=== PATIENT | male | born 1955 | race Caucasian/White ===

== ENCOUNTER 2018-05-30 11:00 | Outpatient (RCR) | payer BC, SELFPAY ==
[2018-05-12 10:53] VITALS: BP 126/80; PULSE 91; RESP 18; TEMP 36.9
--- NOTE | 2018-05-12 13:08 | PCM.WC.HP ---
(1) Venous ulcer of left leg Status: Acute Code(s): I83.029 - Varicose veins of left lower extremity with ulcer of unspecified site; L97.929 - Non-pressure chronic ulcer of unspecified part of left lower leg with unspecified severity Comment: With fat layer exposed. (2) Chronic acquired lymphedema Status: Chronic Code(s): I89.0 - Lymphedema, not elsewhere classified (3) Type 2 diabetes mellitus Status: Chronic Code(s): E11.9 - Type 2 diabetes mellitus without complications (4) Coronary artery disease Status: Chronic Code(s): I25.10 - Atherosclerotic heart disease of [place] coronary artery without angina pectoris History of Present Illness Date of Service: 05/12/18 Chief Complaint: Left lower extremity ulcer. Nonhealing. History of Wound: Mr. Evans is a 63-year-old with past medical history as stated above who presented to the wound center due to nonhealing left lower extremity ulcer. Reports a chronic history of bilateral lower extremity edema and states that he noted significant bleeding after a minor bump 2 - 3 weeks ago. He was seen by his primary care physician and started on antibiotics and has cleaned the wound with saline since then. There however has been no improvement. He denies any significant discharge/drainage from the wound. He also denies any feeling of unwell. He is unsure of his diabetes control. Past Medical History Past Medical History: Chronic Problems Chronic acquired lymphedema (Chronic) Type 2 diabetes mellitus (Chronic) Coronary artery disease (Chronic) Allergies/Adverse Reactions: Allergies No Known Allergies Allergy (Verified 02/17/17 12:36) Home Medications: Ambulatory Orders Medication Instructions Recorded Atorvastatin Calcium [Lipitor] 80 mg PO QHS 02/17/17 Clopidogrel Bisulfate [Clopidogrel] 75 mg PO DAILY 02/17/17 Ezetimibe [Zetia] 10 mg PO DAILY 02/17/17 Fluticasone 0.05% [Flonase Nasal 1 - 2 spray NASAL QHS 02/17/17 [place]] Furosemide [Lasix] 40 mg PO BID 02/17/17 Hydrocodone/Acetaminophen [[place] 1 each PO Q8H PRN PRN 02/17/17 5-325 Tablet] Magnesium Hydroxide [Milk of 15 ml PO DAILY PRN PRN 02/17/17 Magnesia] Metformin HCl [Glucophage] 500 mg PO BREAKFAST 02/17/17 Metoprolol Succinate [Toprol Xl] 50 mg PO DAILY 02/17/17 Nitroglycerin [Nitrostat] 0.4 mg SUBLINGUAL Q5M PRN 02/17/17 Polyethylene Glycol 3350 [Miralax] 17 gm PO DAILY 02/17/17 Potassium Chloride [K-Dur] 10 meq PO DAILY 02/17/17 Sennosides/Docusate Sodium 1 each PO DAILY 02/17/17 [Senna-Docusate Sodium Tablet] Tadalafil [Cialis] 10 mg PO PRN PRN 02/17/17 Valsartan/Hydrochlorothiazide 1 tablet PO BID 02/17/17 [Diovan Hct 160-12.5 mg Tab] Docusate Sodium [Colace] 100 mg PO DAILY #20 capsule 04/04/17 Hydrocodone Bitart/Apap 5-325 1 - 2 tablet PO Q4H PRN PRN #20 04/04/17 [[place] 5/325] tablet Furosemide [Lasix] 20 mg PO BID 05/12/18 Metoprolol Succinate [Toprol Xl] 100 mg PO DAILY 05/12/18 Pantoprazole Sodium [Protonix] 40 mg PO DAILY 05/12/18 Polymyxin B Sulf/Trimethoprim 10 ml OP 4X/DAY 05/12/18 [Polytrim Eye Drops] Spironolactone [Aldactone] 25 mg PO BID 05/12/18 Warfarin [Coumadin ([facility])] 12.5 mg PO DAILY 05/12/18 Smoking Status: Former smoker Review of Systems Constitutional: Denies: Anorexia, Chills, Fever Eyes: Denies: Pain, Redness HEENT: Denies: Difficulty Swallowing Cardiovascular: Denies: Chest Pain, Chest Pressure Respiratory: Denies: Cough, Hemoptysis Gastrointestinal: Denies: Abdominal Pain, Hematemesis, Vomiting Skin: Denies: Jaundice - Physical Exam Vital Signs Temp Pulse Resp BP 98.4 F 91 18 126/80 H 05/12/18 10:53 05/12/18 10:53 05/12/18 10:53 05/12/18 10:53 General: Alert, Oriented x3, Cooperative, No apparent distress HEENT: Atraumatic Oral: Moist Mucosa Neck: Supple Lungs: Normal air movement Cardiovascular: Regular rate, Regular Rhythm, Normal S1, Normal S2 Extremities: No cyanosis, Edema Skin: Ulcer/ Wound Wound Measurements and Assessment WC - Nurse 1 - General Ulcer Measurement Start: 05/12/18 10:29 Freq: Status: Active Protocol: Activity Type Activity Date Activity User E-Sign Co-Sign Detail Recorded Client Recorded Date Recorded By Document 05/12/18 10:53 CS [id number] 05/12/18 11:04 CS 05/12/18 10:53 Wound Center Nurse 1 [Ulcer Assessment] #1 LEFT LATERAL LE -Combined with other wound No -Current Size (cm) - Length 5.4 -Current Size (cm) - Width 7.1 -Current Size (cm) - Depth 0.1 -Total Square Cm 38.34 -Date of Last Picture (Recall this 05/12/18 field) -Photo Taken Yes -Epithelialization None Present -Tunneling No -Undermining/Tunneling No -Circular Undermining No -Exudate Amt Medium (34-66%) -Exudate Type Serosanguineous -Wound Margin Distinct, Outline Attached -Granulation Amt Medium (34-66%) -Granulation Quality Red -Slough/Fibrin Yes -Necrosis Amt None Present (0 %) -Necrotic Tissue Type Adherent Slough -Structure Exposed None/Limited to Skin Breakdown -Texture (Kami-wound Skin Appearance) Assessed -Moisture (Kami-wound Skin Appearance No Abnormality ) Assessed -Color (Kami-wound Skin Appearance) Erythema Hemosiderin Staining -Temperature (Kami-wound Skin No Abnormality Appearance) (Pt Warm) -Tenderness on Palpation (Kami-wound No Skin Appearance) -Ulcer Cleansing Rinsed/ Irrigated with Saline -Foul Odor after Cleansing No -Anesthetic Used 4% Lidocaine Solution [Edema Assessment] -Lower Limb Edema Present Yes -Right Calf (cm) 48 -Right Ankle (cm) 29.5 -Left Calf (cm) 49 -Left Ankle (cm) 31 WC - Nurse 2 - General Ulcer CM Notes Start: 05/12/18 10:29 Freq: Status: Active Protocol: Activity Type Activity Date Activity User E-Sign Co-Sign Detail Recorded Client Recorded Date Recorded By Document 05/12/18 11:15 MW [id number] 05/12/18 11:23 MW 05/12/18 11:15 Wound Center Nurse 2 [Procedure/Treatment] #1 LEFT LATERAL LE -Time 11:15 -Correct Patient Yes -Correct Side, Site, Position Yes -Correct Procedure Yes -Procedure Performed Yes -Type of Procedure Debridement -Clinical Debridement Subcutaneous -Post Debridement Size (cm) - Length 7.0 -Post Debridement Size (cm) - Width 7.0 -Post Debridement Size (cm) - Depth 0.1 -Total Square Cm 49.00 -Wound/Ulcer Outcome Not Healed -Ulcer Cleansing Rinsed/ Irrigated with Saline -Foul Odor after Cleansing No -Bioengineered Tissue No -Bleeding Controlled with Pressure -Offloading No -Treatment Response Procedure Tolerated Well [See Physician Procedure note for Specifics] Pain Scale: 0-10 Numeric [Pain] -Is Patient Pain Free? Yes Musculoskeletal: No Muscle Wasting Neurological: Cranial nerves II-XII grossly intact Psych/Mental Status: Normal Affect Debridement Note Post-Debridement Measurements/Treatment WC - Nurse 2 - General Ulcer CM Notes Start: 05/12/18 10:29 Freq: Status: Active Protocol: Activity Type Activity Date Activity User E-Sign Co-Sign Detail Recorded Client Recorded Date Recorded By Document 05/12/18 11:15 MW [id number] 05/12/18 11:23 MW 05/12/18 11:15 Wound Center Nurse 2 #1 LEFT LATERAL LE -Time 11:15 -Correct Patient Yes -Correct Side, Site, Position Yes -Correct Procedure Yes -Procedure Performed Yes -Type of Procedure Debridement -Clinical Debridement Subcutaneous -Post Debridement Size (cm) - Length 7.0 -Post Debridement Size (cm) - Width 7.0 -Post Debridement Size (cm) - Depth 0.1 -Total Square Cm 49.00 -Wound/Ulcer Outcome Not Healed -Ulcer Cleansing Rinsed/ Irrigated with Saline -Foul Odor after Cleansing No -Bioengineered Tissue No -Bleeding Controlled with Pressure -Offloading No -Treatment Response Procedure Tolerated Well Pain Scale: 0-10 Numeric Is Patient Pain Free? Yes Wound debrided: Left lower extremity Wound Grade/Stage: Stage II Type of Debridement: Excisional debridement Anesthesia Used: 4% Lidocaine Solution Depth: Down to and including healthy tissue, in the subcutaneous layer Percentage of wound debrided: 100 Instrument Used: 7mm curette Tissue Removed: Slough and devitalized tissue Severity: Fat Layer Exposed Amount of bleeding with debridement: Mild Bleeding Controlled with: Pressure Patient tolerated procedure well Assessment/Plan Assessment: Same as above. Plan: Debridement done as documented above. Procedure was well-tolerated. Severe/significant venous stasis and also concern for peripheral arterial disease so considering his history of coronary artery disease status post stent. Fibrocol with Adaptic over top. Change daily. Sure press for edema management. Prealbumin, venous and arterial studies ordered. Will request records from primary care physician. Increased protein intake recommended. Advised to elevate lower extremities when seated and in bed. Avoid idle standing or sitting. Exercise and weight loss also recommended. All his questions were answered and he was advised to call with any further questions or concerns. Follow-up in 1 week. This note was generated with [email or web address] dictation software. It may contain incorrect words, spelling, and punctuation that were not noted in checking the note before signing.
--- NOTE | 2018-05-12 13:12 | HP.PCM_ITS ---
(1) Venous ulcer of left leg Status: Acute Code(s): I83.029 - Varicose veins of left lower extremity with ulcer of unspecified site; L97.929 - Non-pressure chronic ulcer of unspecified part of left lower leg with unspecified severity Comment: With fat layer exposed. (2) Chronic acquired lymphedema Status: Chronic Code(s): I89.0 - Lymphedema, not elsewhere classified (3) Type 2 diabetes mellitus Status: Chronic Code(s): E11.9 - Type 2 diabetes mellitus without complications (4) Coronary artery disease Status: Chronic Code(s): I25.10 - Atherosclerotic heart disease of [place] coronary artery without angina pectoris History of Present Illness Date of Service: 05/12/18 Chief Complaint: Left lower extremity ulcer. Nonhealing. History of Wound: Mr. Evans is a 63-year-old with past medical history as stated above who presented to the wound center due to nonhealing left lower extremity ulcer. Reports a chronic history of bilateral lower extremity edema and states that he noted significant bleeding after a minor bump 2 - 3 weeks ago. He was seen by his primary care physician and started on antibiotics and has cleaned the wound with saline since then. There however has been no impro vement. He denies any significant discharge/drainage from the wound. He also denies any feeling of unwell. He is unsure of his diabetes control. Past Medical History Past Medical History: Chronic Problems Chronic acquired lymphedema (Chronic) Type 2 diabetes mellitus (Chronic) Coronary artery disease (Chronic) Allergies/Adverse Reactions: Allergies No Known Allergies Allergy (Verified 02/17/17 12:36) Home Medications: Ambulatory Orders Medication Instructions Recorded Atorvastatin Calcium [Lipitor] 80 mg PO QHS 02/17/17 Clopidogrel Bisulfate [Clopidogrel] 75 mg PO DAILY 02/17/17 Ezetimibe [Zetia] 10 mg PO DAILY 02/17/17 Fluticasone 0.05% [Flonase Nasal 1 - 2 spray NASAL QHS 02/17/17 [place]] Furosemide [Lasix] 40 mg PO BID 02/17/17 Hydrocodone/Acetaminophen [[place] 1 each PO Q8H PRN PRN 02/17/17 5-325 Tablet] Magnesium Hydroxide [Milk of 15 ml PO DAILY PRN PRN 02/17/17 Magnesia] Metformin HCl [Glucophage] 500 mg PO BREAKFAST 02/17/17 Metoprolol Succinate [Toprol Xl] 50 mg PO DAILY 02/17/17 Nitroglycerin [Nitrostat] 0.4 mg SUBLINGUAL Q5M PRN 02/17/17 Polyethylene Glycol 3350 [Miralax] 17 gm PO DAILY 02/17/17 Potassium Chloride [K-Dur] 10 meq PO DAILY 02/17/17 Sennosides/Docusate Sodium 1 each PO DAILY 02/17/17 [Senna-Docusate Sodium Tablet] Tadalafil [Cialis] 10 mg PO PRN PRN 02/17/17 Valsartan/Hydrochlorothiazide 1 tablet PO BID 02/17/17 [Diovan Hct 160-12.5 mg Tab] Docusate Sodium [Colace] 100 mg PO DAILY #20 capsule 04/04/17 Hydrocodone Bitart/Apap 5-325 1 - 2 tablet PO Q4H PRN PRN #20 04/04/17 [[place] 5/325] tablet Furosemide [Lasix] 20 mg PO BID 05/12/18 Metoprolol Succinate [Toprol Xl] 100 mg PO DAILY 05/12/18 Pantoprazole Sodium [Protonix] 40 mg PO DAILY 05/12/18 Polymyxin B Sulf/Trimethoprim 10 ml OP 4X/DAY 05/12/18 [Polytrim Eye Drops] Spironolactone [Aldactone] 25 mg PO BID 05/12/18 Warfarin [Coumadin ([facility])] 12.5 mg PO DAILY 05/12/18 Smoking Status: Former smoker Review of Systems Constitutional: Denies: Anorexia, Chills, Fever Eyes: Denies: Pain, Redness HEENT: Denies: Difficulty Swallowing Cardiovascular: Denies: Chest Pain, Chest Pressure Respiratory: Denies: Cough, Hemoptysis Gastrointestinal: Denies: Abdominal Pain, Hematemesis, Vomiting Skin: Denies: Jaundice - Physical Exam Vital Signs Temp Pulse Resp BP 98.4 F 91 18 126/80 H 05/12/18 10:53 05/12/18 10:53 05/12/18 10:53 05/12/18 10:53 General: Alert, Oriented x3, Cooperative, No apparent distress HEENT: Atraumatic Oral: Moist Mucosa Neck: Supple Lungs: Normal air movement Cardiovascular: Regular rate, Regular Rhythm, Normal S1, Normal S2 Extremities: No cyanosis, Edema Skin: Ulcer/ Wound Wound Measurements and Assessment WC - Nurse 1 - General Ulcer Measurement Start: 05/12/18 10:29 Freq: Status: Active Protocol: Activity Type Activity Date Activity User E-Sign Co-Sign Detail Recorded Client Recorded Date Recorded By Document 05/12/18 10:53 [id number] 05/12/18 11:04 CS 05/12/18 10:53 Wound Center Nurse 1 [Ulcer Assessment] #1 LEFT LATERAL LE -Combined with other wound No -Current Size (cm) - Length 5.4 -Current Size (cm) - Width 7.1 -Current Size (cm) - Depth 0.1 -Total Square Cm 38.34 -Date of Last Picture (Recall this 05/12/18 field) -Photo Taken Yes -Epithelialization None Present -Tunneling No -Undermining/Tunneling No -Circular Undermining No -Exudate Amt Medium (34-66%) -Exudate Type Serosanguineous -Wound Margin Distinct, Outline Attached -Granulation Amt Medium (34-66%) -Granulation Quality Red -Slough/Fibrin Yes -Necrosis Amt None Present (0 %) -Necrotic Tissue Type Adherent Slough -Structure Exposed None/Limited to Skin Breakdown -Texture (Kami-wound Skin Appearance) Assessed -Moisture (Kami-wound Skin Appearance No Abnormality ) Assessed -Color (Kami-wound Skin Appearance) Erythema Hemosiderin Staining -Temperature (Kami-wound Skin No Abnormality Appearance) (Pt Warm) -Tenderness on Palpation (Kami-wound No Skin Appearance) -Ulcer Cleansing Rinsed/ Irrigated with Saline -Foul Odor after Cleansing No -Anesthetic Used 4% Lidocaine Solution [Edema Assessment] -Lower Limb Edema Present Yes -Right Calf (cm) 48 -Right Ankle (cm) 29.5 -Left Calf (cm) 49 -Left Ankle (cm) 31 WC - Nurse 2 - General Ulcer CM Notes Start: 05/12/18 10:29 Freq: Status: Active Protocol: Activity Type Activity Date Activity User E-Sign Co-Sign Detail Recorded Client Recorded Date Recorded By Document 05/12/18 11:15 MW [id number] 05/12/18 11:23 MW 05/12/18 11:15 Wound Center Nurse 2 [Procedure/Treatment] #1 LEFT LATERAL LE -Time 11:15 -Correct Patient Yes -Correct Side, Site, Position Yes -Correct Procedure Yes -Procedure Performed Yes -Type of Procedure Debridement -Clinical Debridement Subcutaneous -Post Debridement Size (cm) - Length 7.0 -Post Debridement Size (cm) - Width 7.0 -Post Debridement Size (cm) - Depth 0.1 -Total Square Cm 49.00 -Wound/Ulcer Outcome Not Healed -Ulcer Cleansing Rinsed/ Irrigated with Saline -Foul Odor after Cleansing No -Bioengineered Tissue No -Bleeding Controlled with Pressure -Offloading No -Treatment Response Procedure Tolerated Well [See Physician Procedure note for Specifics] Pain Scale: 0-10 Numeric [Pain] -Is Patient Pain Free? Yes Musculoskeletal: No Muscle Wasting Neurological: Cranial nerves II-XII grossly intact Psych/Mental Status: Normal Affect Debridement Note Post-Debridement Measurements/Treatment WC - Nurse 2 - General Ulcer CM Notes Start: 05/12/18 10:29 Freq: Status: Active Protocol: Activity Type Activity Date Activity User E-Sign Co-Sign Detail Recorded Client Recorded Date Recorded By Document 05/12/18 11:15 MW [id number] 05/12/18 11:23 MW 05/12/18 11:15 Wound Center Nurse 2 #1 LEFT LATERAL LE -Time 11:15 -Correct Patient Yes -Correct Side, Site, Position Yes -Correct Procedure Yes -Procedure Performed Yes -Type of Procedure Debridement -Clinical Debridement Subcutaneous -Post Debridement Size (cm) - Length 7.0 -Post Debridement Size (cm) - Width 7.0 -Post Debridement Size (cm) - Depth 0.1 -Total Square Cm 49.00 -Wound/Ulcer Outcome Not Healed -Ulcer Cleansing Rinsed/ Irrigated with Saline -Foul Odor after Cleansing No -Bioengineered Tissue No -Bleeding Controlled with Pressure -Offloading No -Treatment Response Procedure Tolerated Well Pain Scale: 0-10 Numeric Is Patient Pain Free? Yes Wound debrided: Left lower extremity Wound Grade/Stage: Stage II Type of Debridement: Excisional debridement Anesthesia Used: 4% Lidocaine Solution Depth: Down to and including healthy tissue, in the subcutaneous layer Percentage of wound debrided: 100 Instrument Used: 7mm curette Tissue Removed: Slough and devitalized tissue Severity: Fat Layer Exposed Amount of bleeding with debridement: Mild Bleeding Controlled with: Pressure Patient tolerated procedure well Assessment/Plan Assessment: Same as above. Plan: Debridement done as documented above. Procedure was well-tolerated. Severe/significant venous stasis and also concern for peripheral arterial disease so considering his history of coronary artery disease status post stent. Fibrocol with Adaptic over top. Change daily. Sure press for edema management. Prealbumin, venous and arterial studies ordered. Will request records from primary care physician. Increased protein intake recommended. Advised to elevate lower extremities when seated and in bed. Avoid idle standing or sitting. Exercise and weight loss also recommended. All his questions were answered and he was advised to call with any further questions or concerns. Follow-up in 1 week. This note was generated with [employer] dictation software. It may contain incorrect words, spelling, and punctuation that were not noted in checking the note before signing.
[2018-05-12 16:19] LABS: Prealbumin 21.2 mg/dL (20.0-40.0)
[2018-05-19 10:09] VITALS: BP 141/85; PULSE 91; RESP 20; TEMP 36.9
--- NOTE | 2018-05-19 11:17 | PCM.WC.PN ---
(1) Venous ulcer of left leg Status: Acute Current Visit: Yes Code(s): I83.029 - Varicose veins of left lower extremity with ulcer of unspecified site; L97.929 - Non-pressure chronic ulcer of unspecified part of left lower leg with unspecified severity Comment: With fat layer exposed. (2) Chronic acquired lymphedema Status: Chronic Current Visit: Yes Code(s): I89.0 - Lymphedema, not elsewhere classified (3) Type 2 diabetes mellitus Status: Chronic Current Visit: Yes Code(s): E11.9 - Type 2 diabetes mellitus without complications (4) Coronary artery disease Status: Chronic Current Visit: Yes Code(s): I25.10 - Atherosclerotic heart disease of [place] coronary artery without angina pectoris Type of Wound Chief Complaint: Left lower extremity ulcer. Nonhealing. History of Wound: Mr. Evans is a 63-year-old with past medical history as stated above who presented to the wound center due to nonhealing left lower extremity ulcer. Reports a chronic history of bilateral lower extremity edema and states that he noted significant bleeding after a minor bump 2 - 3 weeks ago. He was seen by his primary care physician and started on antibiotics and has cleaned the wound with saline since then. There however has been no improvement. He denies any significant discharge/drainage from the wound. He also denies any feeling of unwell. He is unsure of his diabetes control. Progress of Wound: Stable. - Physical Exam Vital Signs Temp Pulse Resp BP 98.4 F 91 20 H 141/85 H 05/19/18 10:09 05/19/18 10:09 05/19/18 10:09 05/19/18 10:09 General: Alert, Oriented x3, Cooperative, No apparent distress HEENT: Atraumatic, Normocephalic Oral: Moist Mucosa Neck: Supple Lungs: Normal air movement Abdomen: Non Tender Extremities: No cyanosis, Edema Skin: Ulcer/ Wound Wound Measurements and Assessment WC - Nurse 1 - General Ulcer Measurement Start: 05/12/18 10:29 Freq: Status: Active Protocol: Activity Type Activity Date Activity User E-Sign Co-Sign Detail Recorded Client Recorded Date Recorded By Document 05/19/18 10:09 [id number] 05/19/18 10:14 05/19/18 10:09 Wound Center Nurse 1 [Ulcer Assessment] #1 LEFT LATERAL LE -Combined with other wound No -Current Size (cm) - Length 7.7 -Current Size (cm) - Width 7.4 -Current Size (cm) - Depth 0.1 -Total Square Cm 56.98 -Photo Taken No -Epithelialization None Present -Tunneling No -Undermining/Tunneling No -Circular Undermining No -Exudate Amt Medium (34-66%) -Exudate Type Serosanguineous -Wound Margin Distinct, Outline Attached -Granulation Amt Large (67-100%) -Granulation Quality Pale [place] -Slough/Fibrin Yes -Necrosis Amt None Present (0 %) -Necrotic Tissue Type Adherent Slough -Structure Exposed None/Limited to Skin Breakdown -Texture (Kami-wound Skin Appearance) No Abnormality Assessed -Moisture (Kami-wound Skin Appearance Dry/Scaly ) -Color (Kami-wound Skin Appearance) Hemosiderin Staining -Temperature (Kami-wound Skin No Abnormality Appearance) (Pt Warm) -Tenderness on Palpation (Kami-wound Yes Skin Appearance) -Ulcer Cleansing Rinsed/ Irrigated with Saline -Foul Odor after Cleansing No -Anesthetic Used 5% Lidocaine Gel [Edema Assessment] -Lower Limb Edema Present Yes -Left Calf (cm) 46.5 -Left Ankle (cm) 28 WC - Nurse 2 - General Ulcer CM Notes Start: 05/12/18 10:29 Freq: Status: Active Protocol: Activity Type Activity Date Activity User E-Sign Co-Sign Detail Recorded Client Recorded Date Recorded By Document 05/19/18 10:43 MW [id number] 05/19/18 10:48 MW 05/19/18 10:43 Wound Center Nurse 2 [Procedure/Treatment] #1 LEFT LATERAL LE -Time 10:44 -Correct Patient Yes -Correct Side, Site, Position Yes -Correct Procedure Yes -Procedure Performed Yes -Type of Procedure Debridement -Clinical Debridement Subcutaneous -Post Debridement Size (cm) - Length 6.5 -Post Debridement Size (cm) - Width 6.8 -Post Debridement Size (cm) - Depth 0.1 -Total Square Cm 44.20 -Wound/Ulcer Outcome Not Healed -Ulcer Cleansing Rinsed/ Irrigated with Saline -Foul Odor after Cleansing No -Bioengineered Tissue No -Bleeding Controlled with Pressure -Offloading No -Treatment Response Procedure Tolerated Well [See Physician Procedure note for Specifics] Pain Scale: 0-10 Numeric [Pain] -Is Patient Pain Free? Yes Musculoskeletal: No Muscle Wasting Neurological: Cranial nerves II-XII grossly intact Psych/Mental Status: Normal Affect Debridement Note Post-Debridement Measurements/Treatment WC - Nurse 2 - General Ulcer CM Notes Start: 05/12/18 10:29 Freq: Status: Active Protocol: Activity Type Activity Date Activity User E-Sign Co-Sign Detail Recorded Client Recorded Date Recorded By Document 05/12/18 11:15 MW [id number] 05/12/18 11:23 MW Document 05/19/18 10:43 MW [id number] 05/19/18 10:48 MW 05/12/18 05/19/18 11:15 10:43 Wound Center Nurse 2 #1 LEFT LATERAL LE -Time 11:15 10:44 -Correct Patient Yes Yes -Correct Side, Site, Position Yes Yes -Correct Procedure Yes Yes -Procedure Performed Yes Yes -Type of Procedure Debridement Debridement -Clinical Debridement Subcutaneous Subcutaneous -Post Debridement Size (cm) - Length 7.0 6.5 -Post Debridement Size (cm) - Width 7.0 6.8 -Post Debridement Size (cm) - Depth 0.1 0.1 -Total Square Cm 49.00 44.20 -Wound/Ulcer Outcome Not Healed Not Healed -Ulcer Cleansing Rinsed/ Rinsed/ Irrigated with Irrigated with Saline Saline -Foul Odor after Cleansing No No -Bioengineered Tissue No No -Bleeding Controlled with Pressure Pressure -Offloading No No -Treatment Response Procedure Procedure Tolerated Well Tolerated Well Pain Scale: 0-10 Numeric Is Patient Pain Free? Yes Yes Wound debrided: Left lower extremity Wound Grade/Stage: Stage II Type of Debridement: Excisional debridement Anesthesia Used: 4% Lidocaine Solution Depth: Down to and including healthy tissue, in the subcutaneous layer Percentage of wound debrided: 100 Instrument Used: 7mm curette Tissue Removed: Slough and dveitalized tissue Severity: Fat Layer Exposed Amount of bleeding with debridement: Mild Bleeding Controlled with: Pressure Patient tolerated procedure well Assessment/Plan Active Problems Chronic acquired lymphedema (Chronic) Venous ulcer of left leg (Acute) With fat layer exposed. Type 2 diabetes mellitus (Chronic) Coronary artery disease (Chronic) Assessment: Same as above. Plan: Mild improvement. Studies scheduled for tomorrow. Debridment done as documented above, procedure was well tolerated. Continue Fibrocol with adaptic over top. Change daily. Increased protein intake recommended. Advised to elevate lower extremities when seated and in bed. Avoid idle standing or sitting. Exercise and weight loss also recommended. All his questions were answered and he was advised to call with any further questions or concerns. Follow-up in 1 week. This note was generated with [employer] software. It may contain incorrect words, spelling, and punctuation that were not noted in checking the note before signing.
--- NOTE | 2018-05-19 11:22 | PN.PCM_ITS ---
(1) Venous ulcer of left leg Status: Acute Current Visit: Yes Code(s): I83.029 - Varicose veins of left lower extremity with ulcer of unspecified site; L97.929 - Non-pressure chronic ulcer of unspecified part of left lower leg with unspecified severity Comment: With fat layer exposed. (2) Chronic acquired lymphedema Status: Chronic Current Visit: Yes Code(s): I89.0 - Lymphedema, not elsewhere classified (3) Type 2 diabetes mellitus Status: Chronic Current Visit: Yes Code(s): E11.9 - Type 2 diabetes mellitus without complications (4) Coronary artery disease Status: Chronic Current Visit: Yes Code(s): I25.10 - Atherosclerotic heart disease of [place] coronary artery without angina pectoris Type of Wound Chief Complaint: Left lower extremity ulcer. Nonhealing. History of Wound: Mr. Evans is a 63-year-old with past medical history as stated above who presented to the wound center due to nonhealing left lower extremity ulcer. Reports a chronic history of bilateral lower extremity edema and states that he noted significant bleeding after a minor bump 2 - 3 weeks ago. He was seen by his primary care physician and started on antibiotics and has cleaned the wound with saline since then. There however has been no improvement. He denies any significant discharge/drainage from the wound. He also denies any feeling of unwell. He is unsure of his diabetes control. Progress of Wound: Stable. - Physical Exam Vital Signs Temp Pulse Resp BP 98.4 F 91 20 H 141/85 H 05/19/18 10:09 05/19/18 10:09 05/19/18 10:09 05/19/18 10:09 General: Alert, Oriented x3, Cooperative, No apparent distress HEENT: Atraumatic, Normocephalic Oral: Moist Mucosa Neck: Supple Lungs: Normal air movement Abdomen: Non Tender Extremities: No cyanosis, Edema Skin: Ulcer/ Wound Wound Measurements and Assessment WC - Nurse 1 - General Ulcer Measurement Start: 05/12/18 10:29 Freq: Status: Active Protocol: Activity Type Activity Date Activity User E-Sign Co-Sign Detail Recorded Client Recorded Date Recorded By Document 05/19/18 10:09 [id number] 05/19/18 10:14 05/19/18 10:09 Wound Center Nurse 1 [Ulcer Assessment] #1 LEFT LATERAL LE -Combined with other wound No -Current Size (cm) - Length 7.7 -Current Size (cm) - Width 7.4 -Current Size (cm) - Depth 0.1 -Total Square Cm 56.98 -Photo Taken No -Epithelialization None Present -Tunneling No -Undermining/Tunneling No -Circular Undermining No -Exudate Amt Medium (34-66%) -Exudate Type Serosanguineous -Wound Margin Distinct, Outline Attached -Granulation Amt Large (67-100%) -Granulation Quality Pale [place] -Slough/Fibrin Yes -Necrosis Amt None Present (0 %) -Necrotic Tissue Type Adherent Slough -Structure Exposed None/Limited to Skin Breakdown -Texture (Kami-wound Skin Appearance) No Abnormality Assessed -Moisture (Kami-wound Skin Appearance Dry/Scaly ) -Color (Kami-wound Skin Appearance) Hemosiderin Staining -Temperature (Kami-wound Skin No Abnormality Appearance) (Pt Warm) -Tenderness on Palpation (Kami-wound Yes Skin Appearance) -Ulcer Cleansing Rinsed/ Irrigated with Saline -Foul Odor after Cleansing No -Anesthetic Used 5% Lidocaine Gel [Edema Assessment] -Lower Limb Edema Present Yes -Left Calf (cm) 46.5 -Left Ankle (cm) 28 WC - Nurse 2 - General Ulcer CM Notes Start: 05/12/18 10:29 Freq: Status: Active Protocol: Activity Type Activity Date Activity User E-Sign Co-Sign Detail Recorded Client Recorded Date Recorded By Document 05/19/18 10:43 MW [id number] 05/19/18 10:48 MW 05/19/18 10:43 Wound Center Nurse 2 [Procedure/Treatment] #1 LEFT LATERAL LE -Time 10:44 -Correct Patient Yes -Correct Side, Site, Position Yes -Correct Procedure Yes -Procedure Performed Yes -Type of Procedure Debridement -Clinical Debridement Subcutaneous -Post Debridement Size (cm) - Length 6.5 -Post Debridement Size (cm) - Width 6.8 -Post Debridement Size (cm) - Depth 0.1 -Total Square Cm 44.20 -Wound/Ulcer Outcome Not Healed -Ulcer Cleansing Rinsed/ Irrigated with Saline -Foul Odor after Cleansing No -Bioengineered Tissue No -Bleeding Controlled with Pressure -Offloading No -Treatment Response Procedure Tolerated Well [See Physician Procedure note for Specifics] Pain Scale: 0-10 Numeric [Pain] -Is Patient Pain Free? Yes Musculoskeletal: No Muscle Wasting Neurological: Cranial nerves II-XII grossly intact Psych/Mental Status: Normal Affect Debridement Note Post-Debridement Measurements/Treatment WC - Nurse 2 - General Ulcer CM Notes Start: 05/12/18 10:29 Freq: Status: Active Protocol: Activity Type Activity Date Activity User E-Sign Co-Sign Detail Recorded Client Recorded Date Recorded By Document 05/12/18 11:15 MW [id number] 05/12/18 11:23 MW Document 05/19/18 10:43 MW [id number] 05/19/18 10:48 MW 05/12/18 05/19/18 11:15 10:43 Wound Center Nurse 2 #1 LEFT LATERAL LE -Time 11:15 10:44 -Correct Patient Yes Yes -Correct Side, Site, Position Yes Yes -Correct Procedure Yes Yes -Procedure Performed Yes Yes -Type of Procedure Debridement Debridement -Clinical Debridement Subcutaneous Subcutaneous -Post Debridement Size (cm) - Length 7.0 6.5 -Post Debridement Size (cm) - Width 7.0 6.8 -Post Debridement Size (cm) - Depth 0.1 0.1 -Total Square Cm 49.00 44.20 -Wound/Ulcer Outcome Not Healed Not Healed -Ulcer Cleansing Rinsed/ Rinsed/ Irrigated with Irrigated with Saline Saline -Foul Odor after Cleansing No No -Bioengineered Tissue No No -Bleeding Controlled with Pressure Pressure -Offloading No No -Treatment Response Procedure Procedure Tolerated Well Tolerated Well Pain Scale: 0-10 Numeric Is Patient Pain Free? Yes Yes Wound debrided: Left lower extremity Wound Grade/Stage: Stage II Type of Debridement: Excisional debridement Anesthesia Used: 4% Lidocaine Solution Depth: Down to and including healthy tissue, in the subcutaneous layer Percentage of wound debrided: 100 Instrument Used: 7mm curette Tissue Removed: Slough and dveitalized tissue Severity: Fat Layer Exposed Amount of bleeding with debridement: Mild Bleeding Controlled with: Pressure Patient tolerated procedure well Assessment/Plan Active Problems Chronic acquired lymphedema (Chronic) Venous ulcer of left leg (Acute) With fat layer exposed. Type 2 diabetes mellitus (Chronic) Coronary artery disease (Chronic) Assessment: Same as above. Plan: Mild improvement. Studies scheduled for tomorrow. Debridment done as documented above, procedure was well tolerated. Continue Fibrocol with adaptic over top. Change daily. Increased protein intake recommended. Advised to elevate lower extremities when seated and in bed. Avoid idle standing or sitt ing. Exercise and weight loss also recommended. All his questions were answered and he was advised to call with any further questions or concerns. Follow-up in 1 week. This note was generated with [employer] software. It may contain incorrect words, spelling, and punctuation that were not noted in checking the note before signing.
--- NOTE | 2018-05-20 08:53 | ART_ITS ---
Procedure A bilateral lower extremity continuous wave Doppler with analog waveform analysis,segmental pressures,and ankle brachial indexes without exercise. Left Segmental Pressures Left brachial= 136mmHg. Left posterior tibial artery = 192mmHg. Left dorsalis pedis artery = 190mmHg. Left digit = 165 mmHg. The left dorsalis pedis waveforms are triphasic. The left posterior tibial artery waveforms are triphasic. Right Segmental Pressures Right brachial= 146mmHg. Right posterior tibial artery = 195mmHg. Right dorsalis pedis artery = 193mmHg. Right digit = 171 mmHg. The right dorsalis pedis waveforms are triphasic. The right posterior tibial artery waveforms are triphasic. Indices The right ankle brachial index by the dorsalis pedis is 1.32. The right ankle brachial index by the posterior tibial artery is 1.34. The right digital-brachial index is 1.17. The left ankle brachial index by the dorsalis pedis is 1.30. The left ankle brachial index by the posterior tibial artery is 1.32. The left digital-brachial index is 1.13. Interpretation Summary Triphasic waveforms are noted at ankle level bilaterally. Resting ankle-brachial indices appear bilaterally normal. Resting digital-brachial indices appear bilaterally normal. There is no evidence of significant arterial occlusive disease. Ordering Physician: Brett Moore Referring Physician: CRYS ALVARADO MD Performed By: Atiya Cortez RDCS/RVT
--- NOTE | 2018-05-20 08:53 | VDLE_ITS ---
Reason For Study: Ulcer RIGHT LEFT CFV is compressible, spontaneous, phasic, GSV is normal. competent and demonstrates normal CFV is compressible, spontaneous, phasic, augmentation. competent, and demonstrates normal FV is compressible, spontaneous, phasic, augmentation. competent and demonstrates normal FV is compressible, spontaneous, phasic, augmentation. competent and demonstrates normal POP V is compressible, spontaneous, phasic, augmentation. competent and demonstrates normal POP V is compressible, spontaneous, phasic, augmentation. competent and demonstrates normal T/P Trunk is compressible. augmentation. PTV is compressible. T/P Trunk is compressible. Unable to visualize Rt PeroV due to swelling PTV is compressible. and patient body habitus Unable to visualize Lt PeroV due to swelling and patient body habitus Rt SFJ is Competent Lt SFJ is Competent Rt GSV is Incompetent with reflux greater than 0.5 sec and a diameter of 0.72cm x Lt GSV is Competent 0.74cm in the thigh and 0.41cm x 0.49cm in the calf Lt SSV is Competent. Rt SSV is Competent. Procedure Exam performed in department. A preliminary report was called and/or faxed to Wound Center. Interpretation Summary Deep veins of the lower extremities are bilaterally patent and compressible segmentally. There is no evidence of deep vein thrombosis on either side. Valvular competence appears intact within the proximal deep venous systems bilaterally. The greater saphenous veins appear bilaterally patent and compressible segmentally. The peroneal veins were not visualized on either side due to swelling and the patient's body habitus. Sapheno-femoral junctions are bilaterally competent . The right greater saphenous vein appears segmentally incompetent. The left greater saphenous vein appears segmentally competent. Small saphenous veins are patent and competent bilaterally. Ordering Physician: Brett Moore Referring Physician: Coy Mercado Performed By: Atiya Cortez, RDCS, RVT
[2018-05-26 10:22] VITALS: BP 123/84; PULSE 83; RESP 18; TEMP 35.7
--- NOTE | 2018-05-26 12:51 | PCM.WC.PN ---
(1) Venous ulcer of left leg Status: Acute Current Visit: Yes Code(s): I83.029 - Varicose veins of left lower extremity with ulcer of unspecified site; L97.929 - Non-pressure chronic ulcer of unspecified part of left lower leg with unspecified severity Comment: With fat layer exposed. (2) Chronic acquired lymphedema Status: Chronic Current Visit: Yes Code(s): I89.0 - Lymphedema, not elsewhere classified (3) Type 2 diabetes mellitus Status: Chronic Current Visit: Yes Code(s): E11.9 - Type 2 diabetes mellitus without complications (4) Coronary artery disease Status: Chronic Current Visit: Yes Code(s): I25.10 - Atherosclerotic heart disease of [place] coronary artery without angina pectoris Type of Wound Chief Complaint: Left lower extremity ulcer. Nonhealing. History of Wound: Mr. Evans is a 63-year-old with past medical history as stated above who presented to the wound center due to nonhealing left lower extremity ulcer. Reports a chronic history of bilateral lower extremity edema and states that he noted significant bleeding after a minor bump 2 - 3 weeks ago. He was seen by his primary care physician and started on antibiotics and has cleaned the wound with saline since then. There however has been no improvement. He denies any significant discharge/drainage from the wound. He also denies any feeling of unwell. He is unsure of his diabetes control. Progress of Wound: Stable. No new complaints at this time. - Physical Exam Vital Signs Temp Pulse Resp BP 96.2 F L 83 18 123/84 H 05/26/18 10:22 05/26/18 10:22 05/26/18 10:22 05/26/18 10:22 General: Alert, Oriented x3, No apparent distress HEENT: Atraumatic, Normocephalic Oral: Moist Mucosa Neck: Supple Lungs: Normal air movement Abdomen: Non Tender, Obese Extremities: No cyanosis, Edema Skin: Ulcer/ Wound Wound Measurements and Assessment WC - Nurse 1 - General Ulcer Measurement Start: 05/12/18 10:29 Freq: Status: Active Protocol: Activity Type Activity Date Activity User E-Sign Co-Sign Detail Recorded Client Recorded Date Recorded By Document 05/26/18 10:22 RB [id number] 05/26/18 10:25 RB 05/26/18 10:22 Wound Center Nurse 1 [Ulcer Assessment] #1 LEFT LATERAL LE -Combined with other wound No -Current Size (cm) - Length 6.5 -Current Size (cm) - Width 6.8 -Current Size (cm) - Depth 0.1 -Total Square Cm 44.20 -Photo Taken No -Tunneling No -Undermining/Tunneling No -Circular Undermining No -Exudate Amt Small (1-33%) -Exudate Type Serosanguineous -Wound Margin Distinct, Outline Attached -Granulation Amt Medium (34-66%) -Granulation Quality [place] -Slough/Fibrin Yes -Necrosis Amt Small (1-33%) -Necrotic Tissue Type Adherent Slough -Structure Exposed N/A -Texture (Kami-wound Skin Appearance) Assessed -Moisture (Kami-wound Skin Appearance Assessed ) -Color (Kami-wound Skin Appearance) Erythema -Temperature (Kami-wound Skin No Abnormality Appearance) (Pt Warm) -Tenderness on Palpation (Kami-wound No Skin Appearance) -Ulcer Cleansing Rinsed/ Irrigated with Saline -Foul Odor after Cleansing No -Anesthetic Used 5% Lidocaine Gel [Edema Assessment] -Lower Limb Edema Present Yes -Left Calf (cm) 48.2 -Left Ankle (cm) 28 WC - Nurse 2 - General Ulcer CM Notes Start: 05/12/18 10:29 Freq: Status: Active Protocol: Activity Type Activity Date Activity User E-Sign Co-Sign Detail Recorded Client Recorded Date Recorded By Document 05/26/18 10:44 MW [id number] 05/26/18 10:53 MW 05/26/18 10:44 Wound Center Nurse 2 [Procedure/Treatment] #1 LEFT LATERAL LE -Time 10:44 -Correct Patient Yes -Correct Side, Site, Position Yes -Correct Procedure Yes -Procedure Performed Yes -Type of Procedure Debridement -Clinical Debridement Subcutaneous -Post Debridement Size (cm) - Length 6.5 -Post Debridement Size (cm) - Width 7.0 -Post Debridement Size (cm) - Depth 0.1 -Total Square Cm 45.50 -Wound/Ulcer Outcome Not Healed -Ulcer Cleansing Rinsed/ Irrigated with Saline -Foul Odor after Cleansing No -Bioengineered Tissue No -Bleeding Controlled with Pressure -Offloading No -Treatment Response Procedure Tolerated Well [See Physician Procedure note for Specifics] Pain Scale: 0-10 Numeric [Pain] -Is Patient Pain Free? Yes Musculoskeletal: No Muscle Wasting Neurological: Cranial nerves II-XII grossly intact Psych/Mental Status: Normal Affect Debridement Note Post-Debridement Measurements/Treatment WC - Nurse 2 - General Ulcer CM Notes Start: 05/12/18 10:29 Freq: Status: Active Protocol: Activity Type Activity Date Activity User E-Sign Co-Sign Detail Recorded Client Recorded Date Recorded By Document 05/12/18 11:15 MW [id number] 05/12/18 11:23 MW Document 05/19/18 10:43 MW [id number] 05/19/18 10:48 MW Document 05/26/18 10:44 MW [id number] 05/26/18 10:53 MW 05/12/18 05/19/18 05/26/18 11:15 10:43 10:44 Wound Center Nurse 2 #1 LEFT LATERAL LE -Time 11:15 10:44 10:44 -Correct Patient Yes Yes Yes -Correct Side, Site, Position Yes Yes Yes -Correct Procedure Yes Yes Yes -Procedure Performed Yes Yes Yes -Type of Procedure Debridement Debridement Debridement -Clinical Debridement Subcutaneous Subcutaneous Subcutaneous -Post Debridement Size (cm) - Length 7.0 6.5 6.5 -Post Debridement Size (cm) - Width 7.0 6.8 7.0 -Post Debridement Size (cm) - Depth 0.1 0.1 0.1 -Total Square Cm 49.00 44.20 45.50 -Wound/Ulcer Outcome Not Healed Not Healed Not Healed -Ulcer Cleansing Rinsed/ Rinsed/ Rinsed/ Irrigated with Irrigated with Irrigated with Saline Saline Saline -Foul Odor after Cleansing No No No -Bioengineered Tissue No No No -Bleeding Controlled with Pressure Pressure Pressure -Offloading No No No -Treatment Response Procedure Procedure Procedure Tolerated Well Tolerated Well Tolerated Well Pain Scale: 0-10 Numeric Is Patient Pain Free? Yes Yes Yes Wound debrided: Left lower extremity Wound Grade/Stage: Stage II Type of Debridement: Excisional debridement Anesthesia Used: 4% Lidocaine Solution Depth: Down to and including healthy tissue, in the subcutaneous layer Percentage of wound debrided: 100 Instrument Used: 7mm curette Tissue Removed: Slough and devitalized tissue Severity: Fat Layer Exposed Amount of bleeding with debridement: Mild Bleeding Controlled with: Pressure Patient tolerated procedure well Assessment/Plan Active Problems Chronic acquired lymphedema (Chronic) Venous ulcer of left leg (Acute) With fat layer exposed. Type 2 diabetes mellitus (Chronic) Coronary artery disease (Chronic) Assessment: Same as above. Plan: No significant improvement in the past week. Appears to have more differential warmth. Swelling also worsened. Debridment done as documented above, procedure was well tolerated. Cultures taken. Will switch to [place] with Adaptic over top. 3M wraps for edema management. Follow-up on Wednesday for a nurse visit in on Wednesday for a courtesy visit with Adan Roy NP. Increased protein intake recommended. Advised to elevate lower extremities when seated and in bed. Avoid idle standing or sitting. Exercise and weight loss also recommended. All his questions were answered and he was advised to call with any further questions or concerns. Follow-up with me in 2 weeks. This note was generated with [employer] dictation software. It may contain incorrect words, spelling, and punctuation that were not noted in checking the note before signing.
--- NOTE | 2018-05-26 12:54 | PN.PCM_ITS ---
(1) Venous ulcer of left leg Status: Acute Current Visit: Yes Code(s): I83.029 - Varicose veins of left lower extremity with ulcer of unspecified site; L97.929 - Non-pressure chronic ulcer of unspecified part of left lower leg with unspecified severity Comment: With fat layer exposed. (2) Chronic acquired lymphedema Status: Chronic Current Visit: Yes Code(s): I89.0 - Lymphedema, not elsewhere classified (3) Type 2 diabetes mellitus Status: Chronic Current Visit: Yes Code(s): E11.9 - Type 2 diabetes mellitus without complications (4) Coronary artery disease Status: Chronic Current Visit: Yes Code(s): I25.10 - Atherosclerotic heart disease of [place] coronary artery without angina pectoris Type of Wound Chief Complaint: Left lower extremity ulcer. Nonhealing. History of Wound: Mr. Evans is a 63-year-old with past medical history as stated above who presented to the wound center due to nonhealing left lower extremity ulcer. Reports a chronic history of bilateral lower extremity edema and states that he noted significant bleeding after a minor bump 2 - 3 weeks ago. He was seen by his primary care physician and started on antibiotics and has cleaned the wound with saline since then. There however has been no improvement. He denies any significant discharge/drainage from the wound. He also denies any feeling of unwell. He is unsure of his diabetes control. Progress of Wound: Stable. No new complaints at this time. - Physical Exam Vital Signs Temp Pulse Resp BP 96.2 F L 83 18 123/84 H 05/26/18 10:22 05/26/18 10:22 05/26/18 10:22 05/26/18 10:22 General: Alert, Oriented x3, No apparent distress HEENT: Atraumatic, Normocephalic Oral: Moist Mucosa Neck: Supple Lungs: Normal air movement Abdomen: Non Tender, Obese Extremities: No cyanosis, Edema Skin: Ulcer/ Wound Wound Measurements and Assessment WC - Nurse 1 - General Ulcer Measurement Start: 05/12/18 10:29 Freq: Status: Active Protocol: Activity Type Activity Date Activity User E-Sign Co-Sign Detail Recorded Client Recorded Date Recorded By Document 05/26/18 10:22 RB [id number] 05/26/18 10:25 RB 05/26/18 10:22 Wound Center Nurse 1 [Ulcer Assessment] #1 LEFT LATERAL LE -Combined with other wound No -Current Size (cm) - Length 6.5 -Current Size (cm) - Width 6.8 -Current Size (cm) - Depth 0.1 -Total Square Cm 44.20 -Photo Taken No -Tunneling No -Undermining/Tunneling No -Circular Undermining No -Exudate Amt Small (1-33%) -Exudate Type Serosanguineous -Wound Margin Distinct, Outline Attached -Granulation Amt Medium (34-66%) -Granulation Quality [place] -Slough/Fibrin Yes -Necrosis Amt Small (1-33%) -Necrotic Tissue Type Adherent Slough -Structure Exposed N/A -Texture (Kami-wound Skin Appearance) Assessed -Moisture (Kami-wound Skin Appearance Assessed ) -Color (Kami-wound Skin Appearance) Erythema -Temperature (Kami-wound Skin No Abnormality Appearance) (Pt Warm) -Tenderness on Palpation (Kami-wound No Skin Appearance) -Ulcer Cleansing Rinsed/ Irrigated with Saline -Foul Odor after Cleansing No -Anesthetic Used 5% Lidocaine Gel [Edema Assessment] -Lower Limb Edema Present Yes -Left Calf (cm) 48.2 -Left Ankle (cm) 28 WC - Nurse 2 - General Ulcer CM Notes Start: 05/12/18 10:29 Freq: Status: Active Protocol: Activity Type Activity Date Activity User E-Sign Co-Sign Detail Recorded Client Recorded Date Recorded By Document 05/26/18 10:44 MW [id number] 05/26/18 10:53 MW 05/26/18 10:44 Wound Center Nurse 2 [Procedure/Treatment] #1 LEFT LATERAL LE -Time 10:44 -Correct Patient Yes -Correct Side, Site, Position Yes -Correct Procedure Yes -Procedure Performed Yes -Type of Procedure Debridement -Clinical Debridement Subcutaneous -Post Debridement Size (cm) - Length 6.5 -Post Debridement Size (cm) - Width 7.0 -Post Debridement Size (cm) - Depth 0.1 -Total Square Cm 45.50 -Wound/Ulcer Outcome Not Healed -Ulcer Cleansing Rinsed/ Irrigated with Saline -Foul Odor after Cleansing No -Bioengineered Tissue No -Bleeding Controlled with Pressure -Offloading No -Treatment Response Procedure Tolerated Well [See Physician Procedure note for Specifics] Pain Scale: 0-10 Numeric [Pain] -Is Patient Pain Free? Yes Musculoskeletal: No Muscle Wasting Neurological: Cranial nerves II-XII grossly intact Psych/Mental Status: Normal Affect Debridement Note Post-Debridement Measurements/Treatment WC - Nurse 2 - General Ulcer CM Notes Start: 05/12/18 10:29 Freq: Status: Active Protocol: Activity Type Activity Date Activity User E-Sign Co-Sign Detail Recorded Client Recorded Date Recorded By Document 05/12/18 11:15 MW [id number] 05/12/18 11:23 MW Document 05/19/18 10:43 MW [id number] 05/19/18 10:48 MW Document 05/26/18 10:44 MW [id number] 05/26/18 10:53 MW 05/12/18 05/19/18 05/26/18 11:15 10:43 10:44 Wound Center Nurse 2 #1 LEFT LATERAL LE -Time 11:15 10:44 10:44 -Correct Patient Yes Yes Yes -Correct Side, Site, Position Yes Yes Yes -Correct Procedure Yes Yes Yes -Procedure Performed Yes Yes Yes -Type of Procedure Debridement Debridement Debridement -Clinical Debridement Subcutaneous Subcutaneous Subcutaneous -Post Debridement Size (cm) - Length 7.0 6.5 6.5 -Post Debridement Size (cm) - Width 7.0 6.8 7.0 -Post Debridement Size (cm) - Depth 0.1 0.1 0.1 -Total Square Cm 49.00 44.20 45.50 -Wound/Ulcer Outcome Not Healed Not Healed Not Healed -Ulcer Cleansing Rinsed/ Rinsed/ Rinsed/ Irrigated with Irrigated with Irrigated with Saline Saline Saline -Foul Odor after Cleansing No No No -Bioengineered Tissue No No No -Bleeding Controlled with Pressure Pressure Pressure -Offloading No No No -Treatment Response Procedure Procedure Procedure Tolerated Well Tolerated Well Tolerated Well Pain Scale: 0-10 Numeric Is Patient Pain Free? Yes Yes Yes Wound debrided: Left lower extremity Wound Grade/Stage: Stage II Type of Debridement: Excisional debridement Anesthesia Used: 4% Lidocaine Solution Depth: Down to and including healthy tissue, in the subcutaneous layer Percentage of wound debrided: 100 Instrument Used: 7mm curette Tissue Removed: Slough and devitalized tissue Severity: Fat Layer Exposed Amount of bleeding with debridement: Mild Bleeding Controlled with: Pressure Patient tolerated procedure well Assessment/Plan Active Problems Chronic acquired lymphedema (Chronic) Venous ulcer of left leg (Acute) With fat layer exposed. Type 2 diabetes mellitus (Chronic) Coronary artery disease (Chronic) Assessment: Same as above. Plan: No significant improvement in the past week. Appears to have more differential warmth. Swelling also worsened. Debridment done as documented above, procedure was well tolerated. Cultures taken. Will switch to [place] with Adaptic over top. 3M wraps for edema management. Follow-up on Wednesday for a nurse visit in on Wednesday for a courtesy visit with Adan Roy NP. Increased protein intake recommended. Advised to elevate lower extremities when seated and in bed. Avoid idle standing or sitting. Exercise and weight loss also recommended. All his questions were answered and he was advised to call with any further questions or concerns. Follow-up with me in 2 weeks. This note was generated with [employer] dictation software. It may contain incorrect words, spelling, and punctuation that were not noted in checking the note before signing.
[2018-05-30 11:12] VITALS: BP 141/92; PULSE 97; RESP 16; TEMP 36.8
--- OUTSIDE RECORDS SUMMARY | 2018-06-28 04:13 | XMS RPT_ITS ---
:1955 Author Organization OHIP Care Team Providers Name Role Phone Carlos Moorebe Attending Unavailable Coy Mercado Primary Care Unavailable Oleghe, Efewongbe Attending Unavailable Coy Mercado Primary Care Unavailable Olemicaelae, Efewongbe Attending Unavailable Oleghe, Efewongbe Referring Unavailable Oleghe, Efewongbe Attending Unavailable Oleghe, Efewongbe Referring Unavailable Oleghe, Efewongbe Attending Unavailable Oleghe, Efewongbe Referring Unavailable ZEKE SAHNI Attending Unavailable COY MERCADO Referring Unavailable ZEKE SAHNI Attending Unavailable ZEKE SAHNI Referring Unavailable Era Recio Attending Unavailable No Doctor Assigned, Nodr Primary Care Unavailable Era Recio Admitting Unavailable Era Recio Attending Unavailable No Doctor Assigned, Nodr Primary Care Unavailable Era Recio Admitting Unavailable Era Recio Admitting Unavailable Era Recio Attending Unavailable No Doctor Assigned, Nodr Primary Care Unavailable Ej Egan Attending Unavailable No Doctor Assigned, Nodr Primary Care Unavailable EganEj duvall Admitting Unavailable Almita, Era Villa Attending Unavailable No Doctor Assigned, Nodr Primary Care Unavailable Farrier, Era L Admitting Unavailable Farrier, Era L Attending Unavailable No Doctor Assigned, Nodr Primary Care Unavailable Farrier, Era L Admitting Unavailable Farrier, Era L Attending Unavailable No Doctor Assigned, Nodr Primary Care Unavailable Coy Mercado Primary Care Unavailable Mina Smith Admitting Unavailable Mina Smith Attending Unavailable Coy Mercado Primary Care Unavailable Stephen, Sandor Bin Admitting Unavailable Stephen, Sandor Bin Attending Unavailable Janett Vaca Unavailable ZEKE SAHNI Attending Unavailable ZEKE SAHNI Referring Unavailable Rogelio CASAREZ, Coy Primary Care Unavailable ZEKE SAHNI Attending Unavailable Rogelio CASAREZ, Coy Referring Unavailable Rogelio CASAREZ, Coy Primary Care Unavailable ZEKE SAHNI Attending Unavailable ZEKE SAHNI Referring Unavailable Rogelio CASAREZ, Coy Primary Care Unavailable COY MERCADO Attending Unavailable COY MERCADO Referring Unavailable COY MERCADO Referring Unavailable ZEKE SAHNI Referring Unavailable COY MERCADO Attending Unavailable COY MERCADO Referring Unavailable COY MERCADO Referring Unavailable ROGELIO, COY Childress Referring Unavailable COY MERCADO Referring Unavailable COOPERRIDER II, ALCIRA Childress Attending Unavailable COY MERCADO Attending Unavailable COY MERCADO Referring Unavailable COY MERCADO Referring Unavailable ADAM ALVAREZ Attending Unavailable COOPERRIDER II, ALCIRA Childress Referring Unavailable COY MERCADO Referring Unavailable COY MERCADO Attending Unavailable ZEKE SAHNI Referring Unavailable COY MERCADO Referring Unavailable ZEKE SAHNI Attending Unavailable ZEKE SAHNI Referring Unavailable COY MERCADO Referring Unavailable COY MERCADO Referring Unavailable BEV SMART ([facility]) Referring Unavailable ROGELIO, COY Childress Referring Unavailable INES BATISTA ([facility]) Attending Unavailable COY MERCADO Referring Unavailable COY MERCADO Attending Unavailable ZEKE SAHNI Referring Unavailable COOPERRIDER II, ALCIRA Childress Attending Unavailable MERCADO, ANJEL Referring Unavailable MERCADO, ANJEL Referring Unavailable MERCADO, ANJEL Attending Unavailable MERCADO, ANJEL Referring Unavailable MERCADO, ANJEL Referring Unavailable OLDER, BEV ([employer]) Attending Unavailable MERCADO, ANJEL Referring Unavailable OLDER, BEV ([employer] FINAL INSPECTOR) Attending Unavailable MERCADO, ANJEL Referring Unavailable OLDER, BEV ([employer] FINAL INSPECTOR) Attending Unavailable OLDER, BEV ([employer]OR[employer] FINAL INSPECTOR) Referring Unavailable OLDER, BEV ([employer]OR[employer] FINAL INSPECTOR) Referring Unavailable OLDER, BEV ([employer]OR[employer] FINAL INSPECTOR) Referring Unavailable MERCADO, ANJEL Referring Unavailable MERCADO, ANJEL Referring Unavailable MERCADO, ANJEL Referring Unavailable BORA, ZEKE Izaguirre Referring Unavailable MERCADO, ANJEL Referring Unavailable MERCADO, ANJEL Attending Unavailable MERCADO, ANJEL Referring Unavailable BORA, ZEKE Izaguirre Attending Unavailable BORA, ZEKE E Referring Unavailable MERCADO, ANJEL Referring Unavailable OLDER, BEV ([employer] FINAL INSPECTOR) Attending Unavailable OLDER, BEV (M[employer]OR[employer] FINAL INSPECTOR) Attending Unavailable OLDER, BEV ([employer]OR[employer] FINAL INSPECTOR) Referring Unavailable MERCADO, ANJEL Referring Unavailable MERCADO, ANJEL Attending Unavailable MERCADO, ANJEL Referring Unavailable MERCADO, ANJEL Referring Unavailable OLDER, BEV ([employer]OR[employer] FINAL INSPECTOR) Attending Unavailable MERCADO, ANJEL Referring Unavailable OLDER, BEV (M[employer]OR[employer] FINAL INSPECTOR) Attending Unavailable OLDER, BEV ([employer]OR[employer] FINAL INSPECTOR) Referring Unavailable OLDER, BEV (M[employer]ORCY[employer] FINAL INSPECTOR) Referring Unavailable PROBLEMS PROBLEMS DATE TYPE CONDITION / CODE ATTENDING STATUS SOURCE 06/17/2018 Active Cellulitis of NA Active [place] unspecified part of Clinic Main limb / [place] L03.119(ICD-10) Repository 06/07/2018 Unknown L97.922 - Oleghe, Active [place] 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 Repository leg with fat layer exposed / L97.922(ICD-10) 06/07/2018 Unknown 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, 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 Hospital of unspecified site Repository / I83.029(ICD-10) 06/07/2018 Unknown E11.9 - Type 2 Oleghe, Active [place] diabetes mellitus [facility] without Hospital complications / Repository E11.9(ICD-10) 04/12/2018 Active Other patient safety sitter NA Active [place] (current) drug Clinic Main therapy / [place] Z79.899(ICD-10) Repository 05/26/2017 Active Constipation, NA Active [place] unspecified / Clinic Main K59.00(ICD-10) [place] Repository 02/25/2018 Active Left lower quadrant NA Active [place] pain / Clinic Main R10.32(ICD-10) [place] Repository 08/13/2017 Active Disorder of kidney NA Active [place] and ureter, Clinic Main unspecified / [place] N28.9(ICD-10) Repository 01/03/2018 Active Hypotension, NA Active [place] unspecified / Clinic Main I95.9(ICD-10) [place] Repository 11/12/2017 Active Unknown / NA Active [place] UNK(Unknown) Clinic Main [place] Repository 05/26/2017 Active Paroxysmal atrial NA Active [place] fibrillation / Clinic Main I48.0(ICD-10) [place] Repository 01/15/2016 Active Edema, unspecified / NA Active [place] R60.9(ICD-10) Clinic Main [place] Repository 10/20/2017 Active Type 2 diabetes NA Active [place] mellitus with Clinic Main diabetic neuropathy, [place] unspecified / Repository E11.40(ICD-10) 05/27/2017 Active Ischemic BORA, Active [place] cardiomyopathy / [facility] Other I25.5(ICD-10) [place] Repository 05/27/2017 Active Essential (primary) BORA, Active [place] hypertension / [facility] Other I10(ICD-10) [place] Repository 07/15/2017 Active Atherosclerotic BORA, 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 Repository 05/27/2017 Active Acute and chronic NA Active [place] respiratory failure Clinic Main with hypoxia / [place] J96.21(ICD-10) Repository 05/27/2017 Active Acute and chronic NA Active [place] respiratory failure Clinic Main with hypercapnia / [place] J96.22(ICD-10) Repository 05/27/2017 Active Acute and subacute NA Active [place] hepatic failure with Clinic Main coma / [place] K72.01(ICD-10) Repository PROCEDURES PROCEDURES No Procedure Records FoundRESULTS RESULTS GLUCOSE POC Collected: 06/22/2018 Status: F Source: [place] 11:29 AM [facility] REPOSITORY TYPE CODE TESTS RESULT OUT OF RANGE REFERENCE UNITS LAB 97111823(LO 70-99 mg/dL INC) Normal Glucose POC 83 Performed By: #### [id number] #### [facility] POC [address] [place] [address] GASES - BLOOD Collected: 06/22/2018 Status: F Source: [place] 7:56 AM [facility] REPOSITORY TYPE CODE TESTS RESULT OUT OF RANGE REFERENCE UNITS LAB 24310084(L OINC) Arterial Normal Sample Type. LAB 58123603(L 7.350-7.450 OINC) Low 7.321 pH. LAB 88290649(L 35.0-45.0 mmHg OINC) 44.8 Normal P CO2. LAB 33739037(L 80-100 mmHg OINC) Low 54 P O2. LAB 49977842(L 22-28 mmol/L OINC) 24 Normal CO2 Tot. LAB 09300569(L 22.0-26.0 mmol/L OINC) 23.1 Normal HCO#. LAB 08079629(L 95-100 % OINC) Low 85 O2 Sat. LAB 28411624(L -2-3 mmol/L OINC) Low -3 Base Excess. LAB 37350952(L % OINC) 40 Normal FiO2. LAB 44512903(L OINC) L rad Normal Sample Site. LAB 72774730(L OINC) NA Normal Allens Test. LAB 96174529(L OINC) Normal O2 Devices. Ventilator LAB 75943786(L OINC) AC Normal Vent Mode. LAB 23618428(L OINC) 18 Normal Set RR(b/min). LAB 81939537(L OINC) 5 Normal CPAP/PEEP(cmH 2O). LAB 16890478(L OINC) 500 Normal Tidal Volume(mL). LAB 53803499(L OINC) 0 Normal PSV/IP(cmH2O) . LAB 42399872(L DegC OINC) NOT Normal Patient Temp. CALCULATED LAB 59091125(L OINC) 9031328 Normal OPID. Performed By: #### [id number] #### [facility] POC [address] [place] [address] GLUCOSE POC Collected: 06/22/2018 Status: F Source: [place] 7:44 AM [facility] REPOSITORY TYPE CODE TESTS RESULT OUT OF RANGE REFERENCE UNITS LAB 51950512(LO 70-99 mg/dL INC) Normal Glucose POC 90 Performed By: #### [id number] #### [facility] POC Subsection [facility] [place] [address] XR CHEST AP PORTABLE Observed: 06/22/2018 Status: F Source: [place] 6:10 AM [facility] REPOSITORY Exam Date/Time: 06/22/2018 06:13 EST Reason for Exam: ET tube placement Report STUDY: XR Chest AP Portable; 06/22/2018 6:13 am INDICATION: ET tube placement. COMPARISON: 06/21/2018 ACCESSION NUMBER(S): [id number] ORDERING CLINICIAN: Sandor Mitchell FINDINGS: The tip of the endotracheal tube the toñito is 5 cm above the toñito. The tip of the enteric catheter is in the stomach with the side hole is at the gastroesophageal junction. CARDIOMEDIASTINAL SILHOUETTE: Mild cardiomegaly with mild pulmonary venous congestion. LUNGS: Left lower lobe airspace opacity, unchanged. ABDOMEN: No remarkable upper abdominal findings. BONES: Moderate degenerative changes of the thoracic spine. IMPRESSION: 1. The tip of the endotracheal tube is 5 cm above the toñito. 2. The side hole of the enteric catheter is at the gastroesophageal junction. 3. Mild cardiomegaly with mild pulmonary venous congestion. 4. Left lower lobe airspace opacity, unchanged. FINAL REPORT Dictated: 06/22/2018 9:20 am Lyssa Quiroz MD Signed (Electronic Signature): 06/22/2018 9:20 am Signed by: Lyssa Quiroz MD Technologist: SR, CBC W/ AUTO DIFF Collected: 06/22/2018 Status: F Source: [place] 6:08 AM [facility] REPOSITORY TYPE CODE TESTS RESULT OUT OF RANGE REFERENCE UNITS LAB [id number](L 3.6-11.0 E3/mcL OINC) Normal WBC 4.5 LAB 13105039(L 3.90-6.10 E6/mcL OINC) Low RBC 3.59 LAB 43417342(L 13.5-18.0 G/DL OINC) Low Hgb 10.4 LAB 26255169(L 42.0-52.0 % OINC) Low Hct 31.6 LAB 54130935(L 11.5-14.5 % OINC) High RDW 15.9 LAB 42656484(L 27.0-31.0 pg OINC) Normal MCH 29.1 LAB 70193340(L 33.0-37.0 G/DL OINC) Normal MCHC 33.0 LAB 80358803(L 78.0-100.0 fL OINC) Normal MCV 88.1 LAB 18901977(L 7.4-11.0 fL OINC) Normal MPV 8.1 LAB 39215165(L 130-400 E3/mcL OINC) Normal Platelet 215 Performed By: #### [id number] #### [facility] [place] [address] AUTO DIFF Collected: 06/22/2018 Status: F Source: [place] 6:08 AM [facility] REPOSITORY Order Comment: Order Added by Discern Expert. TYPE CODE TESTS RESULT OUT OF RANGE REFERENCE UNITS LAB [id number](L 37.0-75.0 % OINC) Normal Neutro Auto 64.9 LAB 73471309(L 20.0-55.0 % OINC) Normal Lymph Auto 21.5 LAB 52938446(L 0.0-10.0 % OINC) Normal [place] Auto 9.9 LAB 46521449(L 0.0-11.0 % OINC) Normal Eos Auto 2.9 LAB 75827048(L 0.0-2.0 % OINC) Normal Basophil Auto 0.8 LAB 41716254(L 1.4-6.5 E3/mcL OINC) Normal Neutro 2.9 Absolute LAB 89014864(L 1.2-3.4 E3/mcL OINC) Low Lymph Absolute 1.0 LAB 99735708(L 0.0-0.7 E3/mcL OINC) Normal [place] Absolute 0.4 LAB 49429553(L 0.0-0.7 E3/mcL OINC) Normal Eos Absolute 0.1 LAB 48769954(L 0.0-0.2 E3/mcL OINC) Normal Basophil 0.0 Absolute Performed By: #### [id number] #### [facility] [address] [place] [id number] BMP Collected: 06/22/2018 Status: F Source: [place] 6:08 [facility] REPOSITORY TYPE CODE TESTS RESULT OUT OF RANGE REFERENCE UNITS LAB 18821462(L 70-99 mg/dL OINC) Glucose Normal Lvl 98 LAB 96455258(L 6-23 mg/dL OINC) High BUN 47 LAB 1426820(LO 0.5-1.3 mg/dL INC) High Creatinine 1.8 LAB 21193082(L 5.4-30.0 ratio OINC) Normal BUN/Creat Ratio 26.1 LAB 95888619(L 8.6-10.3 mg/dL OINC) Low Calcium Lvl 7.9 LAB 12784677(L 136-145 mEq/L OINC) Sodium Normal Lvl 140 LAB 76837803(L 3.5-5.3 mEq/L OINC) Normal Potassium Lvl 4.0 LAB 12209490(L 98-107 mEq/L OINC) High Chloride 111 LAB 69205090(L 21.0-32.0 mEq/L OINC) CO2 Normal 24.0 LAB 38993490(L 10-20 mEq/L OINC) Low AGAP 9 Performed By: #### [id number] #### [facility] [address] [place] [address] EGFR Collected: 06/22/2018 Status: F Source: [place] 6:08 [facility] REPOSITORY Order Comment: Order added by Discern Expert. TYPE CODE TESTS RESULT OUT OF RANGE REFERENCE UNITS LAB 30486211(LO mL/min/1.73 INC) m2 Normal eGFR 39 LAB 00408871(LO mL/min/1.73 INC) m2 Normal eGFR AA 48 Performed By: #### [id number] #### [facility] [place] [address] PT Collected: 06/22/2018 Status: F Source: [place] 6:08 [facility] REPOSITORY TYPE CODE TESTS RESULT OUT OF RANGE REFERENCE UNITS LAB 96545850(LO 0.9-1.1 INC) High INR 2.3 Result Comment: INR Recommended Therapeutic ranges: Prophylaxis/treatment of DVT and PE..........2.0-3.0 Prevention of systemic embolism.................2.0-3.0 Mechanical prosthetic values........................2.5-3.5 CRITICAL VALUE.........................................> 4.0 NOTE: New methodology started 06/13/2018 LAB [id number](LOINC) 9.7-12.7 second(s) High PT 26.8 Result Comment: NOTE: New reference range established on 06/13/2018 due to change in methodology. Performed By: #### [id number] #### [facility] [address] [place] [address] HEPARIN ANTI-XA Collected: 06/22/2018 Status: F Source: [place] 6:08 AM [facility] REPOSITORY TYPE CODE TESTS RESULT OUT OF RANGE REFERENCE UNITS LAB 733158781(L .30-.70 Internation OINC) al_Unit/mL Normal Heparin .34 Anti-Xa Result Comment: IV therapeutic unfractionated heparin: 0.3 - 0.7 anti-Xa units per mL plasma. Prophylactic unfractionated heparin: 0.2-0.4 anti-Xa units per mL plasma. NOTE: If low molecular weight heparin monitoring is desired, testing must be sent to a reference lab. Performed By: #### [id number] #### [facility] [address] [place] [address] GLUCOSE POC Collected: 06/21/2018 Status: F Source: [place] 8:30 PM [facility] REPOSITORY TYPE CODE TESTS RESULT OUT OF RANGE REFERENCE UNITS LAB [id number](LO 70-99 mg/dL INC) Normal Glucose POC 82 Performed By: #### [id number] #### [facility] POC [address] [place] [address] GLUCOSE POC Collected: 06/21/2018 Status: F Source: [place] 4:10 PM [facility] REPOSITORY TYPE CODE TESTS RESULT OUT OF RANGE REFERENCE UNITS LAB 99810053(LO 70-99 mg/dL INC) Normal Glucose POC 86 Performed By: #### [id number] #### [facility] POC Subsection [facility] [place] [id number] TROPONIN-I Collected: 06/21/2018 Status: F Source: [place] 2:04 [facility] REPOSITORY TYPE CODE TESTS RESULT OUT OF RANGE REFERENCE UNITS LAB 03384970(LO .00-.03 ng/mL INC) Abnormal Alert 1.32 Troponin-I Result Comment: Critical Result (s) Called to and read back by: OPAL MENSAH at: 06/21/2018 14:28:38 by:JOLLY Performed By: #### [id number] #### [facility] [employer] [address] [place] [address] BNP. Collected: 06/21/2018 Status: F Source: [place] 2:[address] [place] [address] REPOSITORY TYPE CODE TESTS RESULT OUT OF RANGE REFERENCE UNITS LAB CD:[id number] <=500 pg/mL 67(LOINC) Normal BNP. 91 Result Comment: Notice: Effective 11/11/2016 the methodology for BNP testing has changed. BNP values less than or equal to 100 pg/mL is considered normal for patients without CHF.The decision threshold was determined by the 95% confidence limit of BNP concentration in the non-CHF population age 55 and older.It is recommended that a new baseline value be established using the new method if monitoring patient's BNP level. Performed By: #### [id number] #### [facility] [employer] [address] [place] [address] HEPARIN ANTI-XA Collected: 06/21/2018 Status: F Source: [place] 2:04 [facility] REPOSITORY TYPE CODE TESTS RESULT OUT OF RANGE REFERENCE UNITS LAB 586770874(L .30-.70 Internation OINC) al_Unit/mL Normal Heparin .38 Anti-Xa Result Comment: IV therapeutic unfractionated heparin: 0.3 - 0.7 anti-Xa units per mL plasma. Prophylactic unfractionated heparin: 0.2-0.4 anti-Xa units per mL plasma. NOTE: If low molecular weight heparin monitoring is desired, testing must be sent to a reference lab. Performed By: #### [id number] #### [facility] [address] [place], [place] [id number] PT Collected: 06/21/2018 Status: F Source: [place] 2:04 PM [facility] REPOSITORY TYPE CODE TESTS RESULT OUT OF RANGE REFERENCE UNITS LAB 71010184(LO 0.9-1.1 INC) High INR 1.9 Result Comment: INR Recommended Therapeutic ranges: Prophylaxis/treatment of DVT and PE..........2.0-3.0 Prevention of systemic embolism.................2.0-3.0 Mechanical prosthetic values........................2.5-3.5 CRITICAL VALUE.........................................> 4.0 NOTE: New methodology started 06/13/2018 LAB [id number](LOINC) 9.7-12.7 second(s) High PT 22.3 Result Comment: NOTE: New reference range established on 06/13/2018 due to change in methodology. Performed By: #### [id number] #### [facility] [address] [place] [address] GLUCOSE POC Collected: 06/21/2018 Status: F Source: [place] 11:19 AM [facility] REPOSITORY TYPE CODE TESTS RESULT OUT OF RANGE REFERENCE UNITS LAB [id number](LO 70-99 mg/dL INC) Normal Glucose POC 87 Performed By: #### [id number] #### [facility] POC [address] [place] [address] CT HEAD OR BRAIN W/O Observed: 06/21/2018 Status: F Source: [place] CONTRAST 10:45 AM [facility] REPOSITORY Exam Date/Time: 06/21/2018 10:58 EST Reason for Exam: Change in neuro exam;Other (please specify) Report STUDY: CT Head or Brain w/o Contrast; 06/21/2018 10:58 am INDICATION: Slurred speech yesterday, weakness COMPARISON: 1:54 a.m. the same day ACCESSION NUMBER(S): [id number] ORDERING CLINICIAN: Gama Stewart TECHNIQUE: Unenhanced CT images of the head were obtained. FINDINGS: Patient is rotated. INTRACRANIAL: Ventricles, basal cisterns and cerebral sulci within normal limits. Poole-white differentiation is intact. There is no acute intracranial hemorrhage, mass effect or midline shift. No extraaxial fluid collection. No focal calvarial lesion. EXTRACRANIAL: Mild bilateral ethmoid sinus mucosal thickening. Partially included support devices in the oropharynx. IMPRESSION: No acute intracranial hemorrhage or mass-effect. FINAL REPORT Dictated: 06/21/2018 11:02 am Jackie Sanders MD Signed (Electronic Signature): 06/21/2018 11:02 am Signed by: Jackie Sanders MD Technologist: NARAYAN GASES - BLOOD Collected: 06/21/2018 Status: F Source: [place] 9:58 AM [facility] REPOSITORY TYPE CODE TESTS RESULT OUT OF RANGE REFERENCE UNITS LAB [id number](L OINC) Arterial Normal Sample Type. LAB 23565448(L 7.350-7.450 OINC) Low 7.223 pH. LAB 04497911(L 35.0-45.0 mmHg OINC) High 58.5 P CO2. LAB 18756620(L 80-100 mmHg OINC) Low 64 P O2. LAB 51722120(L 22-28 mmol/L OINC) 26 Normal CO2 Tot. LAB 15038667(L 22.0-26.0 mmol/L OINC) 24.1 Normal HCO#. LAB 94116311(L 95-100 % OINC) Low 87 O2 Sat. LAB 02766354(L -2-3 mmol/L OINC) Low -4 Base Excess. LAB 72433610(L % OINC) 40 Normal FiO2. LAB 41144661(L OINC) R rad Normal Sample Site. LAB 56307291(L OINC) Neg Normal Allens Test. LAB 06458463(L OINC) Normal O2 Devices. Ventilator LAB 28417974(L OINC) AC Normal Vent Mode. LAB 74925650(L OINC) 16 Normal Set RR(b/min). LAB 91112903(L OINC) 5 Normal CPAP/PEEP(cmH 2O). LAB 97856004(L OINC) 500 Normal Tidal Volume(mL). LAB 06962307(L OINC) NOT Normal PSV/IP(cmH2O) CALCULATED . LAB 80385430(L DegC OINC) NOT Normal Patient Temp. CALCULATED LAB 13767041(L OINC) 1319533 Normal OPID. Performed By: #### [id number] #### [facility] POC [address]section [address] [place], [place] [address] TROPONIN-I Collected: 06/21/2018 Status: F Source: [place] [address]:58 [facility] REPOSITORY TYPE CODE TESTS RESULT OUT OF RANGE REFERENCE UNITS LAB 25721057(LO .00-.03 ng/mL INC) Abnormal Alert 2.20 Troponin-I Result Comment: Critical Result (s) Called to and read back by: J CARLOS BENTON at: 06/21/2018 07:31:51 by:JOLLY Performed By: #### [id number] #### [facility] [employer] [address] [place] [address] TSH Collected: 06/21/2018 Status: F Source: [place] [address]:58 [facility] REPOSITORY TYPE CODE TESTS RESULT OUT OF RANGE REFERENCE UNITS LAB 63710830(LO 0.30-5.60 mcIU/mL INC) Normal TSH 0.51 Performed By: #### [id number] #### [facility] [employer] [address] [place] [address] HEPARIN ANTI-XA Collected: 06/21/2018 Status: F Source: [place] [address]:[address] [place] [address] REPOSITORY TYPE CODE TESTS RESULT OUT OF RANGE REFERENCE UNITS LAB 878505942(L .30-.70 Internation OINC) al_Unit/mL Normal Heparin .37 Anti-Xa Result Comment: IV therapeutic unfractionated heparin: 0.3 - 0.7 anti-Xa units per mL plasma. Prophylactic unfractionated heparin: 0.2-0.4 anti-Xa units per mL plasma. NOTE: If low molecular weight heparin monitoring is desired, testing must be sent to a reference lab. Performed By: #### [id number] #### [facility] [address] [place] [address] HGBA1C Collected: 06/21/2018 Status: F Source: [place] [address]:58 [facility] REPOSITORY TYPE CODE TESTS RESULT OUT OF REFERENCE UNITS RANGE LAB 892883583( 4.0-6.3 % LOINC) High Hemoglobin A1c 7.2 Performed By: #### [id number] #### [facility] Chemistry Manual Subsection [facility] [place] [address] XR CHEST AP PORTABLE Observed: 06/21/2018 Status: F Source: [place] 2:58 AM [facility] REPOSITORY Exam Date/Time: 06/21/2018 03:02 EST Reason for Exam: ET tube placement Report STUDY: XR Chest AP Portable; 06/21/2018 3:02 am INDICATION: ET tube placement. COMPARISON: None. ACCESSION NUMBER(S): [id number] ORDERING CLINICIAN: Nazario Melchor FINDINGS: Supine limited chest radiograph and AP view of the upper abdomen, for tube placement. Endotracheal tube with its tip, with its tip, 2.1 cm proximal to the toñito. Nasogastric tube, with its tip, in the proximal stomach. Low lung volume. Bibasilar lower lobe infiltrate left greater than right. Bilateral small pleural effusion, no pneumothorax. No osseous abnormality. IMPRESSION: Low lung volume. Endotracheal tube tip is 2.1 cm proximal to the toñito. Bilateral lower lobe airspace opacities with small effusion. No pneumothorax. FINAL REPORT Dictated: 06/21/2018 3:19 am Kimo Jordan MD Signed (Electronic Signature): 06/21/2018 3:19 am Signed by: Kimo Jordan MD Technologist: , GASES - BLOOD Collected: 06/21/2018 Status: F Source: [place] 2:10 AM [facility] REPOSITORY TYPE CODE TESTS RESULT OUT OF RANGE REFERENCE UNITS LAB 29463973(L OINC) Normal Sample Arterial Type. LAB 68731162(L 7.350-7.450 OINC) Low pH. 7.138 Result Comment: Critical values reported to caregiver. LAB 63986824(LOINC) 35.0-45.0 mmHg High P CO2. 78.1 LAB 44381659(LOINC) 80-100 mmHg 78 Low P O2. LAB 79359227(LOINC) 22-28 mmol/L 29 High CO2 Tot. LAB 22979656(LOINC) 22.0-26.0 mmol/L High HCO#. 26.5 LAB 94693315(LOINC) 95-100 % 90 Low O2 Sat. LAB 48512783(LOINC) -2-3 mmol/L -3 Low Base Excess. LAB 27368232(LOINC) % 40 Normal FiO2. LAB 77645758(LOINC) L Normal Sample rad Site. LAB 68155479(LOINC) NA Normal Allens Test. LAB 56930610(LOINC) Normal O2 Nasal CPAP Devices. LAB 69220050(LOINC) Normal Vent NOT CALCULATED Mode. LAB 18787919(LOINC) 8 Normal Set RR(b/min). LAB 41794366(LOINC) Normal NOT CALCULATED CPAP/PEEP(cm H2O). LAB 85540623(LOINC) Normal Tidal NOT CALCULATED Volume(mL). LAB 23563690(LOINC) Normal NOT CALCULATED PSV/IP(cmH2O ). LAB 08141208(LOINC) DegC Normal Patient NOT CALCULATED Temp. LAB 18811903(LOINC) Normal OPID. [id number] Performed By: #### [id number] #### LUKE POC Subsection [address] [place] [address] CT HEAD OR BRAIN W/O Observed: 06/21/2018 Status: F Source: [place] CONTRAST 1:50 AM [facility] REPOSITORY Exam Date/Time: 06/21/2018 02:06 EST Reason for Exam: Altered mental status Report STUDY: CT Head or Brain w/o Contrast; 06/21/2018 2:06 am INDICATION: Altered mental status. COMPARISON: 05/26/2017 ACCESSION NUMBER(S): [id number] ORDERING CLINICIAN: Nazario Melchor TECHNIQUE: Contiguous axial images of the head were obtained without intravenous contrast. FINDINGS: The examination is limited secondary to patient motion. BRAIN PARENCHYMA:There is mild cerebral atrophy and chronic periventricular white matter small vessel ischemic change. The poole white matter differentiation is preserved. No mass effect or midline shift. HEMORRHAGE: No evidence of acute intracranial hemorrhage. VENTRICLES AND EXTRA-AXIAL SPACES:The ventricles are within normal limits in size for brain volume. No evidence of abnormal extraaxial fluid collection. EXTRACRANIAL SOFT TISSUES:Within normal limits. PARANASAL SINUSES/MASTOIDS:The visualized paranasal sinuses and mastoid air cells are clear and well pneumatized. CALVARIUM:No evidence of depressed calvarial fracture. OTHER FINDINGS:Stable mild chronic deformity of the floor of the left orbit. IMPRESSION: No evidence of acute intracranial hemorrhage or mass effect. FINAL REPORT Dictated: 06/21/2018 2:09 am Dominick Sommers MD Signed (Electronic Signature): 06/21/2018 2:09 am Signed by: Dominick Sommers MD Technologist: SELENA CBC W/ AUTO DIFF Collected: 06/20/2018 Status: F Source: [place] 11:40 PM [facility] REPOSITORY TYPE CODE TESTS RESULT OUT OF RANGE REFERENCE UNITS LAB 52300018(L 3.6-11.0 E3/mcL OINC) Normal WBC 5.7 LAB 75219946(L 3.90-6.10 E6/mcL OINC) Normal RBC 3.96 LAB 03735024(L 13.5-18.0 G/DL OINC) Low Hgb 11.6 LAB 05702686(L 42.0-52.0 % OINC) Low Hct 35.6 LAB 18703230(L 11.5-14.5 % OINC) High RDW 15.9 LAB 44587889(L 27.0-31.0 pg OINC) Normal MCH 29.3 LAB 48344240(L 33.0-37.0 G/DL OINC) Low MCHC 32.5 LAB 28981027(L 78.0-100.0 fL OINC) Normal MCV 90.0 LAB 27021961(L 7.4-11.0 fL OINC) Normal MPV 8.0 LAB 57348994(L 130-400 E3/mcL OINC) Normal Platelet 242 Performed By: #### [id number] #### LUKE [employer] [address] [place] [address] AUTO DIFF Collected: 06/20/2018 Status: F Source: [place] 11:40 [facility] REPOSITORY Order Comment: Order Added by Discern Expert. TYPE CODE TESTS RESULT OUT OF RANGE REFERENCE UNITS LAB 96553342(L 37.0-75.0 % OINC) Normal Neutro Auto 68.0 LAB 73273814(L 20.0-55.0 % OINC) Low Lymph Auto 16.7 LAB 20230153(L 0.0-10.0 % OINC) High [place] Auto 11.2 LAB 17778418(L 0.0-11.0 % OINC) Normal Eos Auto 3.0 LAB 24090646(L 0.0-2.0 % OINC) Normal Basophil Auto 1.1 LAB 54820402(L 1.4-6.5 E3/mcL OINC) Normal Neutro 3.9 Absolute LAB 46901234(L 1.2-3.4 E3/mcL OINC) Low Lymph Absolute 1.0 LAB 70667395(L 0.0-0.7 E3/mcL OINC) Normal [place] Absolute 0.6 LAB 13981491(L 0.0-0.7 E3/mcL OINC) Normal Eos Absolute 0.2 LAB 74082298(L 0.0-0.2 E3/mcL OINC) Normal Basophil 0.1 Absolute Performed By: #### [id number] #### LUKE [facility] [place] [address] TROPONIN-I Collected: 06/20/2018 Status: F Source: [place] 11:40 PM [facility] REPOSITORY TYPE CODE TESTS RESULT OUT OF RANGE REFERENCE UNITS LAB 51184554(LO .00-.03 ng/mL INC) Abnormal Alert 2.70 Troponin-I Result Comment: Critical Result (s) Called to and read back by: FRANC GUADALUPE at: 06/21/2018 00:09:40 by:NIK Performed By: #### [id number] #### LUKE [employer] [address] [place] [address] CMP Collected: 06/20/2018 Status: F Source: [place] 11:40 [facility] REPOSITORY TYPE CODE TESTS RESULT OUT OF RANGE REFERENCE UNITS LAB 80922545(L 70-99 mg/dL OINC) Glucose Normal Lvl 97 LAB 91187075(L 6-23 mg/dL OINC) High BUN 69 LAB 2681784(LO 0.5-1.3 mg/dL INC) High Creatinine 3.4 LAB 96179449(L 8.6-10.3 mg/dL OINC) Calcium Normal Lvl 8.6 LAB 97163826(L 136-145 mEq/L OINC) Sodium Normal Lvl 138 LAB 26493148(L 3.5-5.3 mEq/L OINC) Normal Potassium Lvl 4.8 LAB 35703146(L 98-107 mEq/L OINC) Chloride Normal 102 LAB 39311768(L 21.0-32.0 mEq/L OINC) CO2 Normal 28.0 LAB 25715369(L 33-136 Int._Unit/ OINC) L Alk Phos Normal 88 LAB 33181879(L 0.00-1.20 mg/dL OINC) Bili Normal Total 0.31 LAB 92742227(L 3.4-5.0 gm/dL OINC) Albumin Normal Lvl 3.7 LAB 30068728(L 6.4-8.2 gm/dL OINC) Total Normal Protein 7.2 LAB 51292136(L 10-52 Int._Unit/ OINC) High L ALT 85 LAB 06125605(L 9-39 Int._Unit/ OINC) High L AST 152 LAB 19658567(L 5.4-30.0 ratio OINC) Normal BUN/Creat Ratio 20.3 LAB 56543649(L 10-20 mEq/L OINC) AGAP Normal 13 LAB 72682518(L 2.0-4.0 G/DL OINC) Globulin Normal 4.0 LAB 17642489(L 1.1-1.9 ratio OINC) A/G Normal Ratio 1.1 Performed By: #### [id number] #### LU[facility] [employer] [address] [place] [address] EGFR Collected: 06/20/2018 Status: F Source: [place] 11:40 [facility] REPOSITORY Order Comment: Order added by Discern Expert. TYPE CODE TESTS RESULT OUT OF RANGE REFERENCE UNITS LAB 48859793(LO mL/min/1.73 INC) m2 Normal eGFR 19 LAB 16868004(LO mL/min/1.73 INC) m2 Normal eGFR AA 22 Performed By: #### [id number] #### LUKE [employer] [address] [place] [id number] MAGNESIUM Collected: 06/20/2018 Status: F Source: [place] 11:40 [facility] REPOSITORY TYPE CODE TESTS RESULT OUT OF REFERENCE UNITS RANGE LAB 20964557(L 1.6-2.4 mg/dL OINC) High Magnesium 2.8 Performed By: #### [id number] #### [facility] [employer] [address] [place] [id number] LACTIC ACID Collected: 06/20/2018 Status: F Source: [place] 11:40 [facility] REPOSITORY TYPE CODE TESTS RESULT OUT OF RANGE REFERENCE UNITS LAB 63439220(LO 0.4-2.0 mmol/L INC) Normal Lactic Acid 1.5 Lvl Performed By: #### [id number] #### [facility] [employer] [address] [place] [address] CKMB Collected: 06/20/2018 Status: F Source: [place] 11:40 [facility] REPOSITORY TYPE CODE TESTS RESULT OUT OF RANGE REFERENCE UNITS LAB 76033514(LO 0.0-5.0 ng/mL INC) Abnormal Alert CK MB 20.9 Result Comment: Critical Result (s) Called to and read back by: ALEX DIAMOND at: 06/21/2018 00:22:44 by:NIK Performed By: #### [id number] #### [facility] [employer] [address] [place] [address] PTT Collected: 06/20/2018 Status: F Source: [place] 11:40 [facility] REPOSITORY TYPE CODE TESTS RESULT OUT OF RANGE REFERENCE UNITS LAB 36950252(LO 28-38 second(s) INC) Normal PTT 36 Result Comment: NOTE:New reference range established 06/13/2018 due to change in methodology. Performed By: #### [id number] #### [facility] [place] [address] PT Collected: 06/20/2018 Status: F Source: [place] 11:40 [facility] REPOSITORY TYPE CODE TESTS RESULT OUT OF RANGE REFERENCE UNITS LAB 74359108(LO 0.9-1.1 INC) High INR 1.5 Result Comment: INR Recommended Therapeutic ranges: Prophylaxis/treatment of DVT and PE..........2.0-3.0 Prevention of systemic embolism.................2.0-3.0 Mechanical prosthetic values........................2.5-3.5 CRITICAL VALUE.........................................> 4.0 NOTE: New methodology started 06/13/2018 LAB 63700226(LOINC) 9.7-12.7 second(s) High PT 17.4 Result Comment: NOTE: New reference range established on 06/13/2018 due to change in methodology. Performed By: #### [id number] #### LUKE [employer] [address] [place] [address] Observed: 06/20/2018 Status: P Source: MUS[place] C BLOOD 11:40 PM [facility] REPOSITORY Preliminary Report: No growth at 1 Days Performed By: #### [id number] #### LUKE [employer] Automated Subsection [address] [place] [address] XR CHEST AP PORTABLE Observed: 06/20/2018 Status: F Source: [place] 11:05 PM [facility] REPOSITORY Exam Date/Time: 06/20/2018 23:06 EST Reason for Exam: COPD Report STUDY: XR Chest AP Portable; 06/20/2018 11:06 pm INDICATION: COPD. COMPARISON: 07/18/2015 ACCESSION NUMBER(S): [id number] ORDERING CLINICIAN: Nazario Melchor FINDINGS: Low inspiratory lung volumes. Heart size normal. The pulmonary veins are not cephalized. Subtle basilar airspace disease bilaterally. Right hemidiaphragmatic elevation. Negative for pneumothorax. Potential small right-sided effusion. Minor skeletal degenerative change. IMPRESSION: 1. Bibasilar airspace disease suspicious for early pneumonia. FINAL REPORT Dictated: 06/20/2018 11:21 pm Adan Hunter MD Signed (Electronic Signature): 06/20/2018 11:21 pm Signed by: Adan Hunter MD Technologist: SR GASES - BLOOD Collected: 06/20/2018 Status: F Source: [place] 10:49 PM [facility] REPOSITORY TYPE CODE TESTS RESULT OUT OF RANGE REFERENCE UNITS LAB 80108349(L OINC) Normal Sample Arterial Type. LAB 98156670(L 7.350-7.450 OINC) Low pH. 7.148 Result Comment: Critical values reported to caregiver. LAB 50254705(LOINC) 35.0-45.0 mmHg High P CO2. 80.3 LAB 01910348(LOINC) 80-100 mmHg 79 Low P O2. LAB 53322695(LOINC) 22-28 mmol/L 30 High CO2 Tot. LAB 88382728(LOINC) 22.0-26.0 mmol/L High HCO#. 27.9 LAB 57532964(LOINC) 95-100 % 90 Low O2 Sat. LAB 57911167(LOINC) -2-3 mmol/L -1 Normal Base Excess. LAB 90448507(LOINC) % 36 Normal FiO2. LAB 45940286(LOINC) L Normal Sample rad Site. LAB 67814228(LOINC) NA Normal Allens Test. LAB 20793107(LOINC) Normal O2 Cannula Devices. LAB 45760132(LOINC) Normal Vent NOT CALCULATED Mode. LAB 21014236(LOINC) Normal Set NOT CALCULATED RR(b/min). LAB 23929585(LOINC) Normal NOT CALCULATED CPAP/PEEP(cm H2O). LAB 27739315(LOINC) Normal Tidal NOT CALCULATED Volume(mL). LAB 81389074(LOINC) Normal NOT CALCULATED PSV/IP(cmH2O ). LAB 70596505(LOINC) DegC Normal Patient NOT CALCULATED Temp. LAB 77364374(LOINC) Normal OPID. [id number] Performed By: #### [id number] #### [place] [address] XR TIBIA FIBULA 2V Observed: 06/17/2018 Status: F Source: [place] AP/LAT LT 3:33 PM [facility] REPOSITORY * * *Final Report* * * DATE OF EXAM: Jun 17 2018 3:33PM WOX [id number] - XR TIBIA FIBULA 2V AP/LAT LT / PROCEDURE REASON: Recurrent cellulitis of lower extremity * * * * Physician Interpretation * * * * EXAMINATION: XR TIBIA FIBULA 2V AP/LAT LT CLINICAL HISTORY: Fell. has a abrasion on left lower lateral tib fib. Hx diabetic Recurrent cellulitis of lower extremity Technique: XR TIBIA FIBULA 2V AP/LAT LT -- LEFT tib-fib with 2 views on 2 images Comparison: None RESULT: No acute fracture or dislocation. The left knee joint and ankle joints appear intact. Degenerative changes are present in the medial and lateral knee compartments of the left knee. No bony erosive process is identified. Soft tissue swelling over the mid to distal leg is noted. IMPRESSION: No acute osseous abnormality. Glassworker: RUBIN Transcribe Date/Time: Jun 17 2018 3:36P Dictated by : ABBE JOHNSON MD This examination was interpreted and the report reviewed and electronically signed by: ABBE JOHNSON MD on Jun 17 2018 3:40PM EST [id number] Observed: 06/17/2018 Status: COMPLETED Source: [place] 3:12 PM [facility] [place] REPOSITORY HNO ID: [id number] Author: Erlinda Glover Service: (none) Author Type: (none) Type: Progress Notes Filed: 06/17/2018 3:33 PM Note Text: Radiology Service Progress Note PATIENT NAME: Catalina Evans DATE OF SERVICE: June 17, 2018 TIME: 3:13 PM PATIENT IDENTITY VERIFICATION COMPLETED USING TWO (2) METHODS: Patient confirmed name verbally and Date of . PATIENT GENDER DATA: Male PATIENT RELEVANT IMPLANT DATA REVIEWED: Not Applicable RADIOLOGY DEPARTMENT: General X-ray: Exam(s) Completed: Lower Extremity X-Ray(s): Tibia Fibula, Left: PERIPHERAL IV DATA: Not applicable SIGNED BY: Erlinda Glover June 17, 2018 3:13 PM PROGRESS Observed: 06/17/2018 Status: COMPLETED Source: [place] 3:06 PM [facility] REPOSITORY HNO ID: [id number] Author: Bev Sol [facility] Service: (none) Author Type: Nurse Practitioner Type: Progress Notes Filed: 06/17/2018 3:14 PM Note Text: CC: Patient presents with: Edema HPI Catalina Evans is a 63 year old male who presents today for possible recurrent skin infection. Patient was initially seen on 05/02 for cellulitis of left lower extremity and venous stasis ulcer. Prescribed Doxycycline. At follow-up on 05/09 patient reported no improvement in ulcer or cellulitis. He was started on keflex and referred to [facility] wound center. Work-up there included venous and arterial studies that were unremarkable. Patient presented to ER at [facility] on 06/01 for worsening cellulitis. Treated with IV antibiotics and discharged home on Bactrim x 10 days. At hospital follow-up on 06/06 symptoms of cellulitis had resolved. He had requested referral to [facility] wound center in [place], appointment set up for 06/22. Starting 3 days ago he developed increased warmth, swelling and pain left lower leg. Positive for chills last night. Denies fever, fatigue, body aches, nausea. Keeping ulcer to left lower leg covered. Denies purulent drainage. REVIEW OF SYSTEMS See HPI PAST MEDICAL HISTORY Diagnosis Date - Acute liver failure with hepatic coma (HCC) 05/27/2017 ELEVATED AMMONIA - Babinski up on right - pin point pupils - lethgary without focal findings - ADEBAYO (acute kidney injury) (HCC) 05/26/2017 likely due to prerenal/ATN 2/2 shock. Good urine output noted. Renal ultrasound neg for hydronephrosis - ASCVD (arteriosclerotic cardiovascular disease) 09/18/2014 - Atrial fibrillation (HCC) 07/01/2006 - Benign neoplasm of colon 2005 Hyperplastic - BPH (benign prostatic hyperplasia) 01/30/2015 - Cardiomyopathy, ischemic 05/30/2015 - Coronary artery disease 05/16/2015 - DM2 (diabetes mellitus, type 2) ([facility]) 05/16/2015 - Edema 07/01/2006 - Family history of malignant neoplasm of gastrointestinal tract 11/03/2006 - Flatulence, eructation, and gas pain - Heart attack ([facility]) - HEMANGIOMA INTRA-ABDOM 07/29/2006 - HYPERTENSION NOS 08/27/2006 - Impaired fasting glucose 05/30/2010 - Irritable bowel syndrome 08/27/2006 - AL (myocardial infarction) ([facility]) 05/16/2015 - NSTEMI (non-ST elevated myocardial infarction) ([facility]) 05/16/2015 Pt now chest pain free with nitrate - recheck enzymes -1 set troponin0.719, CK 507, MB 39.9, CKMB 7.9 - check echo - continue heparin, aspirin, ARB, statin, beta linda - continue clopidogrel - called in/consented for [facility] today +/- PCI -15: PCI to the mid RCA with a 3.5 x 16 mm Synergy EES - Obesity, unspecified 07/01/2006 - Other and unspecified hyperlipidemia 07/01/2006 - Polyneuropathy (HCC) 05/01/2016 Nerve study 2015. - SLEEP APNEA NOS (cpap intolerant) 07/01/2006 - Type II or unspecified type diabetes mellitus without mention of complication, not stated as uncontrolled 01/25/2014 - Unspecified constipation PAST SURGICAL HISTORY Procedure Laterality Date - [facility] 2004, 2000 - [facility]/08 Colonoscopy - [facility] 05/02/2015 Colonoscopy - KNEE SCOPE,DIAGNOSTIC Right 10/06/2007 Arthroscopy, knee - LEFT HEART CATH,PERCUTANEOUS 08/22/2014 Cardiac cath, L heart - PALATE/UVULA SURGERY UNLISTED 1999 Somnoplasty, tracheostomy - PAST SURGICAL HISTORY OF 05/16/2015 Had heart stent - REPAIR BICEPS LONG TENDON Right 05/12/2017 [facility] - REPAIR ING HERNIA,5+Y/O,REDUCIBL Left 1990 Hernia repair, inguinal - TRACHEOSTOMY HX 1999 w/ UVPP ALLERGIES Patient has no known allergies. MEDICATIONS sulfamethoxazole-trimethoprim (BACTRIM DS) 800-160 mg per tablet Take 1 tablet by mouth twice daily for 7 days. warfarin (COUMADIN) 5 mg tablet Take 12.5mg daily or as directed. gabapentin (NEURONTIN) 300 mg capsule Take 1 capsule by mouth daily at bedtime for 180 days. ezetimibe (ZETIA) 10 mg tablet Take 1 tablet by mouth once daily. trimethoprim-polymyxin eye drops (POLYTRIM) ophthalmic solution Use 1 Drop in both eyes four times daily. spironolactone (ALDACTONE) 25 mg tablet Take 1 tablet by mouth twice daily. pantoprazole DR (PROTONIX) 40 mg tablet Take 1 tablet by mouth every morning. atorvastatin (LIPITOR) 80 mg tablet Take 1 tablet by mouth once daily. furosemide (LASIX) 40 mg tablet Take 1 tablet by mouth twice daily. With 20 mg tablet for total of 60 mg twice daily. furosemide (LASIX) 20 mg tablet Take 1 tablet by mouth twice daily. COMPOUNDED PRESCRIPTION Xuanyixia PORTABLE OXYGEN CONCENTRATOR. 3 LPM VIA NASAL CANNULA WITH ACTIVITY. DX: J96.21; J96.22. J44.9. I25.5 metoprolol succinate ER (TOPROL XL) 100 mg Tb24 Take 1 tablet by mouth once daily. metFORMIN (GLUCOPHAGE) 500 mg tablet Take 1 tablet by mouth daily with breakfast. . nitroglycerin sublingual (NITROQUICK) 0.4 mg SL tablet Dissolve 1 tablet under the tongue as needed. FOR CHEST PAIN. IF NO RELIEF CALL 911 clopidogrel (PLAVIX) 75 mg tablet Take 1 tablet by mouth once daily. albuterol HFA (PROVENTIL HFA, VENTOLIN HFA) 90 mcg/actuation inhaler Inhale 2 Puffs as instructed every 6 hours as needed for Wheezing/Shortness of Breath. Compression Knee Highs KNEE HIGH COMPRESSION STOCKINGS 20- 30 MM HG. DX: EDEMA. VENOUS INSUFFICIENCY, BOTH LOWER EXTREMITIES. fluticasone (FLONASE) 50 mcg/actuation nasal spray 1 or 2 sprays in each nostril at bedtime. polyethylene glycol 3350 (MIRALAX) 17 gram/dose powder Take 17 g by mouth once daily. magnesium hydroxide (MILK OF MAGNESIA) 400 mg/5 mL suspension Take 15 mL by mouth once daily as needed for Constipation. senna-docusate 8.6-50 mg per tablet Take 1 tablet by mouth once daily. For constipation. Lancets (FREESTYLE LANCETS) [facility] lancets Test Blood sugar daily. Hyperglycemia, no insulin FAMILY HISTORY Problem Relation Age of Onset - Diabetes Father - Heart Father Pacemaker - Alzheimer's Disease Father - Coronary Artery Disease Father - other (parkinsons) Father - Diabetes Mother - Cancer Mother Colon - Hypertension Brother - Heart Brother CABG - Diabetes Brother - Peripheral Artery Disease Brother - Hypertension Brother Social History Substance Use Topics - Smoking status: Former Smoker Packs/day: 0.25 Years: 20.00 Types: Cigarettes Quit date: 07/01/2006 - Smokeless tobacco: Former User - Alcohol use No PHYSICAL EXAM BP 132/88 Pulse 92 Resp 16 Wt (!) 150.6 kg (332 lb) BMI 47.64 kg/m? General Appearance: well appearing, in no acute distress, alert Lower Extremities: left lateral monae: V shaped ulcer with red wound bed and yellow granulation tissue. Surrounding erythema, swelling and warmth present. Tender with palpation. Venous stasis changes to lower legs. Pulses palpable. ASSESSMENT/PLAN: 1. Recurrent cellulitis of lower extremity - ICD9: 682.6, ICD10: L03.119 Early cellulitis - Begin treatment with Bactrim, see orders - No lymphangetic streaking, this was defined for patient to watch for and to seek medical care immediately if appears - XR TIBIA FIBULA 2V AP/LAT LT to evaluate further - Follow-up with wound center on 06/22 as scheduled or in office sooner as needed - Patient is on Coumadin, next INR check on 06/23 Prescription instructions reviewed with patient as applicable. Potential red flag symptoms discussed with the patient. Reviewed appropriate action plan to take if red flag symptoms occur. Patient agreeable to treatment plan. MELANIE Goncalves Observed: 06/17/2018 Status: COMPLETED Source: [place] 3:00 PM [facility] REPOSITORY Office Visit (INTMWS) CATALINA EVANS ([id number]) 1955 M Date Time Provider Department 06/17/18 3:00 PM BEV SMART (SWETA) INTMWS During your visit today, we recorded the following information about you: Pulse Respiration Blood pressure Weight 92/minute 16/minute 132/88 150.6 kg Bev Smart APRN.CNP 06/17/2018 3:14 PM Signed CC: Patient presents with: Edema HPI Catalina Evans is a 63 year old male who presents today for possible recurrent skin infection. Patient was initially seen on 05/02 for cellulitis of left lower extremity and venous stasis ulcer. Prescribed Doxycycline. At follow-up on 05/09 patient reported no improvement in ulcer or cellulitis. He was started on keflex and referred to [facility] wound center. Work-up there included venous and arterial studies that were unremarkable. Patient presented to ER at [facility] on 06/01 for worsening cellulitis. Treated with IV antibiotics and discharged home on Bactrim x 10 days. At hospital follow-up on 06/06 symptoms of cellulitis had resolved. He had requested referral to [facility] wound center in [place], appointment set up for 06/22. Starting 3 days ago he developed increased warmth, swelling and pain left lower leg. Positive for chills last night. Denies fever, fatigue, body aches, nausea. Keeping ulcer to left lower leg covered. Denies purulent drainage. REVIEW OF SYSTEMS See HPI PAST MEDICAL HISTORY Diagnosis Date - Acute liver failure with hepatic coma (HCC) 05/27/2017 ELEVATED AMMONIA - Babinski up on right - pin point pupils - lethgary without focal findings - ADEBAYO (acute kidney injury) ([facility]) 05/26/2017 likely due to prerenal/ATN 2/2 shock. Good urine output noted. 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 - HYPERTENSION NOS 08/27/2006 - Impaired fasting glucose 05/30/2010 - Irritable bowel syndrome 08/27/2006 - AL (myocardial infarction) ([facility]) 05/16/2015 - NSTEMI (non-ST elevated myocardial infarction) ([facility]) 05/16/2015 Pt now chest pain free with nitrate - recheck enzymes -1 set troponin0.719, CK 507, MB 39.9, CKMB 7.9 - check echo - continue heparin, aspirin, ARB, statin, beta linda - continue clopidogrel - called in/consented for [facility] today +/- PCI -15: PCI to the mid RCA with a 3.5 x 16 mm Synergy EES - Obesity, unspecified 07/01/2006 - Other and unspecified hyperlipidemia 07/01/2006 - Polyneuropathy ([facility]) 05/01/2016 Nerve study 2015. - SLEEP APNEA NOS (cpap intolerant) 07/01/2006 - Type II or unspecified type diabetes mellitus without mention of complication, not stated as uncontrolled 01/25/2014 - Unspecified constipation PAST SURGICAL HISTORY Procedure Laterality Date - [facility] Colonoscopy 2004, 2000 - COLONOSCOP W/ OR W/O [facility] SPEC 08/28/08 Colonoscopy - [facility] 05/02/2015 Colonoscopy - KNEE SCOPE,DIAGNOSTIC Right 10/06/2007 Arthroscopy, knee - LEFT HEART CATH,PERCUTANEOUS 08/22/2014 Cardiac cath, L heart - PALATE/UVULA SURGERY UNLISTED 1999 Somnoplasty, tracheostomy - PAST SURGICAL HISTORY OF 05/16/2015 Had heart stent - REPAIR BICEPS LONG TENDON Right 05/12/2017 [facility] - REPAIR ING HERNIA,5+Y/O,REDUCIBL Left 1989 Hernia repair, inguinal - TRACHEOSTOMY HX 1999 w/ UVPP ALLERGIES Patient has no known allergies. MEDICATIONS sulfamethoxazole-trimethoprim (BACTRIM DS) 800-160 mg per tablet Take 1 tablet by mouth twice daily for 7 days. warfarin (COUMADIN) 5 mg tablet Take 12.5mg daily or as directed. gabapentin (NEURONTIN) 300 mg capsule Take 1 capsule by mouth daily at bedtime for 180 days. ezetimibe (ZETIA) 10 mg tablet Take 1 tablet by mouth once daily. trimethoprim-polymyxin eye drops (POLYTRIM) ophthalmic solution Use 1 Drop in both eyes four times daily. spironolactone (ALDACTONE) 25 mg tablet Take 1 tablet by mouth twice daily. pantoprazole DR (PROTONIX) 40 mg tablet Take 1 tablet by mouth every morning. atorvastatin (LIPITOR) 80 mg tablet Take 1 tablet by mouth once daily. furosemide (LASIX) 40 mg tablet Take 1 tablet by mouth twice daily. With 20 mg tablet for total of 60 mg twice daily. furosemide (LASIX) 20 mg tablet Take 1 tablet by mouth twice daily. COMPOUNDED PRESCRIPTION [employer] PORTABLE OXYGEN CONCENTRATOR. 3 LPM VIA NASAL CANNULA WITH ACTIVITY. DX: J96.21; J96.22. J44.9. I25.5 metoprolol succinate ER (TOPROL XL) 100 mg Tb24 Take 1 tablet by mouth once daily. metFORMIN (GLUCOPHAGE) 500 mg tablet Take 1 tablet by mouth daily with breakfast. . nitroglycerin sublingual (NITROQUICK) 0.4 mg SL tablet Dissolve 1 tablet under the tongue as needed. FOR CHEST PAIN. IF NO RELIEF CALL 911 clopidogrel (PLAVIX) 75 mg tablet Take 1 tablet by mouth once daily. albuterol HFA (PROVENTIL HFA, VENTOLIN HFA) 90 mcg/actuation inhaler Inhale 2 Puffs as instructed every 6 hours as needed for Wheezing/Shortness of Breath. Compression Knee Highs KNEE HIGH COMPRESSION STOCKINGS 20- 30 MM HG. DX: EDEMA. VENOUS INSUFFICIENCY, BOTH LOWER EXTREMITIES. fluticasone (FLONASE) 50 mcg/actuation nasal spray 1 or 2 sprays in each nostril at bedtime. polyethylene glycol 3350 (MIRALAX) 17 gram/dose powder Take 17 g by mouth once daily. magnesium hydroxide (MILK OF MAGNESIA) 400 mg/5 mL suspension Take 15 mL by mouth once daily as needed for Constipation. senna-docusate 8.6-50 mg per tablet Take 1 tablet by mouth once daily. For constipation. Lancets (FREESTYLE LANCETS) [facility] lancets Test Blood sugar daily. Hyperglycemia, no insulin FAMILY HISTORY Problem Relation Age of Onset - Diabetes Father - Heart Father Pacemaker - Alzheimer's Disease Father - Coronary Artery Disease Father - other (parkinsons) Father - Diabetes Mother - Cancer Mother Colon - Hypertension Brother - Heart Brother CABG - Diabetes Brother - Peripheral Artery Disease Brother - Hypertension Brother Social History Substance Use Topics - Smoking status: Former Smoker Packs/day: 0.25 Years: 20.00 Types: Cigarettes Quit date: 07/01/2006 - Smokeless tobacco: Former User - Alcohol use No PHYSICAL EXAM BP 132/88 Pulse 92 Resp 16 Wt (!) 150.6 kg (332 lb) BMI 47.64 kg/m? General Appearance: well appearing, in no acute distress, alert Lower Extremities: left lateral monae: V shaped ulcer with red wound bed and yellow granulation tissue. Surrounding erythema, swelling and warmth present. Tender with palpation. Venous stasis changes to lower legs. Pulses palpable. ASSESSMENT/PLAN: 1. Recurrent cellulitis of lower extremity - ICD9: 682.6, ICD10: L03.119 Early cellulitis - Begin treatment with Bactrim, see orders - No lymphangetic streaking, this was defined for patient to watch for and to seek medical care immediately if appears - XR TIBIA FIBULA 2V AP/LAT LT to evaluate further - Follow-up with wound center on 06/22 as scheduled or in office sooner as needed - Patient is on Coumadin, next INR check on 06/23 Prescription instructions reviewed with patient as applicable. Potential red flag symptoms discussed with the patient. Reviewed appropriate action plan to take if red flag symptoms occur. Patient agreeable to treatment plan. Bev Smart APRN.SWETA Referring Provider: BEV SMART ([employer] FINAL INSPECTOR) [[id number]] Allergies As of Date: 06/17/2018 (No Known Allergies) Date Reviewed: 06/17/2018 Reviewed by: Alicia Hassan LPN - Fully Assessed Reason for Visit: Edema [39] Primary Visit Diagnosis:Recurrent cellulitis of lower extremity [L03.119] Order(s):sulfamethoxazole-trimethoprim (BACTRIM DS) 800-160 mg per tabletTake 1 tablet by mouth twice daily for 7 days.Disp: 14 tabletRfl: 0 XR TIBIA FIBULA 2V AP/LAT LT [[id number]] Order #: [id number] FUTURE Prescriptions as of 06/17/2018 Sig: SULFAMETHOXAZOLE 800 MG-TRIME* Take 1 tablet by mouth twice * WARFARIN 5 MG TABLET Take 12.5mg daily or as direc* GABAPENTIN 300 MG CAPSULE Take 1 capsule by mouth daily* EZETIMIBE 10 MG TABLET Take 1 tablet by mouth once d* POLYMYXIN B SULFATE 10,000 UN* Use 1 Drop in both eyes four * SPIRONOLACTONE 25 MG TABLET Take 1 tablet by mouth twice * PANTOPRAZOLE 40 MG TABLET,DEL* Take 1 tablet by mouth every * ATORVASTATIN 80 MG TABLET Take 1 tablet by mouth once d* FUROSEMIDE 40 MG TABLET Take 1 tablet by mouth twice * FUROSEMIDE 20 MG TABLET Take 1 tablet by mouth twice * COMPOUNDED PRESCRIPTION INOGEN PORTABLE OXYGEN CONCEN* METOPROLOL SUCCINATE ER 100 M* Take 1 tablet by mouth once d* METFORMIN 500 MG TABLET Take 1 tablet by mouth daily * NITROGLYCERIN 0.4 MG SUBLINGU* Dissolve 1 tablet under the t* CLOPIDOGREL 75 MG TABLET Take 1 tablet by mouth once d* ALBUTEROL SULFATE HFA 90 MCG/* Inhale 2 Puffs as instructed * COMPOUNDED PRESCRIPTION KNEE HIGH COMPRESSION STOCKIN* FLUTICASONE 50 MCG/ACTUATION * 1 or 2 sprays in each nostril* POLYETHYLENE GLYCOL 3350 17 G* Take 17 g by mouth once daily. MAGNESIUM HYDROXIDE 400 MG/5 * Take 15 mL by mouth once andrey* SENNOSIDES 8.6 MG-DOCUSATE SO* Take 1 tablet by mouth once d* * LANCETS Test Blood sugar daily. Hype* Problem List As Of Date 06/17/2018 Noted Resolved ATRIAL FIBRILLATION [I48.91] INVALID FOR*07/23/2015 More... Edema [R60.9] INVALID FOR* Hypercholesterolemia [E78.00] INVALID FOR* More... SLEEP APNEA NOS (cpap intolerant) [G47.30] INVALID FOR*01/30/2015 Obesity [E66.9] INVALID FOR*08/13/2017 More... Hemangioma of intra-abdominal structures [D18.0*INVALID FOR*04/25/2014 Essential hypertension [I10] INVALID FOR* More... IRRITABLE COLON [K58.9] INVALID FOR* Constipation [K59.00] INVALID FOR* DERMATOPHYTOSIS OF NAIL [B35.1] INVALID FOR*04/24/2008 ABDOMINAL PAIN LLQ [R10.32] 04/24/2008 ABDOMINAL PAIN LUQ [R10.12] 04/24/2008 FLATUL/ERUCTAT/GAS PAIN [R14.3, R14.1, R14.2] 04/24/2008 Impaired fasting glucose [R73.01] INVALID FOR*04/25/2014 COPD (chronic obstructive pulmonary disease) [J*INVALID FOR* Type II or unspecified type diabetes mellitus w*INVALID FOR*05/16/2015 ASCVD (arteriosclerotic cardiovascular disease)*INVALID FOR* BPH (benign prostatic hyperplasia) [N40.0] INVALID FOR* Family history of colon cancer [Z80.0] INVALID FOR*08/13/2017 NSTEMI (non-ST elevated myocardial infarction) *INVALID FOR*01/15/2016 More... DM2 (diabetes mellitus, type 2) (HCC) [E11.9] INVALID FOR* More... S/P right coronary artery (RCA) stent placement*INVALID FOR* LV dysfunction [I51.9] INVALID FOR*01/15/2016 Cardiomyopathy, ischemic [I25.5] INVALID FOR* More... Chronic anticoagulation [Z79.01] INVALID FOR* More... Paroxysmal atrial fibrillation (HCC) [I48.0] INVALID FOR* More... Sleep apnea, intolerant to CPAP [G47.30] INVALID FOR* More... Astigmatism, regular [H52.229] INVALID FOR*08/13/2017 Presbyopia [H52.4] INVALID FOR*01/15/2016 Benign neoplasm of skin of eyelid including can*INVALID FOR*04/07/2017 Polyneuropathy (HCC) [G62.9] INVALID FOR* More... Spinal stenosis, lumbar region, with neurogenic*INVALID FOR*12/16/2017 Displacement of lumbar intervertebral disc with*INVALID FOR*04/07/2017 Spondylosis of lumbar region without myelopathy*INVALID FOR* Lesion of liver [K76.9] INVALID FOR*08/13/2017 More... Ascites [R18.8] INVALID FOR*05/30/2017 More... ADEBAYO (acute kidney injury) (HCC) [N17.9] INVALID FOR*12/16/2017 More... Nicotine use disorder, F17.2 [F17.200] INVALID FOR*08/13/2017 More... Obesity, Class III, BMI >= 40 (morbid obesity) *INVALID FOR* Lethargy [R53.83] INVALID FOR*08/13/2017 Acute on chronic respiratory failure with hypox*INVALID FOR* More... Morbid obesity with body mass index (BMI) of 45*INVALID FOR*04/14/2018 More... Acute liver failure with hepatic coma (HCC) [K7*INVALID FOR*08/13/2017 More... Respiratory failure with hypercapnia (HCC) [J96*INVALID FOR*08/13/2017 More... Shock circulatory (HCC) [R57.9] INVALID FOR*05/29/2017 More... Kidney insufficiency [N28.9] INVALID FOR*04/14/2018 Combined forms of age-related cataract of both *INVALID FOR* Hyperopia, bilateral [H52.03] INVALID FOR* Dry eye syndrome, bilateral [H04.123] INVALID FOR* Bacterial conjunctivitis of both eyes [H10.9] INVALID FOR* CKD (chronic kidney disease) Stage 3, GFR 30-59*INVALID FOR* Prescriptions ordered this encounter Disp Refills Start End SULFAMETHOXAZOLE 800 MG-TRIMETHOPRIM* 14 t* 0 06/17/2018 06/24/2018 Cmt: Ok to give generic equivalent Route: ORAL Sig: Take 1 tablet by mouth twice daily for 7 days. Encounter Status:Closed by BEV SMART CNP on 06/17/18 PROGRESS Observed: 06/09/2018 Status: COMPLETED Source: [place] 1:14 PM [facility] [place] REPOSITORY HNO ID: [id number] Author: Amber Staton LPN Service: (none) Author Type: (none) Type: Progress Notes Filed: 06/09/2018 1:14 PM Note Text: message left to pt with info. PROGRESS Observed: 06/09/2018 Status: COMPLETED Source: [place] 12:47 PM [facility] REPOSITORY HNO ID: [id number] Author: Coy Mercado Service: (none) Author Type: Physician Type: Progress Notes Filed: 06/09/2018 1:14 PM Note Text: Continue Coumadin dose. INR in 2 weeks. PROGRESS Observed: 06/09/2018 Status: COMPLETED Source: [place] 10:11 AM [facility] RE[facility]IT[facility] HNO ID: [id number] Author: Katharine Nino RN Service: (none) Author Type: (none) Type: Progress Notes Filed: 06/09/2018 10:12 AM Note Text: patient had inr completed at [facility] patients inr is 1.8 (patients inr range is 2.0-3.0) patient is currently taking 10mg Tues,Sat,Sun and 12.5mg all other days patients last dose change was on 06/02/18 due to a low level of 1.4 (dose at that time was 12.5mg Mon,WEd,Fri and 10mg all other days) patient has had no changes in medication except for coumadin and no missed doses and no change in diet Advised patient that they would be contacted regarding medication dose and when to follow up after information is reviewed by provider. After provider review please contact the patient with information and schedule follow up appointment with coumadin clinic. FYI - patient has been scheduled for a 2 week follow up inr on 06/23/18 PROGRESS Observed: 06/06/2018 Status: COMPLETED Source: [place] 8:30 AM [facility] RE[facility]IT[facility] HNO ID: [id number] Author: Bev Smart Service: (none) Author Type: Nurse Practitioner Type: Progress Notes Filed: 06/06/2018 8:52 AM Note Text: CC: Hospital follow-up HPI Catalina Evans is a 63 year old male who presents today for hospital follow-up. Facility: [facility] Date of visit: 05/30 Reason for visit: left leg pain; cellulitis left leg, staph Hospital course: no records available at this time. patient reports he was kept overnight because his blood pressure was low otherwise he could have gone home. Given IV antibiotics. Per patient discharge instructions he was prescribed 10 day course of Bactrim. No procedures done during admission per patient Current symptoms: Left leg pain and swelling have resolved. Chronic venous stasis swelling lower legs. Ulcer on left lower leg healing. Was going to [facility] wound center but does not wish to continue his care there. Requesting wound center in [place]. Has been cleaning wound with saline and keeping covered. Denies fever, chills, nausea, fatigue, chest pain, heart palpitations, shortness of breath. REVIEW OF SYSTEMS See HPI PAST MEDICAL HISTORY Diagnosis Date - Acute liver failure with hepatic coma ([facility]) 05/27/2017 ELEVATED AMMONIA - Babinski up on right - pin point pupils - lethgary without focal findings - ADEBAYO (acute kidney injury) ([facility]) 05/26/2017 likely due to prerenal/ATN 2/2 shock. Good urine output noted. Renal ultrasound neg for hydronephrosis - ASCVD (arteriosclerotic cardiovascular disease) 09/18/2014 - Atrial fibrillation ([facility]) 07/01/2006 - Benign neoplasm of colon 2005 Hyperplastic - BPH (benign prostatic hyperplasia) 01/30/2015 - Cardiomyopathy, ischemic 05/30/2015 - Coronary artery disease 05/16/2015 - DM2 (diabetes mellitus, type 2) ([facility]) 05/16/2015 - Edema 07/01/2006 - Family history of malignant neoplasm of gastrointestinal tract 11/03/2006 - Flatulence, eructation, and gas pain - Heart attack ([facility]) - HEMANGIOMA INTRA-ABDOM 07/29/2006 - HYPERTENSION NOS 08/27/2006 - Impaired fasting glucose 05/30/2010 - Irritable bowel syndrome 08/27/2006 - AL (myocardial infarction) ([facility]) 05/16/2015 - NSTEMI (non-ST elevated myocardial infarction) ([facility]) 05/16/2015 Pt now chest pain free with nitrate - recheck enzymes -1 set troponin0.719, CK 507, MB 39.9, CKMB 7.9 - check echo - continue heparin, aspirin, ARB, statin, beta linda - continue clopidogrel - called in/consented for [facility] today +/- PCI -15: PCI to the mid RCA with a 3.5 x 16 mm Synergy EES - Obesity, unspecified 07/01/2006 - Other and unspecified hyperlipidemia 07/01/2006 - Polyneuropathy ([facility]) 05/01/2016 Nerve study 2015. - SLEEP APNEA NOS (cpap intolerant) 07/01/2006 - Type II or unspecified type diabetes mellitus without mention of complication, not stated as uncontrolled 01/25/2014 - Unspecified constipation PAST SURGICAL HISTORY Procedure Laterality Date - [facility] 2004, 2000 - [facility] 08/[facility]08 Colonoscopy - [facility] 05/02/2015 Colonoscopy - KNEE SCOPE,DIAGNOSTIC Right 10/06/2007 Arthroscopy, knee - LEFT HEART CATH,PERCUTANEOUS 08/22/2014 Cardiac cath, L heart - PALATE/UVULA SURGERY UNLISTED 1999 Somnoplasty, tracheostomy - PAST SURGICAL HISTORY OF 05/16/2015 Had heart stent - REPAIR BICEPS LONG TENDON Right 05/12/2017 [facility] - REPAIR ING HERNIA,5+Y/O,REDUCIBL Left 1990 Hernia repair, inguinal - TRACHEOSTOMY HX 1999 w/ UVPP ALLERGIES Patient has no known allergies. MEDICATIONS warfarin (COUMADIN) 5 mg tablet Take 12.5mg daily or as directed. gabapentin (NEURONTIN) 300 mg capsule Take 1 capsule by mouth daily at bedtime for 180 days. ezetimibe (ZETIA) 10 mg tablet Take 1 tablet by mouth once daily. trimethoprim-polymyxin eye drops (POLYTRIM) ophthalmic solution Use 1 Drop in both eyes four times daily. spironolactone (ALDACTONE) 25 mg tablet Take 1 tablet by mouth twice daily. pantoprazole DR (PROTONIX) 40 mg tablet Take 1 tablet by mouth every morning. atorvastatin (LIPITOR) 80 mg tablet Take 1 tablet by mouth once daily. furosemide (LASIX) 40 mg tablet Take 1 tablet by mouth twice daily. With 20 mg tablet for total of 60 mg twice daily. furosemide (LASIX) 20 mg tablet Take 1 tablet by mouth twice daily. COMPOUNDED PRESCRIPTION [email or web address] PORTABLE OXYGEN CONCENTRATOR. 3 LPM VIA NASAL CANNULA WITH ACTIVITY. DX: J96.21; J96.22. J44.9. I25.5 metoprolol succinate ER (TOPROL XL) 100 mg Tb24 Take 1 tablet by mouth once daily. metFORMIN (GLUCOPHAGE) 500 mg tablet Take 1 tablet by mouth daily with breakfast. . nitroglycerin sublingual (NITROQUICK) 0.4 mg SL tablet Dissolve 1 tablet under the tongue as needed. FOR CHEST PAIN. IF NO RELIEF CALL 911 clopidogrel (PLAVIX) 75 mg tablet Take 1 tablet by mouth once daily. albuterol HFA (PROVENTIL HFA, VENTOLIN HFA) 90 mcg/actuation inhaler Inhale 2 Puffs as instructed every 6 hours as needed for Wheezing/Shortness of Breath. Compression Knee Highs KNEE HIGH COMPRESSION STOCKINGS 20- 30 MM HG. DX: EDEMA. VENOUS INSUFFICIENCY, BOTH LOWER EXTREMITIES. fluticasone (FLONASE) 50 mcg/actuation nasal spray 1 or 2 sprays in each nostril at bedtime. polyethylene glycol 3350 (MIRALAX) 17 gram/dose powder Take 17 g by mouth once daily. magnesium hydroxide (MILK OF MAGNESIA) 400 mg/5 mL suspension Take 15 mL by mouth once daily as needed for Constipation. senna-docusate 8.6-50 mg per tablet Take 1 tablet by mouth once daily. For constipation. Lancets (FREESTYLE LANCETS) [facility] lancets Test Blood sugar daily. Hyperglycemia, no insulin FAMILY HISTORY Problem Relation Age of Onset - Diabetes Father - Heart Father Pacemaker - Alzheimer's Disease Father - Coronary Artery Disease Father - other (parkinsons) Father - Diabetes Mother - Cancer Mother Colon - Hypertension Brother - Heart Brother CABG - Diabetes Brother - Peripheral Artery Disease Brother - Hypertension Brother Social History Substance Use Topics - Smoking status: Former Smoker Packs/day: 0.25 Years: 20.00 Types: Cigarettes Quit date: 07/01/2006 - Smokeless tobacco: Former User - Alcohol use No PHYSICAL EXAM BP 120/70 Pulse 78 Temp 36.7 ?C (98.1 ?F) (Temporal Artery) Resp 18 Wt (!) 152.4 kg (336 lb) SpO2 90% BMI 48.21 kg/m? General Appearance: well appearing, in no acute distress, alert Lungs: lungs clear to auscultation. No wheezing, rhonchi, rales Heart: RRR without murmur, gallop, or rubs. No ectopy Ext: venous stasis discoloration lower legs. Non pitting edema at baseline. No erythema, induration, fluctuance. good distal pulses ASSESSMENT/PLAN: 1. Venous stasis ulcer of other part of left lower leg, unspecified ulcer stage, unspecified whether varicose veins present (HCC) - ICD9: 454.0, ICD10: I83.028, L97.829 (primary diagnosis) Patient feels that it has been healing. Has not been to [facility] wound center since 05/26 and has not scheduled a follow-up as advised. I recommend he continue with wound center care until notified otherwise. - [facility] per patient request 2. Cellulitis of left lower extremity without foot - ICD9: 682.6, ICD10: L03.116 - Resolved - Continue treatment with Trimethoprim-sulfamethozazole (Bactrim) DS PO BID until complete - follow-up in office as needed for recurrent symptoms Prescription instructions reviewed with patient as applicable. Potential red flag symptoms discussed with the patient. Reviewed appropriate action plan to take if red flag symptoms occur. Patient agreeable to treatment plan. Bev Smart APRN.CNP CNOV Observed: 06/06/2018 Status: COMPLETED Source: [place] 8:20 AM [facility] RE[facility]ITORY Office Visit (INTMWS) CATALINA EVANS ([id number]) 1955 M Date Time Provider Department 06/06/18 8:20 AM BEV SMART (SWETA) [email or web address] During your visit today, we recorded the following information about you: Temperature Pulse Respiration Blood pressure 98.1 degrees 78/minute 18/minute 120/70 Weight 152.4 kg Bev Smart APRN.CNP 06/06/2018 8:52 AM Signed CC: Hospital follow-up HPI Catalina Evans is a 63 year old male who presents today for hospital follow-up. Facility: [facility] Date of visit: 05/30 Reason for visit: left leg pain; cellulitis left leg, staph Hospital course: no records available at this time. patient reports he was kept overnight because his blood pressure was low otherwise he could have gone home. Given IV antibiotics. Per patient discharge instructions he was prescribed 10 day course of Bactrim. No procedures done during admission per patient Current symptoms: Left leg pain and swelling have resolved. Chronic venous stasis swelling lower legs. Ulcer on left lower leg healing. Was going to [facility] wound center but does not wish to continue his care there. Requesting wound center in [place]. Has been cleaning wound with saline and keeping covered. Denies fever, chills, nausea, fatigue, chest pain, heart palpitations, shortness of breath. REVIEW OF SYSTEMS See HPI PAST MEDICAL HISTORY Diagnosis Date - Acute liver failure with hepatic coma ([facility]) 05/27/2017 ELEVATED AMMONIA - Babinski up on right - pin point pupils - lethgary without focal findings - ADEBAYO (acute kidney injury) ([facility]) 05/26/2017 likely due to prerenal/ATN 2/2 shock. Good urine output noted. Renal ultrasound neg for hydronephrosis - ASCVD (arteriosclerotic cardiovascular disease) 09/18/2014 - Atrial fibrillation ([facility]) 07/01/2006 - Benign neoplasm of colon 2005 Hyperplastic - BPH (benign prostatic hyperplasia) 01/30/2015 - Cardiomyopathy, ischemic 05/30/2015 - Coronary artery disease 05/16/2015 - DM2 (diabetes mellitus, type 2) ([facility]) 05/16/2015 - Edema 07/01/2006 - Family history of malignant neoplasm of gastrointestinal tract 11/03/2006 - Flatulence, eructation, and gas pain - Heart attack ([facility]) - HEMANGIOMA INTRA-ABDOM 07/29/2006 - HYPERTENSION NOS 08/27/2006 - Impaired fasting glucose 05/30/2010 - Irritable bowel syndrome 08/27/2006 - AL (myocardial infarction) ([facility]) 05/16/2015 - NSTEMI (non-ST elevated myocardial infarction) ([facility]) 05/16/2015 Pt now chest pain free with nitrate - recheck enzymes -1 set troponin0.719, CK 507, MB 39.9, CKMB 7.9 - check echo - continue heparin, aspirin, ARB, statin, beta linda - continue clopidogrel - called in/consented for [facility] today +/- PCI -05-17-15: PCI to the mid RCA with a 3.5 x 16 mm Synergy EES - Obesity, unspecified 07/01/2006 - Other and unspecified hyperlipidemia 07/01/2006 - Polyneuropathy ([facility]) 05/01/2016 Nerve study 2015. - SLEEP APNEA NOS (cpap intolerant) 07/01/2006 - Type II or unspecified type diabetes mellitus without mention of complication, not stated as uncontrolled 01/25/2014 - Unspecified constipation PAST SURGICAL HISTORY Procedure Laterality Date - [facility] Colonoscopy 2004, 2000 - [facility] 08/28/08 Colonoscopy - [facility] 05/[facility]/2015 Colonoscopy - KNEE SCOPE,DIAGNOSTIC Right 10/06/2007 Arthroscopy, knee - LEFT HEART CATH,PERCUTANEOUS 08/22/2014 Cardiac cath, L heart - PALATE/UVULA SURGERY UNLISTED 1999 Somnoplasty, tracheostomy - PAST SURGICAL HISTORY OF 05/16/2015 Had heart stent - REPAIR BICEPS LONG TENDON Right 05/12/2017 [facility] - REPAIR ING HERNIA,5+Y/O,REDUCIBL Left 1990 Hernia repair, inguinal - TRACHEOSTOMY HX 1999 w/ UVPP ALLERGIES Patient has no known allergies. MEDICATIONS warfarin (COUMADIN) 5 mg tablet Take 12.5mg daily or as directed. gabapentin (NEURONTIN) 300 mg capsule Take 1 capsule by mouth daily at bedtime for 180 days. ezetimibe (ZETIA) 10 mg tablet Take 1 tablet by mouth once daily. trimethoprim-polymyxin eye drops (POLYTRIM) ophthalmic solution Use 1 Drop in both eyes four times daily. spironolactone (ALDACTONE) 25 mg tablet Take 1 tablet by mouth twice daily. pantoprazole DR (PROTONIX) 40 mg tablet Take 1 tablet by mouth every morning. atorvastatin (LIPITOR) 80 mg tablet Take 1 tablet by mouth once daily. furosemide (LASIX) 40 mg tablet Take 1 tablet by mouth twice daily. With 20 mg tablet for total of 60 mg twice daily. furosemide (LASIX) 20 mg tablet Take 1 tablet by mouth twice daily. COMPOUNDED PRESCRIPTION INOGEN PORTABLE OXYGEN CONCENTRATOR. 3 LPM VIA NASAL CANNULA WITH ACTIVITY. DX: J96.21; J96.22. J44.9. I25.5 metoprolol succinate ER (TOPROL XL) 100 mg Tb24 Take 1 tablet by mouth once daily. metFORMIN (GLUCOPHAGE) 500 mg tablet Take 1 tablet by mouth daily with breakfast. . nitroglycerin sublingual (NITROQUICK) 0.4 mg SL tablet Dissolve 1 tablet under the tongue as needed. FOR CHEST PAIN. IF NO RELIEF CALL 911 clopidogrel (PLAVIX) 75 mg tablet Take 1 tablet by mouth once daily. albuterol HFA (PROVENTIL HFA, VENTOLIN HFA) 90 mcg/actuation inhaler Inhale 2 Puffs as instructed every 6 hours as needed for Wheezing/Shortness of Breath. Compression Knee Highs KNEE HIGH COMPRESSION STOCKINGS 20- 30 MM HG. DX: EDEMA. VENOUS INSUFFICIENCY, BOTH LOWER EXTREMITIES. fluticasone (FLONASE) 50 mcg/actuation nasal spray 1 or 2 sprays in each nostril at bedtime. polyethylene glycol 3350 (MIRALAX) 17 gram/dose powder Take 17 g by mouth once daily. magnesium hydroxide (MILK OF MAGNESIA) 400 mg/5 mL suspension Take 15 mL by mouth once daily as needed for Constipation. senna-docusate 8.6-50 mg per tablet Take 1 tablet by mouth once daily. For constipation. Lancets (FREESTYLE LANCETS) [facility] lancets Test Blood sugar daily. Hyperglycemia, no insulin FAMILY HISTORY Problem Relation Age of Onset - Diabetes Father - Heart Father Pacemaker - Alzheimer's Disease Father - Coronary Artery Disease Father - other (parkinsons) Father - Diabetes Mother - Cancer Mother Colon - Hypertension Brother - Heart Brother CABG - Diabetes Brother - Peripheral Artery Disease Brother - Hypertension Brother Social History Substance Use Topics - Smoking status: Former Smoker Packs/day: 0.25 Years: 20.00 Types: Cigarettes Quit date: 07/01/2006 - Smokeless tobacco: Former User - Alcohol use No PHYSICAL EXAM BP 120/70 Pulse 78 Temp 36.7 ?C (98.1 ?F) (Temporal Artery) Resp 18 Wt (!) 152.4 kg (336 lb) SpO2 90% BMI 48.21 kg/m? General Appearance: well appearing, in no acute distress, alert Lungs: lungs clear to auscultation. No wheezing, rhonchi, rales Heart: RRR without murmur, gallop, or rubs. No ectopy Ext: venous stasis discoloration lower legs. Non pitting edema at baseline. No erythema, induration, fluctuance. good distal pulses ASSESSMENT/PLAN: 1. Venous stasis ulcer of other part of left lower leg, unspecified ulcer stage, unspecified whether varicose veins present (HCC) - ICD9: 454.0, ICD10: I83.028, L97.829 (primary diagnosis) Patient feels that it has been healing. Has not been to [facility] wound center since 05/26 and has not scheduled a follow-up as advised. I recommend he continue with wound center care until notified otherwise. - CONSULT TO [facility] per patient request 2. Cellulitis of left lower extremity without foot - ICD9: 682.6, ICD10: L03.116 - Resolved - Continue treatment with Trimethoprim-sulfamethozazole (Bactrim) DS PO BID until complete - follow-up in office as needed for recurrent symptoms Prescription instructions reviewed with patient as applicable. Potential red flag symptoms discussed with the patient. Reviewed appropriate action plan to take if red flag symptoms occur. Patient agreeable to treatment plan. Bev Smart APRN.[employer] FINAL INSPECTOR Referring Provider: SELF [[id number]] Allergies As of Date: 06/06/2018 (No Known Allergies) Date Reviewed: 06/06/2018 Reviewed by: Michelle Grier Appeals Coordinator - Fully Assessed Primary Visit Diagnosis:Venous stasis ulcer of other part of left lower leg, unspecified ulcer stage, unspecified whether varicose veins present ([facility]) [I83.028, L97.829] Other Visit Diagnosis:Cellulitis of left lower extremity without foot [L03.116] Order(s):[facility] [[id number]] Order #: [id number]: 1 Prescriptions as of 06/06/2018 Sig: WARFARIN 5 MG TABLET Take 12.5mg daily or as direc* GABAPENTIN 300 MG CAPSULE Take 1 capsule by mouth daily* EZETIMIBE 10 MG TABLET Take 1 tablet by mouth once d* POLYMYXIN B SULFATE 10,000 UN* Use 1 Drop in both eyes four * SPIRONOLACTONE 25 MG TABLET Take 1 tablet by mouth twice * PANTOPRAZOLE 40 MG TABLET,DEL* Take 1 tablet by mouth every * ATORVASTATIN 80 MG TABLET Take 1 tablet by mouth once d* FUROSEMIDE 40 MG TABLET Take 1 tablet by mouth twice * FUROSEMIDE 20 MG TABLET Take 1 tablet by mouth twice * COMPOUNDED PRESCRIPTION INOGEN PORTABLE OXYGEN CONCEN* METOPROLOL SUCCINATE ER 100 M* Take 1 tablet by mouth once d* METFORMIN 500 MG TABLET Take 1 tablet by mouth daily * NITROGLYCERIN 0.4 MG SUBLINGU* Dissolve 1 tablet under the t* CLOPIDOGREL 75 MG TABLET Take 1 tablet by mouth once d* ALBUTEROL SULFATE HFA 90 MCG/* Inhale 2 Puffs as instructed * COMPOUNDED PRESCRIPTION KNEE HIGH COMPRESSION STOCKIN* FLUTICASONE 50 MCG/ACTUATION * 1 or 2 sprays in each nostril* POLYETHYLENE GLYCOL 3350 17 G* Take 17 g by mouth once daily. MAGNESIUM HYDROXIDE 400 MG/5 * Take 15 mL by mouth once andrey* SENNOSIDES 8.6 MG-DOCUSATE SO* Take 1 tablet by mouth once d* * LANCETS Test Blood sugar daily. Hype* Problem List As Of Date 06/06/2018 Noted Resolved ATRIAL FIBRILLATION [I48.91] INVALID FOR*07/23/2015 More... Edema [R60.9] INVALID FOR* Hypercholesterolemia [E78.00] INVALID FOR* More... SLEEP APNEA NOS (cpap intolerant) [G47.30] INVALID FOR*01/30/2015 Obesity [E66.9] INVALID FOR*08/13/2017 More... Hemangioma of intra-abdominal structures [D18.0*INVALID FOR*04/25/2014 Essential hypertension [I10] INVALID FOR* More... IRRITABLE COLON [K58.9] INVALID FOR* Constipation [K59.00] INVALID FOR* DERMATOPHYTOSIS OF NAIL [B35.1] INVALID FOR*04/24/2008 ABDOMINAL PAIN LLQ [R10.32] 04/24/2008 ABDOMINAL PAIN LUQ [R10.12] 04/24/2008 FLATUL/ERUCTAT/GAS PAIN [R14.3, R14.1, R14.2] 04/24/2008 Impaired fasting glucose [R73.01] INVALID FOR*04/25/2014 COPD (chronic obstructive pulmonary disease) [J*INVALID FOR* Type II or unspecified type diabetes mellitus w*INVALID FOR*05/16/2015 ASCVD (arteriosclerotic cardiovascular disease)*INVALID FOR* BPH (benign prostatic hyperplasia) [N40.0] INVALID FOR* Family history of colon cancer [Z80.0] INVALID FOR*08/13/2017 NSTEMI (non-ST elevated myocardial infarction) *INVALID FOR*01/15/2016 More... DM2 (diabetes mellitus, type 2) (HCC) [E11.9] INVALID FOR* More... S/P right coronary artery (RCA) stent placement*INVALID FOR* LV dysfunction [I51.9] INVALID FOR*01/15/2016 Cardiomyopathy, ischemic [I25.5] INVALID FOR* More... Chronic anticoagulation [Z79.01] INVALID FOR* More... Paroxysmal atrial fibrillation (HCC) [I48.0] INVALID FOR* More... Sleep apnea, intolerant to CPAP [G47.30] INVALID FOR* More... Astigmatism, regular [H52.229] INVALID FOR*08/13/2017 Presbyopia [H52.4] INVALID FOR*01/15/2016 Benign neoplasm of skin of eyelid including can*INVALID FOR*04/07/2017 Polyneuropathy (HCC) [G62.9] INVALID FOR* More... Spinal stenosis, lumbar region, with neurogenic*INVALID FOR*12/16/2017 Displacement of lumbar intervertebral disc with*INVALID FOR*04/07/2017 Spondylosis of lumbar region without myelopathy*INVALID FOR* Lesion of liver [K76.9] INVALID FOR*08/13/2017 More... Ascites [R18.8] INVALID FOR*05/30/2017 More... ADEBAYO (acute kidney injury) (HCC) [N17.9] INVALID FOR*12/16/2017 More... Nicotine use disorder, F17.2 [F17.200] INVALID FOR*08/13/2017 More... Obesity, Class III, BMI >= 40 (morbid obesity) *INVALID FOR* Lethargy [R53.83] INVALID FOR*08/13/2017 Acute on chronic respiratory failure with hypox*INVALID FOR* More... Morbid obesity with body mass index (BMI) of 45*INVALID FOR*04/14/2018 More... Acute liver failure with hepatic coma (HCC) [K7*INVALID FOR*08/13/2017 More... Respiratory failure with hypercapnia (HCC) [J96*INVALID FOR*08/13/2017 More... Shock circulatory (HCC) [R57.9] INVALID FOR*05/29/2017 More... Kidney insufficiency [N28.9] INVALID FOR*04/14/2018 Combined forms of age-related cataract of both *INVALID FOR* Hyperopia, bilateral [H52.03] INVALID FOR* Dry eye syndrome, bilateral [H04.123] INVALID FOR* Bacterial conjunctivitis of both eyes [H10.9] INVALID FOR* CKD (chronic kidney disease) Stage 3, GFR 30-59*INVALID FOR* Encounter Status:Closed by BEV SMART CNP on 06/06/18 PROGRESS Observed: 06/02/2018 Status: COMPLETED Source: [place] 4:19 PM [facility] REPOSITORY HNO ID: [id number] Author: Amber Staton LPN Service: (none) Author Type: (none) Type: Progress Notes Filed: 06/02/2018 4:19 PM Note Text: Patient notified of results and provider's instructions. Patient verbalizes understanding. Ambre Staton LPN PROGRESS Observed: 06/02/2018 Status: COMPLETED Source: [place] 3:40 PM [facility] REPOSITORY HNO ID: [id number] Author: Bev Daniels) Berry Service: (none) Author Type: Nurse Practitioner Type: Progress Notes Filed: 06/02/2018 4:19 PM Note Text: Change to 12.5 mg on Mon, Wed, , Wednesday starting today and 10 mg all other days. If patient already took the 10 mg tablet today he should take an extra 2.5 mg to equal 12.5 mg. INR one week as scheduled Bev Smart APRN.CNP PROGRESS Observed: 06/02/2018 Status: COMPLETED Source: [place] 3:28 PM [facility] REPOSITORY HNO ID: [id number] Author: Katharine Nino RN Service: (none) Author Type: (none) Type: Progress Notes Filed: 06/02/2018 3:31 PM Note Text: patient had inr completed at [facility] patients inr is 1.4 (patients inr range is 2.0-3.0) patient is currently taking 12.5mg Mon,Wed,Fri and 10mg all other days patients last dose change was on 05/27/19 due to a low level of 1.3 (dose at that time was 12.5mg Wed,Sun and 10mg all other days) patient has had a change in medication as pt is on antibiotic, and no uninstructed missed doses and no change in diet FYI - patient was in [facility] on 05/30-06/01 for leg wound infection that went to the blood stream. pt is following up with pcp on Wednesday Advised patient that they would be contacted regarding medication dose and when to follow up after information is reviewed by provider. After provider review please contact the patient with information and schedule follow up appointment with coumadin clinic. FYI - patient has been scheduled for a 1 week follow up inr on 06/09/18 GLUCOSE POC Collected: 06/01/2018 Status: F Source: [place] 11:54 AM [facility] REPOSITORY TYPE CODE TESTS RESULT OUT OF REFERENCE UNITS RANGE LAB [id number](LO 70-99 mg/dL INC) High Glucose POC 130 Performed By: #### [id number] #### [facility] POC Subsection [address] [place] [address] GLUCOSE POC Collected: 06/01/2018 Status: F Source: [place] 7:31 AM [facility] REPOSITORY TYPE CODE TESTS RESULT OUT OF REFERENCE UNITS RANGE LAB [id number](LO 70-99 mg/dL INC) High Glucose POC 153 Performed By: #### [id number] #### [facility] POC Subsection [address] [place] [address] PT Collected: 06/01/2018 Status: F Source: [place] 6:13 AM [facility] TYPE CODE TESTS RESULT OUT OF RANGE REFERENCE UNITS LAB [id number](LO 1.0-1.2 INC) High INR 1.6 Result Comment: INR Recommended Therapeuptic Ranges: Prophylaxis/treatment of DVT and PE?2.0-3.0 Prevention of systemic embolism?.2.0-3.0 Mechanical prosthetic values?2.5-3.5 CRITICAL VALUES?.>4.0 LAB [id number](LOINC) 11.6-14.6 second(s) High PT 17.7 Performed By: #### [id number] #### [facility] Hematology Automated Subsection [address] [place] [address] CMP Collected: 06/01/2018 Status: F Source: [place] 6:13 AM [facility] REPOSITORY TYPE CODE TESTS RESULT OUT OF RANGE REFERENCE UNITS LAB [id number](L 70-99 mg/dL OINC) High Glucose Lvl 160 LAB 87347962(L 6-23 mg/dL OINC) BUN Normal 18 LAB 4728144(LO 0.5-1.3 mg/dL INC) Normal Creatinine 1.1 LAB 36657555(L 8.6-10.3 mg/dL OINC) Calcium Normal Lvl 8.8 LAB 78993221(L 136-145 mEq/L OINC) Sodium Normal Lvl 141 LAB 36034135(L 3.5-5.3 mEq/L OINC) Normal Potassium Lvl 3.6 LAB 76512421(L 98-107 mEq/L OINC) Chloride Normal 102 LAB 20402462(L 21.0-32.0 mEq/L OINC) High CO2 36.0 LAB 45682797(L 33-136 Int._Unit/ OINC) L Alk Phos Normal 68 LAB 57536604(L 0.00-1.20 mg/dL OINC) Bili Normal Total 0.59 LAB 91427223(L 3.4-5.0 gm/dL OINC) Albumin Normal Lvl 3.8 LAB 65127516(L 6.4-8.2 gm/dL OINC) Total Normal Protein 7.0 LAB 60023062(L 10-52 Int._Unit/ OINC) L ALT Normal 26 LAB 31473191(L 9-39 Int._Unit/ OINC) L AST Normal 20 LAB 30667351(L 5.4-30.0 ratio OINC) Normal BUN/Creat Ratio 16.4 LAB 41964754(L 10-20 mEq/L OINC) Low AGAP 7 LAB 32048129(L 2.0-4.0 G/DL OINC) Globulin Normal 3.0 LAB 73481176(L 1.1-1.9 ratio OINC) A/G Normal Ratio 1.2 Performed By: #### [id number] #### [facility] [place] [address] EGFR Collected: 06/01/2018 Status: F Source: [place] 6:13 AM [facility] REPOSITORY Order Comment: Order added by Discern Expert. TYPE CODE TESTS RESULT OUT OF RANGE REFERENCE UNITS LAB [id number](LO mL/min/1.73 INC) m2 Normal eGFR >60 LAB 68316696(LO mL/min/1.73 INC) m2 Normal eGFR AA >60 Performed By: #### [id number] #### LUKEAngie [facility] [place] [address] CBC W/ AUTO DIFF Collected: 06/01/2018 Status: F Source: [place] 6:13 AM [facility] REPOSITORY TYPE CODE TESTS RESULT OUT OF RANGE REFERENCE UNITS LAB [id number](L 3.6-11.0 E3/mcL OINC) Normal WBC 5.9 LAB 95870884(L 3.90-6.10 E6/mcL OINC) Normal RBC 4.38 LAB 39316977(L 13.5-18.0 G/DL OINC) Low Hgb 12.7 LAB 68095348(L 42.0-52.0 % OINC) Low Hct 39.2 LAB 88795510(L 11.5-14.5 % OINC) High RDW 15.4 LAB 19935418(L 27.0-31.0 pg OINC) Normal MCH 29.0 LAB 98020525(L 33.0-37.0 G/DL OINC) Low MCHC 32.5 LAB 71683147(L 78.0-100.0 fL OINC) Normal MCV 89.5 LAB 91841667(L 7.4-11.0 fL OINC) Normal MPV 7.7 LAB 52901582(L 130-400 E3/mcL OINC) Normal Platelet 203 Performed By: #### [id number] #### [facility] [place] [address] AUTO DIFF Collected: 06/01/2018 Status: F Source: [place] 6:13 AM [facility] REPOSITORY Order Comment: Order Added by Discern Expert. TYPE CODE TESTS RESULT OUT OF RANGE REFERENCE UNITS LAB [id number](L 37.0-75.0 % OINC) Normal Neutro Auto 68.2 LAB 91714450(L 20.0-55.0 % OINC) Normal Lymph Auto 21.4 LAB 51437610(L 0.0-10.0 % OINC) Normal [place] Auto 7.8 LAB 84560046(L 0.0-11.0 % OINC) Normal Eos Auto 2.1 LAB 62551354(L 0.0-2.0 % OINC) Normal Basophil Auto 0.5 LAB [id number](L 1.4-6.5 E3/mcL OINC) Normal Neutro 4.0 Absolute LAB 55210378(L 1.2-3.4 E3/mcL OINC) Normal Lymph Absolute 1.3 LAB 56947946(L 0.0-0.7 E3/mcL OINC) Normal [place] Absolute 0.5 LAB 16404176(L 0.0-0.7 E3/mcL OINC) Normal Eos Absolute 0.1 LAB 59271401(L 0.0-0.2 E3/mcL OINC) Normal Basophil 0.0 Absolute Performed By: #### [id number] #### [facility] [employer] [address] [place], [place] [id number] GLUCOSE POC Collected: 05/31/2018 Status: F Source: [place] 9:28 PM [facility] REPOSITORY TYPE CODE TESTS RESULT OUT OF REFERENCE UNITS RANGE LAB [id number](LO 70-99 mg/dL INC) High Glucose POC 163 Performed By: #### [id number] #### [facility] POC Subsection [address] [place] [address] GLUCOSE POC Collected: 05/31/2018 Status: F Source: [place] 4:19 PM [facility] REPOSITORY TYPE CODE TESTS RESULT OUT OF REFERENCE UNITS RANGE LAB 35054912(LO 70-99 mg/dL INC) High Glucose POC 164 Performed By: #### [id number] #### [facility] POC Subsection [address] [place] [address] GLUCOSE POC Collected: 05/31/2018 Status: F Source: [place] 11:30 AM [facility] REPOSITORY TYPE CODE TESTS RESULT OUT OF REFERENCE UNITS RANGE LAB [id number](LO 70-99 mg/dL INC) High Glucose POC 154 Performed By: #### [id number] #### [facility] POC Subsection [address] [place], [place] [address] GLUCOSE POC Collected: 05/31/2018 Status: F Source: [place] 7:55 AM [facility] REPOSITORY TYPE CODE TESTS RESULT OUT OF REFERENCE UNITS RANGE LAB [id number](LO 70-99 mg/dL INC) High Glucose POC 161 Performed By: #### [id number] #### [facility] POC Subsection [address] [place] [address] UA COMPLETE Collected: 05/31/2018 Status: F Source: [place] 6:00 AM [facility] REPOSITORY TYPE CODE TESTS RESULT OUT OF REFERENCE UNITS RANGE LAB 44432480(L Yellow OINC) UA Color Normal Straw LAB 47986776(L Clear OINC) UA Clarity Normal Clear LAB 37513944(L Negative OINC) UA Glucose Normal Negative LAB 94607487(L Negative OINC) UA Bili Normal Negative LAB 23963955(L Negative OINC) UA Ketones Normal Negative LAB 49536913(L 1.003-1.030 OINC) UA Spec Normal Grav 1.013 LAB 54269341(L 4.6-8.0 OINC) UA pH Normal 5.0 LAB 65016060(L Negative OINC) UA Protein Normal Negative LAB 07652572(L OINC) UA Normal Urobilinogen Negative Result Comment: Due to a manufacturing issue, low positive urobilinogen results may be fasely positive. Correlate with urine bilirubin and additional clinical/laboratory findings to assess the risk of hemolytic anemia or liver disease. If clinically indicated, repeat testing with an alternate method is available by contacting the laboratory within 24 hours. LAB 44721622(LOINC) Negative Normal UA Negative Nitrite LAB 26150791(LOINC) Negative Normal UA Blood Negative LAB 77543898(LOINC) Negative Normal UA Leuk Negative Est LAB 50943978(LOINC) 0-3 /HPF Normal UA RBC 0-3 LAB 27811470(LOINC) 0-5 /HPF Normal UA WBC 0-5 LAB 83874272(LOINC) 0-2 /LPF Abnormal UA Hyal 3-5 Cast Performed By: #### [id number] #### [facility] Urinalysis Automated Subsection [facility] [place] [address] Observed: 05/31/2018 Status: F Source: [place] C BLOOD 5:25 AM [facility] REPOSITORY Final Report: No growth at 5 Days Performed By: #### [id number] #### [facility] Microbiology Automated Subsection [facility] [place] [address] Observed: 05/31/2018 Status: F Source: [place] C BLOOD 5:20 AM [facility] REPOSITORY Final Report: No growth at 5 Days Performed By: #### [id number] #### [facility] Microbiology Automated Subsection [facility] [place] [address] Observed: 05/31/2018 Status: F Source: [place] C WOUND 5:00 AM [facility] REPOSITORY Final Report: Moderate Staphylococcus aureus Moderate Group G Streptococcus No known resistance to Pen or Vanco, sens upon request only ORGANISM: SA Gram Stain Report: Rare Gram Positive Cocci SUSCEPTIBILITY RESULTS Antibiotic CATHRYN Dilutn CATHRYN Interp ORGANISM: SA Amox/Cla : <=4/2 S Amp/Sul : <=8/4 S Ceftri : <=8 S Cipro : <=1 S Clinda : <=0.5 S Eryth : <=0.5 S Gent : <=4 S Levo : <=1 S Line : 4 S Ox : <=0.25 S Pen : <=0.03 S Rif : <=1 S Tetra : <=4 S SXT : <=0.5/9.5 S Vanc : >1 Na. Performed By: #### [id number] #### [facility] Microbiology Subsection [address] [place] [address] CBC W/ AUTO DIFF Collected: 05/31/2018 Status: F Source: [place] 1:58 AM [facility] REPOSITORY TYPE CODE TESTS RESULT OUT OF RANGE REFERENCE UNITS LAB [id number](L 3.6-11.0 E3/mcL OINC) Normal WBC 4.8 LAB 54348042(L 3.90-6.10 E6/mcL OINC) Normal RBC 4.35 LAB 52900015(L 13.5-18.0 G/DL OINC) Low Hgb 12.7 LAB 01127034(L 42.0-52.0 % OINC) Low Hct 38.8 LAB 69510407(L 11.5-14.5 % OINC) High RDW 15.2 LAB 60982616(L 27.0-31.0 pg OINC) Normal MCH 29.2 LAB 69985039(L 33.0-37.0 G/DL OINC) Low MCHC 32.8 LAB 47137880(L 78.0-100.0 fL OINC) Normal MCV 89.2 LAB 95786703(L 7.4-11.0 fL OINC) Normal MPV 7.7 LAB [id number](L 130-400 E3/mcL OINC) Normal Platelet 223 Performed By: #### [id number] #### [facility] [employer] [address] [place] [address] AUTO DIFF Collected: 05/31/2018 Status: F Source: [place] 1:58 AM [facility] REPOSITORY Order Comment: Order Added by Discern Expert. TYPE CODE TESTS RESULT OUT OF RANGE REFERENCE UNITS LAB [id number](L 37.0-75.0 % OINC) Normal Neutro Auto 52.6 LAB 13326408(L 20.0-55.0 % OINC) Normal Lymph Auto 33.1 LAB 78536981(L 0.0-10.0 % OINC) High [place] Auto 11.2 LAB 70905549(L 0.0-11.0 % OINC) Normal Eos Auto 2.3 LAB 39870197(L 0.0-2.0 % OINC) Normal Basophil Auto 0.8 LAB 81527046(L 1.4-6.5 E3/mcL OINC) Normal Neutro 2.5 Absolute LAB 40631209(L 1.2-3.4 E3/mcL OINC) Normal Lymph Absolute 1.6 LAB 57137629(L 0.0-0.7 E3/mcL OINC) Normal [place] Absolute 0.5 LAB 85769535(L 0.0-0.7 E3/mcL OINC) Normal Eos Absolute 0.1 LAB 09461957(L 0.0-0.2 E3/mcL OINC) Normal Basophil 0.0 Absolute Performed By: #### [id number] #### [facility] Cheney [address] [place], [place] [address] BMP Collected: 05/31/2018 Status: F Source: [place] 1:58 AM [facility] REPOSITORY TYPE CODE TESTS RESULT OUT OF RANGE REFERENCE UNITS LAB 81377575(L 70-99 mg/dL OINC) High Glucose Lvl 197 LAB 74069683(L 6-23 mg/dL OINC) High BUN 27 LAB 9046871(LO 0.5-1.3 mg/dL INC) Normal Creatinine 1.1 LAB 57243046(L 5.4-30.0 ratio OINC) Normal BUN/Creat Ratio 24.5 LAB 54548472(L 8.6-10.3 mg/dL OINC) Calcium Normal Lvl 9.0 LAB 06792658(L 136-145 mEq/L OINC) Sodium Normal Lvl 141 LAB 11770746(L 3.5-5.3 mEq/L OINC) Normal Potassium Lvl 3.7 LAB 83059962(L 98-107 mEq/L OINC) Chloride Normal 104 LAB 86696174(L 21.0-32.0 mEq/L OINC) CO2 Normal 31.0 LAB 57864368(L 10-20 mEq/L OINC) AGAP Normal 10 Performed By: #### [id number] #### [facility] [place] [address] EGFR Collected: 05/31/2018 Status: F Source: [place] 1:58 AM [facility] REPOSITORY Order Comment: Order added by Discern Expert. TYPE CODE TESTS RESULT OUT OF RANGE REFERENCE UNITS LAB 59089459(LO mL/min/1.73 INC) m2 Normal eGFR >60 LAB 17196060(LO mL/min/1.73 INC) m2 Normal eGFR AA >60 Performed By: #### [id number] #### [facility] [place] [address] HGBA1C Collected: 05/31/2018 Status: F Source: [place] 1:58 AM [facility] REPOSITORY TYPE CODE TESTS RESULT OUT OF REFERENCE UNITS RANGE LAB [id number]( 4.0-6.3 % LOINC) High Hemoglobin A1c 7.2 Performed By: #### [id number] #### [facility] Chemistry Manual Subsection [facility] [place] [id number] PROGRESS Observed: 05/27/2018 Status: COMPLETED Source: [place] 3:35 PM [facility] REPOSITORY HNO ID: [id number] Author: Yi Anderson LPN Service: (none) Author Type: (none) Type: Progress Notes Filed: 05/27/2018 3:36 PM Note Text: Phoned patient and went over coumadin instructions from Dr Mercado 12.5 mg M-W- and 10 mg all other 4 days and recheck INR on jun 02 with understanding. Scheduled appt coumadin clinic 06/02/2018 at 345 pm. PROGRESS Observed: 05/27/2018 Status: COMPLETED Source: [place] 3:16 PM [facility] REPOSITORY HNO ID: [id number] Author: Coy Mercado Service: (none) Author Type: Physician Type: Progress Notes Filed: 05/27/2018 3:36 PM Note Text: Return in about 5 months (around 10/25/2018). Increase Coumadin dose. 12.5 mg Wed, Wed, Wednesday. 10 mg on all other 4 days. INR on June 02. PROGRESS Observed: 05/27/2018 Status: COMPLETED Source: [place] 12:09 PM [facility] REPOSITORY HNO ID: [id number] Author: Katharine Nino RN Service: (none) Author Type: (none) Type: Progress Notes Filed: 05/27/2018 12:10 PM Note Text: patient had inr completed at [facility] patients inr is 1.3 (patients inr range is 2.0-3.0) patient is currently taking 12.5mg Wed,Sun and 10mg all other days patients last dose change was on 05/16/18 due to a low level of 1.2 (dose at that time was 12.5mg Sun and 10mg all other days) patient has had no changes in medication except for coumadin and no missed dose and no change in diet pt has appt with pcp today and has been instructed to discuss results at that time patient has been scheduled for a 2 week follow up inr on 06/09/18 PROGRESS Observed: 05/27/2018 Status: COMPLETED Source: [place] 9:58 AM [facility] REPOSITORY HNO ID: [id number] Author: Coy Mercado Service: (none) Author Type: Physician Type: Progress Notes Filed: 05/27/2018 10:05 AM Note Text: This note was created using Re-APPter. Subjective Catalina Evans is a 63 year old male. [facility] for treatment of his left leg ulcer. He was being checked for infection. He was on antibiotic 2 weeks ago. He was having more pain in his left leg constantly, burning. This was worsened after each debridement. He started taking some old gabapentin 200 mg at bedtime with some relief. He requested a refill. His hypertension, diabetes mellitus, and congestive heart failure were controlled. He was using his O2 daily. ACTIVE PROBLEM LIST Edema Hypercholesterolemia Essential Hypertension Irritable Bowel Syndrome Constipation Copd (Chronic Obstructive Pulmonary Disease) ([facility]) Ascvd (Arteriosclerotic Cardiovascular Disease) Bph (Benign Prostatic Hyperplasia) Dm2 (Diabetes Mellitus, Type 2) ([facility]) S/P Right Coronary Artery (Rca) Stent Placement Cardiomyopathy, Ischemic Chronic Anticoagulation Paroxysmal Atrial Fibrillation (Hcc) Sleep apnea, intolerant to CPAP Polyneuropathy (Hcc) Spondylosis of Lumbar Region Without Myelopathy Or Radiculopathy Obesity, Class III, BMI >= 40 (morbid obesity) E66.01 Acute On Chronic Respiratory Failure With Hypoxia and Hypercapnia (Hcc) Combined Forms of Age-Related Cataract of Both Eyes Hyperopia, Bilateral Dry Eye Syndrome, Bilateral Bacterial Conjunctivitis of Both Eyes CKD (chronic kidney disease) Stage 3, GFR 30-59 ml/min Current Outpatient Prescriptions: albuterol HFA (PROVENTIL HFA, VENTOLIN HFA) 90 mcg/actuation inhaler Inhale 2 Puffs as instructed every 6 hours as needed for Wheezing/Shortness of Breath. atorvastatin (LIPITOR) 80 mg tablet Take 1 tablet by mouth once daily. clopidogrel (PLAVIX) 75 mg tablet Take 1 tablet by mouth once daily. COMPOUNDED PRESCRIPTION Xuanyixia PORTABLE OXYGEN CONCENTRATOR. 3 LPM VIA NASAL CANNULA WITH ACTIVITY. DX: J96.21; J96.22. J44.9. I25.5 Compression Knee Highs KNEE HIGH COMPRESSION STOCKINGS 20- 30 MM HG. DX: EDEMA. VENOUS INSUFFICIENCY, BOTH LOWER EXTREMITIES. ezetimibe (ZETIA) 10 mg tablet Take 1 tablet by mouth once daily. fluticasone (FLONASE) 50 mcg/actuation nasal spray 1 or 2 sprays in each nostril at bedtime. furosemide (LASIX) 20 mg tablet Take 1 tablet by mouth twice daily. furosemide (LASIX) 40 mg tablet Take 1 tablet by mouth twice daily. With 20 mg tablet for total of 60 mg twice daily. Lancets (FREESTYLE LANCETS) [facility] lancets Test Blood sugar daily. Hyperglycemia, no insulin magnesium hydroxide (MILK OF MAGNESIA) 400 mg/5 mL suspension Take 15 mL by mouth once daily as needed for Constipation. metFORMIN (GLUCOPHAGE) 500 mg tablet Take 1 tablet by mouth daily with breakfast. . metoprolol succinate ER (TOPROL XL) 100 mg Tb24 Take 1 tablet by mouth once daily. nitroglycerin sublingual (NITROQUICK) 0.4 mg SL tablet Dissolve 1 tablet under the tongue as needed. FOR CHEST PAIN. IF NO RELIEF CALL [address] (PROTONIX) 40 mg tablet Take 1 tablet by mouth every morning. polyethylene glycol 3350 (MIRALAX) 17 gram/dose powder Take 17 g by mouth once daily. senna-docusate 8.6-50 mg per tablet Take 1 tablet by mouth once daily. For constipation. spironolactone (ALDACTONE) 25 mg tablet Take 1 tablet by mouth twice daily. trimethoprim-polymyxin eye drops (POLYTRIM) ophthalmic solution Use 1 Drop in both eyes four times daily. warfarin (COUMADIN) 5 mg tablet Take 12.5mg daily or as directed. gabapentin (NEURONTIN) 300 mg capsule Take 1 capsule by mouth daily at bedtime for 180 days. No current facility-administered medications for this visit. Review of Systems Constitutional: Negative. Respiratory: Negative. Cardiovascular: Positive for leg swelling. Negative for chest pain and palpitations. Gastrointestinal: Negative for blood in stool. Skin: Positive for wound. Neurological: See HPI. Objective BP 120/82 Pulse 84 Temp 36.5 ?C (97.7 ?F) (Temporal Artery) Resp 18 Wt (!) 149.7 kg (330 lb) SpO2 90% BMI 47.35 kg/m? Physical Exam Constitutional: No distress. Eyes: Conjunctivae are normal. Neck: No JVD present. Cardiovascular: Normal heart sounds. Exam reveals no gallop. No murmur heard. Pulmonary/Chest: Breath sounds normal. Musculoskeletal: He exhibits edema. Left leg in compression dressing. Skin: He is not diaphoretic. Stasis pigmentation. Feet: Shoes and socks removed, normal distal pulses and not sensitive to monofilament in the toes. Xerosis. Stasis pigmentation. No ulcers. Right foot examined. Left foot in compression dressing. Assessment and Plan 1. Type 2 diabetes mellitus with diabetic neuropathy, without long-term current use of insulin (HCC) - ICD9: 250.60, 357.2, ICD10: E11.40 (primary diagnosis) Controlled. - Continue current medications - BASIC METABOLIC PNL - HGB A1C - GABAPENTIN 300 MG CAPSULE Start gabapentin. Discussed medication dosage, usage, goals of therapy, and side effects. 2. Paroxysmal atrial fibrillation (HCC) - ICD9: 427.31, ICD10: I48.0 See printed instructions or information. - WARFARIN 5 MG TABLET - CBC 3. Acute on chronic respiratory failure with hypoxia and hypercapnia (HCC) - ICD9: 518.84, 786.09, 799.02, ICD10: J96.21, J96.22 Stable. 4. Essential hypertension - ICD9: 401.9, ICD10: I10 - good control 5. CKD (chronic kidney disease) Stage 3, GFR 30-59 ml/min - ICD9: 585.3, ICD10: N18.3 Monitor. Coy Mercado MD CNOV Observed: 05/27/2018 Status: COMPLETED Source: [place] 9:20 AM [facility] REPOSITORY Office Visit (INTMWS) CATALINA EVANS ([id number]) 1955 M Date Time Provider Department 05/27/18 9:20 AM COY MERCADO INTBiancaWS During your visit today, we recorded the following information about you: Temperature Pulse Respiration Blood pressure 97.7 degrees 84/minute 18/minute 120/82 Weight 149.7 kg Coy Mercado MD 05/27/2018 9:58 AM Signed Increase Coumadin dose. 12.5 mg Wed, Wed, Wednesday. 10 mg on all other 4 days. INR on June 02. Coy Mercado MD 05/27/2018 10:05 AM Signed This note was created using Lookoutriter. Subjective Catalina Evans is a 63 year old male. He was going to the Wound Center for the past 3 weeks for treatment of his left leg ulcer. He was being checked for infection. He was on antibiotic 2 weeks ago. He was having more pain in his left leg constantly, burning. This was worsened after each debridement. He started taking some old gabapentin 200 mg at bedtime with some relief. He requested a refill. His hypertension, diabetes mellitus, and congestive heart failure were controlled. He was using his O2 daily. ACTIVE PROBLEM LIST Edema Hypercholesterolemia Essential Hypertension Irritable Bowel Syndrome Constipation Copd (Chronic Obstructive Pulmonary Disease) ([facility]) Ascvd (Arteriosclerotic Cardiovascular Disease) Bph (Benign Prostatic Hyperplasia) Dm2 (Diabetes Mellitus, Type 2) ([facility]) S/P Right Coronary Artery (Rca) Stent Placement Cardiomyopathy, Ischemic Chronic Anticoagulation Paroxysmal Atrial Fibrillation (Hcc) Sleep apnea, intolerant to CPAP Polyneuropathy (Hcc) Spondylosis of Lumbar Region Without Myelopathy Or Radiculopathy Obesity, Class III, BMI >= 40 (morbid obesity) E66.01 Acute On Chronic Respiratory Failure With Hypoxia and Hypercapnia (Hcc) Combined Forms of Age-Related Cataract of Both Eyes Hyperopia, Bilateral Dry Eye Syndrome, Bilateral Bacterial Conjunctivitis of Both Eyes CKD (chronic kidney disease) Stage 3, GFR 30-59 ml/min Current Outpatient Prescriptions: albuterol HFA (PROVENTIL HFA, VENTOLIN HFA) 90 mcg/actuation inhaler Inhale 2 Puffs as instructed every 6 hours as needed for Wheezing/Shortness of Breath. atorvastatin (LIPITOR) 80 mg tablet Take 1 tablet by mouth once daily. clopidogrel (PLAVIX) 75 mg tablet Take 1 tablet by mouth once daily. COMPOUNDED PRESCRIPTION Xuanyixia PORTABLE OXYGEN CONCENTRATOR. 3 LPM VIA NASAL CANNULA WITH ACTIVITY. DX: J96.21; J96.22. J44.9. I25.5 Compression Knee Highs KNEE HIGH COMPRESSION STOCKINGS 20- 30 MM HG. DX: EDEMA. VENOUS INSUFFICIENCY, BOTH LOWER EXTREMITIES. ezetimibe (ZETIA) 10 mg tablet Take 1 tablet by mouth once daily. fluticasone (FLONASE) 50 mcg/actuation nasal spray 1 or 2 sprays in each nostril at bedtime. furosemide (LASIX) 20 mg tablet Take 1 tablet by mouth twice daily. furosemide (LASIX) 40 mg tablet Take 1 tablet by mouth twice daily. With 20 mg tablet for total of 60 mg twice daily. Lancets (FREESTYLE LANCETS) [facility] lancets Test Blood sugar daily. Hyperglycemia, no insulin magnesium hydroxide (MILK OF MAGNESIA) 400 mg/5 mL suspension Take 15 mL by mouth once daily as needed for Constipation. metFORMIN (GLUCOPHAGE) 500 mg tablet Take 1 tablet by mouth daily with breakfast. . metoprolol succinate ER (TOPROL XL) 100 mg Tb24 Take 1 tablet by mouth once daily. nitroglycerin sublingual (NITROQUICK) 0.4 mg SL tablet Dissolve 1 tablet under the tongue as needed. FOR CHEST PAIN. IF NO RELIEF CALL [address] (PROTONIX) 40 mg tablet Take 1 tablet by mouth every morning. polyethylene glycol 3350 (MIRALAX) 17 gram/dose powder Take 17 g by mouth once daily. senna-docusate 8.6-50 mg per tablet Take 1 tablet by mouth once daily. For constipation. spironolactone (ALDACTONE) 25 mg tablet Take 1 tablet by mouth twice daily. trimethoprim-polymyxin eye drops (POLYTRIM) ophthalmic solution Use 1 Drop in both eyes four times daily. warfarin (COUMADIN) 5 mg tablet Take 12.5mg daily or as directed. gabapentin (NEURONTIN) 300 mg capsule Take 1 capsule by mouth daily at bedtime for 180 days. No current facility-administered medications for this visit. Review of Systems Constitutional: Negative. Respiratory: Negative. Cardiovascular: Positive for leg swelling. Negative for chest pain and palpitations. Gastrointestinal: Negative for blood in stool. Skin: Positive for wound. Neurological: See HPI. Objective BP 120/82 Pulse 84 Temp 36.5 ?C (97.7 ?F) (Temporal Artery) Resp 18 Wt (!) 149.7 kg (330 lb) SpO2 90% BMI 47.35 kg/m? Physical Exam Constitutional: No distress. Eyes: Conjunctivae are normal. Neck: No JVD present. Cardiovascular: Normal heart sounds. Exam reveals no gallop. No murmur heard. Pulmonary/Chest: Breath sounds normal. Musculoskeletal: He exhibits edema. Left leg in compression dressing. Skin: He is not diaphoretic. Stasis pigmentation. Feet: Shoes and socks removed, normal distal pulses and not sensitive to monofilament in the toes. Xerosis. Stasis pigmentation. No ulcers. Right foot examined. Left foot in compression dressing. Assessment and Plan 1. Type 2 diabetes mellitus with diabetic neuropathy, without long-term current use of insulin (HCC) - ICD9: 250.60, 357.2, ICD10: E11.40 (primary diagnosis) Controlled. - Continue current medications - BASIC METABOLIC PNL - HGB A1C - GABAPENTIN 300 MG CAPSULE Start gabapentin. Discussed medication dosage, usage, goals of therapy, and side effects. 2. Paroxysmal atrial fibrillation (HCC) - ICD9: 427.31, ICD10: I48.0 See printed instructions or information. - WARFARIN 5 MG TABLET - CBC 3. Acute on chronic respiratory failure with hypoxia and hypercapnia (HCC) - ICD9: 518.84, 786.09, 799.02, ICD10: J96.21, J96.22 Stable. 4. Essential hypertension - ICD9: 401.9, ICD10: I10 - good control 5. CKD (chronic kidney disease) Stage 3, GFR 30-59 ml/min - ICD9: 585.3, ICD10: N18.3 Monitor. Coy Mercado MD Referring Provider: COY MERCADO [[id number]] Allergies As of Date: 05/27/2018 (No Known Allergies) Date Reviewed: 05/27/2018 Reviewed by: Michelle Grier Appeals Coordinator - Fully Assessed Reason for Visit: 4 month follow up [Other] Primary Visit Diagnosis:Type 2 diabetes mellitus with diabetic neuropathy, without long-term current use of insulin (HCC) [E11.40] Other Visit Diagnoses:Paroxysmal atrial fibrillation (HCC) [I48.0] Acute on chronic respiratory failure with hypoxia and hypercapnia (HCC) [J96.21, J96.22] Essential hypertension [I10] CKD (chronic kidney disease) Stage 3, GFR 30-59 ml/min [N18.3] Order(s):warfarin (COUMADIN) 5 mg tabletTake 12.5mg daily or as directed.Disp: 225 tabletRfl: 3 INR (POC) [[id number]] Order #: [id number]. #[id number] BASIC METABOLIC PNL [SQBMP] Order #: [id number] FUTURE HGB A1C [PZZHK3S] Order #: [id number] FUTURE CBC [SQCBC] Order #: [id number] FUTURE gabapentin (NEURONTIN) 300 mg capsuleTake 1 capsule by mouth daily at bedtime for 180 days.Disp: 30 capsuleRfl: 5 Prescriptions as of 05/27/2018 Sig: ALBUTEROL SULFATE HFA 90 MCG/* Inhale 2 Puffs as instructed * ATORVASTATIN 80 MG TABLET Take 1 tablet by mouth once d* CLOPIDOGREL 75 MG TABLET Take 1 tablet by mouth once d* COMPOUNDED PRESCRIPTION INOGEN PORTABLE OXYGEN CONCEN* COMPOUNDED PRESCRIPTION KNEE HIGH COMPRESSION STOCKIN* EZETIMIBE 10 MG TABLET Take 1 tablet by mouth once d* FLUTICASONE 50 MCG/ACTUATION * 1 or 2 sprays in each nostril* FUROSEMIDE 20 MG TABLET Take 1 tablet by mouth twice * FUROSEMIDE 40 MG TABLET Take 1 tablet by mouth twice * * LANCETS Test Blood sugar daily. Hype* MAGNESIUM HYDROXIDE 400 MG/5 * Take 15 mL by mouth once andrey* METFORMIN 500 MG TABLET Take 1 tablet by mouth daily * METOPROLOL SUCCINATE ER 100 M* Take 1 tablet by mouth once d* NITROGLYCERIN 0.4 MG SUBLINGU* Dissolve 1 tablet under the t* PANTOPRAZOLE 40 MG TABLET,DEL* Take 1 tablet by mouth every * POLYETHYLENE GLYCOL 3350 17 G* Take 17 g by mouth once daily. SENNOSIDES 8.6 MG-DOCUSATE SO* Take 1 tablet by mouth once d* SPIRONOLACTONE 25 MG TABLET Take 1 tablet by mouth twice * POLYMYXIN B SULFATE 10,000 UN* Use 1 Drop in both eyes four * WARFARIN 5 MG TABLET Take 12.5mg daily or as direc* GABAPENTIN 300 MG CAPSULE Take 1 capsule by mouth daily* Problem List As Of Date 05/27/2018 Noted Resolved ATRIAL FIBRILLATION [I48.91] INVALID FOR*07/23/2015 More... Edema [R60.9] INVALID FOR* Hypercholesterolemia [E78.00] INVALID FOR* More... SLEEP APNEA NOS (cpap intolerant) [G47.30] INVALID FOR*01/30/2015 Obesity [E66.9] INVALID FOR*08/13/2017 More... Hemangioma of intra-abdominal structures [D18.0*INVALID FOR*04/25/2014 Essential hypertension [I10] INVALID FOR* More... IRRITABLE COLON [K58.9] INVALID FOR* Constipation [K59.00] INVALID FOR* DERMATOPHYTOSIS OF NAIL [B35.1] INVALID FOR*04/24/2008 ABDOMINAL PAIN LLQ [R10.32] 04/24/2008 ABDOMINAL PAIN LUQ [R10.12] 04/24/2008 FLATUL/ERUCTAT/GAS PAIN [R14.3, R14.1, R14.2] 04/24/2008 Impaired fasting glucose [R73.01] INVALID FOR*04/25/2014 COPD (chronic obstructive pulmonary disease) [J*INVALID FOR* Type II or unspecified type diabetes mellitus w*INVALID FOR*05/16/2015 ASCVD (arteriosclerotic cardiovascular disease)*INVALID FOR* BPH (benign prostatic hyperplasia) [N40.0] INVALID FOR* Family history of colon cancer [Z80.0] INVALID FOR*08/13/2017 NSTEMI (non-ST elevated myocardial infarction) *INVALID FOR*01/15/2016 More... DM2 (diabetes mellitus, type 2) (HCC) [E11.9] INVALID FOR* More... S/P right coronary artery (RCA) stent placement*INVALID FOR* LV dysfunction [I51.9] INVALID FOR*01/15/2016 Cardiomyopathy, ischemic [I25.5] INVALID FOR* More... Chronic anticoagulation [Z79.01] INVALID FOR* More... Paroxysmal atrial fibrillation (HCC) [I48.0] INVALID FOR* More... Sleep apnea, intolerant to CPAP [G47.30] INVALID FOR* More... Astigmatism, regular [H52.229] INVALID FOR*08/13/2017 Presbyopia [H52.4] INVALID FOR*01/15/2016 Benign neoplasm of skin of eyelid including can*INVALID FOR*04/07/2017 Polyneuropathy (HCC) [G62.9] INVALID FOR* More... Spinal stenosis, lumbar region, with neurogenic*INVALID FOR*12/16/2017 Displacement of lumbar intervertebral disc with*INVALID FOR*04/07/2017 Spondylosis of lumbar region without myelopathy*INVALID FOR* Lesion of liver [K76.9] INVALID FOR*08/13/2017 More... Ascites [R18.8] INVALID FOR*05/30/2017 More... ADEBAYO (acute kidney injury) (HCC) [N17.9] INVALID FOR*12/16/2017 More... Nicotine use disorder, F17.2 [F17.200] INVALID FOR*08/13/2017 More... Obesity, Class III, BMI >= 40 (morbid obesity) *INVALID FOR* Lethargy [R53.83] INVALID FOR*08/13/2017 Acute on chronic respiratory failure with hypox*INVALID FOR* More... Morbid obesity with body mass index (BMI) of 45*INVALID FOR*04/14/2018 More... Acute liver failure with hepatic coma (HCC) [K7*INVALID FOR*08/13/2017 More... Respiratory failure with hypercapnia (HCC) [J96*INVALID FOR*08/13/2017 More... Shock circulatory (HCC) [R57.9] INVALID FOR*05/29/2017 More... Kidney insufficiency [N28.9] INVALID FOR*04/14/2018 Combined forms of age-related cataract of both *INVALID FOR* Hyperopia, bilateral [H52.03] INVALID FOR* Dry eye syndrome, bilateral [H04.123] INVALID FOR* Bacterial conjunctivitis of both eyes [H10.9] INVALID FOR* CKD (chronic kidney disease) Stage 3, GFR 30-59*INVALID FOR* Other instructions from your clinician: Increase Coumadin dose. 12.5 mg Mon, Wed, Wednesday. 10 mg on all other 4 days. INR on June 02. Prescriptions ordered this encounter Disp Refills Start End WARFARIN 5 MG TABLET 225 * 3 05/27/2018 Sig: Take 12.5mg daily or as directed. GABAPENTIN 300 MG CAPSULE 30 c* 5 05/27/2018 11/23/2018 Route: ORAL Sig: Take 1 capsule by mouth daily at bedtime for 180 days. Medications Discontinued During This Encounter warfarin (COUMADIN) 5 mg tablet 225 * 3 06/30/2017 05/27/2018 Sig: Take 12.5mg daily or as directed. Disc: Reason for discontinue is not on file. gabapentin (NEURONTIN) 100 mg capsule 180 * 5 03/17/2016 05/27/2018 Route: ORAL Sig: Take 2 capsules by mouth three times daily for 30 days. Disc: Reason for discontinue is not on file. Disposition: Return in about 5 months (around 10/25/2018). Follow-up and Disposition History Recorded Encounter Status:Closed by COY MERCADO MD on 05/27/18 Observed: 05/26/2018 Status: F Source: [place] CULTURE, WOUND 10:50 AM [facility] REPOSITORY Gram Stain Gram Stain 2+ Red Blood Cells No organisms seen Very Rare Gram positive cocci Wound Culture ORGANISM 1: Staphylococcus aureus Amount Growth Rare Staphylococcus aureus: REACTION Benzylpenicillin NF <=0.03 R Cefoxitin *NF - Clindamycin $$ <=0.25 S Inducable Clindamycin Resistan - Erythromycin $ <=0.25 S Gentamicin $ <=0.5 S Levofloxacin $ <=0.12 S Linezolid $$$$ 1 S Moxifloxicin *NF <=0.25 S Oxacillin NF <=0.25 S Tigecycline $$$$ <=0.12 S Rifampin $$ <=0.5 S Tetracycline NF <=1 S Trimethoprim/Sulfametho $ <=10 S Vancomycin $ <=0.5 S (NF) indicates non-formulary drug at [facility]. Approval by Infectious Disease Specialist required before non-formulary drugs may be ordered and/or dispensed. * CLSI guidelines does not recommend testing of cephalosporins. This interpretation is deduced from Beta-lactam/penicillin results. Performed By: #### M100.1400, M100.4001 #### [facility] [address] [place], [address] Observed: 05/26/2018 Status: F Source: [place] CULTURE, ANAEROBIC ANY 10:50 AM [facility] REPOSITORY Cult, Anaerobic No anaerobic bacteria isolated. Performed By: #### M100.1400, M100.4001 #### [facility] [address] [place], [address] VENOUS DUPLEX LOWER Observed: 05/20/2018 Status: F Source: [place] EXTREMITY 7:07 PM [facility] REPOSITORY [facility] Cardiovascular Services [address] [place] [address] Venous Duplex - [facility] Extrem 05/20/18 0857 MR#: [id number] Acct: [id number] Name: CATALINA EVANS Rep #: [id number] : 1955 63 From: Catalina Rowland MD Attending Dr: Brett Moore MD Status: REG RCR Ordering Dr: Brett Moore MD Date: 05/20/18 Location: CVS Sex: M C Admitted: Reason For Study: Ulcer RIGHT LEFT CFV is compressible, spontaneous, phasic, GSV is normal. competent and demonstrates normal CFV is compressible, spontaneous, phasic, augmentation. competent, and demonstrates normal FV is compressible, spontaneous, phasic, augmentation. competent and demonstrates normal FV is compressible, spontaneous, phasic, augmentation. competent and demonstrates normal POP V is compressible, spontaneous, phasic, augmentation. competent and demonstrates normal POP V is compressible, spontaneous, phasic, augmentation. competent and demonstrates normal T/P Trunk is compressible. augmentation. PTV is compressible. T/P Trunk is compressible. Unable to visualize Rt PeroV due to swelling PTV is compressible. and patient body habitus Unable to visualize Lt PeroV due to swelling and patient body habitus Rt SFJ is Competent Lt SFJ is Competent Rt GSV is Incompetent with reflux greater than 0.5 sec and a diameter of 0.72cm x Lt GSV is Competent 0.74cm in the thigh and 0.41cm x 0.49cm in the calf Lt SSV is Competent. Rt SSV is Competent. Procedure Exam performed in department. A preliminary report was called and/or faxed to [facility]. Interpretation Summary Deep veins of the lower extremities are bilaterally patent and compressible segmentally. There is no evidence of deep vein thrombosis on either side. Valvular competence appears intact within the proximal deep venous systems bilaterally. The greater saphenous veins appear bilaterally patent and compressible segmentally. The peroneal veins were not visualized on either side due to swelling and the patient's body habitus. Sapheno-femoral junctions are bilaterally competent . The right greater saphenous vein appears segmentally incompetent. The left greater saphenous vein appears segmentally competent. Small saphenous veins are patent and competent bilaterally. Ordering Physician: Brett Moore Referring Physician: Coy Mercado Performed By: Atiya Cortez, GHANSHYAM, RVT 05/20/18 1906 Date Catalina Rowland MD CC: Brett Moore MD; Coy Mercado MD Date Dictated: 05/20/18856 Date Transcribed: 05/20/181905 Glassworker: Signed ARTERIAL Observed: 05/20/2018 Status: F Source: [place] 7:00 PM [facility] RE[facility]IT[facility] [place] [address] Lower Ext Art Exam w/o Exercis 05/20/18 0857 MR#: [id number] Acct: [id number] Name: CATALINA EVANS Rep #: [id number] : 1955 63 From: Catalina Rowland MD Attending Dr: Brett Moore MD Status: REG RCR Ordering Dr: Brett Moore MD Date: 05/20/18 Location: [facility] Sex: M C Admitted: Procedure A bilateral lower extremity continuous wave Doppler with analog waveform analysis,segmental pressures,and ankle brachial indexes without exercise. Left Segmental Pressures Left brachial= 136mmHg. Left posterior tibial artery = 192mmHg. Left dorsalis pedis artery = 190mmHg. Left digit = 165 mmHg. The left dorsalis pedis waveforms are triphasic. The left posterior tibial artery waveforms are triphasic. Right Segmental Pressures Right brachial= 146mmHg. Right posterior tibial artery = 195mmHg. Right dorsalis pedis artery = 193mmHg. Right digit = 171 mmHg. The right dorsalis pedis waveforms are triphasic. The right posterior tibial artery waveforms are triphasic. Indices The right ankle brachial index by the dorsalis pedis is 1.32. The right ankle brachial index by the posterior tibial artery is 1.34. The right digital-brachial index is 1.17. The left ankle brachial index by the dorsalis pedis is 1.30. The left ankle brachial index by the posterior tibial artery is 1.32. The left digital-brachial index is 1.13. Interpretation Summary Triphasic waveforms are noted at ankle level bilaterally. Resting ankle-brachial indices appear bilaterally normal. Resting digital-brachial indices appear bilaterally normal. There is no evidence of significant arterial occlusive disease. Ordering Physician: Brett Moore Referring Physician: CRYS ALVARADO MD Performed By: Atiya Cortez RDCS/RVT 05/20/18 190 Date Catalina Rowland MD CC: Brett Moore MD; Coy Mercado MD Date Dictated: 05/20/18 0857 Date Transcribed: 05/20/181899 Glassworker: Signed WOUND CTR HISTORY Observed: 05/18/2018 Status: F Source: JO AND PHYSICAL 8:58 AM [facility] [address] [place] [id number] Wound [facility]tr History AND Physical 05/12/18 1308 MR#: [id number] Acct: [id number] Name: CATALINA EVANS Rep #: [id number] : 1955 63 From: Brett Moore MD PCP: Coy Mercado MD Status: REG RCR Y Location: (1) Venous ulcer of left leg Status: Acute Code(s): I83.029 - Varicose veins of left lower extremity with ulcer of unspecified site; L97.929 - Non-pressure chronic ulcer of unspecified part of left lower leg with unspecified severity Comment: With fat layer exposed. (2) Chronic acquired lymphedema Status: Chronic Code(s): I89.0 - Lymphedema, not elsewhere classified (3) Type 2 diabetes mellitus Status: Chronic Code(s): E11.9 - Type 2 diabetes mellitus without complications (4) Coronary artery disease Status: Chronic Code(s): I25.10 - Atherosclerotic heart disease of [place] coronary artery without angina pectoris History of Present Illness Date of Service: 05/12/18 Chief Complaint: Left lower extremity ulcer. Nonhealing. History of Wound: Mr. Evans is a 63-year-old with past medical history as stated above who presented to the wound center due to nonhealing left lower extremity ulcer. Reports a chronic history of bilateral lower extremity edema and states that he noted significant bleeding after a minor bump 2 - 3 weeks ago. He was seen by his primary care physician and started on antibiotics and has cleaned the wound with saline since then. There however has been no improvement. He denies any significant discharge/drainage from the wound. He also denies any feeling of unwell. He is unsure of his diabetes control. Past Medical History Past Medical History: Chronic Problems Chronic acquired lymphedema (Chronic) Type 2 diabetes mellitus (Chronic) Coronary artery disease (Chronic) Allergies/Adverse Reactions: Allergies No Known Allergies Allergy (Verified 02/17/17 12:36) Home Medications: Ambulatory Orders Medication Instructions Recorded Atorvastatin Calcium [Lipitor] 80 mg PO QHS 02/17/17 Clopidogrel Bisulfate [Clopidogrel] 75 mg PO DAILY 02/17/17 Smoking Status: Former smoker Review of Systems Constitutional: Denies: Anorexia, Chills, Fever Eyes: Denies: Pain, Redness HEENT: Denies: Difficulty Swallowing Cardiovascular: Denies: Chest Pain, Chest Pressure Respiratory: Denies: Cough, Hemoptysis Gastrointestinal: Denies: Abdominal Pain, Hematemesis, Vomiting Skin: Denies: Jaundice - Physical Exam Vital Signs Temp Pulse Resp BP 98.4 F 91 18 126/80 H 05/12/18 10:53 05/12/18 10:53 05/12/18 10:53 05/12/18 10:53 General: Alert, Oriented x3, Cooperative, No apparent distress HEENT: Atraumatic Oral: Moist Mucosa Neck: Supple Lungs: Normal air movement Cardiovascular: Regular rate, Regular Rhythm, Normal S1, Normal S2 Extremities: No cyanosis, Edema Skin: Ulcer/ Wound Wound Measurements and Assessment - Nurse 1 - General Ulcer Measurement Start: 05/12/18 10:29 Freq: Status: Active Protocol: Activity Type Activity Date Activity User E-Sign Co-Sign Detail Recorded Client Recorded Date Recorded By Document 05/12/18 10:53 CIRILO [id number] 05/12/18 11:04 CIRILO PORTER - Nurse 2 - General Ulcer CM Notes Start: 05/12/18 10:29 Freq: Status: Active Protocol: Activity Type Activity Date Activity User E-Sign Co-Sign Detail Recorded Client Recorded Date Recorded By Document 05/12/18 11:15 MW [id number] 05/12/18 11:23 MW Wound Center Nurse 2 Musculoskeletal: No Muscle Wasting Neurological: Cranial nerves II-XII grossly intact Psych/Mental Status: Normal Affect Debridement Note Post-Debridement Measurements/Treatment WC - Nurse 2 - General Ulcer CM Notes Start: 05/12/18 10:29 Freq: Status: Active Protocol: Activity Type Activity Date Activity User E-Sign Co-Sign Detail Recorded Client Recorded Date Recorded By Document 05/12/18 11:15 MW [id number] 05/12/18 11:23 MW Wound Center Nurse 2 #1 LEFT LATERAL LE -Time 11:15 -Correct Patient Yes -Correct Side, Site, Position Yes Wound debrided: Left lower extremity Wound Grade/Stage: Stage II Type of Debridement: Excisional debridement Anesthesia Used: 4% Lidocaine Solution Depth: Down to and including healthy tissue, in the subcutaneous layer Percentage of wound debrided: 100 Instrument Used: 7mm curette Tissue Removed: Slough and devitalized tissue Severity: Fat Layer Exposed Amount of bleeding with debridement: Mild Bleeding Controlled with: Pressure Patient tolerated procedure well Assessment/Plan Assessment: Same as above. Plan: Debridement done as documented above. Procedure was well-tolerated. Severe/significant venous stasis and also concern for peripheral arterial disease so considering his history of coronary artery disease status post stent. Fibrocol with Adaptic over top. Change daily. Sure press for edema management. Prealbumin, venous and arterial studies ordered. Will request records from primary care physician. Increased protein intake recommended. Advised to elevate lower extremities when seated and in bed. Avoid idle standing or sitting. Exercise and weight loss also recommended. All his questions were answered and he was advised to call with any further questions or concerns. Follow-up in 1 week. This note was generated with [employer] software. It may contain incorrect words, spelling, and punctuation that were not noted in checking the note before signing. 05/18/18 0858 <Electronically signed by Brett Moore MD> Date Brett Moore MD CC: Signed PROGRESS Observed: 05/17/2018 Status: COMPLETED Source: [place] 8:46 AM [facility] REPOSITORY HNO ID: [id number] Author: Amber Staton LPN Service: (none) Author Type: (none) Type: Progress Notes Filed: 05/17/2018 8:46 AM Note Text: Patient notified of results and provider's instructions. Patient verbalizes understanding. Amber Staton LPN PROGRESS Observed: 05/16/2018 Status: COMPLETED Source: [place] 5:15 PM [facility] REPOSITORY HNO ID: [id number] Author: Coy Mercado Service: (none) Author Type: Physician Type: Progress Notes Filed: 05/17/2018 8:46 AM Note Text: Increase Coumadin dose. 12.5 mg Wednesday and Wed. 10 mg on Wed, Wed, Carla, Wed, and Sat. INR in 1 week. PROGRESS Observed: 05/16/2018 Status: COMPLETED Source: [place] 3:11 PM [facility] REPOSITORY HNO ID: [id number] Author: Katharine Nino RN Service: (none) Author Type: (none) Type: Progress Notes Filed: 05/16/2018 3:14 PM Note Text: patient had inr completed at [facility] patients inr is 1.2 (patients inr range is 2.0-3.0) patient is currently taking 12.5mg Sun and 10mg all other days patients last dose change was on 05/04/18 due to a high level of 3.1 (dose at that time was 12.5mg ,Th and 10mg all other days) patient has had no changes in medication except for coumadin and no missed doses and no change in diet FYI - at last inr check on 05/04/18 patient was taking an antibiotic Advised patient that they would be contacted regarding medication dose and when to follow up after information is reviewed by provider. After provider review please contact the patient with information and schedule follow up appointment with coumadin clinic. FYI - patient has been scheduled for a 1 week follow up inr on 05/27/18 (appt with pcp also this day) PREALBUMIN Collected: 05/12/2018 Status: F Source: [place] 11:40 AM [facility] REPOSITORY TYPE CODE TESTS RESULT OUT OF RANGE REFERENCE UNITS LAB L506.0500 20.0-40.0 mg/dL Normal PREALBUMIN 21.2 Performed By: #### L506.0500 #### [facility] [address] [place], [address] PROGRESS Observed: 05/09/2018 Status: COMPLETED Source: [place] 3:15 PM [facility] REPOSITORY HNO ID: [id number] Author: Bev (Sweta) Older Service: (none) Author Type: Nurse Practitioner Type: Progress Notes Filed: 05/09/2018 3:24 PM Note Text: CC: Patient presents with: Recheck: F/U on wound check HPI Catalina Evans is a 63 year old male who presents today for wound follow-up. He was seen one week ago for infected venous stasis ulcer left lower leg. Prescribed 7 day course of Doxycycline. Today patient reports no improvement. Positive for increased warmth and tenderness around the wound and increased swelling left lower leg. Serous drainage. No new or worsening symptoms. No fever, chills, body aches, nausea, fatigue REVIEW OF SYSTEMS See HPI PAST MEDICAL HISTORY Diagnosis Date - Acute liver failure with hepatic coma (HCC) 05/27/2017 ELEVATED AMMONIA - Babinski up on right - pin point pupils - lethgary without focal findings - ADEBAYO (acute kidney injury) (HCC) 05/26/2017 likely due to prerenal/ATN 2/2 shock. Good urine output noted. Renal ultrasound neg for hydronephrosis - ASCVD (arteriosclerotic cardiovascular disease) 09/18/2014 - Atrial fibrillation (HCC) 07/01/2006 - Benign neoplasm of colon 2005 Hyperplastic - BPH (benign prostatic hyperplasia) 01/30/2015 - Cardiomyopathy, ischemic 05/30/2015 - Coronary artery disease 05/16/2015 - DM2 (diabetes mellitus, type 2) (HCC) 05/16/2015 - Edema 07/01/2006 - Family history of malignant neoplasm of gastrointestinal tract 11/03/2006 - Flatulence, eructation, and gas pain - Heart attack (HCC) - HEMANGIOMA INTRA-ABDOM 07/29/2006 - HYPERTENSION NOS 08/27/2006 - Impaired fasting glucose 05/30/2010 - Irritable bowel syndrome 08/27/2006 - AL (myocardial infarction) (HCC) 05/16/2015 - NSTEMI (non-ST elevated myocardial infarction) (HCC) 05/16/2015 Pt now chest pain free with nitrate - recheck enzymes -1 set troponin0.719, CK 507, MB 39.9, CKMB 7.9 - check echo - continue heparin, aspirin, ARB, statin, beta linda - continue clopidogrel - called in/consented for [facility] today +/- PCI -15: PCI to the mid RCA with a 3.5 x 16 mm Synergy EES - Obesity, unspecified 07/01/2006 - Other and unspecified hyperlipidemia 07/01/2006 - Polyneuropathy (HCC) 05/01/2016 Nerve study 2015. - SLEEP APNEA NOS (cpap intolerant) 07/01/2006 - Type II or unspecified type diabetes mellitus without mention of complication, not stated as uncontrolled 01/25/2014 - Unspecified constipation PAST SURGICAL HISTORY Procedure Laterality Date - [facility] Colon[facility] 2004, 2000 - [facility] 08/28/08 Colonoscopy - [facility] 05/02/2015 Colonoscopy - KNEE SCOPE,DIAGNOSTIC Right 10/06/2007 Arthroscopy, knee - LEFT HEART CATH,PERCUTANEOUS 08/22/2014 Cardiac cath, L heart - PALATE/UVULA SURGERY UNLISTED 1999 Somnoplasty, tracheostomy - PAST SURGICAL HISTORY OF 05/16/2015 Had heart stent - REPAIR BICEPS LONG TENDON Right 05/12/2017 [facility] - REPAIR ING HERNIA,5+Y/O,REDUCIBL Left 1990 Hernia repair, inguinal - TRACHEOSTOMY HX 1999 w/ UVPP ALLERGIES Patient has no known allergies. MEDICATIONS doxycycline monohydrate (MONODOX) 100 mg capsule Take 1 capsule by mouth twice daily for 7 days. ezetimibe (ZETIA) 10 mg tablet Take 1 tablet by mouth once daily. trimethoprim-polymyxin eye drops (POLYTRIM) ophthalmic solution Use 1 Drop in both eyes four times daily. spironolactone (ALDACTONE) 25 mg tablet Take 1 tablet by mouth twice daily. pantoprazole DR (PROTONIX) 40 mg tablet Take 1 tablet by mouth every morning. atorvastatin (LIPITOR) 80 mg tablet Take 1 tablet by mouth once daily. furosemide (LASIX) 40 mg tablet Take 1 tablet by mouth twice daily. With 20 mg tablet for total of 60 mg twice daily. furosemide (LASIX) 20 mg tablet Take 1 tablet by mouth twice daily. COMPOUNDED PRESCRIPTION INOGEN PORTABLE OXYGEN CONCENTRATOR. 3 LPM VIA NASAL CANNULA WITH ACTIVITY. DX: J96.21; J96.22. J44.9. I25.5 metoprolol succinate ER (TOPROL XL) 100 mg Tb24 Take 1 tablet by mouth once daily. warfarin (COUMADIN) 5 mg tablet Take 12.5mg daily or as directed. metFORMIN (GLUCOPHAGE) 500 mg tablet Take 1 tablet by mouth daily with breakfast. . nitroglycerin sublingual (NITROQUICK) 0.4 mg SL tablet Dissolve 1 tablet under the tongue as needed. FOR CHEST PAIN. IF NO RELIEF CALL 911 clopidogrel (PLAVIX) 75 mg tablet Take 1 tablet by mouth once daily. albuterol HFA (PROVENTIL HFA, VENTOLIN HFA) 90 mcg/actuation inhaler Inhale 2 Puffs as instructed every 6 hours as needed for Wheezing/Shortness of Breath. Compression Knee Highs KNEE HIGH COMPRESSION STOCKINGS 20- 30 MM HG. DX: EDEMA. VENOUS INSUFFICIENCY, BOTH LOWER EXTREMITIES. fluticasone (FLONASE) 50 mcg/actuation nasal spray 1 or 2 sprays in each nostril at bedtime. polyethylene glycol 3350 (MIRALAX) 17 gram/dose powder Take 17 g by mouth once daily. magnesium hydroxide (MILK OF MAGNESIA) 400 mg/5 mL suspension Take 15 mL by mouth once daily as needed for Constipation. senna-docusate 8.6-50 mg per tablet Take 1 tablet by mouth once daily. For constipation. Lancets (FREESTYLE LANCETS) [facility] lancets Test Blood sugar daily. Hyperglycemia, no insulin FAMILY HISTORY Problem Relation Age of Onset - Diabetes Father - Heart Father Pacemaker - Alzheimer's Disease Father - Coronary Artery Disease Father - other (parkinsons) Father - Diabetes Mother - Cancer Mother Colon - Hypertension Brother - Heart Brother CABG - Diabetes Brother - Peripheral Artery Disease Brother - Hypertension Brother Social History Substance Use Topics - Smoking status: Former Smoker Packs/day: 0.25 Years: 20.00 Types: Cigarettes Quit date: 07/01/2006 - Smokeless tobacco: Former User - Alcohol use No PHYSICAL EXAM BP 120/74 Pulse 79 Temp 36.6 ?C (97.9 ?F) (Temporal Artery) Resp 16 Wt (!) 153.3 kg (338 lb) BMI 48.50 kg/m? General Appearance: well appearing, in no acute distress, alert Left Lower Extremity: Left lateral monae: 2 x 1 cm shallow ulcer with yellow slough covering wound bed. 1 x 1 cm shallow ulcer adjacent to this with yellow slough covering wound bed. Surrounding tenderness and increased warmth. Scant serous drainage. No erythema, induration or fluctuance. No purulent drainage. 1+ edema with venous stasis changes to bilateral lower legs. Good capillary refill. Pulses: 1+ ? ASSESSMENT/PLAN: 1. Cellulitis of left lower extremity - ICD9: 682.6, ICD10: L03.116 No improvement with Doxycycline, last dose today. No alarm symptoms or exam findings. - Begin treatment with Cephalaxin (Keflex) - No lymphangetic streaking, this was defined for patient to watch for and to seek medical care immediately if appears - Patient has appointment at [facility] wound center 05/12. Advised to keep appointment and call office for any issues - Currently on Coumadin, INR scheduled for 05/17. Call office for any unusual bleeding BP CONTROLLED (<130/80) due on 1973 INFLUENZA(1) due on 01/29/2018 DIABETIC FOOT EXAM due on 04/12/2018 STATIN MED ADHERENCE due on 05/31/2018 DIABETES MED ADHERENCE due on 05/31/2018 DILATED RETINAL EXAM due on 09/21/2018 HBA1C due on 10/10/2018 URINE ALBUMIN:CREATININE RATIO due on 04/12/2019 LDL CHOLESTEROL due on 04/12/2019 SERUM CREATININE due on 04/12/2019 ANNUAL PCP TEAM CHRONIC DISEASE VISIT due on 05/02/2019 COLORECTAL CANCER SCREENING,SEE MODIFIER due on 05/02/2020 DTAP,TDAP,TD(2 - Td) due on 05/19/2021 PROSTATE CANCER SCREENING DISCUSSION Completed ONE PNEUMOVAX PRIOR TO AGE 65 Completed HEPATITIS C SCREENING Completed Prescription instructions reviewed with patient as applicable. Potential red flag symptoms discussed with the patient. Reviewed appropriate action plan to take if red flag symptoms occur. Patient agreeable to treatment plan. Bev Smart APRN.SWETA ANDRE Observed: 05/09/2018 Status: COMPLETED Source: [place] 3:00 PM [facility] REPOSITORY Office Visit (INTMWS) CATALINA EVANS ([id number]) 1955 Date Time Provider Department 05/09/18 3:00 PM BEV SMART (SWETA) INTMWS During your visit today, we recorded the following information about you: Temperature Pulse Respiration Blood pressure 97.9 degrees 79/minute 16/minute 120/74 Weight 153.3 kg Bev Smart APRN.CNP 05/09/2018 3:18 PM Signed Follow-up with wound center. Call office for any unusual bleeding Bev Smart APRN.CNP 05/09/2018 3:24 PM Signed CC: Patient presents with: Recheck: F/U on wound check HPI Catalina Evans is a 63 year old male who presents today for wound follow-up. He was seen one week ago for infected venous stasis ulcer left lower leg. Prescribed 7 day course of Doxycycline. Today patient reports no improvement. Positive for increased warmth and tenderness around the wound and increased swelling left lower leg. Serous drainage. No new or worsening symptoms. No fever, chills, body aches, nausea, fatigue REVIEW OF SYSTEMS See HPI PAST MEDICAL HISTORY Diagnosis Date - Acute liver failure with hepatic coma (HCC) 05/27/2017 ELEVATED AMMONIA - Babinski up on right - pin point pupils - lethgary without focal findings - ADEBAYO (acute kidney injury) (HCC) 05/26/2017 likely due to prerenal/ATN 2/2 shock. Good urine output noted. Renal ultrasound neg for hydronephrosis - ASCVD (arteriosclerotic cardiovascular disease) 09/18/2014 - Atrial fibrillation (HCC) 07/01/2006 - Benign neoplasm of colon 2005 Hyperplastic - BPH (benign prostatic hyperplasia) 01/30/2015 - Cardiomyopathy, ischemic 05/30/2015 - Coronary artery disease 05/16/2015 - DM2 (diabetes mellitus, type 2) (HCC) 05/16/2015 - Edema 07/01/2006 - Family history of malignant neoplasm of gastrointestinal tract 11/03/2006 - Flatulence, eructation, and gas pain - Heart attack (HCC) - HEMANGIOMA INTRA-ABDOM 07/29/2006 - HYPERTENSION NOS 08/27/2006 - Impaired fasting glucose 05/30/2010 - Irritable bowel syndrome 08/27/2006 - AL (myocardial infarction) ([facility]) 05/16/2015 - NSTEMI (non-ST elevated myocardial infarction) ([facility]) 05/16/2015 Pt now chest pain free with nitrate - recheck enzymes -1 set troponin0.719, CK 507, MB 39.9, CKMB 7.9 - check echo - continue heparin, aspirin, ARB, statin, beta linda - continue clopidogrel - called in/consented for [facility] today +/- PCI -05-17-15: PCI to the mid RCA with a 3.5 x 16 mm Synergy EES - Obesity, unspecified 07/01/2006 - Other and unspecified hyperlipidemia 07/01/2006 - Polyneuropathy ([facility]) 05/01/2016 Nerve study 2015. - SLEEP APNEA NOS (cpap intolerant) 07/01/2006 - Type II or unspecified type diabetes mellitus without mention of complication, not stated as uncontrolled 01/25/2014 - Unspecified constipation PAST SURGICAL HISTORY Procedure Laterality Date - [facility] Colonoscopy 2004, 2000 - [facility] 08/28/08 Colonoscopy - [facility]COP [facility] 05/02/2015 Colonoscopy - KNEE SCOPE,DIAGNOSTIC Right 10/06/2007 Arthroscopy, knee - LEFT HEART CATH,PERCUTANEOUS 08/22/2014 Cardiac cath, L heart - PALATE/UVULA SURGERY UNLISTED 1999 Somnoplasty, tracheostomy - PAST SURGICAL HISTORY OF 05/16/2015 Had heart stent - REPAIR BICEPS LONG TENDON Right 05/12/2017 [facility] - REPAIR ING HERNIA,5+Y/O,REDUCIBL Left 1990 Hernia repair, inguinal - TRACHEOSTOMY HX 1999 w/ UVPP ALLERGIES Patient has no known allergies. MEDICATIONS doxycycline monohydrate (MONODOX) 100 mg capsule Take 1 capsule by mouth twice daily for 7 days. ezetimibe (ZETIA) 10 mg tablet Take 1 tablet by mouth once daily. trimethoprim-polymyxin eye drops (POLYTRIM) ophthalmic solution Use 1 Drop in both eyes four times daily. spironolactone (ALDACTONE) 25 mg tablet Take 1 tablet by mouth twice daily. pantoprazole DR (PROTONIX) 40 mg tablet Take 1 tablet by mouth every morning. atorvastatin (LIPITOR) 80 mg tablet Take 1 tablet by mouth once daily. furosemide (LASIX) 40 mg tablet Take 1 tablet by mouth twice daily. With 20 mg tablet for total of 60 mg twice daily. furosemide (LASIX) 20 mg tablet Take 1 tablet by mouth twice daily. COMPOUNDED PRESCRIPTION INOGEN PORTABLE OXYGEN CONCENTRATOR. 3 LPM VIA NASAL CANNULA WITH ACTIVITY. DX: J96.21; J96.22. J44.9. I25.5 metoprolol succinate ER (TOPROL XL) 100 mg Tb24 Take 1 tablet by mouth once daily. warfarin (COUMADIN) 5 mg tablet Take 12.5mg daily or as directed. metFORMIN (GLUCOPHAGE) 500 mg tablet Take 1 tablet by mouth daily with breakfast. . nitroglycerin sublingual (NITROQUICK) 0.4 mg SL tablet Dissolve 1 tablet under the tongue as needed. FOR CHEST PAIN. IF NO RELIEF CALL 911 clopidogrel (PLAVIX) 75 mg tablet Take 1 tablet by mouth once daily. albuterol HFA (PROVENTIL HFA, VENTOLIN HFA) 90 mcg/actuation inhaler Inhale 2 Puffs as instructed every 6 hours as needed for Wheezing/Shortness of Breath. Compression Knee Highs KNEE HIGH COMPRESSION STOCKINGS 20- 30 MM HG. DX: EDEMA. VENOUS INSUFFICIENCY, BOTH LOWER EXTREMITIES. fluticasone (FLONASE) 50 mcg/actuation nasal spray 1 or 2 sprays in each nostril at bedtime. polyethylene glycol 3350 (MIRALAX) 17 gram/dose powder Take 17 g by mouth once daily. magnesium hydroxide (MILK OF MAGNESIA) 400 mg/5 mL suspension Take 15 mL by mouth once daily as needed for Constipation. senna-docusate 8.6-50 mg per tablet Take 1 tablet by mouth once daily. For constipation. Lancets (FREESTYLE LANCETS) [facility] lancets Test Blood sugar daily. Hyperglycemia, no insulin FAMILY HISTORY Problem Relation Age of Onset - Diabetes Father - Heart Father Pacemaker - Alzheimer's Disease Father - Coronary Artery Disease Father - other (parkinsons) Father - Diabetes Mother - Cancer Mother Colon - Hypertension Brother - Heart Brother CABG - Diabetes Brother - Peripheral Artery Disease Brother - Hypertension Brother Social History Substance Use Topics - Smoking status: Former Smoker Packs/day: 0.25 Years: 20.00 Types: Cigarettes Quit date: 07/01/2006 - Smokeless tobacco: Former User - Alcohol use No PHYSICAL EXAM BP 120/74 Pulse 79 Temp 36.6 ?C (97.9 ?F) (Temporal Artery) Resp 16 Wt (!) 153.3 kg (338 lb) BMI 48.50 kg/m? General Appearance: well appearing, in no acute distress, alert Left Lower Extremity: Left lateral monae: 2 x 1 cm shallow ulcer with yellow slough covering wound bed. 1 x 1 cm shallow ulcer adjacent to this with yellow slough covering wound bed. Surrounding tenderness and increased warmth. Scant serous drainage. No erythema, induration or fluctuance. No purulent drainage. 1+ edema with venous stasis changes to bilateral lower legs. Good capillary refill. Pulses: 1+ ? ASSESSMENT/PLAN: 1. Cellulitis of left lower extremity - ICD9: 682.6, ICD10: L03.116 No improvement with Doxycycline, last dose today. No alarm symptoms or exam findings. - Begin treatment with Cephalaxin (Keflex) - No lymphangetic streaking, this was defined for patient to watch for and to seek medical care immediately if appears - Patient has appointment at [facility] wound center 05/12. Advised to keep appointment and call office for any issues - Currently on Coumadin, INR scheduled for 05/17. Call office for any unusual bleeding BP CONTROLLED (<130/80) due on 1973 INFLUENZA(1) due on 01/29/2018 DIABETIC FOOT EXAM due on 04/12/2018 STATIN MED ADHERENCE due on 05/31/2018 DIABETES MED ADHERENCE due on 05/31/2018 DILATED RETINAL EXAM due on 09/21/2018 HBA1C due on 10/10/2018 URINE ALBUMIN:CREATININE RATIO due on 04/12/2019 LDL CHOLESTEROL due on 04/12/2019 SERUM CREATININE due on 04/12/2019 ANNUAL PCP TEAM CHRONIC DISEASE VISIT due on 05/02/2019 COLORECTAL CANCER SCREENING,SEE MODIFIER due on 05/02/2020 DTAP,TDAP,TD(2 - Td) due on 05/19/2021 PROSTATE CANCER SCREENING DISCUSSION Completed ONE PNEUMOVAX PRIOR TO AGE 65 Completed HEPATITIS C SCREENING Completed Prescription instructions reviewed with patient as applicable. Potential red flag symptoms discussed with the patient. Reviewed appropriate action plan to take if red flag symptoms occur. Patient agreeable to treatment plan. Bev Smart APRN.SWETA Referring Provider: BEV SMART ([employer] FINAL INSPECTOR) [[id number]] Allergies As of Date: 05/09/2018 (No Known Allergies) Date Reviewed: 05/09/2018 Reviewed by: Lisy Dumont Appeals Coordinator - Fully Assessed Reason for Visit: Recheck [92] Cmt: F/U on wound check Primary Visit Diagnosis:Cellulitis of left lower extremity [L03.116] Order(s):cephALEXin (KEFLEX) 500 mg capsuleTake 1 capsule by mouth four times daily for 5 days.Disp: 20 capsuleRfl: 0 Prescriptions as of 05/09/2018 Sig: DOXYCYCLINE MONOHYDRATE 100 M* Take 1 capsule by mouth twice* EZETIMIBE 10 MG TABLET Take 1 tablet by mouth once d* POLYMYXIN B SULFATE 10,000 UN* Use 1 Drop in both eyes four * SPIRONOLACTONE 25 MG TABLET Take 1 tablet by mouth twice * PANTOPRAZOLE 40 MG TABLET,DEL* Take 1 tablet by mouth every * ATORVASTATIN 80 MG TABLET Take 1 tablet by mouth once d* FUROSEMIDE 40 MG TABLET Take 1 tablet by mouth twice * FUROSEMIDE 20 MG TABLET Take 1 tablet by mouth twice * COMPOUNDED PRESCRIPTION INOGEN PORTABLE OXYGEN CONCEN* METOPROLOL SUCCINATE ER 100 M* Take 1 tablet by mouth once d* WARFARIN 5 MG TABLET Take 12.5mg daily or as direc* METFORMIN 500 MG TABLET Take 1 tablet by mouth daily * NITROGLYCERIN 0.4 MG SUBLINGU* Dissolve 1 tablet under the t* CLOPIDOGREL 75 MG TABLET Take 1 tablet by mouth once d* ALBUTEROL SULFATE HFA 90 MCG/* Inhale 2 Puffs as instructed * COMPOUNDED PRESCRIPTION KNEE HIGH COMPRESSION STOCKIN* FLUTICASONE 50 MCG/ACTUATION * 1 or 2 sprays in each nostril* POLYETHYLENE GLYCOL 3350 17 G* Take 17 g by mouth once daily. MAGNESIUM HYDROXIDE 400 MG/5 * Take 15 mL by mouth once andrey* SENNOSIDES 8.6 MG-DOCUSATE SO* Take 1 tablet by mouth once d* * LANCETS Test Blood sugar daily. Hype* CEPHALEXIN 500 MG CAPSULE Take 1 capsule by mouth four * Problem List As Of Date 05/09/2018 Noted Resolved ATRIAL FIBRILLATION [I48.91] INVALID FOR*07/23/2015 More... Edema [R60.9] INVALID FOR* Hypercholesterolemia [E78.00] INVALID FOR* More... SLEEP APNEA NOS (cpap intolerant) [G47.30] INVALID FOR*01/30/2015 Obesity [E66.9] INVALID FOR*08/13/2017 More... Hemangioma of intra-abdominal structures [D18.0*INVALID FOR*04/25/2014 Essential hypertension [I10] INVALID FOR* More... IRRITABLE COLON [K58.9] INVALID FOR* Constipation [K59.00] INVALID FOR* DERMATOPHYTOSIS OF NAIL [B35.1] INVALID FOR*04/24/2008 ABDOMINAL PAIN LLQ [R10.32] 04/24/2008 ABDOMINAL PAIN LUQ [R10.12] 04/24/2008 FLATUL/ERUCTAT/GAS PAIN [R14.3, R14.1, R14.2] 04/24/2008 Impaired fasting glucose [R73.01] INVALID FOR*04/25/2014 COPD (chronic obstructive pulmonary disease) [J*INVALID FOR* Type II or unspecified type diabetes mellitus w*INVALID FOR*05/16/2015 ASCVD (arteriosclerotic cardiovascular disease)*INVALID FOR* BPH (benign prostatic hyperplasia) [N40.0] INVALID FOR* Family history of colon cancer [Z80.0] INVALID FOR*08/13/2017 NSTEMI (non-ST elevated myocardial infarction) *INVALID FOR*01/15/2016 More... DM2 (diabetes mellitus, type 2) (HCC) [E11.9] INVALID FOR* More... S/P right coronary artery (RCA) stent placement*INVALID FOR* LV dysfunction [I51.9] INVALID FOR*01/15/2016 Cardiomyopathy, ischemic [I25.5] INVALID FOR* More... Chronic anticoagulation [Z79.01] INVALID FOR* More... Paroxysmal atrial fibrillation (HCC) [I48.0] INVALID FOR* More... Sleep apnea, intolerant to CPAP [G47.30] INVALID FOR* More... Astigmatism, regular [H52.229] INVALID FOR*08/13/2017 Presbyopia [H52.4] INVALID FOR*01/15/2016 Benign neoplasm of skin of eyelid including can*INVALID FOR*04/07/2017 Polyneuropathy (HCC) [G62.9] INVALID FOR* More... Spinal stenosis, lumbar region, with neurogenic*INVALID FOR*12/16/2017 Displacement of lumbar intervertebral disc with*INVALID FOR*04/07/2017 Spondylosis of lumbar region without myelopathy*INVALID FOR* Lesion of liver [K76.9] INVALID FOR*08/13/2017 More... Ascites [R18.8] INVALID FOR*05/30/2017 More... ADEBAYO (acute kidney injury) (HCC) [N17.9] INVALID FOR*12/16/2017 More... Nicotine use disorder, F17.2 [F17.200] INVALID FOR*08/13/2017 More... Obesity, Class III, BMI >= 40 (morbid obesity) *INVALID FOR* Lethargy [R53.83] INVALID FOR*08/13/2017 Acute on chronic respiratory failure with hypox*INVALID FOR* More... Morbid obesity with body mass index (BMI) of 45*INVALID FOR*04/14/2018 More... Acute liver failure with hepatic coma (HCC) [K7*INVALID FOR*08/13/2017 More... Respiratory failure with hypercapnia (HCC) [J96*INVALID FOR*08/13/2017 More... Shock circulatory (HCC) [R57.9] INVALID FOR*05/29/2017 More... Kidney insufficiency [N28.9] INVALID FOR*04/14/2018 Combined forms of age-related cataract of both *INVALID FOR* Hyperopia, bilateral [H52.03] INVALID FOR* Dry eye syndrome, bilateral [H04.123] INVALID FOR* Bacterial conjunctivitis of both eyes [H10.9] INVALID FOR* CKD (chronic kidney disease) Stage 3, GFR 30-59*INVALID FOR* Other instructions from your clinician: Follow-up with wound center. Call office for any unusual bleeding Prescriptions ordered this encounter Disp Refills Start End CEPHALEXIN 500 MG CAPSULE 20 c* 0 05/09/2018 05/14/2018 Route: ORAL Sig: Take 1 capsule by mouth four times daily for 5 days. Encounter Status:Closed by BEV SMART CNP on 05/09/18 PROGRESS Observed: 05/04/2018 Status: COMPLETED Source: [place] 4:31 PM [facility] [place] REPOSITORY HNO ID: [id number] Author: Yeni RomoRn) ROSALINDA Mondragon Service: (none) Author Type: Registered Nurse Type: Progress Notes Filed: 05/05/2018 1:02 PM Note Text: Instructions given to pt with understanding. Pt scheduled for 05/17/18. Pt reporting small spot of blood near the front of his underwear. Pt will continue to monitor. Advised to let office know if continues. If worsens, to be evaluated in ER. Pt verbalizes understanding. PROGRESS Observed: 05/04/2018 Status: COMPLETED Source: [place] 3:52 PM [facility] REPOSITORY HNO ID: [id number] Author: Coy Mercado Service: (none) Author Type: Physician Type: Progress Notes Filed: 05/05/2018 1:02 PM Note Text: Decrease Coumadin dose. 12.5 mg on Sundays only. 10 mg Mondays thru Saturdays. INR in 2 weeks. PROGRESS Observed: 05/04/2018 Status: COMPLETED Source: [place] 11:17 AM [facility] REPOSITORY HNO ID: [id number] Author: Allison Bustamante RN Service: (none) Author Type: (none) Type: Progress Notes Filed: 05/04/2018 11:20 AM Note Text: Patient had INR completed at [facility] Patient's INR is 3.7 Patient is currently taking 12.5mg TTh, 10mg all other days Patient's last dose change was 04/14/18 due to low INR Patient has had no medication and no change in diet. Advised patient that they would be contacted regarding medication dose and follow-up once reviewed by provider. After provider review, please contact patient with information and schedule follow-up appointment with coumadin clinic. PROGRESS Observed: 05/02/2018 Status: COMPLETED Source: [place] 3:15 PM [facility] REPOSITORY HNO ID: [id number] Author: Bev Smart Service: (none) Author Type: Nurse Practitioner Type: Progress Notes Filed: 05/02/2018 4:18 PM Note Text: CC: Leg ulcer HPI Catalina Evans is a 63 year old male who presents today for wound to left lower leg that is not healing. Started about 3-4 weeks ago after hitting his leg. Was evaluated by his PCP on 04/14 and advised to follow-up in a couple weeks if no improvement. Has developed burning pain and increased swelling around wound. Positive for clear drainage. No redness, fever, chills, fatigue, body aches, nausea. Cleaning with saline and keeping covered with gauze. REVIEW OF SYSTEMS See HPI PAST MEDICAL HISTORY Diagnosis Date - Acute liver failure with hepatic coma (HCC) 05/27/2017 ELEVATED AMMONIA - Babinski up on right - pin point pupils - lethgary without focal findings - ADEBAYO (acute kidney injury) (HCC) 05/26/2017 likely due to prerenal/ATN 2/2 shock. Good urine output noted. Renal ultrasound neg for hydronephrosis - ASCVD (arteriosclerotic cardiovascular disease) 09/18/2014 - Atrial fibrillation (HCC) 07/01/2006 - Benign neoplasm of colon 2004 Hyperplastic - BPH (benign prostatic hyperplasia) 01/30/2015 - Cardiomyopathy, ischemic 05/30/2015 - Coronary artery disease 05/16/2015 - DM2 (diabetes mellitus, type 2) (HCC) 05/16/2015 - Edema 07/01/2006 - Family history of malignant neoplasm of gastrointestinal tract 11/03/2006 - Flatulence, eructation, and gas pain - Heart attack ([facility]) - HEMANGIOMA INTRA-ABDOM 07/29/2006 - HYPERTENSION NOS 08/27/2006 - Impaired fasting glucose 05/30/2010 - Irritable bowel syndrome 08/27/2006 - AL (myocardial infarction) (HCC) 05/16/2015 - NSTEMI (non-ST elevated myocardial infarction) ([facility]) 05/16/2015 Pt now chest pain free with nitrate - recheck enzymes -1 set troponin0.719, CK 507, MB 39.9, CKMB 7.9 - check echo - continue heparin, aspirin, ARB, statin, beta linda - continue clopidogrel - called in/consented for [facility] today +/- PCI -15: PCI to the mid RCA with a 3.5 x 16 mm Synergy EES - Obesity, unspecified 07/01/2006 - Other and unspecified hyperlipidemia 07/01/2006 - Polyneuropathy (HCC) 05/01/2016 Nerve study 2015. - SLEEP APNEA NOS (cpap intolerant) 07/01/2006 - Type II or unspecified type diabetes mellitus without mention of complication, not stated as uncontrolled 01/25/2014 - Unspecified constipation PAST SURGICAL HISTORY Procedure Laterality Date - COLONOSCOP W/ OR W/O [facility] SPEC 2005 Colonoscopy 2004, 2000 - COLONOSCOP W/ OR W/O [facility] SPEC 08/28/08 Colonoscopy - COLONOSCOP W/ OR W/O [facility] SPEC 05/02/2015 Colonoscopy - KNEE SCOPE,DIAGNOSTIC Right 10/06/2007 Arthroscopy, knee - LEFT HEART CATH,PERCUTANEOUS 08/22/2014 Cardiac cath, L heart - PALATE/UVULA SURGERY UNLISTED 1999 Somnoplasty, tracheostomy - PAST SURGICAL HISTORY OF 05/16/2015 Had heart stent - REPAIR BICEPS LONG TENDON Right 05/12/2017 [facility] - REPAIR ING HERNIA,5+Y/O,REDUCIBL Left 1989 Hernia repair, inguinal - TRACHEOSTOMY HX 1999 w/ UVPP ALLERGIES Patient has no known allergies. MEDICATIONS ezetimibe (ZETIA) 10 mg tablet Take 1 tablet by mouth once daily. trimethoprim-polymyxin eye drops (POLYTRIM) ophthalmic solution Use 1 Drop in both eyes four times daily. spironolactone (ALDACTONE) 25 mg tablet Take 1 tablet by mouth twice daily. pantoprazole DR (PROTONIX) 40 mg tablet Take 1 tablet by mouth every morning. atorvastatin (LIPITOR) 80 mg tablet Take 1 tablet by mouth once daily. furosemide (LASIX) 40 mg tablet Take 1 tablet by mouth twice daily. With 20 mg tablet for total of 60 mg twice daily. furosemide (LASIX) 20 mg tablet Take 1 tablet by mouth twice daily. COMPOUNDED PRESCRIPTION INOGEN PORTABLE OXYGEN CONCENTRATOR. 3 LPM VIA NASAL CANNULA WITH ACTIVITY. DX: J96.21; J96.22. J44.9. I25.5 metoprolol succinate ER (TOPROL XL) 100 mg Tb24 Take 1 tablet by mouth once daily. warfarin (COUMADIN) 5 mg tablet Take 12.5mg daily or as directed. metFORMIN (GLUCOPHAGE) 500 mg tablet Take 1 tablet by mouth daily with breakfast. . nitroglycerin sublingual (NITROQUICK) 0.4 mg SL tablet Dissolve 1 tablet under the tongue as needed. FOR CHEST PAIN. IF NO RELIEF CALL 911 clopidogrel (PLAVIX) 75 mg tablet Take 1 tablet by mouth once daily. albuterol HFA (PROVENTIL HFA, VENTOLIN HFA) 90 mcg/actuation inhaler Inhale 2 Puffs as instructed every 6 hours as needed for Wheezing/Shortness of Breath. Compression Knee Highs KNEE HIGH COMPRESSION STOCKINGS 20- 30 MM HG. DX: EDEMA. VENOUS INSUFFICIENCY, BOTH LOWER EXTREMITIES. fluticasone (FLONASE) 50 mcg/actuation nasal spray 1 or 2 sprays in each nostril at bedtime. polyethylene glycol 3350 (MIRALAX) 17 gram/dose powder Take 17 g by mouth once daily. magnesium hydroxide (MILK OF MAGNESIA) 400 mg/5 mL suspension Take 15 mL by mouth once daily as needed for Constipation. senna-docusate 8.6-50 mg per tablet Take 1 tablet by mouth once daily. For constipation. Lancets (FREESTYLE LANCETS) Misc lancets Test Blood sugar daily. Hyperglycemia, no insulin FAMILY HISTORY Problem Relation Age of Onset - Diabetes Father - Heart Father Pacemaker - Alzheimer's Disease Father - Coronary Artery Disease Father - other (parkinsons) Father - Diabetes Mother - Cancer Mother Colon - Hypertension Brother - Heart Brother CABG - Diabetes Brother - Peripheral Artery Disease Brother - Hypertension Brother Social History Substance Use Topics - Smoking status: Former Smoker Packs/day: 0.25 Years: 20.00 Types: Cigarettes Quit date: 07/01/2006 - Smokeless tobacco: Former User - Alcohol use No PHYSICAL EXAM BP 130/80 Pulse 67 Temp 36.3 ?C (97.3 ?F) (Temporal Artery) Resp 16 Wt (!) 152 kg (335 lb) SpO2 (!) 87% BMI 48.07 kg/m? General Appearance: well appearing, in no acute distress, alert Left Lower Extremity: Left lateral monae: 2 x 1 cm shallow ulcer with red wound bed and yellow slough. 1 x 1 cm shallow ulcer adjacent to this with red wound bed and yellow slough. Surrounding edema and tenderness. No induration or fluctuance. 1+ edema with venous stasis changes. Good capillary refill. Pulses: 1+ ASSESSMENT/PLAN: 1. Cellulitis of left lower extremity - ICD9: 682.6, ICD10: L03.116 (primary diagnosis) - Begin treatment with doxycycline - No lymphangetic streaking, this was defined for patient to watch for and to seek medical care immediately if appears - Follow up for recheck in one week or sooner for worsening symptoms 2. Ulcer of left lower extremity, unspecified ulcer stage (HCC) - ICD9: 707.10, ICD10: L97.929 Slow wound healing secondary to venous stasis Continue with current wound care measures If no improvement in healing at one week follow-up will refer to wound center Prescription instructions reviewed with patient as applicable. Potential red flag symptoms discussed with the patient. Reviewed appropriate action plan to take if red flag symptoms occur. Patient agreeable to treatment plan. Bev Smart APRN.CNP CNOV Observed: 05/02/2018 Status: COMPLETED Source: [place] 3:00 PM [facility] REPOSITORY Office Visit (INTMWS) CATALINA EVANS ([id number]) 1955 M Date Time Provider Department 05/02/18 3:00 PM BEV SMART ([place]) INTMWS During your visit today, we recorded the following information about you: Temperature Pulse Respiration Blood pressure 97.3 degrees 67/minute 16/minute 130/80 Weight 152 kg Bev Smart APRN.CNP 05/02/2018 4:18 PM Signed CC: Leg ulcer HPI Catalina Evans is a 63 year old male who presents today for wound to left lower leg that is not healing. Started about 3-4 weeks ago after hitting his leg. Was evaluated by his PCP on 04/14 and advised to follow-up in a couple weeks if no improvement. Has developed burning pain and increased swelling around wound. Positive for clear drainage. No redness, fever, chills, fatigue, body aches, nausea. Cleaning with saline and keeping covered with gauze. REVIEW OF SYSTEMS See HPI PAST MEDICAL HISTORY Diagnosis Date - Acute liver failure with hepatic coma (HCC) 05/27/2017 ELEVATED AMMONIA - Babinski up on right - pin point pupils - lethgary without focal findings - ADEBAYO (acute kidney injury) (HCC) 05/26/2017 likely due to prerenal/ATN 2/2 shock. Good urine output noted. Renal ultrasound neg for hydronephrosis - ASCVD (arteriosclerotic cardiovascular disease) 09/18/2014 - Atrial fibrillation (HCC) 07/01/2006 - Benign neoplasm of colon 2005 Hyperplastic - BPH (benign prostatic hyperplasia) 01/30/2015 - Cardiomyopathy, ischemic 05/30/2015 - Coronary artery disease 05/16/2015 - DM2 (diabetes mellitus, type 2) (HCC) 05/16/2015 - Edema 07/01/2006 - Family history of malignant neoplasm of gastrointestinal tract 11/03/2006 - Flatulence, eructation, and gas pain - Heart attack ([facility]) - HEMANGIOMA INTRA-ABDOM 07/29/2006 - HYPERTENSION NOS 08/27/2006 - Impaired fasting glucose 05/30/2010 - Irritable bowel syndrome 08/27/2006 - AL (myocardial infarction) ([facility]) 05/16/2015 - NSTEMI (non-ST elevated myocardial infarction) ([facility]) 05/16/2015 Pt now chest pain free with nitrate - recheck enzymes -1 set troponin0.719, CK 507, MB 39.9, CKMB 7.9 - check echo - continue heparin, aspirin, ARB, statin, beta linda - continue clopidogrel - called in/consented for [facility] today +/- PCI -05-17-15: PCI to the mid RCA with a 3.5 x 16 mm Synergy EES - Obesity, unspecified 07/01/2006 - Other and unspecified hyperlipidemia 07/01/2006 - Polyneuropathy ([facility]) 05/01/2016 Nerve study 2015. - SLEEP APNEA NOS (cpap intolerant) 07/01/2006 - Type II or unspecified type diabetes mellitus without mention of complication, not stated as uncontrolled 01/25/2014 - Unspecified constipation PAST SURGICAL HISTORY Procedure Laterality Date - [facility] 2004, 2000 - [facility] Colonoscopy - [facility]2015 Colonoscopy - KNEE SCOPE,DIAGNOSTIC Right 10/06/2007 Arthroscopy, knee - LEFT HEART CATH,PERCUTANEOUS 08/22/2014 Cardiac cath, L heart - PALATE/UVULA SURGERY UNLISTED 1999 Somnoplasty, tracheostomy - PAST SURGICAL HISTORY OF 05/16/2015 Had heart stent - [facility]5+Y/O,REDUCIBL Left 1990 Hernia repair, inguinal - TRACHEOSTOMY HX 1999 w/ UVPP ALLERGIES Patient has no known allergies. MEDICATIONS ezetimibe (ZETIA) 10 mg tablet Take 1 tablet by mouth once daily. trimethoprim-polymyxin eye drops (POLYTRIM) ophthalmic solution Use 1 Drop in both eyes four times daily. spironolactone (ALDACTONE) 25 mg tablet Take 1 tablet by mouth twice daily. pantoprazole DR (PROTONIX) 40 mg tablet Take 1 tablet by mouth every morning. atorvastatin (LIPITOR) 80 mg tablet Take 1 tablet by mouth once daily. furosemide (LASIX) 40 mg tablet Take 1 tablet by mouth twice daily. With 20 mg tablet for total of 60 mg twice daily. furosemide (LASIX) 20 mg tablet Take 1 tablet by mouth twice daily. COMPOUNDED PRESCRIPTION INOGEN PORTABLE OXYGEN CONCENTRATOR. 3 LPM VIA NASAL CANNULA WITH ACTIVITY. DX: J96.21; J96.22. J44.9. I25.5 metoprolol succinate ER (TOPROL XL) 100 mg Tb24 Take 1 tablet by mouth once daily. warfarin (COUMADIN) 5 mg tablet Take 12.5mg daily or as directed. metFORMIN (GLUCOPHAGE) 500 mg tablet Take 1 tablet by mouth daily with breakfast. . nitroglycerin sublingual (NITROQUICK) 0.4 mg SL tablet Dissolve 1 tablet under the tongue as needed. FOR CHEST PAIN. IF NO RELIEF CALL 911 clopidogrel (PLAVIX) 75 mg tablet Take 1 tablet by mouth once daily. albuterol HFA (PROVENTIL HFA, VENTOLIN HFA) 90 mcg/actuation inhaler Inhale 2 Puffs as instructed every 6 hours as needed for Wheezing/Shortness of Breath. Compression Knee Highs KNEE HIGH COMPRESSION STOCKINGS 20- 30 MM HG. DX: EDEMA. VENOUS INSUFFICIENCY, BOTH LOWER EXTREMITIES. fluticasone (FLONASE) 50 mcg/actuation nasal spray 1 or 2 sprays in each nostril at bedtime. polyethylene glycol 3350 (MIRALAX) 17 gram/dose powder Take 17 g by mouth once daily. magnesium hydroxide (MILK OF MAGNESIA) 400 mg/5 mL suspension Take 15 mL by mouth once daily as needed for Constipation. senna-docusate 8.6-50 mg per tablet Take 1 tablet by mouth once daily. For constipation. Lancets (FREESTYLE LANCETS) [facility] lancets Test Blood sugar daily. Hyperglycemia, no insulin FAMILY HISTORY Problem Relation Age of Onset - Diabetes Father - Heart Father Pacemaker - Alzheimer's Disease Father - Coronary Artery Disease Father - other (parkinsons) Father - Diabetes Mother - Cancer Mother Colon - Hypertension Brother - Heart Brother CABG - Diabetes Brother - Peripheral Artery Disease Brother - Hypertension Brother Social History Substance Use Topics - Smoking status: Former Smoker Packs/day: 0.25 Years: 20.00 Types: Cigarettes Quit date: 07/01/2006 - Smokeless tobacco: Former User - Alcohol use No PHYSICAL EXAM BP 130/80 Pulse 67 Temp 36.3 ?C (97.3 ?F) (Temporal Artery) Resp 16 Wt (!) 152 kg (335 lb) SpO2 (!) 87% BMI 48.07 kg/m? General Appearance: well appearing, in no acute distress, alert Left Lower Extremity: Left lateral monae: 2 x 1 cm shallow ulcer with red wound bed and yellow slough. 1 x 1 cm shallow ulcer adjacent to this with red wound bed and yellow slough. Surrounding edema and tenderness. No induration or fluctuance. 1+ edema with venous stasis changes. Good capillary refill. Pulses: 1+ ASSESSMENT/PLAN: 1. Cellulitis of left lower extremity - ICD9: 682.6, ICD10: L03.116 (primary diagnosis) - Begin treatment with doxycycline - No lymphangetic streaking, this was defined for patient to watch for and to seek medical care immediately if appears - Follow up for recheck in one week or sooner for worsening symptoms 2. Ulcer of left lower extremity, unspecified ulcer stage (HCC) - ICD9: 707.10, ICD10: L97.929 Slow wound healing secondary to venous stasis Continue with current wound care measures If no improvement in healing at one week follow-up will refer to wound center Prescription instructions reviewed with patient as applicable. Potential red flag symptoms discussed with the patient. Reviewed appropriate action plan to take if red flag symptoms occur. Patient agreeable to treatment plan. Bev Smart APRN.[employer] FINAL INSPECTOR Referring Provider: SELF [[id number]] Allergies As of Date: 05/02/2018 (No Known Allergies) Date Reviewed: 05/02/2018 Reviewed by: Michelle Grier Appeals Coordinator - Fully Assessed Primary Visit Diagnosis:Cellulitis of left lower extremity [L03.116] Other Visit Diagnosis:Ulcer of left lower extremity, unspecified ulcer stage (HCC) [L97.929] Order(s):doxycycline monohydrate (MONODOX) 100 mg capsuleTake 1 capsule by mouth twice daily for 7 days.Disp: 14 capsuleRfl: 0 Prescriptions as of 05/02/2018 Sig: EZETIMIBE 10 MG TABLET Take 1 tablet by mouth once d* POLYMYXIN B SULFATE 10,000 UN* Use 1 Drop in both eyes four * SPIRONOLACTONE 25 MG TABLET Take 1 tablet by mouth twice * PANTOPRAZOLE 40 MG TABLET,DEL* Take 1 tablet by mouth every * ATORVASTATIN 80 MG TABLET Take 1 tablet by mouth once d* FUROSEMIDE 40 MG TABLET Take 1 tablet by mouth twice * FUROSEMIDE 20 MG TABLET Take 1 tablet by mouth twice * COMPOUNDED PRESCRIPTION INOGEN PORTABLE OXYGEN CONCEN* METOPROLOL SUCCINATE ER 100 M* Take 1 tablet by mouth once d* WARFARIN 5 MG TABLET Take 12.5mg daily or as direc* METFORMIN 500 MG TABLET Take 1 tablet by mouth daily * NITROGLYCERIN 0.4 MG SUBLINGU* Dissolve 1 tablet under the t* CLOPIDOGREL 75 MG TABLET Take 1 tablet by mouth once d* ALBUTEROL SULFATE HFA 90 MCG/* Inhale 2 Puffs as instructed * COMPOUNDED PRESCRIPTION KNEE HIGH COMPRESSION STOCKIN* FLUTICASONE 50 MCG/ACTUATION * 1 or 2 sprays in each nostril* POLYETHYLENE GLYCOL 3350 17 G* Take 17 g by mouth once daily. MAGNESIUM HYDROXIDE 400 MG/5 * Take 15 mL by mouth once andrey* SENNOSIDES 8.6 MG-DOCUSATE SO* Take 1 tablet by mouth once d* * LANCETS Test Blood sugar daily. Hype* DOXYCYCLINE MONOHYDRATE 100 M* Take 1 capsule by mouth twice* Problem List As Of Date 05/02/2018 Noted Resolved ATRIAL FIBRILLATION [I48.91] INVALID FOR*07/23/2015 More... Edema [R60.9] INVALID FOR* Hypercholesterolemia [E78.00] INVALID FOR* More... SLEEP APNEA NOS (cpap intolerant) [G47.30] INVALID FOR*01/30/2015 Obesity [E66.9] INVALID FOR*08/13/2017 More... Hemangioma of intra-abdominal structures [D18.0*INVALID FOR*04/25/2014 Essential hypertension [I10] INVALID FOR* More... IRRITABLE COLON [K58.9] INVALID FOR* Constipation [K59.00] INVALID FOR* DERMATOPHYTOSIS OF NAIL [B35.1] INVALID FOR*04/24/2008 ABDOMINAL PAIN LLQ [R10.32] 04/24/2008 ABDOMINAL PAIN LUQ [R10.12] 04/24/2008 FLATUL/ERUCTAT/GAS PAIN [R14.3, R14.1, R14.2] 04/24/2008 Impaired fasting glucose [R73.01] INVALID FOR*04/25/2014 COPD (chronic obstructive pulmonary disease) [J*INVALID FOR* Type II or unspecified type diabetes mellitus w*INVALID FOR*05/16/2015 ASCVD (arteriosclerotic cardiovascular disease)*INVALID FOR* BPH (benign prostatic hyperplasia) [N40.0] INVALID FOR* Family history of colon cancer [Z80.0] INVALID FOR*08/13/2017 NSTEMI (non-ST elevated myocardial infarction) *INVALID FOR*01/15/2016 More... DM2 (diabetes mellitus, type 2) (HCC) [E11.9] INVALID FOR* More... S/P right coronary artery (RCA) stent placement*INVALID FOR* LV dysfunction [I51.9] INVALID FOR*01/15/2016 Cardiomyopathy, ischemic [I25.5] INVALID FOR* More... Chronic anticoagulation [Z79.01] INVALID FOR* More... Paroxysmal atrial fibrillation (HCC) [I48.0] INVALID FOR* More... Sleep apnea, intolerant to CPAP [G47.30] INVALID FOR* More... Astigmatism, regular [H52.229] INVALID FOR*08/13/2017 Presbyopia [H52.4] INVALID FOR*01/15/2016 Benign neoplasm of skin of eyelid including can*INVALID FOR*04/07/2017 Polyneuropathy (HCC) [G62.9] INVALID FOR* More... Spinal stenosis, lumbar region, with neurogenic*INVALID FOR*12/16/2017 Displacement of lumbar intervertebral disc with*INVALID FOR*04/07/2017 Spondylosis of lumbar region without myelopathy*INVALID FOR* Lesion of liver [K76.9] INVALID FOR*08/13/2017 More... Ascites [R18.8] INVALID FOR*05/30/2017 More... ADEBAYO (acute kidney injury) (HCC) [N17.9] INVALID FOR*12/16/2017 More... Nicotine use disorder, F17.2 [F17.200] INVALID FOR*08/13/2017 More... Obesity, Class III, BMI >= 40 (morbid obesity) *INVALID FOR* Lethargy [R53.83] INVALID FOR*08/13/2017 Acute on chronic respiratory failure with hypox*INVALID FOR* More... Morbid obesity with body mass index (BMI) of 45*INVALID FOR*04/14/2018 More... Acute liver failure with hepatic coma (HCC) [K7*INVALID FOR*08/13/2017 More... Respiratory failure with hypercapnia (HCC) [J96*INVALID FOR*08/13/2017 More... Shock circulatory (HCC) [R57.9] INVALID FOR*05/29/2017 More... Kidney insufficiency [N28.9] INVALID FOR*04/14/2018 Combined forms of age-related cataract of both *INVALID FOR* Hyperopia, bilateral [H52.03] INVALID FOR* Dry eye syndrome, bilateral [H04.123] INVALID FOR* Bacterial conjunctivitis of both eyes [H10.9] INVALID FOR* CKD (chronic kidney disease) Stage 3, GFR 30-59*INVALID FOR* Prescriptions ordered this encounter Disp Refills Start End DOXYCYCLINE MONOHYDRATE 100 MG CAPSU* 14 c* 0 05/02/2018 05/09/2018 Route: ORAL Sig: Take 1 capsule by mouth twice daily for 7 days. Encounter Status:Closed by BEV SMART CNP on 05/02/18 PROGRESS Observed: 04/27/2018 Status: COMPLETED Source: [employer] 4:36 PM [facility] RE[facility] HNO ID: [id number] Author: Yi Anderson LPN Service: (none) Author Type: (none) Type: Progress Notes Filed: 04/27/2018 4:37 PM Note Text: Phoned patient and went over coumadin instructions from Bev Smart [employer] as below with understanding and scheduled coumadin clinic appt for 05/04. PROGRESS Observed: 04/27/2018 Status: COMPLETED Source: [employer] 4:10 PM [facility] REPOSITORY HNO ID: [id number] Author: Bev Smart Service: (none) Author Type: Nurse Practitioner Type: Progress Notes Filed: 04/27/2018 4:37 PM Note Text: No dose change, repeat in one week. Bev Smart APRN.CNP PROGRESS Observed: 04/27/2018 Status: COMPLETED Source: [employer] 12:09 PM [facility] REPOSITORY HNO ID: [id number] Author: Allison Bustamante RN Service: (none) Author Type: (none) Type: Progress Notes Filed: 04/27/2018 12:13 PM Note Text: Patient had INR completed at [facility] Patient's INR is 3.2 Patient is currently taking 12.5mg TTh, 10mg all other days Patient's last dose change was 04/14/18 due to high INR at 3.2 Patient has had no medication and no change in diet. Advised patient that they would be contacted regarding medication dose and follow-up once reviewed by provider. After provider review, please contact patient with information and schedule follow-up appointment with coumadin clinic. CNNURSE Observed: 04/25/2018 Status: COMPLETED Source: [place] 1:15 PM [facility] REPOSITORY Nurse Visit (CAWSTR) CATALINA EVANS ([id number]) 1955 M Date Time Provider Department 04/25/18 1:15 PM NURSE CARD ADMIN [facility] CAWSTR During your visit today, we recorded the following information about you: Referring Provider: ZEKE SAHNI [[id number]] Allergies As of Date: 04/25/2018 (No Known Allergies) Date Reviewed: 04/25/2018 Reviewed by: Alanna Gautam MA - Fully Assessed Reason for Visit: Nurse Visit [792] Visit Diagnosis:ASHD (arteriosclerotic heart disease) [I25.10] Prescriptions as of 04/25/2018 Sig: EZETIMIBE 10 MG TABLET Take 1 tablet by mouth once d* POLYMYXIN B SULFATE 10,000 UN* Use 1 Drop in both eyes four * SPIRONOLACTONE 25 MG TABLET Take 1 tablet by mouth twice * ATORVASTATIN 80 MG TABLET Take 1 tablet by mouth once d* FUROSEMIDE 40 MG TABLET Take 1 tablet by mouth twice * FUROSEMIDE 20 MG TABLET Take 1 tablet by mouth twice * COMPOUNDED PRESCRIPTION INOGEN PORTABLE OXYGEN CONCEN* METOPROLOL SUCCINATE ER 100 M* Take 1 tablet by mouth once d* WARFARIN 5 MG TABLET Take 12.5mg daily or as direc* METFORMIN 500 MG TABLET Take 1 tablet by mouth daily * NITROGLYCERIN 0.4 MG SUBLINGU* Dissolve 1 tablet under the t* CLOPIDOGREL 75 MG TABLET Take 1 tablet by mouth once d* ALBUTEROL SULFATE HFA 90 MCG/* Inhale 2 Puffs as instructed * COMPOUNDED PRESCRIPTION KNEE HIGH COMPRESSION STOCKIN* FLUTICASONE 50 MCG/ACTUATION * 1 or 2 sprays in each nostril* POLYETHYLENE GLYCOL 3350 17 G* Take 17 g by mouth once daily. MAGNESIUM HYDROXIDE 400 MG/5 * Take 15 mL by mouth once andrey* SENNOSIDES 8.6 MG-DOCUSATE SO* Take 1 tablet by mouth once d* * LANCETS Test Blood sugar daily. Hype* Problem List As Of Date 04/25/2018 Noted Resolved ATRIAL FIBRILLATION [I48.91] INVALID FOR*07/23/2015 More... Edema [R60.9] INVALID FOR* Hypercholesterolemia [E78.00] INVALID FOR* Priority: J More... SLEEP APNEA NOS (cpap intolerant) [G47.30] INVALID FOR*01/30/2015 Obesity [E66.9] INVALID FOR*08/13/2017 More... Hemangioma of intra-abdominal structures [D18.0*INVALID FOR*04/25/2014 Essential hypertension [I10] INVALID FOR* Priority: K More... IRRITABLE COLON [K58.9] INVALID FOR* Constipation [K59.00] INVALID FOR* DERMATOPHYTOSIS OF NAIL [B35.1] INVALID FOR*04/24/2008 ABDOMINAL PAIN LLQ [R10.32] 04/24/2008 ABDOMINAL PAIN LUQ [R10.12] 04/24/2008 FLATUL/ERUCTAT/GAS PAIN [R14.3, R14.1, R14.2] 04/24/2008 Impaired fasting glucose [R73.01] INVALID FOR*04/25/2014 COPD (chronic obstructive pulmonary disease) [J*INVALID FOR* Type II or unspecified type diabetes mellitus w*INVALID FOR*05/16/2015 ASCVD (arteriosclerotic cardiovascular disease)*INVALID FOR* BPH (benign prostatic hyperplasia) [N40.0] INVALID FOR* Family history of colon cancer [Z80.0] INVALID FOR*08/13/2017 NSTEMI (non-ST elevated myocardial infarction) *INVALID FOR*01/15/2016 More... DM2 (diabetes mellitus, type 2) (HCC) [E11.9] INVALID FOR* Priority: D More... S/P right coronary artery (RCA) stent placement*INVALID FOR* LV dysfunction [I51.9] INVALID FOR*01/15/2016 Cardiomyopathy, ischemic [I25.5] INVALID FOR* Priority: F More... Chronic anticoagulation [Z79.01] INVALID FOR* Priority: H More... Paroxysmal atrial fibrillation (HCC) [I48.0] INVALID FOR* Priority: C More... Sleep apnea, intolerant to CPAP [G47.30] INVALID FOR* More... Astigmatism, regular [H52.229] INVALID FOR*08/13/2017 Presbyopia [H52.4] INVALID FOR*01/15/2016 Benign neoplasm of skin of eyelid including can*INVALID FOR*04/07/2017 Polyneuropathy (HCC) [G62.9] INVALID FOR* More... Spinal stenosis, lumbar region, with neurogenic*INVALID FOR*12/16/2017 Displacement of lumbar intervertebral disc with*INVALID FOR*04/07/2017 Spondylosis of lumbar region without myelopathy*INVALID FOR* Lesion of liver [K76.9] INVALID FOR*08/13/2017 Priority: B More... Ascites [R18.8] INVALID FOR*05/30/2017 Priority: B More... ADEBAYO (acute kidney injury) (HCC) [N17.9] INVALID FOR*12/16/2017 Priority: E More... Nicotine use disorder, F17.2 [F17.200] INVALID FOR*08/13/2017 Priority: L More... Obesity, Class III, BMI >= 40 (morbid obesity) *INVALID FOR* Priority: M Lethargy [R53.83] INVALID FOR*08/13/2017 Priority: Severe Acute on chronic respiratory failure with hypox*INVALID FOR* Priority: Moderate More... Morbid obesity with body mass index (BMI) of 45*INVALID FOR*04/14/2018 Priority: M More... Acute liver failure with hepatic coma (HCC) [K7*INVALID FOR*08/13/2017 Priority: Mild More... Respiratory failure with hypercapnia (HCC) [J96*INVALID FOR*08/13/2017 Priority: A More... Shock circulatory (HCC) [R57.9] INVALID FOR*05/29/2017 Priority: A More... Kidney insufficiency [N28.9] INVALID FOR*04/14/2018 Combined forms of age-related cataract of both *INVALID FOR* Hyperopia, bilateral [H52.03] INVALID FOR* Dry eye syndrome, bilateral [H04.123] INVALID FOR* Bacterial conjunctivitis of both eyes [H10.9] INVALID FOR* CKD (chronic kidney disease) Stage 3, GFR 30-59*INVALID FOR* Encounter Status:Closed by ZACH RESENDEZ RN on 04/27/18 EKG1 Observed: 04/25/2018 Status: F Source: [place] 10:07 AM [facility] REPOSITORY NAME : CATALINA EVANS PID : [id number] : 1955 Gender : Male Race : ORD : Procedure Date : Apr 25 2018 10:07:35 Edit Date : Apr 26 2018 10:14:43 Diagnosis:NORMAL SINUS RHYTHM LEFT AXIS DEVIATION INFERIOR MYOCARDIAL INFARCTION , AGE UNDETERMINED NONSPECIFIC T WAVE ABNORMALITY ABNORMAL ECG NO SIGNIFICANT CHANGE FROM PREVIOUS ECG Confirmed by ZEKE SAHNI MD ([id number]) on 04/26/2018 10:14:39 AM Ventricular Rate : 87 BPM Atrial Rate : 87 BPM P-R Interval : 158 ms QRS Duration : 118 ms Q-T Interval : 392 ms QTC Calculation(Bezet) : 471 ms P [place] : 51 degrees R [place] : -33 degrees T [place] : -6 degrees Test Reason : Location : 136 : [facility] Overread By : ZEKE SAHNI MD Edited By : ZEKE SAHNI MD Referred By : BORA, Acquired by : , PROGRESS Observed: 04/25/2018 Status: COMPLETED Source: [place] 9:28 AM [facility] REPOSITORY HNO ID: [id number] Author: Zeke Sahni Service: (none) Author Type: Physician Type: Progress Notes Filed: 04/25/2018 1:02 PM Note Text: PERTINENT CARDIAC HISTORY PAF - Documented 2011, 06/16/14 Hypertension Hyperlipidemia RICKY - can't tolerate CPAP Obesity ASHD - IMI, PCI RCA 05/14 ([facility]ANKA) DM Venous insufficiency ADHERENCE TO GUIDELINES KUSUM-I or ARB for HF with prior LVEF<40 (NQF 0081) - met ASA or Plavix for ASHD (NQF 0067) - met Beta linda for ASHD with prior AL or prior LVEF<40 (NQF 0070) - met Beta linda for HF with prior LVEF<40 (NQF 0083) - met KUSUM-I or ARB for ASHD with DM or prior LVEF<40 (NQF 0066) - met Statin therapy for ASHD or FHL or DM - met BMI documented and plan if >25 (NQF 0421) - lifestyle recommendation form Tobacco use screening and referral (NQF 0028) - lifestyle recommendation form Recommendation for whole food, plant based diet - lifestyle recommendation form CLINICAL IMPRESSION/PLAN: Catalina Evans has stable coronary disease. His volume is slightly high. He would benefit from more aggressive diuresis. I've asked him to verify that he is currently taking Aldactone 25 milligrams twice daily and, if so, increase to 50 milligrams twice daily. I've asked him to update me with weights and vital signs next week. Basic profile will be checked next week. Ezetimibe was recently added to his regimen. His INRs are being followed in primary care. Blood pressures are adequately controlled. Weight reduction was strongly advised. I recommend that he be seen again in 8 months or as needed. Written and verbal health teaching given to patient, patient verbalizes understanding and agrees with treatment plan. DIAGNOSIS FOR VISIT: ASHD PAF HISTORY OF PRESENT ILLNESS Catalina Evans returns for follow-up of multiple cardiac issues, as noted above. He reports that his shortness of breath worsens intermittently, but he has had no orthopnea. His edema is intermittently worse. He is not sure whether he is taking Aldactone at this time. He reports no recent chest discomfort. He's had no syncope, palpitations, TIAs, amaurosis or claudication. He has not been able to tolerate CPAP. ALLERGIES: ALLERGIES No Known Allergies CURRENT OUTPATIENT MEDICATIONS: ezetimibe (ZETIA) 10 mg tablet Take 1 tablet by mouth once daily. trimethoprim-polymyxin eye drops (POLYTRIM) ophthalmic solution Use 1 Drop in both eyes four times daily. spironolactone (ALDACTONE) 25 mg tablet Take 1 tablet by mouth twice daily. atorvastatin (LIPITOR) 80 mg tablet Take 1 tablet by mouth once daily. furosemide (LASIX) 40 mg tablet Take 1 tablet by mouth twice daily. With 20 mg tablet for total of 60 mg twice daily. furosemide (LASIX) 20 mg tablet Take 1 tablet by mouth twice daily. COMPOUNDED PRESCRIPTION INOGEN PORTABLE OXYGEN CONCENTRATOR. 3 LPM VIA NASAL CANNULA WITH ACTIVITY. DX: J96.21; J96.22. J44.9. I25.5 metoprolol succinate ER (TOPROL XL) 100 mg Tb24 Take 1 tablet by mouth once daily. warfarin (COUMADIN) 5 mg tablet Take 12.5mg daily or as directed. metFORMIN (GLUCOPHAGE) 500 mg tablet Take 1 tablet by mouth daily with breakfast. . nitroglycerin sublingual (NITROQUICK) 0.4 mg SL tablet Dissolve 1 tablet under the tongue as needed. FOR CHEST PAIN. IF NO RELIEF CALL 911 clopidogrel (PLAVIX) 75 mg tablet Take 1 tablet by mouth once daily. albuterol HFA (PROVENTIL HFA, VENTOLIN HFA) 90 mcg/actuation inhaler Inhale 2 Puffs as instructed every 6 hours as needed for Wheezing/Shortness of Breath. Compression Knee Highs KNEE HIGH COMPRESSION STOCKINGS 20- 30 MM HG. DX: EDEMA. VENOUS INSUFFICIENCY, BOTH LOWER EXTREMITIES. fluticasone (FLONASE) 50 mcg/actuation nasal spray 1 or 2 sprays in each nostril at bedtime. polyethylene glycol 3350 (MIRALAX) 17 gram/dose powder Take 17 g by mouth once daily. magnesium hydroxide (MILK OF MAGNESIA) 400 mg/5 mL suspension Take 15 mL by mouth once daily as needed for Constipation. senna-docusate 8.6-50 mg per tablet Take 1 tablet by mouth once daily. For constipation. Lancets (FREESTYLE LANCETS) [facility] lancets Test Blood sugar daily. Hyperglycemia, no insulin pantoprazole DR (PROTONIX) 40 mg tablet Take 1 tablet by mouth every morning. PHYSICAL EXAMINATION: VITAL SIGNS: BP 137/87 Pulse 88 Ht 5' 10 (1.78m) Wt 336 lb (152.4kg) BMI 48.21 kg/(m2). Chest: Clear to auscultation. Trachea is midline. Air entry is equal. Cardiac: Regular rhythm. S1 and S2 are normal. PMI is nondisplaced. Is a 2/6 systolic ejection murmur. Carotids are brisk without bruits. JVP is less than 10 cm. Abdomen: Soft and nontender. He is obese. There are no pulsatile masses or bruits. No liver enlargement. Bowel sounds are active. Extremities: 1 plus chronic pedal edema with stasis changes. There is mild weeping from the left leg, which has several bullae. Pulses are decreased but symmetrical. EKG shows sinus rhythm. There are minor repolarization changes. No change is seen since 05/07/17. Recent labs reviewed. Renal function is mildly impaired, but stable. LDL was 57 Electronically Signed: Zeke Sahni MD April 25, 2018 9:28 AM CC: MD THAI Perkins Observed: 04/25/2018 Status: COMPLETED Source: [place] 9:00 AM [facility] REPOSITORY Office Visit (CAWSTR) CATALINA EVANS ([id number]) 1955 M Date Time Provider Department 04/25/18 9:00 AM ZEKE SAHNI CAWSTR During your visit today, we recorded the following information about you: Pulse Blood pressure Weight Height 88/minute 137/87 152.4 kg 1.778 m Zeke Sahni MD 04/25/2018 1:02 PM Signed PERTINENT CARDIAC HISTORY PAF - Documented 2011, 06/16/14 Hypertension Hyperlipidemia RICKY - can't tolerate CPAP Obesity ASHD - IMI, PCI RCA 05/14 ([place]ANKA) DM Venous insufficiency ADHERENCE TO GUIDELINES KUSUM-I or ARB for HF with prior LVEF<40 (NQF 0081) - met ASA or Plavix for ASHD (NQF 0067) - met Beta linda for ASHD with prior AL or prior LVEF<40 (NQF 0070) - met Beta linda for HF with prior LVEF<40 (NQF 0083) - met KUSUM-I or ARB for ASHD with DM or prior LVEF<40 (NQF 0066) - met Statin therapy for ASHD or FHL or DM - met BMI documented and plan if >25 (NQF 0421) - lifestyle recommendation form Tobacco use screening and referral (NQ 0028) - lifestyle recommendation form Recommendation for whole food, plant based diet - lifestyle recommendation form CLINICAL IMPRESSION/PLAN: Catalina Evans has stable coronary disease. His volume is slightly high. He would benefit from more aggressive diuresis. I've asked him to verify that he is currently taking Aldactone 25 milligrams twice daily and, if so, increase to 50 milligrams twice daily. I've asked him to update me with weights and vital signs next week. Basic profile will be checked next week. Ezetimibe was recently added to his regimen. His INRs are being followed in primary care. Blood pressures are adequately controlled. Weight reduction was strongly advised. I recommend that he be seen again in 8 months or as needed. Written and verbal health teaching given to patient, patient verbalizes understanding and agrees with treatment plan. DIAGNOSIS FOR VISIT: ASHD PAF HISTORY OF PRESENT ILLNESS Catalina Evans returns for follow-up of multiple cardiac issues, as noted above. He reports that his shortness of breath worsens intermittently, but he has had no orthopnea. His edema is intermittently worse. He is not sure whether he is taking Aldactone at this time. He reports no recent chest discomfort. He's had no syncope, palpitations, TIAs, amaurosis or claudication. He has not been able to tolerate CPAP. ALLERGIES: ALLERGIES No Known Allergies CURRENT OUTPATIENT MEDICATIONS: ezetimibe (ZETIA) 10 mg tablet Take 1 tablet by mouth once daily. trimethoprim-polymyxin eye drops (POLYTRIM) ophthalmic solution Use 1 Drop in both eyes four times daily. spironolactone (ALDACTONE) 25 mg tablet Take 1 tablet by mouth twice daily. atorvastatin (LIPITOR) 80 mg tablet Take 1 tablet by mouth once daily. furosemide (LASIX) 40 mg tablet Take 1 tablet by mouth twice daily. With 20 mg tablet for total of 60 mg twice daily. furosemide (LASIX) 20 mg tablet Take 1 tablet by mouth twice daily. COMPOUNDED PRESCRIPTION Xuanyixia PORTABLE OXYGEN CONCENTRATOR. 3 LPM VIA NASAL CANNULA WITH ACTIVITY. DX: J96.21; J96.22. J44.9. I25.5 metoprolol succinate ER (TOPROL XL) 100 mg Tb24 Take 1 tablet by mouth once daily. warfarin (COUMADIN) 5 mg tablet Take 12.5mg daily or as directed. metFORMIN (GLUCOPHAGE) 500 mg tablet Take 1 tablet by mouth daily with breakfast. . nitroglycerin sublingual (NITROQUICK) 0.4 mg SL tablet Dissolve 1 tablet under the tongue as needed. FOR CHEST PAIN. IF NO RELIEF CALL 911 clopidogrel (PLAVIX) 75 mg tablet Take 1 tablet by mouth once daily. albuterol HFA (PROVENTIL HFA, VENTOLIN HFA) 90 mcg/actuation inhaler Inhale 2 Puffs as instructed every 6 hours as needed for Wheezing/Shortness of Breath. Compression Knee Highs KNEE HIGH COMPRESSION STOCKINGS 20- 30 MM HG. DX: EDEMA. VENOUS INSUFFICIENCY, BOTH LOWER EXTREMITIES. fluticasone (FLONASE) 50 mcg/actuation nasal spray 1 or 2 sprays in each nostril at bedtime. polyethylene glycol 3350 (MIRALAX) 17 gram/dose powder Take 17 g by mouth once daily. magnesium hydroxide (MILK OF MAGNESIA) 400 mg/5 mL suspension Take 15 mL by mouth once daily as needed for Constipation. senna-docusate 8.6-50 mg per tablet Take 1 tablet by mouth once daily. For constipation. Lancets (FREESTYLE LANCETS) [facility] lancets Test Blood sugar daily. Hyperglycemia, no insulin pantoprazole DR (PROTONIX) 40 mg tablet Take 1 tablet by mouth every morning. PHYSICAL EXAMINATION: VITAL SIGNS: BP 137/87 Pulse 88 Ht 5' 10 (1.78m) Wt 336 lb (152.4kg) BMI 48.21 kg/(m2). Chest: Clear to auscultation. Trachea is midline. Air entry is equal. Cardiac: Regular rhythm. S1 and S2 are normal. PMI is nondisplaced. Is a 2/6 systolic ejection murmur. Carotids are brisk without bruits. JVP is less than 10 cm. Abdomen: Soft and nontender. He is obese. There are no pulsatile masses or bruits. No liver enlargement. Bowel sounds are active. Extremities: 1 plus chronic pedal edema with stasis changes. There is mild weeping from the left leg, which has several bullae. Pulses are decreased but symmetrical. EKG shows sinus rhythm. There are minor repolarization changes. No change is seen since 05/07/17. Recent labs reviewed. Renal function is mildly impaired, but stable. LDL was 57 Electronically Signed: Zeke Sahni MD April 25, 2018 9:28 AM CC: MD Zeke Perkins MD 04/25/2018 9:28 AM Signed LIFESTYLE CHANGE A healthy lifestyle is the most important component of your overall treatment plan. Please give serious thought to the following areas and commit to making jail changes. EAT A WHOLE FOOD, PLANT BASED DIET The nutrition your body gets is more important than the medicine you take. What matters most is the overall way you eat. We encourage you to minimize the use of animal products (which include dairy and all meats except fatty fish) and use whole, unprocessed plant foods to provide your protein, vitamins and other nutrients. We have a lot of information to share with you on this topic. This is not a diet. It is a way of life that you will keep with you. EXERCISE REGULARLY It is not important to spend hours in the gym, lifting weights and perspiring heavily. A total of 2-3 hours per week of aerobic (causing you to be moderately short of breath) exercise is sufficient to improve your health. Talk to us before you begin a new exercise program, if you have heart disease or experience shortness of breath or chest pain. REDUCE STRESS Chronic emotional and physical stress leads to disease. Ways of reducing stress include meditation, visualization, prayer, yoga and other forms of relaxation therapy. Consistency is the green. Find a technique that works for you and do it every day. CULTIVATE RELATIONSHIPS Loneliness and isolation have a major negative impact on health. Seek out others who can love, care for and nurture you. Avoid hurtful relationships. MAINTAIN IDEAL BODY WEIGHT The best way to do this is to do all the things above. Our bodies naturally find the right weight if we keep moving and feed ourselves the right food. If your BMI is greater than 25, we strongly recommend a referral to a weight management program. Please speak to us or your family physician about available programs. AVOID NICOTINE IN ALL FORMS This includes all tobacco products, whether chewed, smoked, vaped, or rubbed on the skin. Smoking cessation programs, which can make use of tobacco substitutes, medications to suppress cravings and behavior management, are available. Please contact your family physician about programs in your area. Referring Provider: ZEKE SAHNI [[id number]] Allergies As of Date: 04/25/2018 (No Known Allergies) Date Reviewed: 04/25/2018 Reviewed by: Alanna Gautam MA - Fully Assessed Reason for Visit: Established Patient [175] Primary Visit Diagnosis:Hypertension, essential [I10] Other Visit Diagnoses:ASHD (arteriosclerotic heart disease) [I25.10] PAF (paroxysmal atrial fibrillation) (HCC) [I48.0] Prescriptions as of 04/25/2018 Sig: EZETIMIBE 10 MG TABLET Take 1 tablet by mouth once d* POLYMYXIN B SULFATE 10,000 UN* Use 1 Drop in both eyes four * SPIRONOLACTONE 25 MG TABLET Take 1 tablet by mouth twice * ATORVASTATIN 80 MG TABLET Take 1 tablet by mouth once d* FUROSEMIDE 40 MG TABLET Take 1 tablet by mouth twice * FUROSEMIDE 20 MG TABLET Take 1 tablet by mouth twice * COMPOUNDED PRESCRIPTION INOGEN PORTABLE OXYGEN CONCEN* METOPROLOL SUCCINATE ER 100 M* Take 1 tablet by mouth once d* WARFARIN 5 MG TABLET Take 12.5mg daily or as direc* METFORMIN 500 MG TABLET Take 1 tablet by mouth daily * NITROGLYCERIN 0.4 MG SUBLINGU* Dissolve 1 tablet under the t* CLOPIDOGREL 75 MG TABLET Take 1 tablet by mouth once d* ALBUTEROL SULFATE HFA 90 MCG/* Inhale 2 Puffs as instructed * COMPOUNDED PRESCRIPTION KNEE HIGH COMPRESSION STOCKIN* FLUTICASONE 50 MCG/ACTUATION * 1 or 2 sprays in each nostril* POLYETHYLENE GLYCOL 3350 17 G* Take 17 g by mouth once daily. MAGNESIUM HYDROXIDE 400 MG/5 * Take 15 mL by mouth once andrey* SENNOSIDES 8.6 MG-DOCUSATE SO* Take 1 tablet by mouth once d* * LANCETS Test Blood sugar daily. Hype* PANTOPRAZOLE 40 MG TABLET,DEL* Take 1 tablet by mouth every * Problem List As Of Date 04/25/2018 Noted Resolved ATRIAL FIBRILLATION [I48.91] INVALID FOR*07/23/2015 More... Edema [R60.9] INVALID FOR* Hypercholesterolemia [E78.00] INVALID FOR* Priority: J More... SLEEP APNEA NOS (cpap intolerant) [G47.30] INVALID FOR*01/30/2015 Obesity [E66.9] INVALID FOR*08/13/2017 More... Hemangioma of intra-abdominal structures [D18.0*INVALID FOR*04/25/2014 Essential hypertension [I10] INVALID FOR* Priority: K More... IRRITABLE COLON [K58.9] INVALID FOR* Constipation [K59.00] INVALID FOR* DERMATOPHYTOSIS OF NAIL [B35.1] INVALID FOR*04/24/2008 ABDOMINAL PAIN LLQ [R10.32] 04/24/2008 ABDOMINAL PAIN LUQ [R10.12] 04/24/2008 FLATUL/ERUCTAT/GAS PAIN [R14.3, R14.1, R14.2] 04/24/2008 Impaired fasting glucose [R73.01] INVALID FOR*04/25/2014 COPD (chronic obstructive pulmonary disease) [J*INVALID FOR* Type II or unspecified type diabetes mellitus w*INVALID FOR*05/16/2015 ASCVD (arteriosclerotic cardiovascular disease)*INVALID FOR* BPH (benign prostatic hyperplasia) [N40.0] INVALID FOR* Family history of colon cancer [Z80.0] INVALID FOR*08/13/2017 NSTEMI (non-ST elevated myocardial infarction) *INVALID FOR*01/15/2016 More... DM2 (diabetes mellitus, type 2) (HCC) [E11.9] INVALID FOR* Priority: D More... S/P right coronary artery (RCA) stent placement*INVALID FOR* LV dysfunction [I51.9] INVALID FOR*01/15/2016 Cardiomyopathy, ischemic [I25.5] INVALID FOR* Priority: F More... Chronic anticoagulation [Z79.01] INVALID FOR* Priority: H More... Paroxysmal atrial fibrillation (HCC) [I48.0] INVALID FOR* Priority: C More... Sleep apnea, intolerant to CPAP [G47.30] INVALID FOR* More... Astigmatism, regular [H52.229] INVALID FOR*08/13/2017 Presbyopia [H52.4] INVALID FOR*01/15/2016 Benign neoplasm of skin of eyelid including can*INVALID FOR*04/07/2017 Polyneuropathy (HCC) [G62.9] INVALID FOR* More... Spinal stenosis, lumbar region, with neurogenic*INVALID FOR*12/16/2017 Displacement of lumbar intervertebral disc with*INVALID FOR*04/07/2017 Spondylosis of lumbar region without myelopathy*INVALID FOR* Lesion of liver [K76.9] INVALID FOR*08/13/2017 Priority: B More... Ascites [R18.8] INVALID FOR*05/30/2017 Priority: B More... ADEBAYO (acute kidney injury) (HCC) [N17.9] INVALID FOR*12/16/2017 Priority: E More... Nicotine use disorder, F17.2 [F17.200] INVALID FOR*08/13/2017 Priority: L More... Obesity, Class III, BMI >= 40 (morbid obesity) *INVALID FOR* Priority: M Lethargy [R53.83] INVALID FOR*08/13/2017 Priority: Severe Acute on chronic respiratory failure with hypox*INVALID FOR* Priority: Moderate More... Morbid obesity with body mass index (BMI) of 45*INVALID FOR*04/14/2018 Priority: M More... Acute liver failure with hepatic coma (HCC) [K7*INVALID FOR*08/13/2017 Priority: Mild More... Respiratory failure with hypercapnia (HCC) [J96*INVALID FOR*08/13/2017 Priority: A More... Shock circulatory (HCC) [R57.9] INVALID FOR*05/29/2017 Priority: A More... Kidney insufficiency [N28.9] INVALID FOR*04/14/2018 Combined forms of age-related cataract of both *INVALID FOR* Hyperopia, bilateral [H52.03] INVALID FOR* Dry eye syndrome, bilateral [H04.123] INVALID FOR* Bacterial conjunctivitis of both eyes [H10.9] INVALID FOR* CKD (chronic kidney disease) Stage 3, GFR 30-59*INVALID FOR* Other instructions from your clinician: LIFESTYLE CHANGE A healthy lifestyle is the most important component of your overall treatment plan. Please give serious thought to the following areas and commit to making jail changes. EAT A WHOLE FOOD, PLANT BASED DIET The nutrition your body gets is more important than the medicine you take. What matters most is the overall way you eat. We encourage you to minimize the use of animal products (which include dairy and all meats except fatty fish) and use whole, unprocessed plant foods to provide your protein, vitamins and other nutrients. We have a lot of information to share with you on this topic. This is not a diet. It is a way of life that you will keep with you. EXERCISE REGULARLY It is not important to spend hours in the gym, lifting weights and perspiring heavily. A total of 2-3 hours per week of aerobic (causing you to be moderately short of breath) exercise is sufficient to improve your health. Talk to us before you begin a new exercise program, if you have heart disease or experience shortness of breath or chest pain. REDUCE STRESS Chronic emotional and physical stress leads to disease. Ways of reducing stress include meditation, visualization, prayer, yoga and other forms of relaxation therapy. Consistency is the green. Find a technique that works for you and do it every day. CULTIVATE RELATIONSHIPS Loneliness and isolation have a major negative impact on health. Seek out others who can love, care for and nurture you. Avoid hurtful relationships. MAINTAIN IDEAL BODY WEIGHT The best way to do this is to do all the things above. Our bodies naturally find the right weight if we keep moving and feed ourselves the right food. If your BMI is greater than 25, we strongly recommend a referral to a weight management program. Please speak to us or your family physician about available programs. AVOID NICOTINE IN ALL FORMS This includes all tobacco products, whether chewed, smoked, vaped, or rubbed on the skin. Smoking cessation programs, which can make use of tobacco substitutes, medications to suppress cravings and behavior management, are available. Please contact your family physician about programs in your area. Encounter Status:Closed by ZEKE SAHNI MD on 04/25/18 PROGRESS Observed: 04/14/2018 Status: COMPLETED Source: [place] 3:15 PM [facility] REPOSITORY O ID: [id number] Author: Coy Mercado Service: (none) Author Type: Physician Type: Progress Notes Filed: 04/14/2018 3:19 PM Note Text: This note was created using Lookoutriter. Subjective Catalina Evans is a 62 year old male here for follow up. HTN, DM was controlled. Edema was stable, but he just scraped his left leg where he tended to have skin breakdown. He was caring for this himself. His anticoagulation was maintained. We discussed chronic kidney disease. ACTIVE PROBLEM LIST Edema Hypercholesterolemia Essential Hypertension Irritable Bowel Syndrome Constipation Copd (Chronic Obstructive Pulmonary Disease) (Hcc) Ascvd (Arteriosclerotic Cardiovascular Disease) Bph (Benign Prostatic Hyperplasia) Dm2 (Diabetes Mellitus, Type 2) ([facility]) S/P Right Coronary Artery (Rca) Stent Placement Cardiomyopathy, Ischemic Chronic Anticoagulation Paroxysmal Atrial Fibrillation ([facility]) Sleep apnea, intolerant to CPAP Polyneuropathy ([facility]) Spondylosis of Lumbar Region Without Myelopathy Or Radiculopathy Obesity, Class III, BMI >= 40 (morbid obesity) E66.01 Acute On Chronic Respiratory Failure With Hypoxia and Hypercapnia ([facility]) Combined Forms of Age-Related Cataract of Both Eyes Hyperopia, Bilateral Dry Eye Syndrome, Bilateral Bacterial Conjunctivitis of Both Eyes CKD (chronic kidney disease) Stage 3, GFR 30-59 ml/min Current Outpatient Prescriptions: ezetimibe (ZETIA) 10 mg tablet Take 1 tablet by mouth once daily. trimethoprim-polymyxin eye drops (POLYTRIM) ophthalmic solution Use 1 Drop in both eyes four times daily. spironolactone (ALDACTONE) 25 mg tablet Take 1 tablet by mouth twice daily. atorvastatin (LIPITOR) 80 mg tablet Take 1 tablet by mouth once daily. furosemide (LASIX) 40 mg tablet Take 1 tablet by mouth twice daily. With 20 mg tablet for total of 60 mg twice daily. furosemide (LASIX) 20 mg tablet Take 1 tablet by mouth twice daily. COMPOUNDED PRESCRIPTION Xuanyixia PORTABLE OXYGEN CONCENTRATOR. 3 LPM VIA NASAL CANNULA WITH ACTIVITY. DX: J96.21; J96.22. J44.9. I25.5 metoprolol succinate ER (TOPROL XL) 100 mg Tb24 Take 1 tablet by mouth once daily. warfarin (COUMADIN) 5 mg tablet Take 12.5mg daily or as directed. metFORMIN (GLUCOPHAGE) 500 mg tablet Take 1 tablet by mouth daily with breakfast. . nitroglycerin sublingual (NITROQUICK) 0.4 mg SL tablet Dissolve 1 tablet under the tongue as needed. FOR CHEST PAIN. IF NO RELIEF CALL 911 clopidogrel (PLAVIX) 75 mg tablet Take 1 tablet by mouth once daily. albuterol HFA (PROVENTIL HFA, VENTOLIN HFA) 90 mcg/actuation inhaler Inhale 2 Puffs as instructed every 6 hours as needed for Wheezing/Shortness of Breath. Compression Knee Highs KNEE HIGH COMPRESSION STOCKINGS 20- 30 MM HG. DX: EDEMA. VENOUS INSUFFICIENCY, BOTH LOWER EXTREMITIES. fluticasone (FLONASE) 50 mcg/actuation nasal spray 1 or 2 sprays in each nostril at bedtime. polyethylene glycol 3350 (MIRALAX) 17 gram/dose powder Take 17 g by mouth once daily. magnesium hydroxide (MILK OF MAGNESIA) 400 mg/5 mL suspension Take 15 mL by mouth once daily as needed for Constipation. senna-docusate 8.6-50 mg per tablet Take 1 tablet by mouth once daily. For constipation. Lancets (FREESTYLE LANCETS) [facility] lancets Test Blood sugar daily. Hyperglycemia, no insulin pantoprazole DR (PROTONIX) 40 mg tablet Take 1 tablet by mouth every morning. No current facility-administered medications for this visit. Review of Systems Constitutional: Negative. Respiratory: Negative. Cardiovascular: Positive for leg swelling. Negative for chest pain and palpitations. Gastrointestinal: Negative. Genitourinary: Negative. Skin: Positive for wound. Hematological: Negative. Objective BP 118/62 (BP Site: Left Arm, BP Position: Sitting, BP Cuff Size: Extra Large Adult) Pulse 82 Temp 36.6 ?C (97.8 ?F) (Left Tympanic) Resp 16 Wt (!) 150.6 kg (332 lb) BMI 47.64 kg/m? Physical Exam Constitutional: No distress. Neck: No JVD present. Cardiovascular: Normal heart sounds. Exam reveals no gallop. No murmur heard. Pulmonary/Chest: Breath sounds normal. He has no rales. Musculoskeletal: He exhibits edema. Neurological: He is alert. Ambulatory with cane. Skin: 1 x 2 cm ovoid skin breakdown, moist, left anterior leg. Adjacent dried ulcer. No cellulitis. Component Latest Ref Rng AND Units 04/12/2018 Glucose 74 - 99 mg/dL 121 (H) BUN 9 - 24 mg/dL 18 Creatinine 0.73 - 1.22 mg/dL 1.23 (H) Sodium 136 - 144 mmol/L 143 Potassium 3.7 - 5.1 mmol/L 4.2 Chloride 97 - 105 mmol/L 102 CO2 22 - 30 mmol/L 31 (H) Anion Gap 9 - 18 mmol/L 10 Calcium 8.5 - 10.2 mg/dL 9.2 eGFR- >60 eGFR-All Other Races . 60 Cholesterol, Total <200 mg/dL 117 Triglyceride <150 mg/dL 139 HDL Cholesterol >39 mg/dL 32 (L) LDL Cholesterol <100 mg/dL 57 Non HDL Cholesterol <130 mg/dL 85 Fasting Time hrs 8 VLDL Cholesterol <30 mg/dL 28 TC:HDL Ratio <5.10 3.66 LDL:HDL Ratio <2.54 1.78 Creatinine, Ur Random (UCRR) 20 - 300 mg/dL 223.2 Albumin, Urine Random 0.0 - 23.0 mg/L 42.1 (H) Albumin/Creat Ratio 0 - 30 mg/g 19 Hemoglobin A1C 4.3 - 5.6 % 7.0 (H) Estimated Average Glucose mg/dL 154 Assessment and Plan 1. Ulcer of left lower extremity, limited to breakdown of skin (HCC) - ICD9: 707.10, ICD10: L97.921 (primary diagnosis) Wound care discussed. Return for s/s of infection. 2. Edema, unspecified type - ICD9: 782.3, ICD10: R60.9 Controlled. 3. Essential hypertension - ICD9: 401.9, ICD10: I10 - good control 4. Type 2 diabetes mellitus with diabetic neuropathy, without long-term current use of insulin (HCC) - ICD9: 250.60, 357.2, ICD10: E11.40 Controlled. - Continue current medications 5. Chronic anticoagulation - ICD9: V58.61, ICD10: Z79.01 See AC encounter. 6. Chronic kidney disease (CKD), stage III (moderate) (HCC) - ICD9: 585.3, ICD10: N18.3 Discussed. Hydration stressed. 7. Hypercholesterolemia - ICD9: 272.0, ICD10: E78.00 - good control - Continue current medication. - EZETIMIBE 10 MG TABLET Coy Mercado MD PROGRESS Observed: 04/14/2018 Status: COMPLETED Source: [place] 3:04 PM [facility] REPOSITORY HNO ID: [id number] Author: Coy Mercado Service: (none) Author Type: Physician Type: Progress Notes Filed: 04/14/2018 3:06 PM Note Text: Increase Coumadin dose. 12.5 mg Tue and Carla. 10 mg on all other 5 days of the week. INR in 2 weeks. Instructions given to patient. Appointment already set. CNOV Observed: 04/14/2018 Status: COMPLETED Source: [place] 2:20 PM [facility] REPOSITORY Office Visit (INTMWS) CATALINA EVANS ([id number]) 1955 M Date Time Provider Department 04/14/18 2:20 PM COY MERCADOWS During your visit today, we recorded the following information about you: Temperature Pulse Respiration Blood pressure 97.8 degrees 82/minute 16/minute 118/62 Weight 150.6 kg Coy Mercado MD 04/14/2018 3:19 PM Signed This note was created using Lookoutriter. Subjective Catalina Evans is a 62 year old male here for follow up. HTN, DM was controlled. Edema was stable, but he just scraped his left leg where he tended to have skin breakdown. He was caring for this himself. His anticoagulation was maintained. We discussed chronic kidney disease. ACTIVE PROBLEM LIST Edema Hypercholesterolemia Essential Hypertension Irritable Bowel Syndrome Constipation Copd (Chronic Obstructive Pulmonary Disease) ([facility]) Ascvd (Arteriosclerotic Cardiovascular Disease) Bph (Benign Prostatic Hyperplasia) Dm2 (Diabetes Mellitus, Type 2) ([facility]) S/P Right Coronary Artery (Rca) Stent Placement Cardiomyopathy, Ischemic Chronic Anticoagulation Paroxysmal Atrial Fibrillation ([facility]) Sleep apnea, intolerant to CPAP Polyneuropathy ([facility]) Spondylosis of Lumbar Region Without Myelopathy Or Radiculopathy Obesity, Class III, BMI >= 40 (morbid obesity) E66.01 Acute On Chronic Respiratory Failure With Hypoxia and Hypercapnia ([facility]) Combined Forms of Age-Related Cataract of Both Eyes Hyperopia, Bilateral Dry Eye Syndrome, Bilateral Bacterial Conjunctivitis of Both Eyes CKD (chronic kidney disease) Stage 3, GFR 30-59 ml/min Current Outpatient Prescriptions: ezetimibe (ZETIA) 10 mg tablet Take 1 tablet by mouth once daily. trimethoprim-polymyxin eye drops (POLYTRIM) ophthalmic solution Use 1 Drop in both eyes four times daily. spironolactone (ALDACTONE) 25 mg tablet Take 1 tablet by mouth twice daily. atorvastatin (LIPITOR) 80 mg tablet Take 1 tablet by mouth once daily. furosemide (LASIX) 40 mg tablet Take 1 tablet by mouth twice daily. With 20 mg tablet for total of 60 mg twice daily. furosemide (LASIX) 20 mg tablet Take 1 tablet by mouth twice daily. COMPOUNDED PRESCRIPTION INOGEN PORTABLE OXYGEN CONCENTRATOR. 3 LPM VIA NASAL CANNULA WITH ACTIVITY. DX: J96.21; J96.22. J44.9. I25.5 metoprolol succinate ER (TOPROL XL) 100 mg Tb24 Take 1 tablet by mouth once daily. warfarin (COUMADIN) 5 mg tablet Take 12.5mg daily or as directed. metFORMIN (GLUCOPHAGE) 500 mg tablet Take 1 tablet by mouth daily with breakfast. . nitroglycerin sublingual (NITROQUICK) 0.4 mg SL tablet Dissolve 1 tablet under the tongue as needed. FOR CHEST PAIN. IF NO RELIEF CALL 911 clopidogrel (PLAVIX) 75 mg tablet Take 1 tablet by mouth once daily. albuterol HFA (PROVENTIL HFA, VENTOLIN HFA) 90 mcg/actuation inhaler Inhale 2 Puffs as instructed every 6 hours as needed for Wheezing/Shortness of Breath. Compression Knee Highs KNEE HIGH COMPRESSION STOCKINGS 20- 30 MM HG. DX: EDEMA. VENOUS INSUFFICIENCY, BOTH LOWER EXTREMITIES. fluticasone (FLONASE) 50 mcg/actuation nasal spray 1 or 2 sprays in each nostril at bedtime. polyethylene glycol 3350 (MIRALAX) 17 gram/dose powder Take 17 g by mouth once daily. magnesium hydroxide (MILK OF MAGNESIA) 400 mg/5 mL suspension Take 15 mL by mouth once daily as needed for Constipation. senna-docusate 8.6-50 mg per tablet Take 1 tablet by mouth once daily. For constipation. Lancets (FREESTYLE LANCETS) [facility] lancets Test Blood sugar daily. Hyperglycemia, no insulin pantoprazole DR (PROTONIX) 40 mg tablet Take 1 tablet by mouth every morning. No current facility-administered medications for this visit. Review of Systems Constitutional: Negative. Respiratory: Negative. Cardiovascular: Positive for leg swelling. Negative for chest pain and palpitations. Gastrointestinal: Negative. Genitourinary: Negative. Skin: Positive for wound. Hematological: Negative. Objective BP 118/62 (BP Site: Left Arm, BP Position: Sitting, BP Cuff Size: Extra Large Adult) Pulse 82 Temp 36.6 ?C (97.8 ?F) (Left Tympanic) Resp 16 Wt (!) 150.6 kg (332 lb) BMI 47.64 kg/m? Physical Exam Constitutional: No distress. Neck: No JVD present. Cardiovascular: Normal heart sounds. Exam reveals no gallop. No murmur heard. Pulmonary/Chest: Breath sounds normal. He has no rales. Musculoskeletal: He exhibits edema. Neurological: He is alert. Ambulatory with cane. Skin: 1 x 2 cm ovoid skin breakdown, moist, left anterior leg. Adjacent dried ulcer. No cellulitis. Component Latest Ref Rng AND Units 04/12/2018 Glucose 74 - 99 mg/dL 121 (H) BUN 9 - 24 mg/dL 18 Creatinine 0.73 - 1.22 mg/dL 1.23 (H) Sodium 136 - 144 mmol/L 143 Potassium 3.7 - 5.1 mmol/L 4.2 Chloride 97 - 105 mmol/L 102 CO2 22 - 30 mmol/L 31 (H) Anion Gap 9 - 18 mmol/L 10 Calcium 8.5 - 10.2 mg/dL 9.2 eGFR- >60 eGFR-All Other Races . 60 Cholesterol, Total <200 mg/dL 117 Triglyceride <150 mg/dL 139 HDL Cholesterol >39 mg/dL 32 (L) LDL Cholesterol <100 mg/dL 57 Non HDL Cholesterol <130 mg/dL 85 Fasting Time hrs 8 VLDL Cholesterol <30 mg/dL 28 TC:HDL Ratio <5.10 3.66 LDL:HDL Ratio <2.54 1.78 Creatinine, Ur Random (UCRR) 20 - 300 mg/dL 223.2 Albumin, Urine Random 0.0 - 23.0 mg/L 42.1 (H) Albumin/Creat Ratio 0 - 30 mg/g 19 Hemoglobin A1C 4.3 - 5.6 % 7.0 (H) Estimated Average Glucose mg/dL 154 Assessment and Plan 1. Ulcer of left lower extremity, limited to breakdown of skin (HCC) - ICD9: 707.10, ICD10: L97.921 (primary diagnosis) Wound care discussed. Return for s/s of infection. 2. Edema, unspecified type - ICD9: 782.3, ICD10: R60.9 Controlled. 3. Essential hypertension - ICD9: 401.9, ICD10: I10 - good control 4. Type 2 diabetes mellitus with diabetic neuropathy, without long-term current use of insulin (HCC) - ICD9: 250.60, 357.2, ICD10: E11.40 Controlled. - Continue current medications 5. Chronic anticoagulation - ICD9: V58.61, ICD10: Z79.01 See AC encounter. 6. Chronic kidney disease (CKD), stage III (moderate) (HCC) - ICD9: 585.3, ICD10: N18.3 Discussed. Hydration stressed. 7. Hypercholesterolemia - ICD9: 272.0, ICD10: E78.00 - good control - Continue current medication. - EZETIMIBE 10 MG TABLET Coy Mercado MD Referring Provider: COY MERCADO [[id number]] Allergies As of Date: 04/14/2018 (No Known Allergies) Date Reviewed: 04/14/2018 Reviewed by: Symone Gray LPN - Fully Assessed Reason for Visit: Recheck [92] Cmt: 4 month follow up blood pressure Primary Visit Diagnosis:Ulcer of left lower extremity, limited to breakdown of skin (HCC) [L97.921] Other Visit Diagnoses:Edema, unspecified type [R60.9] Essential hypertension [I10] Type 2 diabetes mellitus with diabetic neuropathy, without long-term current use of insulin (HCC) [E11.40] Chronic anticoagulation [Z79.01] Chronic kidney disease (CKD), stage III (moderate) (HCC) [N18.3] Hypercholesterolemia [E78.00] Order(s):ezetimibe (ZETIA) 10 mg tabletTake 1 tablet by mouth once daily.Disp: 30 tabletRfl: 11 Prescriptions as of 04/14/2018 Sig: EZETIMIBE 10 MG TABLET Take 1 tablet by mouth once d* POLYMYXIN B SULFATE 10,000 UN* Use 1 Drop in both eyes four * SPIRONOLACTONE 25 MG TABLET Take 1 tablet by mouth twice * ATORVASTATIN 80 MG TABLET Take 1 tablet by mouth once d* FUROSEMIDE 40 MG TABLET Take 1 tablet by mouth twice * FUROSEMIDE 20 MG TABLET Take 1 tablet by mouth twice * COMPOUNDED PRESCRIPTION INOGEN PORTABLE OXYGEN CONCEN* METOPROLOL SUCCINATE ER 100 M* Take 1 tablet by mouth once d* WARFARIN 5 MG TABLET Take 12.5mg daily or as direc* METFORMIN 500 MG TABLET Take 1 tablet by mouth daily * NITROGLYCERIN 0.4 MG SUBLINGU* Dissolve 1 tablet under the t* CLOPIDOGREL 75 MG TABLET Take 1 tablet by mouth once d* ALBUTEROL SULFATE HFA 90 MCG/* Inhale 2 Puffs as instructed * COMPOUNDED PRESCRIPTION KNEE HIGH COMPRESSION STOCKIN* FLUTICASONE 50 MCG/ACTUATION * 1 or 2 sprays in each nostril* POLYETHYLENE GLYCOL 3350 17 G* Take 17 g by mouth once daily. MAGNESIUM HYDROXIDE 400 MG/5 * Take 15 mL by mouth once andrey* SENNOSIDES 8.6 MG-DOCUSATE SO* Take 1 tablet by mouth once d* * LANCETS Test Blood sugar daily. Hype* PANTOPRAZOLE 40 MG TABLET,DEL* Take 1 tablet by mouth every * Problem List As Of Date 04/14/2018 Noted Resolved ATRIAL FIBRILLATION [I48.91] INVALID FOR*07/23/2015 More... Edema [R60.9] INVALID FOR* Hypercholesterolemia [E78.00] INVALID FOR* Priority: J More... SLEEP APNEA NOS (cpap intolerant) [G47.30] INVALID FOR*01/30/2015 Obesity [E66.9] INVALID FOR*08/13/2017 More... Hemangioma of intra-abdominal structures [D18.0*INVALID FOR*04/25/2014 Essential hypertension [I10] INVALID FOR* Priority: K More... IRRITABLE COLON [K58.9] INVALID FOR* Constipation [K59.00] INVALID FOR* DERMATOPHYTOSIS OF NAIL [B35.1] INVALID FOR*04/24/2008 ABDOMINAL PAIN LLQ [R10.32] 04/24/2008 ABDOMINAL PAIN LUQ [R10.12] 04/24/2008 FLATUL/ERUCTAT/GAS PAIN [R14.3, R14.1, R14.2] 04/24/2008 Impaired fasting glucose [R73.01] INVALID FOR*04/25/2014 COPD (chronic obstructive pulmonary disease) [J*INVALID FOR* Type II or unspecified type diabetes mellitus w*INVALID FOR*05/16/2015 ASCVD (arteriosclerotic cardiovascular disease)*INVALID FOR* BPH (benign prostatic hyperplasia) [N40.0] INVALID FOR* Family history of colon cancer [Z80.0] INVALID FOR*08/13/2017 NSTEMI (non-ST elevated myocardial infarction) *INVALID FOR*01/15/2016 More... DM2 (diabetes mellitus, type 2) (HCC) [E11.9] INVALID FOR* Priority: D More... S/P right coronary artery (RCA) stent placement*INVALID FOR* LV dysfunction [I51.9] INVALID FOR*01/15/2016 Cardiomyopathy, ischemic [I25.5] INVALID FOR* Priority: F More... Chronic anticoagulation [Z79.01] INVALID FOR* Priority: H More... Paroxysmal atrial fibrillation (HCC) [I48.0] INVALID FOR* Priority: C More... Sleep apnea, intolerant to CPAP [G47.30] INVALID FOR* More... Astigmatism, regular [H52.229] INVALID FOR*08/13/2017 Presbyopia [H52.4] INVALID FOR*01/15/2016 Benign neoplasm of skin of eyelid including can*INVALID FOR*04/07/2017 Polyneuropathy (HCC) [G62.9] INVALID FOR* More... Spinal stenosis, lumbar region, with neurogenic*INVALID FOR*12/16/2017 Displacement of lumbar intervertebral disc with*INVALID FOR*04/07/2017 Spondylosis of lumbar region without myelopathy*INVALID FOR* Lesion of liver [K76.9] INVALID FOR*08/13/2017 Priority: B More... Ascites [R18.8] INVALID FOR*05/30/2017 Priority: B More... ADEBAYO (acute kidney injury) (HCC) [N17.9] INVALID FOR*12/16/2017 Priority: E More... Nicotine use disorder, F17.2 [F17.200] INVALID FOR*08/13/2017 Priority: L More... Obesity, Class III, BMI >= 40 (morbid obesity) *INVALID FOR* Priority: M Lethargy [R53.83] INVALID FOR*08/13/2017 Priority: Severe Acute on chronic respiratory failure with hypox*INVALID FOR* Priority: Moderate More... Morbid obesity with body mass index (BMI) of 45*INVALID FOR*04/14/2018 Priority: M More... Acute liver failure with hepatic coma (HCC) [K7*INVALID FOR*08/13/2017 Priority: Mild More... Respiratory failure with hypercapnia (HCC) [J96*INVALID FOR*08/13/2017 Priority: A More... Shock circulatory (HCC) [R57.9] INVALID FOR*05/29/2017 Priority: A More... Kidney insufficiency [N28.9] INVALID FOR*04/14/2018 Combined forms of age-related cataract of both *INVALID FOR* Hyperopia, bilateral [H52.03] INVALID FOR* Dry eye syndrome, bilateral [H04.123] INVALID FOR* Bacterial conjunctivitis of both eyes [H10.9] INVALID FOR* CKD (chronic kidney disease) Stage 3, GFR 30-59*INVALID FOR* Prescriptions ordered this encounter Disp Refills Start End EZETIMIBE 10 MG TABLET 30 t* 11 04/14/2018 Route: ORAL Sig: Take 1 tablet by mouth once daily. Medications Discontinued During This Encounter COMPOUNDED PRESCRIPTION 1 Ea* 0 08/24/2017 04/14/2018 Class: Print RX Sig: Oxygen conserving unit Dx:J44.9 Disc: Reason for discontinue is not on file. ezetimibe (ZETIA) 10 mg tablet 30 t* 11 04/07/2017 04/14/2018 Route: ORAL Sig: Take 1 tablet by mouth once daily. Disc: Reason for discontinue is not on file. Disposition: Return in about 4 months (around 08/12/2018), or if symptoms worsen or fail to improve. Follow-up and Disposition History Recorded Encounter Status:Closed by COY MERCADO MD on 04/14/18 PROGRESS Observed: 04/14/2018 Status: COMPLETED Source: [place] 1:46 PM [facility] [place] REPOSITORY O ID: [id number] Author: Katharine Nino RN Service: (none) Author Type: (none) Type: Progress Notes Filed: 04/14/2018 1:48 PM Note Text: patient had inr completed at [facility] patients inr is 1.2 (patients inr range is 2.0-3.0) patient is currently taking 10mg daily patients last dose change was on 02/28/18 due to a high level of 4.0 (dose at that time was 12.5mg Tues,Thurs and 10mg all other days) patient has had no changes in medication and no missed doses and no change in diet patient has appt with pcp and has been instructed to discuss result at that time. patient will have inr rechecked on 04/25/18 (2 weeks) via lab draw due to the [facility] will be closed but patient has appt at special[facility]. please file order for lab draw ALBUMIN/CREAT RATIO Collected: 04/12/2018 Status: F Source: [place] 9:36 AM [facility] REPOSITORY TYPE CODE TESTS RESULT OUT OF REFERENCE UNITS RANGE LAB UCRR 20-300 mg/dL Creatinine,Ur 223.2 ine,Ran LAB UALBR 0.0-23.0 mg/L High Albumin Urine 42.1 Random LAB UALBCR 0-30 mg/g Albumin/Creat 19 Ratio Result Comment: 30 to 300 mg/g indicates an increased risk for diabetic nephropathy. Greater than 300 mg/g is consistent with clinical nephropathy. (Am J Kidney Disease 1995, 25:107) Performed By: #### UACR #### [facility] [address] [place], [place] [address] BASIC METABOLIC PANL Collected: 04/12/2018 Status: F Source: [place] 9:35 AM [facility] REPOSITORY TYPE CODE TESTS RESULT OUT OF REFERENCE UNITS RANGE LAB GLU 74-99 mg/dL High Glucose 121 Result Comment: The [place] [employer] (ADA) provides guidance for cutoff values for fasting glucose and random glucose. The ADA defines fasting as no caloric intake for at least 8 hours. Fas ting plasma glucose results between 100 to 125 mg/dL indicate increased risk for diabetes (prediabetes). Fasting plasma glucose results greater than or equal to 126 mg/dL meet the criteria for diagnosis of diabetes. In the absence of unequivocal hyperglycemia, results should be confirmed by repeat testing. In a patient with classic symptoms of hyperglycemia or hyperglycemic crisis, random plasma glucose results greater than or equal to 200 mg/dL meet the criteria for diagnosis of diabetes. Reference: Standards of [facility] 2016, [place] [employer]. Diabetes Care. 2016.39(Suppl 1). LAB BUN 9-24 mg/dL BUN 18 LAB CRET 0.73-1.22 mg/dL Creatinine High 1.23 LAB NA 136-144 mmol/L Sodium 143 LAB K 3.7-5.1 mmol/L Potassium 4.2 LAB CL 97-105 mmol/L Chloride 102 LAB CO2 22-30 mmol/L CO2 High 31 LAB AGAP 9-18 mmol/L Anion Gap 10 LAB CA 8.5-10.2 mg/dL Calcium, Total 9.2 LAB GFRAA eGFR- Amer. >60 LAB GFRNAA . eGFR-All Other Races 60 Result Comment: eGFR (Estimated GFR) Units of measure: mL/min/1.73 meters squared eGFR is derived from the reexpressed MDRD Study equation using the following parameters: serum creatinine, age, gender and race. The creatinine assay has been calibrated to be traceable to IDMS. An eGFR <60 mL/min/1.73m2 for >3 months is consistent with chronic kidney disease. Refer to KDOQI guidelines for clinical interpretation. In patients with unstable renal function, e.g. those with acute kidney injury, the eGFR may not accurately reflect actual GFR. Performed By: #### BMP #### [facility] [employer] [address] [place], [place] [address] LIPID PANEL, BASIC Collected: 04/12/2018 Status: F Source: [place] 9:34 AM [facility] [place] REPOSITORY TYPE CODE TESTS RESULT OUT OF REFERENCE UNITS RANGE LAB CHOL <200 mg/dL Cholesterol 117 Result Comment: <200 mg/dL, Desirable 200-239 mg/dL, Borderline high >239 mg/dL, High LAB TRIGLY <150 mg/dL Triglyceride 139 Result Comment: <150 mg/dL, Normal 150-199 mg/dL, Borderline high 200-499 mg/dL, High >499 mg/dL, Very high LAB HDL >39 mg/dL HDL-Cholesterol Low 32 Result Comment: 40-59 mg/dL, Acceptable >59 mg/dL, High: Negative risk factor for coronary heart disease <40 mg/dL, Low: Positive risk factor for coronary heart disease LAB LDL <100 mg/dL LDL-Cholesterol 57 Result Comment: <100 mg/dL, Optimal 100-129 mg/dL, Near optimal/above optimal 130-159 mg/dL, Borderline high 160-189 mg/dL, High >189 mg/dL, Very high Secondary prevention optimal LDL Cholesterol levels are recommended to be < 70 mg/dL LAB NONHDL <130 mg/dL Non HDL Cholesterol 85 Result Comment: <130 mg/dL, Optimal 130-159 mg/dL, Near optimal/above optimal 160-189 mg/dL, Borderline high 190-219 mg/dL, High >219 mg/dL, Very high Secondary prevention optimal non HDL Cholesterol levels are recommended to be < 100 mg/dL LAB FT hrs Fasting Time 8 LAB VLDL <30 mg/dL VLDL Cholesterol 28 LAB TCHDL <5.10 TC:HDL Ratio 3.66 LAB LDLHDL <2.54 LDL:HDL Ratio 1.78 Result Comment: Reference: 1. National Cholesterol Education Program ATP III Guideline At-A-Glance Quick Desk Reference: National Heart, Lung, and Blood [place]. National Institutes of Health. 2001: NIH Publication No. 01-3305. 2. An International Atherosclerosis Society position paper: global recommendations for the management of dyslipidemia: executive summary, Atherosclerosis. 2014: 232(2):410-413. Performed By: #### LIPB, HBA1C #### [facility] [employer] [address] [place] [id number] HEMOGLOBIN A1C Collected: 04/12/2018 Status: F Source: [place] 9:34 AM [facility] REPOSITORY TYPE CODE TESTS RESULT OUT OF REFERENCE UNITS RANGE LAB HGBA1C 4.3-5.6 % High Hemoglobin A1c 7.0 Result Comment: [place] [employer] guidelines indicate that patients with HgbA1c in the range 5.7-6.4% are at increased risk for development of diabetes, and intervention by lifestyle modification may be beneficial. HgbA1c greater or equal to 6.5% is considered diagnostic of diabetes. LAB HBA0 mg/dL Est. Average Glucose 154 Result Comment: eAG: (Estimated average glucose) is a calculated value from HgbA1c and is inbound sales representative of the average blood glucose level in the last 2-3 month period. Performed By: #### LIPB, HBA1C #### [facility] [employer] [address] [place] [id number] CNPTOUTREACH Observed: 03/29/2018 Status: COMPLETED Source: [place] 12:00 AM [facility] REPOSITORY Patient Outreach (FAMPST) CATALINA EVANS ([id number]) 1955 M Date Time Provider Department 03/29/18 COY MERCADO During your visit today, we recorded the following information about you: Allergies As of Date: 03/29/2018 (No Known Allergies) Date Reviewed: 02/25/2018 Reviewed by: Dorinda Che Ct - Fully Assessed Visit Diagnosis:Medication management [Z79.899] Order(s):ALBUMIN/CREAT RATIO RND UR [SQUACR] Order #: [id number] FUTURE LIPID PANEL BASIC [SQLIPB] Order #: [id number] FUTURE HGB A1C [[id number]] Order #: [id number] FUTURE Prescriptions as of 03/29/2018 Sig: POLYMYXIN B SULFATE 10,000 UN* Use 1 Drop in both eyes four * SPIRONOLACTONE 25 MG TABLET Take 1 tablet by mouth twice * PANTOPRAZOLE 40 MG TABLET,DEL* Take 1 tablet by mouth every * ATORVASTATIN 80 MG TABLET Take 1 tablet by mouth once d* FUROSEMIDE 40 MG TABLET Take 1 tablet by mouth twice * FUROSEMIDE 20 MG TABLET Take 1 tablet by mouth twice * COMPOUNDED PRESCRIPTION INOGEN PORTABLE OXYGEN CONCEN* X COMPOUNDED PRESCRIPTION Oxygen conserving unit Dx:J4* METOPROLOL SUCCINATE ER 100 M* Take 1 tablet by mouth once d* WARFARIN 5 MG TABLET Take 12.5mg daily or as direc* METFORMIN 500 MG TABLET Take 1 tablet by mouth daily * NITROGLYCERIN 0.4 MG SUBLINGU* Dissolve 1 tablet under the t* CLOPIDOGREL 75 MG TABLET Take 1 tablet by mouth once d* ALBUTEROL SULFATE HFA 90 MCG/* Inhale 2 Puffs as instructed * X EZETIMIBE 10 MG TABLET Take 1 tablet by mouth once d* COMPOUNDED PRESCRIPTION KNEE HIGH COMPRESSION STOCKIN* FLUTICASONE 50 MCG/ACTUATION * 1 or 2 sprays in each nostril* POLYETHYLENE GLYCOL 3350 17 G* Take 17 g by mouth once daily. MAGNESIUM HYDROXIDE 400 MG/5 * Take 15 mL by mouth once andrey* SENNOSIDES 8.6 MG-DOCUSATE SO* Take 1 tablet by mouth once d* * LANCETS Test Blood sugar daily. Hype* Problem List As Of Date 03/29/2018 Noted Resolved ATRIAL FIBRILLATION [I48.91] INVALID FOR*07/23/2015 More... Edema [R60.9] INVALID FOR* Hypercholesterolemia [E78.00] INVALID FOR* More... SLEEP APNEA NOS (cpap intolerant) [G47.30] INVALID FOR*01/30/2015 Obesity [E66.9] INVALID FOR*08/13/2017 More... Hemangioma of intra-abdominal structures [D18.0*INVALID FOR*04/25/2014 Essential hypertension [I10] INVALID FOR* More... IRRITABLE COLON [K58.9] INVALID FOR* Constipation [K59.00] INVALID FOR* DERMATOPHYTOSIS OF NAIL [B35.1] INVALID FOR*04/24/2008 ABDOMINAL PAIN LLQ [R10.32] 04/24/2008 ABDOMINAL PAIN LUQ [R10.12] 04/24/2008 FLATUL/ERUCTAT/GAS PAIN [R14.3, R14.1, R14.2] 04/24/2008 Impaired fasting glucose [R73.01] INVALID FOR*04/25/2014 COPD (chronic obstructive pulmonary disease) [J*INVALID FOR* Type II or unspecified type diabetes mellitus w*INVALID FOR*05/16/2015 ASCVD (arteriosclerotic cardiovascular disease)*INVALID FOR* BPH (benign prostatic hyperplasia) [N40.0] INVALID FOR* Family history of colon cancer [Z80.0] INVALID FOR*08/13/2017 NSTEMI (non-ST elevated myocardial infarction) *INVALID FOR*01/15/2016 More... DM2 (diabetes mellitus, type 2) (HCC) [E11.9] INVALID FOR* More... S/P right coronary artery (RCA) stent placement*INVALID FOR* LV dysfunction [I51.9] INVALID FOR*01/15/2016 Cardiomyopathy, ischemic [I25.5] INVALID FOR* More... Chronic anticoagulation [Z79.01] INVALID FOR* More... Paroxysmal atrial fibrillation (HCC) [I48.0] INVALID FOR* More... Sleep apnea [G47.30] INVALID FOR* More... Astigmatism, regular [H52.229] INVALID FOR*08/13/2017 Presbyopia [H52.4] INVALID FOR*01/15/2016 Benign neoplasm of skin of eyelid including can*INVALID FOR*04/07/2017 Polyneuropathy (HCC) [G62.9] INVALID FOR* More... Spinal stenosis, lumbar region, with neurogenic*INVALID FOR*12/16/2017 Displacement of lumbar intervertebral disc with*INVALID FOR*04/07/2017 Spondylosis of lumbar region without myelopathy*INVALID FOR* Lesion of liver [K76.9] INVALID FOR*08/13/2017 More... Ascites [R18.8] INVALID FOR*05/30/2017 More... ADEBAYO (acute kidney injury) (HCC) [N17.9] INVALID FOR*12/16/2017 More... Nicotine use disorder, F17.2 [F17.200] INVALID FOR*08/13/2017 More... Obesity, Class III, BMI >= 40 (morbid obesity) *INVALID FOR* Lethargy [R53.83] INVALID FOR*08/13/2017 Acute on chronic respiratory failure with hypox*INVALID FOR* More... Morbid obesity with body mass index (BMI) of 45*INVALID FOR* More... Acute liver failure with hepatic coma (HCC) [K7*INVALID FOR*08/13/2017 More... Respiratory failure with hypercapnia (HCC) [J96*INVALID FOR*08/13/2017 More... Shock circulatory (HCC) [R57.9] INVALID FOR*05/29/2017 More... Kidney insufficiency [N28.9] INVALID FOR* Combined forms of age-related cataract of both *INVALID FOR* Hyperopia, bilateral [H52.03] INVALID FOR* Dry eye syndrome, bilateral [H04.123] INVALID FOR* Bacterial conjunctivitis of both eyes [H10.9] INVALID FOR* Encounter Status:Closed by LAWANDA, PRODUSER on 04/29/18 PROGRESS Observed: 03/22/2018 Status: COMPLETED Source: [place] 10:07 AM [facility] REPOSITORY [facility] ID: [id number] Author: Coy Mercado Service: (none) Author Type: Physician Type: Progress Notes Filed: 03/22/2018 10:07 AM Note Text: Okay. PROGRESS Observed: 03/21/2018 Status: COMPLETED Source: [place] 3:15 PM [facility] REPOSITORY [facility]NO ID: [id number] Author: Katharine Nino RN Service: (none) Author Type: (none) Type: Progress Notes Filed: 03/21/2018 3:17 PM Note Text: patient had inr completed at [facility] patients inr is 1.9 (patients inr range is 2.0-3.0) patient is currently taking 10mg daily patients last dose change was on 02/28/18 due to a high level of 4.0 (dose at that time was 12.5mg Tues,Thurs and 10mg all other days) patient has had no changes in medication and possible missed dose and no change in diet Advised patient to continue on the same dose(s) and that they would only be contacted regarding dosage and follow up instructions after review with provider, if a change is needed. Written instructions given and patient verbalized understanding. Presently scheduled in 3 weeks (04/14/18 - appt with pcp also this day) for follow up INR. PROGRESS Observed: 03/07/2018 Status: COMPLETED Source: [place] 4:47 PM [facility] REPOSITORY [facility] ID: [id number] Author: Coy Mercado Service: (none) Author Type: Physician Type: Progress Notes Filed: 03/07/2018 4:47 PM Note Text: Okay. PROGRESS Observed: 03/07/2018 Status: COMPLETED Source: [place] 2:51 PM [facility] REPOSITORY [facility] ID: [id number] Author: Katharine Nino RN Service: (none) Author Type: (none) Type: Progress Notes Filed: 03/07/2018 2:52 PM Note Text: patient had inr completed at [facility] patients inr is 3.0 (patients inr range is 2.0-3.0) patient is currently taking 10mg daily patients last dose change was on 02/28/18 due to a high level of 4.0 (dose at that time was 12.5mg Tues,Thurs, and 10mg all other days) patient has had no changes in medication and no missed doses and no change in diet Advised patient to continue on the same dose(s) and that they would only be contacted regarding dosage and follow up instructions after review with provider, if a change is needed. Written instructions given and patient verbalized understanding. Presently scheduled in 2 weeks (03/21/18) for follow up INR. PROGRESS Observed: 02/28/2018 Status: COMPLETED Source: [place] 4:08 PM [facility] REPOSITORY [facility] ID: [id number] Author: Katharine Nino RN Service: (none) Author Type: (none) Type: Progress Notes Filed: 02/28/2018 4:10 PM Note Text: patient does not need to be rescheduled from the 03/11/18 appt. patient needs a or Wednesday and is already coming to town. PROGRESS Observed: 02/28/2018 Status: COMPLETED Source: [place] 1:25 PM [facility] REPOSITORY [facility]NO ID: [id number] Author: Amber Staton LPN Service: (none) Author Type: (none) Type: Progress Notes Filed: 03/01/2018 3:25 PM Note Text: Message left to pt on cell with info and requested he return call to arrange INR 03/07/18. PROGRESS Observed: 02/28/2018 Status: COMPLETED Source: [place] 12:47 PM [facility] REPOSITORY [facility] ID: [id number] Author: Coy Mercado Service: (none) Author Type: Physician Type: Progress Notes Filed: 03/01/2018 3:25 PM Note Text: No coumadin for today. Tomorrow start 10 mg daily. Call for s/s of bleeding. INR in one week. PROGRESS Observed: 02/28/2018 Status: COMPLETED Source: [place] 11:49 AM [facility] REPOSITORY [facility] ID: [id number] Author: Katharine Nino RN Service: (none) Author Type: (none) Type: Progress Notes Filed: 02/28/2018 11:52 AM Note Text: patient had inr completed at [facility] patients inr is 4.0 (patients inr range is 2.0-3.0) patient is currently taking 12.5mg ,Th and 10mg all other days patients last dose change was on 02/14/18 due to a low level of 1.6 (dose at that time was 10mg daily) patient has had no changes in medication except for coumadin and no missed doses and no change in diet FYI - patient states that he remembers that last week he did have some raw green peppers for a snack for 3 days, so does not know if that maybe made his level drop lower last week. Advised patient that they would be contacted regarding medication dose and when to follow up after information is reviewed by provider. After provider review please contact the patient with information and schedule follow up appointment with coumadin clinic. FYI - patient has been scheduled for a 1 week follow up inr on 03/11/18 PROGRESS Observed: 02/25/2018 Status: COMPLETED Source: [place] 2:19 PM [facility] [place] REPOSITORY HNO ID: [id number] Author: Dorinda Che Ct Service: (none) Author Type: (none) Type: Progress Notes Filed: 02/25/2018 2:20 PM Note Text: Radiology Service Progress Note PATIENT NAME: Catalina Evans DATE OF SERVICE: February 25, 2018 TIME: 2:19 PM PATIENT IDENTITY VERIFICATION COMPLETED USING TWO (2) METHODS: Patient confirmed name verbally and Date of . PATIENT GENDER DATA: Male PATIENT RELEVANT IMPLANT DATA REVIEWED: Not Applicable CONTRAST INDUCED NEPHROPATHY RISK FACTORS: Patient age > 60 years CREATININE: Creatinine Date Value Ref Range Status 01/03/2018 1.22 0.73 - 1.22 mg/dL Final 12/16/2017 1.24 (H) 0.73 - 1.22 mg/dL Final 10/20/2017 1.19 0.73 - 1.22 mg/dL Final Creatinine, Whole Blood (iSTAT) Date Value Ref Range Status 02/25/2018 1.40 0.70 - 1.40 mg/dL Final eGFR-All Other Races Date Value Ref Range Status 02/25/2018 51 . Final Comment: eGFR (Estimated GFR) Units of measure: mL/min/1.73 meters squared eGFR is derived from the reexpressed MDRD Study equation using the following parameters: serum creatinine, age, gender and race. The creatinine assay has been calibrated to be traceable to IDMS. An eGFR <60 mL/min/1.73m2 for >3 months is consistent with chronic kidney disease. Refer to KDOQI guidelines for clinical interpretation. In patients with unstable renal function, e.g. those with acute kidney injury, the eGFR may not accurately reflect actual GFR. eGFR- Date Value Ref Range Status 02/25/2018 >60 Final P.O.C.T. RESULTS: POC done: Yes, See Lab Tab February 25, 2018 RADIOLOGIST NOTIFIED?: No ALLERGIES: Reviewed and unchanged CONTRAST ALLERGY: NO. PERIPHERAL IV ACCESS: Ambulatory: IV type: A peripheral IV was started in the Left antecubital site with a Angio cath: 22 gauge., Site assessment: Clean,Dry and Intact, Site disposition Discontinued RADIOLOGY DEPARTMENT: CT; Exam(s) Completed: Abdomen/Pelvis SIGNED BY: Dorinda Che Ct February 25, 2018 2:[address] ABD/PEL W IVCON Observed: 02/25/2018 Status: F Source: [place] 1:27 PM [facility] REPOSITORY * * *Final Report* * * DATE OF EXAM: Feb 25 2018 1:27PM [facility] 0530 - CT ABD/PEL W IVCON / PROCEDURE REASON: multiple diagnoses * * * * Physician Interpretation * * * * EXAMINATION: CT ABDOMEN AND PELVIS WITH IV CONTRAST CLINICAL HISTORY: Left lower quadrant pain, constipation TECHNIQUE: CT of the abdomen and pelvis was performed using standard technique, scanning from just above the dome of the diaphragm to the symphysis pubis. MQ: CTAP_3 Contrast: IV: 150 ml of Omnipaque 300 Oral: 50 ml of 50ML Omnipaque [address] Radiation dose: Integrated Dose-length product (DLP) for this visit = 1252 mGy*cm. CT Dose Reduction Employed: Automated exposure control(AEC) and iterative recon COMPARISON: 09/26/2014 CT urogram. RESULT: Liver: Stable 3 cm hypodense lesion in the lateral left lobe, displaying interrupted peripheral lobular enhancement characteristic of benign cavernous hemangioma. Similar subtle lesion in the subcapsular right lobe measures approximately 2.8 cm 3:46. Biliary: No bile duct dilation. Gallbladder is unremarkable. Spleen: No mass. No splenomegaly. Pancreas: No mass or duct dilation. Adrenals: No mass. Kidneys: No mass, calculus or hydronephrosis. GI tract: No dilation or wall thickening. The appendix is normal. Lymph nodes: Stable retroperitoneal lymph nodes. Stable enlargement of the iliofemoral lymph nodes. Mesentery/Peritoneum: No ascites or mass. Vasculature: The celiac axis and SMA are patent. The portal vein and branches, splenic vein, SMV, and hepatic veins are patent. Arterial atherosclerotic disease without aneurysm. Pelvis: No mass, ascites or fluid collection. Bones/Soft Tissues: No acute bony abnormality. Fat-containing umbilical hernia. Lower thorax: Mild enlargement of prevascular and paratracheal lymph nodes. IMPRESSION: Hepatic cavernous hemangiomas. Stable retroperitoneal lymph nodes. Stable enlargement of the iliofemoral lymph nodes. Mild enlargement of prevascular and paratracheal lymph nodes, etiology indeterminate. Glassworker: RUBIN Transcribe Date/Time: Feb 25 2018 1:50P Dictated by : Kristen CARRASCO MD This examination was interpreted and the report reviewed and electronically signed by: Kristen CARRASCO MD on Feb 25 2018 2:18PM EST [id number] CBC Collected: 02/25/2018 Status: F Source: [place] 10:57 AM [facility] REPOSITORY TYPE CODE TESTS RESULT OUT OF REFERENCE UNITS RANGE LAB WWBC 3.70-11.00 k/uL [place] WBC 8.06 LAB WRBC 4.20-6.00 m/uL [place] RBC 4.72 LAB WHGB 13.0-17.0 g/dL [place] Hemoglobin 13.7 LAB WHCT 39.0-51.0 % [place] Hematocrit 42.2 LAB WMCV 80.0-100.0 fL [place] MCV 89.4 LAB WMCH 26.0-34.0 pg [place] MCH 29.0 LAB WMCHC 30.5-36.0 g/dL [place] MCHC 32.5 LAB WRDW 11.5-15.0 % [place] High RDW 15.2 LAB WPLT 150-400 k/uL [place] Platelet Cnt 218 LAB WMPV 9.0-12.7 fL [place] MPV 9.8 Result Comment: Test performed by: [facility] [place], [address] [place] [address]. [facility] ISTAT BMP Collected: 02/25/2018 Status: F Source: [place] 10:57 AM [facility] REPOSITORY TYPE CODE TESTS RESULT OUT OF REFERENCE UNITS RANGE LAB NAWB 135-146 mmol/L Sodium, Whole 144 Bld LAB K1WB 3.5-5.0 mmol/L Potassium,Who 3.8 le Bld LAB CLWB 98-110 mmol/L Low Chloride, 97 Whole Bld LAB ICAWB 1.08-1.30 mmol/L Ionized 1.16 Calcium, WB Result Comment: Please note: This value represents ionized calcium not total calcium. LAB CO2WB 23-32 mmol/L High TCO2, Whole 35 Blood LAB GLUWB 65-100 mg/dL High Glucose, 112 Whole Bld LAB BUNWB 10-25 mg/dL BUN, Whole 24 Blood LAB BCRET 0.70-1.40 mg/dL Creatinine,Wh 1.40 ole Bld LAB AGAPWB 0-15 mmol/L Anion Gap, 12 Whole Bld LAB GFRAA eGFR- >60 Amer. LAB GFRNAA . eGFR-All 51 Other Races Result Comment: eGFR (Estimated GFR) Units of measure: mL/min/1.73 meters squared eGFR is derived from the reexpressed MDRD Study equation using the following parameters: serum creatinine, age, gender and race. The creatinine assay has been calibrated to be traceable to IDMS. An eGFR <60 mL/min/1.73m2 for >3 months is consistent with chronic kidney disease. Refer to KDOQI guidelines for clinical interpretation. In patients with unstable renal function, e.g. those with acute kidney injury, the eGFR may not accurately reflect actual GFR. PROGRESS Observed: 02/25/2018 Status: COMPLETED Source: [place] 10:18 AM [facility] REPOSITORY [facility] ID: [id number] Author: Bev (Sweta) Older Service: (none) Author Type: Nurse Practitioner Type: Progress Notes Filed: 02/25/2018 10:43 AM Note Text: CC Patient presents with: Abdominal Pain: LLQ sharp abdominal pain x 3 days Constipation: x 2 days HPI Catalina Evans is a 62 year old male who presents with abdominal pain for for 2 days. Characteristics of the pain are as follows: Location: LLQ without radiation Quality: sharp, sometimes stabbing Symptoms are intermittent Aggravating factors: eating Alleviating factors: none Associated symptoms: decreased appetite, constipation x 2 days, flatus, bloating and nausea. Has been treating constipation with Mirlax and Senna without any relief. Denies: fever, chills, vomiting, black/bloody stools, diarrhea BP is low today. Patient reports this is no unusual for him. Checks at home and can fluctuate anywhere between 80's over 60's to 130's over 80's. Denies dizziness, lightheadedness, palpitations, shortness of breath, syncope, near syncope. REVIEW OF SYSTEMS Respiratory: no cough, no wheezing Cardiovascular: no chest pain, no chest pressure and no swelling : Negative for dysuria, frequency, hematuria and hesitancy PAST MEDICAL HISTORY Diagnosis Date - Acute liver failure with hepatic coma (HCC) 05/27/2017 ELEVATED AMMONIA - Babinski up on right - pin point pupils - lethgary without focal findings - ADEBAYO (acute kidney injury) (HCC) 05/26/2017 likely due to prerenal/ATN 2/2 shock. Good urine output noted. Renal ultrasound neg for hydronephrosis - ASCVD (arteriosclerotic cardiovascular disease) 09/18/2014 - Atrial fibrillation (HCC) 07/01/2006 - Benign neoplasm of colon 2004 Hyperplastic - BPH (benign prostatic hyperplasia) 01/30/2015 - Cardiomyopathy, ischemic 05/30/2015 - Coronary artery disease 05/16/2015 - DM2 (diabetes mellitus, type 2) ([facility]) 05/16/2015 - Edema 07/01/2006 - Family history of malignant neoplasm of gastrointestinal tract 11/03/2006 - Flatulence, eructation, and gas pain - Heart attack ([facility]) - HEMANGIOMA INTRA-ABDOM 07/29/2006 - HYPERTENSION NOS 08/27/2006 - Impaired fasting glucose 05/30/2010 - Irritable bowel syndrome 08/27/2006 - AL (myocardial infarction) ([facility]) 05/16/2015 - NSTEMI (non-ST elevated myocardial infarction) ([facility]) 05/16/2015 Pt now chest pain free with nitrate - recheck enzymes -1 set troponin0.719, CK 507, MB 39.9, CKMB 7.9 - check echo - continue heparin, aspirin, ARB, statin, beta linda - continue clopidogrel - called in/consented for [facility] today +/- PCI -15: PCI to the mid RCA with a 3.5 x 16 mm Synergy EES - Obesity, unspecified 07/01/2006 - Other and unspecified hyperlipidemia 07/01/2006 - Polyneuropathy (HCC) 05/01/2016 Nerve study 2015. - SLEEP APNEA NOS (cpap intolerant) 07/01/2006 - Type II or unspecified type diabetes mellitus without mention of complication, not stated as uncontrolled 01/25/2014 - Unspecified constipation PAST SURGICAL HISTORY Procedure Laterality Date - COLONOSCOP W/ OR W/O BRS SPEC 2004 Colonoscopy 2004, 2000 - COLONOSCOP W/ OR W/O [facility] SPEC 08/28/08 Colonoscopy [facility] Colonoscopy - KNEE SCOPE,DIAGNOSTIC Right 10/06/2007 Arthroscopy, knee - LEFT HEART CATH,PERCUTANEOUS 08/22/2014 Cardiac cath, L heart - PALATE/UVULA SURGERY UNLISTED 1999 Somnoplasty, tracheostomy - PAST SURGICAL HISTORY OF 05/16/2015 Had heart stent - REPAIR BICEPS LONG TENDON Right 05/12/2017 [facility] - REPAIR ING HERNIA,5+Y/O,REDUCIBL Left 1990 Hernia repair, inguinal - TRACHEOSTOMY HX 1999 w/ UVPP ALLERGIES Patient has no known allergies. MEDICATIONS trimethoprim-polymyxin eye drops (POLYTRIM) ophthalmic solution Use 1 Drop in both eyes four times daily. spironolactone (ALDACTONE) 25 mg tablet Take 1 tablet by mouth twice daily. pantoprazole DR (PROTONIX) 40 mg tablet Take 1 tablet by mouth every morning. atorvastatin (LIPITOR) 80 mg tablet Take 1 tablet by mouth once daily. furosemide (LASIX) 40 mg tablet Take 1 tablet by mouth twice daily. With 20 mg tablet for total of 60 mg twice daily. furosemide (LASIX) 20 mg tablet Take 1 tablet by mouth twice daily. COMPOUNDED PRESCRIPTION INOGEN PORTABLE OXYGEN CONCENTRATOR. 3 LPM VIA NASAL CANNULA WITH ACTIVITY. DX: J96.21; J96.22. J44.9. I25.5 COMPOUNDED PRESCRIPTION Oxygen conserving unit Dx:J44.9 metoprolol succinate ER (TOPROL XL) 100 mg Tb24 Take 1 tablet by mouth once daily. warfarin (COUMADIN) 5 mg tablet Take 12.5mg daily or as directed. metFORMIN (GLUCOPHAGE) 500 mg tablet Take 1 tablet by mouth daily with breakfast. . nitroglycerin sublingual (NITROQUICK) 0.4 mg SL tablet Dissolve 1 tablet under the tongue as needed. FOR CHEST PAIN. IF NO RELIEF CALL 911 clopidogrel (PLAVIX) 75 mg tablet Take 1 tablet by mouth once daily. albuterol HFA (PROVENTIL HFA, VENTOLIN HFA) 90 mcg/actuation inhaler Inhale 2 Puffs as instructed every 6 hours as needed for Wheezing/Shortness of Breath. ezetimibe (ZETIA) 10 mg tablet Take 1 tablet by mouth once daily. Compression Knee Highs KNEE HIGH COMPRESSION STOCKINGS 20- 30 MM HG. DX: EDEMA. VENOUS INSUFFICIENCY, BOTH LOWER EXTREMITIES. fluticasone (FLONASE) 50 mcg/actuation nasal spray 1 or 2 sprays in each nostril at bedtime. polyethylene glycol 3350 (MIRALAX) 17 gram/dose powder Take 17 g by mouth once daily. magnesium hydroxide (MILK OF MAGNESIA) 400 mg/5 mL suspension Take 15 mL by mouth once daily as needed for Constipation. senna-docusate 8.6-50 mg per tablet Take 1 tablet by mouth once daily. For constipation. Lancets (FREESTYLE LANCETS) [facility] lancets Test Blood sugar daily. Hyperglycemia, no insulin FAMILY HISTORY Problem Relation Age of Onset - Diabetes Father - Heart Father Pacemaker - Alzheimer's Disease Father - Coronary Artery Disease Father - other (parkinsons) Father - Diabetes Mother - Cancer Mother Colon - Hypertension Brother - Heart Brother CABG - Diabetes Brother - Peripheral Artery Disease Brother - Hypertension Brother Social History Substance Use Topics - Smoking status: Former Smoker Packs/day: 0.25 Years: 20.00 Types: Cigarettes Quit date: 07/01/2006 - Smokeless tobacco: Former User - Alcohol use No PHYSICAL EXAM BP 82/58 (BP Site: Left Arm, BP Position: Sitting, BP Cuff Size: Large Adult) Pulse 77 Temp 36.6 ?C (97.9 ?F) (Temporal Artery) Resp 14 Wt (!) 148.8 kg (328 lb) SpO2 92% BMI 47.06 kg/m? General Appearance: in no acute distress, alert, appears uncomfortable Lungs: Lungs clear to auscultation. No wheezing, rhonchi, rales Heart: RRR without murmur, gallop, or rubs. No ectopy Abdomen: Abdomen soft, obese, round. moderate left lower quadrant abdominal tenderness with palpation. No guarding or rebound tenderness. Bowel sounds hypoactive all quadrants. No masses, organomegaly but difficult exam due to body habitus. Negative CVA tenderness ASSESSMENT/PLAN: 1. Left lower quadrant pain - ICD9: 789.04, ICD10: R10.32 (primary diagnosis) Differential Diagnosis includes Constipation and Diverticulitis. Patient is non-toxic appearing and stable at this time for outpatient work-up Stat work-up with: - CT ABD/PEL W IVCON - IV CONTRAST (RADIOLOGY PROCEDURE)-patient was advised to hold Metformin x 48 hours - ENTERIC CONTRAST (RADIOLOGY PROCEDURE) - JO ISTAT BMP - JO CBC To ER for worsening symptoms Follow-up and treatment pending results of work-up 2. Constipation, unspecified constipation type - ICD9: 564.00, ICD10: K59.00 As above - CT ABD/PEL W IVCON - IV CONTRAST (RADIOLOGY PROCEDURE) - ENTERIC CONTRAST (RADIOLOGY PROCEDURE) - JO ISTAT BMP - JO CBC Prescription instructions reviewed with patient as applicable. Potential red flag symptoms discussed with the patient. Reviewed appropriate action plan to take if red flag symptoms occur. Patient agreeable to treatment plan. Bev Smart APRN.CNP CNOV Observed: 02/25/2018 Status: COMPLETED Source: [place] 10:00 AM [facility] REPOSITORY Office Visit (INTMWS) CATALINA EVANS ([id number]) 1955 M Date Time Provider Department 02/25/18 10:00 AM BEV SMART ([place]ET[place]) INTMWS During your visit today, we recorded the following information about you: Temperature Pulse Respiration Blood pressure 97.9 degrees 77/minute 14/minute 82/58 Weight 148.8 kg Bev Smart APRN.CNP 02/25/2018 10:43 AM Signed CC Patient presents with: Abdominal Pain: LLQ sharp abdominal pain x 3 days Constipation: x 2 days HPI Catalina Evans is a 62 year old male who presents with abdominal pain for for 2 days. Characteristics of the pain are as follows: Location: LLQ without radiation Quality: sharp, sometimes stabbing Symptoms are intermittent Aggravating factors: eating Alleviating factors: none Associated symptoms: decreased appetite, constipation x 2 days, flatus, bloating and nausea. Has been treating constipation with Mirlax and Senna without any relief. Denies: fever, chills, vomiting, black/bloody stools, diarrhea BP is low today. Patient reports this is no unusual for him. Checks at home and can fluctuate anywhere between 80's over 60's to 130's over 80's. Denies dizziness, lightheadedness, palpitations, shortness of breath, syncope, near syncope. REVIEW OF SYSTEMS Respiratory: no cough, no wheezing Cardiovascular: no chest pain, no chest pressure and no swelling : Negative for dysuria, frequency, hematuria and hesitancy PAST MEDICAL HISTORY Diagnosis Date - Acute liver failure with hepatic coma ([facility]) 05/27/2017 ELEVATED AMMONIA - Babinski up on right - pin point pupils - lethgary without focal findings - ADEBAYO (acute kidney injury) ([facility]) 05/26/2017 likely due to prerenal/ATN 2/2 shock. Good urine output noted. Renal ultrasound neg for hydronephrosis - ASCVD (arteriosclerotic cardiovascular disease) 09/18/2014 - Atrial fibrillation ([facility]) 07/01/2006 - Benign neoplasm of colon 2005 Hyperplastic - BPH (benign prostatic hyperplasia) 01/30/2015 - Cardiomyopathy, ischemic 05/30/2015 - Coronary artery disease 05/16/2015 - DM2 (diabetes mellitus, type 2) ([facility]) 05/16/2015 - Edema 07/01/2006 - Family history of malignant neoplasm of gastrointestinal tract 11/03/2006 - Flatulence, eructation, and gas pain - Heart attack ([facility]) - HEMANGIOMA INTRA-ABDOM 07/29/2006 - HYPERTENSION NOS 08/27/2006 - Impaired fasting glucose 05/30/2010 - Irritable bowel syndrome 08/27/2006 - AL (myocardial infarction) ([facility]) 05/16/2015 - NSTEMI (non-ST elevated myocardial infarction) ([facility]) 05/16/2015 Pt now chest pain free with nitrate - recheck enzymes -1 set troponin0.719, CK 507, MB 39.9, CKMB 7.9 - check echo - continue heparin, aspirin, ARB, statin, beta linda - continue clopidogrel - called in/consented for [facility] today +/- PCI -05-17-15: PCI to the mid RCA with a 3.5 x 16 mm Synergy EES - Obesity, unspecified 07/01/2006 - Other and unspecified hyperlipidemia 07/01/2006 - Polyneuropathy ([facility]) 05/01/2016 Nerve study 2015. - SLEEP APNEA NOS (cpap intolerant) 07/01/2006 - Type II or unspecified type diabetes mellitus without mention of complication, not stated as uncontrolled 01/25/2014 - Unspecified constipation PAST SURGICAL HISTORY Procedure Laterality Date - [facility] Colonoscopy 2004, 2000 - [facility] 08/28/08 Colonoscopy - COLONOSCOP [facility]/ [facility] 05/02/2015 Colonoscopy - KNEE SCOPE,DIAGNOSTIC Right 10/06/2007 Arthroscopy, knee - LEFT HEART CATH,PERCUTANEOUS 08/22/2014 Cardiac cath, L heart - PALATE/UVULA SURGERY UNLISTED 1999 Somnoplasty, tracheostomy - PAST SURGICAL HISTORY OF 05/16/2015 Had heart stent - REPAIR BICEPS LONG TENDON Right 05/12/2017 [facility] - REPAIR ING HERNIA,5+Y/O,REDUCIBL Left 1990 Hernia repair, inguinal - TRACHEOSTOMY HX 1999 w/ UVPP ALLERGIES Patient has no known allergies. MEDICATIONS trimethoprim-polymyxin eye drops (POLYTRIM) ophthalmic solution Use 1 Drop in both eyes four times daily. spironolactone (ALDACTONE) 25 mg tablet Take 1 tablet by mouth twice daily. pantoprazole DR (PROTONIX) 40 mg tablet Take 1 tablet by mouth every morning. atorvastatin (LIPITOR) 80 mg tablet Take 1 tablet by mouth once daily. furosemide (LASIX) 40 mg tablet Take 1 tablet by mouth twice daily. With 20 mg tablet for total of 60 mg twice daily. furosemide (LASIX) 20 mg tablet Take 1 tablet by mouth twice daily. COMPOUNDED PRESCRIPTION INOGEN PORTABLE OXYGEN CONCENTRATOR. 3 LPM VIA NASAL CANNULA WITH ACTIVITY. DX: J96.21; J96.22. J44.9. I25.5 COMPOUNDED PRESCRIPTION Oxygen conserving unit Dx:J44.9 metoprolol succinate ER (TOPROL XL) 100 mg Tb24 Take 1 tablet by mouth once daily. warfarin (COUMADIN) 5 mg tablet Take 12.5mg daily or as directed. metFORMIN (GLUCOPHAGE) 500 mg tablet Take 1 tablet by mouth daily with breakfast. . nitroglycerin sublingual (NITROQUICK) 0.4 mg SL tablet Dissolve 1 tablet under the tongue as needed. FOR CHEST PAIN. IF NO RELIEF CALL 911 clopidogrel (PLAVIX) 75 mg tablet Take 1 tablet by mouth once daily. albuterol HFA (PROVENTIL HFA, VENTOLIN HFA) 90 mcg/actuation inhaler Inhale 2 Puffs as instructed every 6 hours as needed for Wheezing/Shortness of Breath. ezetimibe (ZETIA) 10 mg tablet Take 1 tablet by mouth once daily. Compression Knee Highs KNEE HIGH COMPRESSION STOCKINGS 20- 30 MM HG. DX: EDEMA. VENOUS INSUFFICIENCY, BOTH LOWER EXTREMITIES. fluticasone (FLONASE) 50 mcg/actuation nasal spray 1 or 2 sprays in each nostril at bedtime. polyethylene glycol 3350 (MIRALAX) 17 gram/dose powder Take 17 g by mouth once daily. magnesium hydroxide (MILK OF MAGNESIA) 400 mg/5 mL suspension Take 15 mL by mouth once daily as needed for Constipation. senna-docusate 8.6-50 mg per tablet Take 1 tablet by mouth once daily. For constipation. Lancets (FREESTYLE LANCETS) [facility] lancets Test Blood sugar daily. Hyperglycemia, no insulin FAMILY HISTORY Problem Relation Age of Onset - Diabetes Father - Heart Father Pacemaker - Alzheimer's Disease Father - Coronary Artery Disease Father - other (parkinsons) Father - Diabetes Mother - Cancer Mother Colon - Hypertension Brother - Heart Brother CABG - Diabetes Brother - Peripheral Artery Disease Brother - Hypertension Brother Social History Substance Use Topics - Smoking status: Former Smoker Packs/day: 0.25 Years: 20.00 Types: Cigarettes Quit date: 07/01/2006 - Smokeless tobacco: Former User - Alcohol use No PHYSICAL EXAM BP 82/58 (BP Site: Left Arm, BP Position: Sitting, BP Cuff Size: Large Adult) Pulse 77 Temp 36.6 ?C (97.9 ?F) (Temporal Artery) Resp 14 Wt (!) 148.8 kg (328 lb) SpO2 92% BMI 47.06 kg/m? General Appearance: in no acute distress, alert, appears uncomfortable Lungs: Lungs clear to auscultation. No wheezing, rhonchi, rales Heart: RRR without murmur, gallop, or rubs. No ectopy Abdomen: Abdomen soft, obese, round. moderate left lower quadrant abdominal tenderness with palpation. No guarding or rebound tenderness. Bowel sounds hypoactive all quadrants. No masses, organomegaly but difficult exam due to body habitus. Negative CVA tenderness ASSESSMENT/PLAN: 1. Left lower quadrant pain - ICD9: 789.04, ICD10: R10.32 (primary diagnosis) Differential Diagnosis includes Constipation and Diverticulitis. Patient is non-toxic appearing and stable at this time for outpatient work-up Stat work-up with: - CT ABD/PEL W IVCON - IV CONTRAST (RADIOLOGY PROCEDURE)-patient was advised to hold Metformin x 48 hours - ENTERIC CONTRAST (RADIOLOGY PROCEDURE) - JO ISTAT BMP - JO CBC To ER for worsening symptoms Follow-up and treatment pending results of work-up 2. Constipation, unspecified constipation type - ICD9: 564.00, ICD10: K59.00 As above - CT ABD/PEL W IVCON - IV CONTRAST (RADIOLOGY PROCEDURE) - ENTERIC CONTRAST (RADIOLOGY PROCEDURE) - JO ISTAT BMP - JO CBC Prescription instructions reviewed with patient as applicable. Potential red flag symptoms discussed with the patient. Reviewed appropriate action plan to take if red flag symptoms occur. Patient agreeable to treatment plan. MELANIE Goncalves APRN.CNP 02/25/2018 10:33 AM Signed Hold Metformin for the next 48 hours To ER if develop severe abdominal pain, vomiting that won't stop, high fever, rigid abdomen Referring Provider: SELF [[id number]] Allergies As of Date: 02/25/2018 (No Known Allergies) Date Reviewed: 02/25/2018 Reviewed by: Lisy Dumont Cma - Fully Assessed Reason for Visit: Abdominal Pain [1] Cmt: LLQ sharp abdominal pain x 3 days Constipation [25] Cmt: x 2 days Primary Visit Diagnosis:Left lower quadrant pain [R10.32] Other Visit Diagnosis:Constipation, unspecified constipation type [K59.00] Order(s):CT ABD/PEL W IVCON [[id number]] Order #: [id number] FUTURE iv contrast (will be provided with radiology test)CT ABD/PEL -Inject, intravenously, once for 1 dose.No IV access, insert saline lock prior to the beginning of sedation, infusion, injection of imaging exam. Discontinue saline lock post exam. If Pt. has a central line or IVAD, may access for administration according to line specific nursing protocol. Once exam is complete flush line and de- access according to line specific nursing protocol in the CT contrast administration guidelines link.Disp: 1 EachRfl: 0 enteric contrast (will be provided with radiology test)For CT ABD/PEL W IVCON Routine order Administer, As Directed One Time Only, via Oral, Rectal, both Oral and Rectal, Enteric Tube, Stoma or Indwelling Catheter, Enteric Contrast as designated per enteric contrast guidelinesDisp: 1 EachRfl: 0 JO ISTAT BMP [SQWSTBMP] Order #: [id number] FUTURE JO CBC [SQWCBC] Order #: [id number] FUTURE Prescriptions as of 02/25/2018 Sig: POLYMYXIN B SULFATE 10,000 UN* Use 1 Drop in both eyes four * SPIRONOLACTONE 25 MG TABLET Take 1 tablet by mouth twice * PANTOPRAZOLE 40 MG TABLET,DEL* Take 1 tablet by mouth every * ATORVASTATIN 80 MG TABLET Take 1 tablet by mouth once d* FUROSEMIDE 40 MG TABLET Take 1 tablet by mouth twice * FUROSEMIDE 20 MG TABLET Take 1 tablet by mouth twice * COMPOUNDED PRESCRIPTION INOGEN PORTABLE OXYGEN CONCEN* COMPOUNDED PRESCRIPTION Oxygen conserving unit Dx:J4* METOPROLOL SUCCINATE ER 100 M* Take 1 tablet by mouth once d* WARFARIN 5 MG TABLET Take 12.5mg daily or as direc* METFORMIN 500 MG TABLET Take 1 tablet by mouth daily * NITROGLYCERIN 0.4 MG SUBLINGU* Dissolve 1 tablet under the t* CLOPIDOGREL 75 MG TABLET Take 1 tablet by mouth once d* ALBUTEROL SULFATE HFA 90 MCG/* Inhale 2 Puffs as instructed * EZETIMIBE 10 MG TABLET Take 1 tablet by mouth once d* COMPOUNDED PRESCRIPTION KNEE HIGH COMPRESSION STOCKIN* FLUTICASONE 50 MCG/ACTUATION * 1 or 2 sprays in each nostril* POLYETHYLENE GLYCOL 3350 17 G* Take 17 g by mouth once daily. MAGNESIUM HYDROXIDE 400 MG/5 * Take 15 mL by mouth once andrey* SENNOSIDES 8.6 MG-DOCUSATE SO* Take 1 tablet by mouth once d* * LANCETS Test Blood sugar daily. Hype* IV CONTRAST (RADIOLOGY PROCED* CT ABD/PEL -Inject, intraveno* ENTERIC CONTRAST (RADIOLOGY P* For CT ABD/PEL W IVCON Routin* Problem List As Of Date 02/25/2018 Noted Resolved ATRIAL FIBRILLATION [I48.91] INVALID FOR*07/23/2015 More... Edema [R60.9] INVALID FOR* Hypercholesterolemia [E78.00] INVALID FOR* Priority: J More... SLEEP APNEA NOS (cpap intolerant) [G47.30] INVALID FOR*01/30/2015 Obesity [E66.9] INVALID FOR*08/13/2017 More... Hemangioma of intra-abdominal structures [D18.0*INVALID FOR*04/25/2014 Essential hypertension [I10] INVALID FOR* Priority: K More... IRRITABLE COLON [K58.9] INVALID FOR* Constipation [K59.00] INVALID FOR* DERMATOPHYTOSIS OF NAIL [B35.1] INVALID FOR*04/24/2008 ABDOMINAL PAIN LLQ [R10.32] 04/24/2008 ABDOMINAL PAIN LUQ [R10.12] 04/24/2008 FLATUL/ERUCTAT/GAS PAIN [R14.3, R14.1, R14.2] 04/24/2008 Impaired fasting glucose [R73.01] INVALID FOR*04/25/2014 COPD (chronic obstructive pulmonary disease) [J*INVALID FOR* Type II or unspecified type diabetes mellitus w*INVALID FOR*05/16/2015 ASCVD (arteriosclerotic cardiovascular disease)*INVALID FOR* BPH (benign prostatic hyperplasia) [N40.0] INVALID FOR* Family history of colon cancer [Z80.0] INVALID FOR*08/13/2017 NSTEMI (non-ST elevated myocardial infarction) *INVALID FOR*01/15/2016 More... DM2 (diabetes mellitus, type 2) (HCC) [E11.9] INVALID FOR* Priority: D More... S/P right coronary artery (RCA) stent placement*INVALID FOR* LV dysfunction [I51.9] INVALID FOR*01/15/2016 Cardiomyopathy, ischemic [I25.5] INVALID FOR* Priority: F More... Chronic anticoagulation [Z79.01] INVALID FOR* Priority: H More... Paroxysmal atrial fibrillation (HCC) [I48.0] INVALID FOR* Priority: C More... Sleep apnea [G47.30] INVALID FOR* Priority: G More... Astigmatism, regular [H52.229] INVALID FOR*08/13/2017 Presbyopia [H52.4] INVALID FOR*01/15/2016 Benign neoplasm of skin of eyelid including can*INVALID FOR*04/07/2017 Polyneuropathy (HCC) [G62.9] INVALID FOR* More... Spinal stenosis, lumbar region, with neurogenic*INVALID FOR*12/16/2017 Displacement of lumbar intervertebral disc with*INVALID FOR*04/07/2017 Spondylosis of lumbar region without myelopathy*INVALID FOR* Lesion of liver [K76.9] INVALID FOR*08/13/2017 Priority: B More... Ascites [R18.8] INVALID FOR*05/30/2017 Priority: B More... ADEBAYO (acute kidney injury) (HCC) [N17.9] INVALID FOR*12/16/2017 Priority: E More... Nicotine use disorder, F17.2 [F17.200] INVALID FOR*08/13/2017 Priority: L More... Obesity, Class III, BMI >= 40 (morbid obesity) *INVALID FOR* Priority: M Lethargy [R53.83] INVALID FOR*08/13/2017 Priority: Severe Acute on chronic respiratory failure with hypox*INVALID FOR* Priority: Moderate More... Morbid obesity with body mass index (BMI) of 45*INVALID FOR* Priority: M More... Acute liver failure with hepatic coma (HCC) [K7*INVALID FOR*08/13/2017 Priority: Mild More... Respiratory failure with hypercapnia (HCC) [J96*INVALID FOR*08/13/2017 Priority: A More... Shock circulatory (HCC) [R57.9] INVALID FOR*05/29/2017 Priority: A More... Kidney insufficiency [N28.9] INVALID FOR* Combined forms of age-related cataract of both *INVALID FOR* Hyperopia, bilateral [H52.03] INVALID FOR* Dry eye syndrome, bilateral [H04.123] INVALID FOR* Bacterial conjunctivitis of both eyes [H10.9] INVALID FOR* Other instructions from your clinician: Hold Metformin for the next 48 hours To ER if develop severe abdominal pain, vomiting that won't stop, high fever, rigid abdomen Prescriptions ordered this encounter Disp Refills Start End IV CONTRAST (RADIOLOGY PROCEDURE) 1 Ea* 0 02/25/2018 02/26/2018 Class: In Office Sig: CT ABD/PEL -Inject, intravenously, once for 1 dose.No IV access, insert saline lock prior to the beginning of sedation, infusion, injection of imaging exam. Discontinue saline lock post exam. If Pt. has a central line or IVAD, may access for administration according to line specific nursing protocol. Once exam is complete flush line and de-access according to line specific nursing protocol in the CT contrast administration guidelines link. ENTERIC CONTRAST (RADIOLOGY PROCEDUR* 1 Ea* 0 02/25/2018 02/26/2018 Class: In Office Sig: For CT ABD/PEL W IVCON Routine order Administer, As Directed One Time Only, via Oral, Rectal, both Oral and Rectal, Enteric Tube, Stoma or Indwelling Catheter, Enteric Contrast as designated per enteric contrast guidelines Encounter Status:Closed by BEV SMART CNP on 02/25/18 PROGRESS Observed: 02/14/2018 Status: COMPLETED Source: [place] 5:20 PM [facility] REPOSITORY HNO ID: [id number] Author: Amber Staton LPN Service: (none) Author Type: (none) Type: Progress Notes Filed: 02/14/2018 5:20 PM Note Text: Patient notified of results and provider's instructions. Patient verbalizes understanding. Amber Staton LPN PROGRESS Observed: 02/14/2018 Status: COMPLETED Source: [place] 5:16 PM [facility] REPOSITORY HNO ID: [id number] Author: Coy Mercado Service: (none) Author Type: Physician Type: Progress Notes Filed: 02/14/2018 5:20 PM Note Text: Increase Coumadin dose 12.5 mg Tue and Carla and 10 mg on all other days. INR in 2 weeks. PROGRESS Observed: 02/14/2018 Status: COMPLETED Source: [place] 3:44 PM [facility] REPOSITORY HNO ID: [id number] Author: Katharine Nino RN Service: (none) Author Type: (none) Type: Progress Notes Filed: 02/14/2018 3:45 PM Note Text: patient had inr completed at [facility] patients inr is 1.6 (patients inr range is 2.0-3.0) patient is currently taking 10mg daily patients last dose change was on 11/12/17 due to a high level of 3.5 (dose at that time was 12.5mg Sat,Sun and 10mg all other days) patient has had no changes in medication and no missed doses and no change in diet Advised patient that they would be contacted regarding medication dose and when to follow up after information is reviewed by provider. After provider review please contact the patient with information and schedule follow up appointment with coumadin clinic. FYI - patient has been scheduled for a 2 week follow up inr on 02/28/18 PROGRESS Observed: 02/01/2018 Status: COMPLETED Source: [place] 5:36 PM [facility] REPOSITORY HNO ID: [id number] Author: Coy Mercado Service: (none) Author Type: Physician Type: Progress Notes Filed: 02/01/2018 5:36 PM Note Text: Okay. PROGRESS Observed: 02/01/2018 Status: COMPLETED Source: [place] 3:41 PM [facility] REPOSITORY HNO ID: [id number] Author: Katharine Nino RN Service: (none) Author Type: (none) Type: Progress Notes Filed: 02/01/2018 3:42 PM Note Text: patient had inr completed at [facility] patients inr is 2.0 (patients inr range is 2.0-3.0) patient is currently taking 10mg daily patients last dose change was on 11/12/17 due to a high level of 3.5 (dose at that time was 12.5mg Sat,Sun and 10mg all other days) patient has had no changes in medication and no missed doses and no change in diet Advised patient to continue on the same dose(s) and that they would only be contacted regarding dosage and follow up instructions after review with provider, if a change is needed. Written instructions given and patient verbalized understanding. Presently scheduled in 2 weeks (02/14/18) for follow up INR. PROGRESS Observed: 01/18/2018 Status: COMPLETED Source: [place] 4:18 PM [facility] REPOSITORY HNO ID: [id number] Author: Campbell Pittman Service: (none) Author Type: (none) Type: Progress Notes Filed: 01/18/2018 4:22 PM Note Text: Patient returned call and message from provider given with voiced understanding per read back. PROGRESS Observed: 01/18/2018 Status: COMPLETED Source: [place] 1:20 PM [facility] [place] REPOSITORY HNO ID: [id number] Author: Michelle Elizondo Cma Service: (none) Author Type: (none) Type: Progress Notes Filed: 01/18/2018 4:22 PM Note Text: Left message for patient to call office back and to ask to speak with a nurse. Michelle Elizondo Cma PROGRESS Observed: 01/18/2018 Status: COMPLETED Source: [place] 12:51 PM [facility] REPOSITORY HNO ID: [id number] Author: Coy Mercado Service: (none) Author Type: Physician Type: Progress Notes Filed: 01/18/2018 4:22 PM Note Text: Take warfarin 12.5 mg for today and tomorrow only (2 days only). Then resume 10 mg daily. INR in 2 weeks. PROGRESS Observed: 01/18/2018 Status: COMPLETED Source: [place] 11:48 AM [facility] REPOSITORY HNO ID: [id number] Author: Katharine Nino RN Service: (none) Author Type: (none) Type: Progress Notes Filed: 01/18/2018 11:50 AM Note Text: patient had inr completed at [facility] patients inr is 1.7 (patients inr range is 2.0-3.0) patient is currently taking 10mg daily patients last dose change was on 11/12/17 due to a high level of 3.5 (dose at that time was 12.5mg Sat Sun and 10mg all other days) patient has had a change in medication and pt is on an antibiotic and no missed doses and no change in diet Advised patient to continue on the same dose(s) and that they would only be contacted regarding dosage and follow up instructions after review with provider, if a change is needed. Written instructions given and patient verbalized understanding. Presently scheduled in 2 weeks (02/01/18) for follow up INR sine level is just slightly low. PROGRESS Observed: 01/18/2018 Status: COMPLETED Source: [place] 11:30 AM [facility] REPOSITORY HNO ID: [id number] Author: Bev Smart Service: (none) Author Type: Nurse Practitioner Type: Progress Notes Filed: 01/18/2018 1:33 PM Note Text: CC: cellulitis follow-up HPI Catalina Evans is a 62 year old male who presents today for cellulitis follow-up. Patient was evaluated last week for skin tear/wound left lower leg. Prescribed Doxycycline for cellulitis. Today patient reports pain, redness and warmth have resolved. Wound is scabbed over. No drainage. No worsening leg swelling, fever, chills. No side effects from antibiotics. REVIEW OF SYSTEMS See HPI PAST MEDICAL HISTORY Diagnosis Date - Acute liver failure with hepatic coma (HCC) 05/27/2017 ELEVATED AMMONIA - Babinski up on right - pin point pupils - lethgary without focal findings - ADEBAYO (acute kidney injury) ([facility]) 05/26/2017 likely due to prerenal/ATN 2/2 shock. Good urine output noted. 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 - HYPERTENSION NOS 08/27/2006 - Impaired fasting glucose 05/30/2010 - Irritable bowel syndrome 08/27/2006 - AL (myocardial infarction) ([facility]) 05/16/2015 - NSTEMI (non-ST elevated myocardial infarction) ([facility]) 05/16/2015 Pt now chest pain free with nitrate - recheck enzymes -1 set troponin0.719, CK 507, MB 39.9, CKMB 7.9 - check echo - continue heparin, aspirin, ARB, statin, beta linda - continue clopidogrel - called in/consented for [facility] today +/- PCI -15: PCI to the mid RCA with a 3.5 x 16 mm Synergy EES - Obesity, unspecified 07/01/2006 - Other and unspecified hyperlipidemia 07/01/2006 - Polyneuropathy ([facility]) 05/01/2016 Nerve study 2015. - SLEEP APNEA NOS (cpap intolerant) 07/01/2006 - Type II or unspecified type diabetes mellitus without mention of complication, not stated as uncontrolled 01/25/2014 - Unspecified constipation PAST SURGICAL HISTORY Procedure Laterality Date - [facility] Colon[facility] 2004, 2000 - [facility]08 Colonoscopy - [facility] 05/02/2015 Colonoscopy - KNEE SCOPE,DIAGNOSTIC Right 10/06/2007 Arthroscopy, knee - LEFT HEART CATH,PERCUTANEOUS 08/22/2014 Cardiac cath, L heart - PALATE/UVULA SURGERY UNLISTED 1999 Somnoplasty, tracheostomy - PAST SURGICAL HISTORY OF 05/16/2015 Had heart stent - REPAIR BICEPS LONG TENDON Right 05/12/2017 [facility] - REPAIR ING HERNIA,5+Y/O,REDUCIBL Left 1990 Hernia repair, inguinal - TRACHEOSTOMY HX 1999 w/ UVPP ALLERGIES Patient has no known allergies. MEDICATIONS trimethoprim-polymyxin eye drops (POLYTRIM) ophthalmic solution Use 1 Drop in both eyes four times daily. spironolactone (ALDACTONE) 25 mg tablet Take 1 tablet by mouth twice daily. pantoprazole DR (PROTONIX) 40 mg tablet Take 1 tablet by mouth every morning. atorvastatin (LIPITOR) 80 mg tablet Take 1 tablet by mouth once daily. furosemide (LASIX) 40 mg tablet Take 1 tablet by mouth twice daily. With 20 mg tablet for total of 60 mg twice daily. furosemide (LASIX) 20 mg tablet Take 1 tablet by mouth twice daily. COMPOUNDED PRESCRIPTION INOGEN PORTABLE OXYGEN CONCENTRATOR. 3 LPM VIA NASAL CANNULA WITH ACTIVITY. DX: J96.21; J96.22. J44.9. I25.5 COMPOUNDED PRESCRIPTION Oxygen conserving unit Dx:J44.9 metoprolol succinate ER (TOPROL XL) 100 mg Tb24 Take 1 tablet by mouth once daily. warfarin (COUMADIN) 5 mg tablet Take 12.5mg daily or as directed. metFORMIN (GLUCOPHAGE) 500 mg tablet Take 1 tablet by mouth daily with breakfast. . nitroglycerin sublingual (NITROQUICK) 0.4 mg SL tablet Dissolve 1 tablet under the tongue as needed. FOR CHEST PAIN. IF NO RELIEF CALL 911 clopidogrel (PLAVIX) 75 mg tablet Take 1 tablet by mouth once daily. albuterol HFA (PROVENTIL HFA, VENTOLIN HFA) 90 mcg/actuation inhaler Inhale 2 Puffs as instructed every 6 hours as needed for Wheezing/Shortness of Breath. ezetimibe (ZETIA) 10 mg tablet Take 1 tablet by mouth once daily. Compression Knee Highs KNEE HIGH COMPRESSION STOCKINGS 20- 30 MM HG. DX: EDEMA. VENOUS INSUFFICIENCY, BOTH LOWER EXTREMITIES. fluticasone (FLONASE) 50 mcg/actuation nasal spray 1 or 2 sprays in each nostril at bedtime. polyethylene glycol 3350 (MIRALAX) 17 gram/dose powder Take 17 g by mouth once daily. magnesium hydroxide (MILK OF MAGNESIA) 400 mg/5 mL suspension Take 15 mL by mouth once daily as needed for Constipation. senna-docusate 8.6-50 mg per tablet Take 1 tablet by mouth once daily. For constipation. Lancets (FREESTYLE LANCETS) [facility] lancets Test Blood sugar daily. Hyperglycemia, no insulin FAMILY HISTORY Problem Relation Age of Onset - Diabetes Father - Heart Father Pacemaker - Alzheimer's Disease Father - Coronary Artery Disease Father - other (parkinsons) Father - Diabetes Mother - Cancer Mother Colon - Hypertension Brother - Heart Brother CABG - Diabetes Brother - Peripheral Artery Disease Brother - Hypertension Brother Social History Substance Use Topics - Smoking status: Former Smoker Packs/day: 0.25 Years: 20.00 Types: Cigarettes Quit date: 07/01/2006 - Smokeless tobacco: Former User - Alcohol use No PHYSICAL EXAM BP 130/80 Pulse 83 Temp 36.2 ?C (97.1 ?F) (Temporal Artery) Resp 16 Wt (!) 149.2 kg (329 lb) SpO2 90% BMI 47.21 kg/m? General Appearance: well appearing, in no acute distress, alert Lower lower leg: lateral monae with 2 wounds covered by black scab, wound bed not visible. No erythema, fluctuance, induration or lymphangitis. Area is non-tender with palpation. Good capillary refill. ASSESSMENT/PLAN: 1. Cellulitis of left lower extremity - ICD9: 682.6, ICD10: L03.116 Resolved. Wounds healing as expected, no signs of infection Discussed wound care including keeping open to air Call office for any signs of infection Prescription instructions reviewed with patient as applicable. Potential red flag symptoms discussed with the patient. Reviewed appropriate action plan to take if red flag symptoms occur. Patient agreeable to treatment plan. Bev Smart APRN.[employer] FINAL INSPECTOR CNOV Observed: 01/18/2018 Status: COMPLETED Source: [place] 11:20 AM [facility] REPOSITORY Office Visit (INTMWS) CATALINA EVANS ([id number]) 1955 M Date Time Provider Department 01/18/18 11:20 AM OLDER, BEV (SWETA) INTMWS During your visit today, we recorded the following information about you: Temperature Pulse Respiration Blood pressure 97.1 degrees 83/minute 16/minute 130/80 Weight 149.2 kg Bev Older, [employer]IVER[employer]GG 01/18/2018 1:33 PM Signed CC: cellulitis follow-up HPI Catalina Evans is a 62 year old male who presents today for cellulitis follow-up. Patient was evaluated last week for skin tear/wound left lower leg. Prescribed Doxycycline for cellulitis. Today patient reports pain, redness and warmth have resolved. Wound is scabbed over. No drainage. No worsening leg swelling, fever, chills. No side effects from antibiotics. REVIEW OF SYSTEMS See HPI PAST MEDICAL HISTORY Diagnosis Date - Acute liver failure with hepatic coma (HCC) 05/27/2017 ELEVATED AMMONIA - Babinski up on right - pin point pupils - lethgary without focal findings - ADEBAYO (acute kidney injury) ([facility]) 05/26/2017 likely due to prerenal/ATN 2/2 shock. Good urine output noted. Renal ultrasound neg for hydronephrosis - ASCVD (arteriosclerotic cardiovascular disease) 09/18/2014 - Atrial fibrillation (HCC) 07/01/2006 - Benign neoplasm of colon 2005 Hyperplastic - BPH (benign prostatic hyperplasia) 01/30/2015 - Cardiomyopathy, ischemic 05/30/2015 - Coronary artery disease 05/16/2015 - DM2 (diabetes mellitus, type 2) ([facility]) 05/16/2015 - Edema 07/01/2006 - Family history of malignant neoplasm of gastrointestinal tract 11/03/2006 - Flatulence, eructation, and gas pain - Heart attack (HCC) - HEMANGIOMA INTRA-ABDOM 07/29/2006 - HYPERTENSION NOS 08/27/2006 - Impaired fasting glucose 05/30/2010 - Irritable bowel syndrome 08/27/2006 - AL (myocardial infarction) (HCC) 05/16/2015 - NSTEMI (non-ST elevated myocardial infarction) ([facility]) 05/16/2015 Pt now chest pain free with nitrate - recheck enzymes -1 set troponin0.719, CK 507, MB 39.9, CKMB 7.9 - check echo - continue heparin, aspirin, ARB, statin, beta linda - continue clopidogrel - called in/consented for [facility] today +/- PCI -05-17-15: PCI to the mid RCA with a 3.5 x 16 mm Synergy EES - Obesity, unspecified 07/01/2006 - Other and unspecified hyperlipidemia 07/01/2006 - Polyneuropathy (HCC) 05/01/2016 Nerve study 2015. - SLEEP APNEA NOS (cpap intolerant) 07/01/2006 - Type II or unspecified type diabetes mellitus without mention of complication, not stated as uncontrolled 01/25/2014 - Unspecified constipation PAST SURGICAL HISTORY Procedure Laterality Date - [facility] Colonoscopy 2004, 2000 - [facility] 08/28/08 Colonoscopy - [facility] 05/02/2015 Colonoscopy - KNEE SCOPE,DIAGNOSTIC Right 10/06/2007 Arthroscopy, knee - LEFT HEART CATH,PERCUTANEOUS 08/22/2014 Cardiac cath, L heart - PALATE/UVULA SURGERY UNLISTED 1999 Somnoplasty, tracheostomy - PAST SURGICAL HISTORY OF 05/16/2015 Had heart stent - REPAIR BICEPS LONG TENDON Right 05/12/2017 [facility] - REPAIR ING HERNIA,5+Y/O,REDUCIBL Left 1989 Hernia repair, inguinal - TRACHEOSTOMY HX 1999 w/ UVPP ALLERGIES Patient has no known allergies. MEDICATIONS trimethoprim-polymyxin eye drops (POLYTRIM) ophthalmic solution Use 1 Drop in both eyes four times daily. spironolactone (ALDACTONE) 25 mg tablet Take 1 tablet by mouth twice daily. pantoprazole DR (PROTONIX) 40 mg tablet Take 1 tablet by mouth every morning. atorvastatin (LIPITOR) 80 mg tablet Take 1 tablet by mouth once daily. furosemide (LASIX) 40 mg tablet Take 1 tablet by mouth twice daily. With 20 mg tablet for total of 60 mg twice daily. furosemide (LASIX) 20 mg tablet Take 1 tablet by mouth twice daily. COMPOUNDED PRESCRIPTION INOGEN PORTABLE OXYGEN CONCENTRATOR. 3 LPM VIA NASAL CANNULA WITH ACTIVITY. DX: J96.21; J96.22. J44.9. I25.5 COMPOUNDED PRESCRIPTION Oxygen conserving unit Dx:J44.9 metoprolol succinate ER (TOPROL XL) 100 mg Tb24 Take 1 tablet by mouth once daily. warfarin (COUMADIN) 5 mg tablet Take 12.5mg daily or as directed. metFORMIN (GLUCOPHAGE) 500 mg tablet Take 1 tablet by mouth daily with breakfast. . nitroglycerin sublingual (NITROQUICK) 0.4 mg SL tablet Dissolve 1 tablet under the tongue as needed. FOR CHEST PAIN. IF NO RELIEF CALL 911 clopidogrel (PLAVIX) 75 mg tablet Take 1 tablet by mouth once daily. albuterol HFA (PROVENTIL HFA, VENTOLIN HFA) 90 mcg/actuation inhaler Inhale 2 Puffs as instructed every 6 hours as needed for Wheezing/Shortness of Breath. ezetimibe (ZETIA) 10 mg tablet Take 1 tablet by mouth once daily. Compression Knee Highs KNEE HIGH COMPRESSION STOCKINGS 20- 30 MM HG. DX: EDEMA. VENOUS INSUFFICIENCY, BOTH LOWER EXTREMITIES. fluticasone (FLONASE) 50 mcg/actuation nasal spray 1 or 2 sprays in each nostril at bedtime. polyethylene glycol 3350 (MIRALAX) 17 gram/dose powder Take 17 g by mouth once daily. magnesium hydroxide (MILK OF MAGNESIA) 400 mg/5 mL suspension Take 15 mL by mouth once daily as needed for Constipation. senna-docusate 8.6-50 mg per tablet Take 1 tablet by mouth once daily. For constipation. Lancets (FREESTYLE LANCETS) [facility] lancets Test Blood sugar daily. Hyperglycemia, no insulin FAMILY HISTORY Problem Relation Age of Onset - Diabetes Father - Heart Father Pacemaker - Alzheimer's Disease Father - Coronary Artery Disease Father - other (parkinsons) Father - Diabetes Mother - Cancer Mother Colon - Hypertension Brother - Heart Brother CABG - Diabetes Brother - Peripheral Artery Disease Brother - Hypertension Brother Social History Substance Use Topics - Smoking status: Former Smoker Packs/day: 0.25 Years: 20.00 Types: Cigarettes Quit date: 07/01/2006 - Smokeless tobacco: Former User - Alcohol use No PHYSICAL EXAM BP 130/80 Pulse 83 Temp 36.2 ?C (97.1 ?F) (Temporal Artery) Resp 16 Wt (!) 149.2 kg (329 lb) SpO2 90% BMI 47.21 kg/m? General Appearance: well appearing, in no acute distress, alert Lower lower leg: lateral monae with 2 wounds covered by black scab, wound bed not visible. No erythema, fluctuance, induration or lymphangitis. Area is non-tender with palpation. Good capillary refill. ASSESSMENT/PLAN: 1. Cellulitis of left lower extremity - ICD9: 682.6, ICD10: L03.116 Resolved. Wounds healing as expected, no signs of infection Discussed wound care including keeping open to air Call office for any signs of infection Prescription instructions reviewed with patient as applicable. Potential red flag symptoms discussed with the patient. Reviewed appropriate action plan to take if red flag symptoms occur. Patient agreeable to treatment plan. MELANIE Goncalves APRN.CNP 01/18/2018 11:36 AM Signed Follow-up in two weeks if no improvement in wound or sooner if worsening Referring Provider: SELF [[id number]] Allergies As of Date: 01/18/2018 (No Known Allergies) Date Reviewed: 01/18/2018 Reviewed by: Michelle Elizondo Appeals Coordinator - Fully Assessed Reason for Visit: Cellulitis [488] Cmt: follow-up Primary Visit Diagnosis:Cellulitis of left lower extremity [L03.116] Order(s):INR (POC) [[id number]] Order #: [id number]. #:[id number] Prescriptions as of 01/18/2018 Sig: POLYMYXIN B SULFATE 10,000 UN* Use 1 Drop in both eyes four * SPIRONOLACTONE 25 MG TABLET Take 1 tablet by mouth twice * PANTOPRAZOLE 40 MG TABLET,DEL* Take 1 tablet by mouth every * ATORVASTATIN 80 MG TABLET Take 1 tablet by mouth once d* FUROSEMIDE 40 MG TABLET Take 1 tablet by mouth twice * FUROSEMIDE 20 MG TABLET Take 1 tablet by mouth twice * COMPOUNDED PRESCRIPTION INOGEN PORTABLE OXYGEN CONCEN* COMPOUNDED PRESCRIPTION Oxygen conserving unit Dx:J4* METOPROLOL SUCCINATE ER 100 M* Take 1 tablet by mouth once d* WARFARIN 5 MG TABLET Take 12.5mg daily or as direc* METFORMIN 500 MG TABLET Take 1 tablet by mouth daily * NITROGLYCERIN 0.4 MG SUBLINGU* Dissolve 1 tablet under the t* CLOPIDOGREL 75 MG TABLET Take 1 tablet by mouth once d* ALBUTEROL SULFATE HFA 90 MCG/* Inhale 2 Puffs as instructed * EZETIMIBE 10 MG TABLET Take 1 tablet by mouth once d* COMPOUNDED PRESCRIPTION KNEE HIGH COMPRESSION STOCKIN* FLUTICASONE 50 MCG/ACTUATION * 1 or 2 sprays in each nostril* POLYETHYLENE GLYCOL 3350 17 G* Take 17 g by mouth once daily. MAGNESIUM HYDROXIDE 400 MG/5 * Take 15 mL by mouth once andrey* SENNOSIDES 8.6 MG-DOCUSATE SO* Take 1 tablet by mouth once d* * LANCETS Test Blood sugar daily. Hype* Problem List As Of Date 01/18/2018 Noted Resolved ATRIAL FIBRILLATION [I48.91] INVALID FOR*07/23/2015 More... Edema [R60.9] INVALID FOR* Hypercholesterolemia [E78.00] INVALID FOR* Priority: J More... SLEEP APNEA NOS (cpap intolerant) [G47.30] INVALID FOR*01/30/2015 Obesity [E66.9] INVALID FOR*08/13/2017 More... Hemangioma of intra-abdominal structures [D18.0*INVALID FOR*04/25/2014 Essential hypertension [I10] INVALID FOR* Priority: K More... IRRITABLE COLON [K58.9] INVALID FOR* Constipation [K59.00] INVALID FOR* DERMATOPHYTOSIS OF NAIL [B35.1] INVALID FOR*04/24/2008 ABDOMINAL PAIN LLQ [R10.32] 04/24/2008 ABDOMINAL PAIN LUQ [R10.12] 04/24/2008 FLATUL/ERUCTAT/GAS PAIN [R14.3, R14.1, R14.2] 04/24/2008 Impaired fasting glucose [R73.01] INVALID FOR*04/25/2014 COPD (chronic obstructive pulmonary disease) [J*INVALID FOR* Type II or unspecified type diabetes mellitus w*INVALID FOR*05/16/2015 ASCVD (arteriosclerotic cardiovascular disease)*INVALID FOR* BPH (benign prostatic hyperplasia) [N40.0] INVALID FOR* Family history of colon cancer [Z80.0] INVALID FOR*08/13/2017 NSTEMI (non-ST elevated myocardial infarction) *INVALID FOR*01/15/2016 More... DM2 (diabetes mellitus, type 2) (HCC) [E11.9] INVALID FOR* Priority: D More... S/P right coronary artery (RCA) stent placement*INVALID FOR* LV dysfunction [I51.9] INVALID FOR*01/15/2016 Cardiomyopathy, ischemic [I25.5] INVALID FOR* Priority: F More... Chronic anticoagulation [Z79.01] INVALID FOR* Priority: H More... Paroxysmal atrial fibrillation (HCC) [I48.0] INVALID FOR* Priority: C More... Sleep apnea [G47.30] INVALID FOR* Priority: G More... Astigmatism, regular [H52.229] INVALID FOR*08/13/2017 Presbyopia [H52.4] INVALID FOR*01/15/2016 Benign neoplasm of skin of eyelid including can*INVALID FOR*04/07/2017 Polyneuropathy (HCC) [G62.9] INVALID FOR* More... Spinal stenosis, lumbar region, with neurogenic*INVALID FOR*12/16/2017 Displacement of lumbar intervertebral disc with*INVALID FOR*04/07/2017 Spondylosis of lumbar region without myelopathy*INVALID FOR* Lesion of liver [K76.9] INVALID FOR*08/13/2017 Priority: B More... Ascites [R18.8] INVALID FOR*05/30/2017 Priority: B More... ADEBAYO (acute kidney injury) (HCC) [N17.9] INVALID FOR*12/16/2017 Priority: E More... Nicotine use disorder, F17.2 [F17.200] INVALID FOR*08/13/2017 Priority: L More... Obesity, Class III, BMI >= 40 (morbid obesity) *INVALID FOR* Priority: M Lethargy [R53.83] INVALID FOR*08/13/2017 Priority: Severe Acute on chronic respiratory failure with hypox*INVALID FOR* Priority: Moderate More... Morbid obesity with body mass index (BMI) of 45*INVALID FOR* Priority: M More... Acute liver failure with hepatic coma (HCC) [K7*INVALID FOR*08/13/2017 Priority: Mild More... Respiratory failure with hypercapnia (HCC) [J96*INVALID FOR*08/13/2017 Priority: A More... Shock circulatory (HCC) [R57.9] INVALID FOR*05/29/2017 Priority: A More... Kidney insufficiency [N28.9] INVALID FOR* Combined forms of age-related cataract of both *INVALID FOR* Hyperopia, bilateral [H52.03] INVALID FOR* Dry eye syndrome, bilateral [H04.123] INVALID FOR* Bacterial conjunctivitis of both eyes [H10.9] INVALID FOR* Other instructions from your clinician: Follow-up in two weeks if no improvement in wound or sooner if worsening Encounter Status:Closed by BEV SMART CNP on 01/18/18 PROGRESS Observed: 01/10/2018 Status: COMPLETED Source: [place] 2:53 PM [facility] REPOSITORY HNO ID: [id number] Author: Bev (Sweta) Berry Service: (none) Author Type: Nurse Practitioner Type: Progress Notes Filed: 01/10/2018 3:01 PM Note Text: CC: Patient presents with: Left lower [id number] redness -possibly infected: x 1 week HPI Catalina Evans is a 62 year old male who presents today for possible skin infection. Patient states he scraped the left side of his lower less than a week ago resulting in skin tear. Was treating with antibiotic ointment. A few days ago he developed increased warmth and redness along with burning pain around the wound. Typically has swelling in both legs due to PVD, left greater than right. Feels that left is a little more swollen than usual though. Patient has a history diabetes. Denies fever, chills, nausea, body aches, fatigue. REVIEW OF SYSTEMS See HPI PAST MEDICAL HISTORY Diagnosis Date - Acute liver failure with hepatic coma (HCC) 05/27/2017 ELEVATED AMMONIA - Babinski up on right - pin point pupils - lethgary without focal findings - ADEBAYO (acute kidney injury) (HCC) 05/26/2017 likely due to prerenal/ATN 2/2 shock. Good urine output noted. Renal ultrasound neg for hydronephrosis - ASCVD (arteriosclerotic cardiovascular disease) 09/18/2014 - Atrial fibrillation (HCC) 07/01/2006 - Benign neoplasm of colon 2005 Hyperplastic - BPH (benign prostatic hyperplasia) 01/30/2015 - Cardiomyopathy, ischemic 05/30/2015 - Coronary artery disease 05/16/2015 - DM2 (diabetes mellitus, type 2) (HCC) 05/16/2015 - Edema 07/01/2006 - Family history of malignant neoplasm of gastrointestinal tract 11/03/2006 - Flatulence, eructation, and gas pain - Heart attack (HCC) - HEMANGIOMA INTRA-ABDOM 07/29/2006 - HYPERTENSION NOS 08/27/2006 - Impaired fasting glucose 05/30/2010 - Irritable bowel syndrome 08/27/2006 - AL (myocardial infarction) ([facility]) 05/16/2015 - NSTEMI (non-ST elevated myocardial infarction) ([facility]) 05/16/2015 Pt now chest pain free with nitrate - recheck enzymes -1 set troponin0.719, CK 507, MB 39.9, CKMB 7.9 - check echo - continue heparin, aspirin, ARB, statin, beta linda - continue clopidogrel - called in/consented for [facility] today +/- PCI -05-17-15: PCI to the mid RCA with a 3.5 x 16 mm Synergy EES - Obesity, unspecified 07/01/2006 - Other and unspecified hyperlipidemia 07/01/2006 - Polyneuropathy ([facility]) 05/01/2016 Nerve study 2015. - SLEEP APNEA NOS (cpap intolerant) 07/01/2006 - Type II or unspecified type diabetes mellitus without mention of complication, not stated as uncontrolled 01/25/2014 - Unspecified constipation PAST SURGICAL HISTORY Procedure Laterality Date - [facility] Colon[facility] 2004, 2000 - [facility] 08/28/08 Colonoscopy - [facility] 05/02/2015 Colonoscopy - KNEE SCOPE,DIAGNOSTIC Right 10/06/2007 Arthroscopy, knee - LEFT HEART CATH,PERCUTANEOUS 08/22/2014 Cardiac cath, L heart - PALATE/UVULA SURGERY UNLISTED 1999 Somnoplasty, tracheostomy - PAST SURGICAL HISTORY OF 05/16/2015 Had heart stent - REPAIR BICEPS LONG TENDON Right 05/12/2017 [facility] - REPAIR ING HERNIA,5+Y/O,REDUCIBL Left 1990 Hernia repair, inguinal - TRACHEOSTOMY HX 1999 w/ UVPP ALLERGIES Patient has no known allergies. MEDICATIONS trimethoprim-polymyxin eye drops (POLYTRIM) ophthalmic solution Use 1 Drop in both eyes four times daily. spironolactone (ALDACTONE) 25 mg tablet Take 1 tablet by mouth twice daily. pantoprazole DR (PROTONIX) 40 mg tablet Take 1 tablet by mouth every morning. atorvastatin (LIPITOR) 80 mg tablet Take 1 tablet by mouth once daily. furosemide (LASIX) 40 mg tablet Take 1 tablet by mouth twice daily. With 20 mg tablet for total of 60 mg twice daily. furosemide (LASIX) 20 mg tablet Take 1 tablet by mouth twice daily. COMPOUNDED PRESCRIPTION INOGEN PORTABLE OXYGEN CONCENTRATOR. 3 LPM VIA NASAL CANNULA WITH ACTIVITY. DX: J96.21; J96.22. J44.9. I25.5 COMPOUNDED PRESCRIPTION Oxygen conserving unit Dx:J44.9 metoprolol succinate ER (TOPROL XL) 100 mg Tb24 Take 1 tablet by mouth once daily. warfarin (COUMADIN) 5 mg tablet Take 12.5mg daily or as directed. metFORMIN (GLUCOPHAGE) 500 mg tablet Take 1 tablet by mouth daily with breakfast. . nitroglycerin sublingual (NITROQUICK) 0.4 mg SL tablet Dissolve 1 tablet under the tongue as needed. FOR CHEST PAIN. IF NO RELIEF CALL 911 clopidogrel (PLAVIX) 75 mg tablet Take 1 tablet by mouth once daily. albuterol HFA (PROVENTIL HFA, VENTOLIN HFA) 90 mcg/actuation inhaler Inhale 2 Puffs as instructed every 6 hours as needed for Wheezing/Shortness of Breath. ezetimibe (ZETIA) 10 mg tablet Take 1 tablet by mouth once daily. Compression Knee Highs KNEE HIGH COMPRESSION STOCKINGS 20- 30 MM HG. DX: EDEMA. VENOUS INSUFFICIENCY, BOTH LOWER EXTREMITIES. fluticasone (FLONASE) 50 mcg/actuation nasal spray 1 or 2 sprays in each nostril at bedtime. polyethylene glycol 3350 (MIRALAX) 17 gram/dose powder Take 17 g by mouth once daily. magnesium hydroxide (MILK OF MAGNESIA) 400 mg/5 mL suspension Take 15 mL by mouth once daily as needed for Constipation. senna-docusate 8.6-50 mg per tablet Take 1 tablet by mouth once daily. For constipation. Lancets (FREESTYLE LANCETS) [facility] lancets Test Blood sugar daily. Hyperglycemia, no insulin doxycycline monohydrate (MONODOX) 100 mg capsule Take 1 capsule by mouth twice daily for 7 days. FAMILY HISTORY Problem Relation Age of Onset - Diabetes Father - Heart Father Pacemaker - Alzheimer's Disease Father - Coronary Artery Disease Father - other (parkinsons) Father - Diabetes Mother - Cancer Mother Colon - Hypertension Brother - Heart Brother CABG - Diabetes Brother - Peripheral Artery Disease Brother - Hypertension Brother Social History Substance Use Topics - Smoking status: Former Smoker Packs/day: 0.25 Years: 20.00 Types: Cigarettes Quit date: 07/01/2006 - Smokeless tobacco: Former User - Alcohol use No PHYSICAL EXAM BP 110/83 Pulse 81 Temp 36.2 ?C (97.2 ?F) (Temporal Artery) Resp 18 Wt (!) 149.7 kg (330 lb) SpO2 93% BMI 47.35 kg/m? General Appearance: well appearing, in no acute distress, alert, obese Lungs: Lungs clear to auscultation. No wheezing, rhonchi, rales Heart: RRR without murmur, gallop, or rubs. No ectopy Lower Extremities: Skin tears to left lateral calf . Lower extremities have severe purplish red vascular changes so unable to distinguish between baseline and new erythema. Increased warmth around skin tears and very tender. No induration or fluctuance, no obvious lymphangitis. Capillary refill < 3 seconds. Pulses: 1+, Edema: 1-2+ edema bilateral lower legs, left > right. No cords. No calf tenderness. ASSESSMENT/PLAN: 1. Cellulitis of left lower extremity - ICD9: 682.6, ICD10: L03.116 No alarm symptoms or exam findings. Due to history of PVD and diabetes will treat presumptively as cellulitis - Begin treatment with Doxycycline due to treatment with Keflex less than one month ago - No lymphangetic streaking, this was defined for patient to watch for and to seek medical care immediately if appears - Follow up for recheck in one week or sooner if no improvement after 3 days or any worsening Prescription instructions reviewed with patient as applicable. Potential red flag symptoms discussed with the patient. Reviewed appropriate action plan to take if red flag symptoms occur. Patient agreeable to treatment plan. Bev Smart APRN.SWETA CNOV Observed: 01/10/2018 Status: COMPLETED Source: [place] 2:20 PM [facility] REPOSITORY Office Visit (INTMWS) CATALINA EVANS ([id number]) 1955 M Date Time Provider Department 01/10/18 2:20 PM BEV SMART (SWETA) INTMWS During your visit today, we recorded the following information about you: Temperature Pulse Respiration Blood pressure 97.2 degrees 81/minute 18/minute 110/83 Weight 149.7 kg Bev Smart APRN.CNP 01/10/2018 2:43 PM Signed Call office if no improvement after 3 days or sooner if worsening symptoms or develop fever Bev Smart APRN.CNP 01/10/2018 3:01 PM Signed CC: Patient presents with: Left lower lvz-wkuola-kocauy redness -possibly infected: x 1 week HPI Catalina Evans is a 62 year old male who presents today for possible skin infection. Patient states he scraped the left side of his lower less than a week ago resulting in skin tear. Was treating with antibiotic ointment. A few days ago he developed increased warmth and redness along with burning pain around the wound. Typically has swelling in both legs due to PVD, left greater than right. Feels that left is a little more swollen than usual though. Patient has a history diabetes. Denies fever, chills, nausea, body aches, fatigue. REVIEW OF SYSTEMS See HPI PAST MEDICAL HISTORY Diagnosis Date - Acute liver failure with hepatic coma ([facility]) 05/27/2017 ELEVATED AMMONIA - Babinski up on right - pin point pupils - lethgary without focal findings - ADEBAYO (acute kidney injury) ([facility]) 05/26/2017 likely due to prerenal/ATN 2/2 shock. Good urine output noted. Renal ultrasound neg for hydronephrosis - ASCVD (arteriosclerotic cardiovascular disease) 09/18/2014 - Atrial fibrillation (HCC) 07/01/2006 - Benign neoplasm of colon 2005 Hyperplastic - BPH (benign prostatic hyperplasia) 01/30/2015 - Cardiomyopathy, ischemic 05/30/2015 - Coronary artery disease 05/16/2015 - DM2 (diabetes mellitus, type 2) ([facility]) 05/16/2015 - Edema 07/01/2006 - Family history of malignant neoplasm of gastrointestinal tract 11/03/2006 - Flatulence, eructation, and gas pain - Heart attack (HCC) - HEMANGIOMA INTRA-ABDOM 07/29/2006 - HYPERTENSION NOS 08/27/2006 - Impaired fasting glucose 05/30/2010 - Irritable bowel syndrome 08/27/2006 - AL (myocardial infarction) ([facility]) 05/16/2015 - NSTEMI (non-ST elevated myocardial infarction) ([facility]) 05/16/2015 Pt now chest pain free with nitrate - recheck enzymes -1 set troponin0.719, CK 507, MB 39.9, CKMB 7.9 - check echo - continue heparin, aspirin, ARB, statin, beta linda - continue clopidogrel - called in/consented for [facility] today +/- PCI -05-17-15: PCI to the mid RCA with a 3.5 x 16 mm Synergy EES - Obesity, unspecified 07/01/2006 - Other and unspecified hyperlipidemia 07/01/2006 - Polyneuropathy ([facility]) 05/01/2016 Nerve study 2015. - SLEEP APNEA NOS (cpap intolerant) 07/01/2006 - Type II or unspecified type diabetes mellitus without mention of complication, not stated as uncontrolled 01/25/2014 - Unspecified constipation PAST SURGICAL HISTORY Procedure Laterality Date - [facility] Colon[facility] 2004, 2000 - [facility] 08/28/08 Colonoscopy - COL[facility]COP [facility]/ [facility] 05/02/2015 Colonoscopy - KNEE SCOPE,DIAGNOSTIC Right 10/06/2007 Arthroscopy, knee - LEFT HEART CATH,PERCUTANEOUS 08/22/2014 Cardiac cath, L heart - PALATE/UVULA SURGERY UNLISTED 1999 Somnoplasty, tracheostomy - PAST SURGICAL HISTORY OF 05/16/2015 Had heart stent - REPAIR BICEPS LONG TENDON Right 05/12/2017 [facility] - REPAIR ING HERNIA,5+Y/O,REDUCIBL Left 1990 Hernia repair, inguinal - TRACHEOSTOMY HX 1999 w/ UVPP ALLERGIES Patient has no known allergies. MEDICATIONS trimethoprim-polymyxin eye drops (POLYTRIM) ophthalmic solution Use 1 Drop in both eyes four times daily. spironolactone (ALDACTONE) 25 mg tablet Take 1 tablet by mouth twice daily. pantoprazole DR (PROTONIX) 40 mg tablet Take 1 tablet by mouth every morning. atorvastatin (LIPITOR) 80 mg tablet Take 1 tablet by mouth once daily. furosemide (LASIX) 40 mg tablet Take 1 tablet by mouth twice daily. With 20 mg tablet for total of 60 mg twice daily. furosemide (LASIX) 20 mg tablet Take 1 tablet by mouth twice daily. COMPOUNDED PRESCRIPTION Xuanyixia PORTABLE OXYGEN CONCENTRATOR. 3 LPM VIA NASAL CANNULA WITH ACTIVITY. DX: J96.21; J96.22. J44.9. I25.5 COMPOUNDED PRESCRIPTION Oxygen conserving unit Dx:J44.9 metoprolol succinate ER (TOPROL XL) 100 mg Tb24 Take 1 tablet by mouth once daily. warfarin (COUMADIN) 5 mg tablet Take 12.5mg daily or as directed. metFORMIN (GLUCOPHAGE) 500 mg tablet Take 1 tablet by mouth daily with breakfast. . nitroglycerin sublingual (NITROQUICK) 0.4 mg SL tablet Dissolve 1 tablet under the tongue as needed. FOR CHEST PAIN. IF NO RELIEF CALL 911 clopidogrel (PLAVIX) 75 mg tablet Take 1 tablet by mouth once daily. albuterol HFA (PROVENTIL HFA, VENTOLIN HFA) 90 mcg/actuation inhaler Inhale 2 Puffs as instructed every 6 hours as needed for Wheezing/Shortness of Breath. ezetimibe (ZETIA) 10 mg tablet Take 1 tablet by mouth once daily. Compression Knee Highs KNEE HIGH COMPRESSION STOCKINGS 20- 30 MM HG. DX: EDEMA. VENOUS INSUFFICIENCY, BOTH LOWER EXTREMITIES. fluticasone (FLONASE) 50 mcg/actuation nasal spray 1 or 2 sprays in each nostril at bedtime. polyethylene glycol 3350 (MIRALAX) 17 gram/dose powder Take 17 g by mouth once daily. magnesium hydroxide (MILK OF MAGNESIA) 400 mg/5 mL suspension Take 15 mL by mouth once daily as needed for Constipation. senna-docusate 8.6-50 mg per tablet Take 1 tablet by mouth once daily. For constipation. Lancets (FREESTYLE LANCETS) [facility] lancets Test Blood sugar daily. Hyperglycemia, no insulin doxycycline monohydrate (MONODOX) 100 mg capsule Take 1 capsule by mouth twice daily for 7 days. FAMILY HISTORY Problem Relation Age of Onset - Diabetes Father - Heart Father Pacemaker - Alzheimer's Disease Father - Coronary Artery Disease Father - other (parkinsons) Father - Diabetes Mother - Cancer Mother Colon - Hypertension Brother - Heart Brother CABG - Diabetes Brother - Peripheral Artery Disease Brother - Hypertension Brother Social History Substance Use Topics - Smoking status: Former Smoker Packs/day: 0.25 Years: 20.00 Types: Cigarettes Quit date: 07/01/2006 - Smokeless tobacco: Former User - Alcohol use No PHYSICAL EXAM BP 110/83 Pulse 81 Temp 36.2 ?C (97.2 ?F) (Temporal Artery) Resp 18 Wt (!) 149.7 kg (330 lb) SpO2 93% BMI 47.35 kg/m? General Appearance: well appearing, in no acute distress, alert, obese Lungs: Lungs clear to auscultation. No wheezing, rhonchi, rales Heart: RRR without murmur, gallop, or rubs. No ectopy Lower Extremities: Skin tears to left lateral calf . Lower extremities have severe purplish red vascular changes so unable to distinguish between baseline and new erythema. Increased warmth around skin tears and very tender. No induration or fluctuance, no obvious lymphangitis. Capillary refill < 3 seconds. Pulses: 1+, Edema: 1-2+ edema bilateral lower legs, left > right. No cords. No calf tenderness. ASSESSMENT/PLAN: 1. Cellulitis of left lower extremity - ICD9: 682.6, ICD10: L03.116 No alarm symptoms or exam findings. Due to history of PVD and diabetes will treat presumptively as cellulitis - Begin treatment with Doxycycline due to treatment with Keflex less than one month ago - No lymphangetic streaking, this was defined for patient to watch for and to seek medical care immediately if appears - Follow up for recheck in one week or sooner if no improvement after 3 days or any worsening Prescription instructions reviewed with patient as applicable. Potential red flag symptoms discussed with the patient. Reviewed appropriate action plan to take if red flag symptoms occur. Patient agreeable to treatment plan. Bev Smart APRN.MOTORCYLES FINAL INSPECTOR Referring Provider: SELF [[id number]] Allergies As of Date: 01/10/2018 (No Known Allergies) Date Reviewed: 01/10/2018 Reviewed by: Michelle Elizondo Appeals Coordinator - Fully Assessed Reason for Visit: Left lower jch-ylebnt-uxzrmw redness -possibly infected [Other] Cmt: x 1 week Primary Visit Diagnosis:Cellulitis of left lower extremity [L03.116] Order(s):doxycycline monohydrate (MONODOX) 100 mg capsuleTake 1 capsule by mouth twice daily for 7 days.Disp: 14 capsuleRfl: 0 Prescriptions as of 01/10/2018 Sig: POLYMYXIN B SULFATE 10,000 UN* Use 1 Drop in both eyes four * SPIRONOLACTONE 25 MG TABLET Take 1 tablet by mouth twice * PANTOPRAZOLE 40 MG TABLET,DEL* Take 1 tablet by mouth every * ATORVASTATIN 80 MG TABLET Take 1 tablet by mouth once d* FUROSEMIDE 40 MG TABLET Take 1 tablet by mouth twice * FUROSEMIDE 20 MG TABLET Take 1 tablet by mouth twice * COMPOUNDED PRESCRIPTION INOGEN PORTABLE OXYGEN CONCEN* COMPOUNDED PRESCRIPTION Oxygen conserving unit Dx:J4* METOPROLOL SUCCINATE ER 100 M* Take 1 tablet by mouth once d* WARFARIN 5 MG TABLET Take 12.5mg daily or as direc* METFORMIN 500 MG TABLET Take 1 tablet by mouth daily * NITROGLYCERIN 0.4 MG SUBLINGU* Dissolve 1 tablet under the t* CLOPIDOGREL 75 MG TABLET Take 1 tablet by mouth once d* ALBUTEROL SULFATE HFA 90 MCG/* Inhale 2 Puffs as instructed * EZETIMIBE 10 MG TABLET Take 1 tablet by mouth once d* COMPOUNDED PRESCRIPTION KNEE HIGH COMPRESSION STOCKIN* FLUTICASONE 50 MCG/ACTUATION * 1 or 2 sprays in each nostril* POLYETHYLENE GLYCOL 3350 17 G* Take 17 g by mouth once daily. MAGNESIUM HYDROXIDE 400 MG/5 * Take 15 mL by mouth once andrey* SENNOSIDES 8.6 MG-DOCUSATE SO* Take 1 tablet by mouth once d* * LANCETS Test Blood sugar daily. Hype* DOXYCYCLINE MONOHYDRATE 100 M* Take 1 capsule by mouth twice* Problem List As Of Date 01/10/2018 Noted Resolved ATRIAL FIBRILLATION [I48.91] INVALID FOR*07/23/2015 More... Edema [R60.9] INVALID FOR* Hypercholesterolemia [E78.00] INVALID FOR* Priority: J More... SLEEP APNEA NOS (cpap intolerant) [G47.30] INVALID FOR*01/30/2015 Obesity [E66.9] INVALID FOR*08/13/2017 More... Hemangioma of intra-abdominal structures [D18.0*INVALID FOR*04/25/2014 Essential hypertension [I10] INVALID FOR* Priority: K More... IRRITABLE COLON [K58.9] INVALID FOR* Constipation [K59.00] INVALID FOR* DERMATOPHYTOSIS OF NAIL [B35.1] INVALID FOR*04/24/2008 ABDOMINAL PAIN LLQ [R10.32] 04/24/2008 ABDOMINAL PAIN LUQ [R10.12] 04/24/2008 FLATUL/ERUCTAT/GAS PAIN [R14.3, R14.1, R14.2] 04/24/2008 Impaired fasting glucose [R73.01] INVALID FOR*04/25/2014 COPD (chronic obstructive pulmonary disease) [J*INVALID FOR* Type II or unspecified type diabetes mellitus w*INVALID FOR*05/16/2015 ASCVD (arteriosclerotic cardiovascular disease)*INVALID FOR* BPH (benign prostatic hyperplasia) [N40.0] INVALID FOR* Family history of colon cancer [Z80.0] INVALID FOR*08/13/2017 NSTEMI (non-ST elevated myocardial infarction) *INVALID FOR*01/15/2016 More... DM2 (diabetes mellitus, type 2) (HCC) [E11.9] INVALID FOR* Priority: D More... S/P right coronary artery (RCA) stent placement*INVALID FOR* LV dysfunction [I51.9] INVALID FOR*01/15/2016 Cardiomyopathy, ischemic [I25.5] INVALID FOR* Priority: F More... Chronic anticoagulation [Z79.01] INVALID FOR* Priority: H More... Paroxysmal atrial fibrillation (HCC) [I48.0] INVALID FOR* Priority: C More... Sleep apnea [G47.30] INVALID FOR* Priority: G More... Astigmatism, regular [H52.229] INVALID FOR*08/13/2017 Presbyopia [H52.4] INVALID FOR*01/15/2016 Benign neoplasm of skin of eyelid including can*INVALID FOR*04/07/2017 Polyneuropathy (HCC) [G62.9] INVALID FOR* More... Spinal stenosis, lumbar region, with neurogenic*INVALID FOR*12/16/2017 Displacement of lumbar intervertebral disc with*INVALID FOR*04/07/2017 Spondylosis of lumbar region without myelopathy*INVALID FOR* Lesion of liver [K76.9] INVALID FOR*08/13/2017 Priority: B More... Ascites [R18.8] INVALID FOR*05/30/2017 Priority: B More... ADEBAYO (acute kidney injury) (HCC) [N17.9] INVALID FOR*12/16/2017 Priority: E More... Nicotine use disorder, F17.2 [F17.200] INVALID FOR*08/13/2017 Priority: L More... Obesity, Class III, BMI >= 40 (morbid obesity) *INVALID FOR* Priority: M Lethargy [R53.83] INVALID FOR*08/13/2017 Priority: Severe Acute on chronic respiratory failure with hypox*INVALID FOR* Priority: Moderate More... Morbid obesity with body mass index (BMI) of 45*INVALID FOR* Priority: M More... Acute liver failure with hepatic coma (HCC) [K7*INVALID FOR*08/13/2017 Priority: Mild More... Respiratory failure with hypercapnia (HCC) [J96*INVALID FOR*08/13/2017 Priority: A More... Shock circulatory (HCC) [R57.9] INVALID FOR*05/29/2017 Priority: A More... Kidney insufficiency [N28.9] INVALID FOR* Combined forms of age-related cataract of both *INVALID FOR* Hyperopia, bilateral [H52.03] INVALID FOR* Dry eye syndrome, bilateral [H04.123] INVALID FOR* Bacterial conjunctivitis of both eyes [H10.9] INVALID FOR* Other instructions from your clinician: Call office if no improvement after 3 days or sooner if worsening symptoms or develop fever Prescriptions ordered this encounter Disp Refills Start End DOXYCYCLINE MONOHYDRATE 100 MG CAPSU* 14 c* 0 01/10/2018 01/17/2018 Route: ORAL Sig: Take 1 capsule by mouth twice daily for 7 days. Encounter Status:Closed by BEV SMART CNP on 01/10/18 BASIC METABOLIC PANL Collected: 01/03/2018 Status: F Source: [place] 11:52 AM [facility] [place] REPOSITORY TYPE CODE TESTS RESULT OUT OF REFERENCE UNITS RANGE LAB GLU 74-99 mg/dL High Glucose 139 Result Comment: The [place] [employer] (ADA) provides guidance for cutoff values for fasting glucose and random glucose. The ADA defines fasting as no caloric intake for at least 8 hours. Fas ting plasma glucose results between 100 to 125 mg/dL indicate increased risk for diabetes (prediabetes). Fasting plasma glucose results greater than or equal to 126 mg/dL meet the criteria for diagnosis of diabetes. In the absence of unequivocal hyperglycemia, results should be confirmed by repeat testing. In a patient with classic symptoms of hyperglycemia or hyperglycemic crisis, random plasma glucose results greater than or equal to 200 mg/dL meet the criteria for diagnosis of diabetes. Reference: Standards of Medical Care in Diabetes 2016, [place] [employer]. Diabetes Care. 2016.39(Suppl 1). LAB BUN 9-24 mg/dL BUN 18 LAB CRET 0.73-1.22 mg/dL Creatinine 1.22 LAB NA 136-144 mmol/L Sodium High 145 LAB K 3.7-5.1 mmol/L Potassium 3.7 LAB CL 97-105 mmol/L Chloride 98 LAB CO2 22-30 mmol/L CO2 High 32 LAB AGAP 9-18 mmol/L Anion Gap 15 LAB CA 8.5-10.2 mg/dL Calcium, Total 8.9 LAB GFRAA eGFR- Amer. >60 LAB GFRNAA . eGFR-All Other Races >60 Result Comment: eGFR (Estimated GFR) Units of measure: mL/min/1.73 meters squared eGFR is derived from the reexpressed MDRD Study equation using the following parameters: serum creatinine, age, gender and race. The creatinine assay has been calibrated to be traceable to IDMS. An eGFR <60 mL/min/1.73m2 for >3 months is consistent with chronic kidney disease. Refer to KDOQI guidelines for clinical interpretation. In patients with unstable renal function, e.g. those with acute kidney injury, the eGFR may not accurately reflect actual GFR. Performed By: #### BMP, CBC #### [facility] [address] [id number] CBC Collected: 01/03/2018 Status: F Source: [place] 11:52 AM [facility] REPOSITORY TYPE CODE TESTS RESULT OUT OF REFERENCE UNITS RANGE LAB WBC 3.70-11.00 k/uL WBC 5.71 LAB RBC 4.20-6.00 m/uL RBC 4.33 LAB HGB 13.0-17.0 g/dL Low Hemoglobin 12.5 LAB HCT 39.0-51.0 % Hematocrit 40.5 LAB MCV 80.0-100.0 fL MCV 93.5 LAB MCH 26.0-34.0 pG MCH 28.9 LAB MCHC 30.5-36.0 g/dL MCHC 30.9 LAB RDWCV 11.5-15.0 % RDW-CV High 15.4 LAB PLTCT 150-400 k/uL Platelet Count 199 LAB MPV 9.0-12.7 fL MPV 10.4 LAB ABSNUC <0.01 k/uL Absolute nRBC <0.01 Performed By: #### BMP, CBC #### [facility] [address] [place], [place] [address] PROGRESS Observed: 01/03/2018 Status: COMPLETED Source: [place] 11:48 AM [facility] REPOSITORY HNO ID: [id number] Author: Coy Mercado Service: (none) Author Type: Physician Type: Progress Notes Filed: 01/03/2018 11:56 AM Note Text: This note was created using Lookoutriter. Subjective Patient presents with: Blood Pressure HPI: Catalina Evans is a 62 year old male here for follow up. His blood pressure was low at his November visit. He monitored this at home his home BP readings were okay. He decided to come in for a BP recheck last week, and this was still low. He denied stopping any medication. He was instructed to stop valsartan hydrochlorothiazide and aldactone. He only stopped valsartan hydrochlorothiazide. He was still taking aldactone. He had no symptoms of low blood pressure. ACTIVE PROBLEM LIST Edema Hypercholesterolemia Essential Hypertension Irritable Bowel Syndrome Constipation Copd (Chronic Obstructive Pulmonary Disease) ([facility]) Ascvd (Arteriosclerotic Cardiovascular Disease) Bph (Benign Prostatic Hyperplasia) Dm2 (Diabetes Mellitus, Type 2) ([facility]) S/P Right Coronary Artery (Rca) Stent Placement Cardiomyopathy, Ischemic Chronic Anticoagulation Paroxysmal Atrial Fibrillation ([facility]) Sleep Apnea Polyneuropathy ([facility]) Spondylosis of Lumbar Region Without Myelopathy Or Radiculopathy Obesity, Class III, BMI >= 40 (morbid obesity) E66.01 Acute On Chronic Respiratory Failure With Hypoxia and Hypercapnia ([facility]) Morbid Obesity With Body Mass Index (Bmi) of 45.0 to 49.9 in Adult ([facility]) Kidney Insufficiency Combined Forms of Age-Related Cataract of Both Eyes Hyperopia, Bilateral Dry Eye Syndrome, Bilateral Bacterial Conjunctivitis of Both Eyes Current Outpatient Prescriptions: trimethoprim-polymyxin eye drops (POLYTRIM) ophthalmic solution Use 1 Drop in both eyes four times daily. spironolactone (ALDACTONE) 25 mg tablet Take 1 tablet by mouth twice daily. pantoprazole DR (PROTONIX) 40 mg tablet Take 1 tablet by mouth every morning. atorvastatin (LIPITOR) 80 mg tablet Take 1 tablet by mouth once daily. furosemide (LASIX) 40 mg tablet Take 1 tablet by mouth twice daily. With 20 mg tablet for total of 60 mg twice daily. furosemide (LASIX) 20 mg tablet Take 1 tablet by mouth twice daily. COMPOUNDED PRESCRIPTION INOGEN PORTABLE OXYGEN CONCENTRATOR. 3 LPM VIA NASAL CANNULA WITH ACTIVITY. DX: J96.21; J96.22. J44.9. I25.5 COMPOUNDED PRESCRIPTION Oxygen conserving unit Dx:J44.9 metoprolol succinate ER (TOPROL XL) 100 mg Tb24 Take 1 tablet by mouth once daily. warfarin (COUMADIN) 5 mg tablet Take 12.5mg daily or as directed. metFORMIN (GLUCOPHAGE) 500 mg tablet Take 1 tablet by mouth daily with breakfast. . nitroglycerin sublingual (NITROQUICK) 0.4 mg SL tablet Dissolve 1 tablet under the tongue as needed. FOR CHEST PAIN. IF NO RELIEF CALL 911 clopidogrel (PLAVIX) 75 mg tablet Take 1 tablet by mouth once daily. albuterol HFA (PROVENTIL HFA, VENTOLIN HFA) 90 mcg/actuation inhaler Inhale 2 Puffs as instructed every 6 hours as needed for Wheezing/Shortness of Breath. ezetimibe (ZETIA) 10 mg tablet Take 1 tablet by mouth once daily. Compression Knee Highs KNEE HIGH COMPRESSION STOCKINGS 20- 30 MM HG. DX: EDEMA. VENOUS INSUFFICIENCY, BOTH LOWER EXTREMITIES. fluticasone (FLONASE) 50 mcg/actuation nasal spray 1 or 2 sprays in each nostril at bedtime. polyethylene glycol 3350 (MIRALAX) 17 gram/dose powder Take 17 g by mouth once daily. magnesium hydroxide (MILK OF MAGNESIA) 400 mg/5 mL suspension Take 15 mL by mouth once daily as needed for Constipation. senna-docusate 8.6-50 mg per tablet Take 1 tablet by mouth once daily. For constipation. Lancets (FREESTYLE LANCETS) [facility] lancets Test Blood sugar daily. Hyperglycemia, no insulin No current facility-administered medications for this visit. Review of Systems Constitutional: Negative. Respiratory: Negative. Cardiovascular: Positive for leg swelling. Negative for chest pain and palpitations. Gastrointestinal: Negative for abdominal pain, blood in stool, diarrhea, nausea and vomiting. Neurological: Negative for dizziness and light-headedness. Objective BP 116/80 (BP Site: Left Arm, BP Position: Sitting, BP Cuff Size: Regular Adult) Pulse 72 Temp 36.1 ?C (96.9 ?F) (Left Tympanic) Resp 20 Wt (!) 150.6 kg (332 lb) BMI 47.64 kg/m? Physical Exam Constitutional: No distress. On Oxygen. Eyes: Conjunctivae are normal. Neck: No JVD present. Cardiovascular: Normal rate, regular rhythm, S1 normal and S2 normal. Exam reveals no gallop. No murmur heard. Pulmonary/Chest: He has no wheezes. He has no rales. Abdominal: Soft. Musculoskeletal: He exhibits edema. Neurological: He is alert. Ambulatory with cane. Assessment and Plan 1. Hypotension, unspecified hypotension type - ICD9: 458.9, ICD10: I95.9 (primary diagnosis) Improved. Continue staying off VALSARTAN HCTZ. He was using up supply from 2016. I informed patient and his spouse present that this medication made by certain pharmaceutical companies were recalled due to contamination with carcinogens. - BASIC METABOLIC PNL - CBC 2. Kidney insufficiency - ICD9: 593.9, ICD10: N28.9 Recheck. - BASIC METABOLIC PNL 3. Chronic anticoagulation - ICD9: V58.61, ICD10: Z79.01 Check CBC. Coy Mercado MD CNOV Observed: 01/03/2018 Status: COMPLETED Source: [place] 11:00 AM [facility] REPOSITORY Office Visit (INTMWS) CATALINA EVANS ([id number]) 1955 M Date Time Provider Department 01/03/18 11:00 AM COY MERCADO INTMWS During your visit today, we recorded the following information about you: Temperature Pulse Respiration Blood pressure 96.9 degrees 72/minute 20/minute 116/80 Weight 150.6 kg Coy Mercado MD 01/03/2018 11:42 AM Signed SEE MEDICATION LIST FOR UPDATE. CONTINUE NOT TAKING VALSARTAN/HCTZ. Coy Mercado MD 01/03/2018 11:56 AM Signed This note was created using Lookoutriter. Subjective Patient presents with: Blood Pressure HPI: Catalina Evans is a 62 year old male here for follow up. His blood pressure was low at his November visit. He monitored this at home his home BP readings were okay. He decided to come in for a BP recheck last week, and this was still low. He denied stopping any medication. He was instructed to stop valsartan hydrochlorothiazide and aldactone. He only stopped valsartan hydrochlorothiazide. He was still taking aldactone. He had no symptoms of low blood pressure. ACTIVE PROBLEM LIST Edema Hypercholesterolemia Essential Hypertension Irritable Bowel Syndrome Constipation Copd (Chronic Obstructive Pulmonary Disease) ([facility]) Ascvd (Arteriosclerotic Cardiovascular Disease) Bph (Benign Prostatic Hyperplasia) Dm2 (Diabetes Mellitus, Type 2) ([facility]) S/P Right Coronary Artery (Rca) Stent Placement Cardiomyopathy, Ischemic Chronic Anticoagulation Paroxysmal Atrial Fibrillation ([facility]) Sleep Apnea Polyneuropathy ([facility]) Spondylosis of Lumbar Region Without Myelopathy Or Radiculopathy Obesity, Class III, BMI >= 40 (morbid obesity) E66.01 Acute On Chronic Respiratory Failure With Hypoxia and Hypercapnia ([facility]) Morbid Obesity With Body Mass Index (Bmi) of 45.0 to 49.9 in Adult ([facility]) Kidney Insufficiency Combined Forms of Age-Related Cataract of Both Eyes Hyperopia, Bilateral Dry Eye Syndrome, Bilateral Bacterial Conjunctivitis of Both Eyes Current Outpatient Prescriptions: trimethoprim-polymyxin eye drops (POLYTRIM) ophthalmic solution Use 1 Drop in both eyes four times daily. spironolactone (ALDACTONE) 25 mg tablet Take 1 tablet by mouth twice daily. pantoprazole DR (PROTONIX) 40 mg tablet Take 1 tablet by mouth every morning. atorvastatin (LIPITOR) 80 mg tablet Take 1 tablet by mouth once daily. furosemide (LASIX) 40 mg tablet Take 1 tablet by mouth twice daily. With 20 mg tablet for total of 60 mg twice daily. furosemide (LASIX) 20 mg tablet Take 1 tablet by mouth twice daily. COMPOUNDED PRESCRIPTION INOGEN PORTABLE OXYGEN CONCENTRATOR. 3 LPM VIA NASAL CANNULA WITH ACTIVITY. DX: J96.21; J96.22. J44.9. I25.5 COMPOUNDED PRESCRIPTION Oxygen conserving unit Dx:J44.9 metoprolol succinate ER (TOPROL XL) 100 mg Tb24 Take 1 tablet by mouth once daily. warfarin (COUMADIN) 5 mg tablet Take 12.5mg daily or as directed. metFORMIN (GLUCOPHAGE) 500 mg tablet Take 1 tablet by mouth daily with breakfast. . nitroglycerin sublingual (NITROQUICK) 0.4 mg SL tablet Dissolve 1 tablet under the tongue as needed. FOR CHEST PAIN. IF NO RELIEF CALL 911 clopidogrel (PLAVIX) 75 mg tablet Take 1 tablet by mouth once daily. albuterol HFA (PROVENTIL HFA, VENTOLIN HFA) 90 mcg/actuation inhaler Inhale 2 Puffs as instructed every 6 hours as needed for Wheezing/Shortness of Breath. ezetimibe (ZETIA) 10 mg tablet Take 1 tablet by mouth once daily. Compression Knee Highs KNEE HIGH COMPRESSION STOCKINGS 20- 30 MM HG. DX: EDEMA. VENOUS INSUFFICIENCY, BOTH LOWER EXTREMITIES. fluticasone (FLONASE) 50 mcg/actuation nasal spray 1 or 2 sprays in each nostril at bedtime. polyethylene glycol 3350 (MIRALAX) 17 gram/dose powder Take 17 g by mouth once daily. magnesium hydroxide (MILK OF MAGNESIA) 400 mg/5 mL suspension Take 15 mL by mouth once daily as needed for Constipation. senna-docusate 8.6-50 mg per tablet Take 1 tablet by mouth once daily. For constipation. Lancets (FREESTYLE LANCETS) [facility] lancets Test Blood sugar daily. Hyperglycemia, no insulin No current facility-administered medications for this visit. Review of Systems Constitutional: Negative. Respiratory: Negative. Cardiovascular: Positive for leg swelling. Negative for chest pain and palpitations. Gastrointestinal: Negative for abdominal pain, blood in stool, diarrhea, nausea and vomiting. Neurological: Negative for dizziness and light-headedness. Objective BP 116/80 (BP Site: Left Arm, BP Position: Sitting, BP Cuff Size: Regular Adult) Pulse 72 Temp 36.1 ?C (96.9 ?F) (Left Tympanic) Resp 20 Wt (!) 150.6 kg (332 lb) BMI 47.64 kg/m? Physical Exam Constitutional: No distress. On Oxygen. Eyes: Conjunctivae are normal. Neck: No JVD present. Cardiovascular: Normal rate, regular rhythm, S1 normal and S2 normal. Exam reveals no gallop. No murmur heard. Pulmonary/Chest: He has no wheezes. He has no rales. Abdominal: Soft. Musculoskeletal: He exhibits edema. Neurological: He is alert. Ambulatory with cane. Assessment and Plan 1. Hypotension, unspecified hypotension type - ICD9: 458.9, ICD10: I95.9 (primary diagnosis) Improved. Continue staying off VALSARTAN HCTZ. He was using up supply from 2017. I informed patient and his spouse present that this medication made by certain pharmaceutical companies were recalled due to contamination with carcinogens. - BASIC METABOLIC PNL - CBC 2. Kidney insufficiency - ICD9: 593.9, ICD10: N28.9 Recheck. - BASIC METABOLIC PNL 3. Chronic anticoagulation - ICD9: V58.61, ICD10: Z79.01 Check CBC. Coy Mercado MD Referring Provider: COY MERCADO [[id number]] Allergies As of Date: 01/03/2018 (No Known Allergies) Date Reviewed: 01/03/2018 Reviewed by: Lucy Perales LPN - Fully Assessed Reason for Visit: Blood Pressure [15] Primary Visit Diagnosis:Hypotension, unspecified hypotension type [I95.9] Other Visit Diagnoses:Kidney insufficiency [N28.9] Chronic anticoagulation [Z79.01] Order(s):BASIC METABOLIC PNL [SQBMP] Order #: [id number] FUTURE CBC [SQCBC] Order #: [id number] FUTURE Prescriptions as of 01/03/2018 Sig: POLYMYXIN B SULFATE 10,000 UN* Use 1 Drop in both eyes four * SPIRONOLACTONE 25 MG TABLET Take 1 tablet by mouth twice * PANTOPRAZOLE 40 MG TABLET,DEL* Take 1 tablet by mouth every * ATORVASTATIN 80 MG TABLET Take 1 tablet by mouth once d* FUROSEMIDE 40 MG TABLET Take 1 tablet by mouth twice * FUROSEMIDE 20 MG TABLET Take 1 tablet by mouth twice * COMPOUNDED PRESCRIPTION INOGEN PORTABLE OXYGEN CONCEN* COMPOUNDED PRESCRIPTION Oxygen conserving unit Dx:J4* METOPROLOL SUCCINATE ER 100 M* Take 1 tablet by mouth once d* WARFARIN 5 MG TABLET Take 12.5mg daily or as direc* METFORMIN 500 MG TABLET Take 1 tablet by mouth daily * NITROGLYCERIN 0.4 MG SUBLINGU* Dissolve 1 tablet under the t* CLOPIDOGREL 75 MG TABLET Take 1 tablet by mouth once d* ALBUTEROL SULFATE HFA 90 MCG/* Inhale 2 Puffs as instructed * EZETIMIBE 10 MG TABLET Take 1 tablet by mouth once d* COMPOUNDED PRESCRIPTION KNEE HIGH COMPRESSION STOCKIN* FLUTICASONE 50 MCG/ACTUATION * 1 or 2 sprays in each nostril* POLYETHYLENE GLYCOL 3350 17 G* Take 17 g by mouth once daily. MAGNESIUM HYDROXIDE 400 MG/5 * Take 15 mL by mouth once andrey* SENNOSIDES 8.6 MG-DOCUSATE SO* Take 1 tablet by mouth once d* * LANCETS Test Blood sugar daily. Hype* Medication notes this encounter VALSARTAN 160 MG-HYDROCHLOROTHIAZIDE 12.5 MG TABLET >> Anjel MD Rogelio 01/03/2018 11:40 AM low blood pressure. Problem List As Of Date 01/03/2018 Noted Resolved ATRIAL FIBRILLATION [I48.91] INVALID FOR*07/23/2015 More... Edema [R60.9] INVALID FOR* Hypercholesterolemia [E78.00] INVALID FOR* Priority: J More... SLEEP APNEA NOS (cpap intolerant) [G47.30] INVALID FOR*01/30/2015 Obesity [E66.9] INVALID FOR*08/13/2017 More... Hemangioma of intra-abdominal structures [D18.0*INVALID FOR*04/25/2014 Essential hypertension [I10] INVALID FOR* Priority: K More... IRRITABLE COLON [K58.9] INVALID FOR* Constipation [K59.00] INVALID FOR* DERMATOPHYTOSIS OF NAIL [B35.1] INVALID FOR*04/24/2008 ABDOMINAL PAIN LLQ [R10.32] 04/24/2008 ABDOMINAL PAIN LUQ [R10.12] 04/24/2008 FLATUL/ERUCTAT/GAS PAIN [R14.3, R14.1, R14.2] 04/24/2008 Impaired fasting glucose [R73.01] INVALID FOR*04/25/2014 COPD (chronic obstructive pulmonary disease) [J*INVALID FOR* Type II or unspecified type diabetes mellitus w*INVALID FOR*05/16/2015 ASCVD (arteriosclerotic cardiovascular disease)*INVALID FOR* BPH (benign prostatic hyperplasia) [N40.0] INVALID FOR* Family history of colon cancer [Z80.0] INVALID FOR*08/13/2017 NSTEMI (non-ST elevated myocardial infarction) *INVALID FOR*01/15/2016 More... DM2 (diabetes mellitus, type 2) (HCC) [E11.9] INVALID FOR* Priority: D More... S/P right coronary artery (RCA) stent placement*INVALID FOR* LV dysfunction [I51.9] INVALID FOR*01/15/2016 Cardiomyopathy, ischemic [I25.5] INVALID FOR* Priority: F More... Chronic anticoagulation [Z79.01] INVALID FOR* Priority: H More... Paroxysmal atrial fibrillation (HCC) [I48.0] INVALID FOR* Priority: C More... Sleep apnea [G47.30] INVALID FOR* Priority: G More... Astigmatism, regular [H52.229] INVALID FOR*08/13/2017 Presbyopia [H52.4] INVALID FOR*01/15/2016 Benign neoplasm of skin of eyelid including can*INVALID FOR*04/07/2017 Polyneuropathy (HCC) [G62.9] INVALID FOR* More... Spinal stenosis, lumbar region, with neurogenic*INVALID FOR*12/16/2017 Displacement of lumbar intervertebral disc with*INVALID FOR*04/07/2017 Spondylosis of lumbar region without myelopathy*INVALID FOR* Lesion of liver [K76.9] INVALID FOR*08/13/2017 Priority: B More... Ascites [R18.8] INVALID FOR*05/30/2017 Priority: B More... ADEBAYO (acute kidney injury) (HCC) [N17.9] INVALID FOR*12/16/2017 Priority: E More... Nicotine use disorder, F17.2 [F17.200] INVALID FOR*08/13/2017 Priority: L More... Obesity, Class III, BMI >= 40 (morbid obesity) *INVALID FOR* Priority: M Lethargy [R53.83] INVALID FOR*08/13/2017 Priority: Severe Acute on chronic respiratory failure with hypox*INVALID FOR* Priority: Moderate More... Morbid obesity with body mass index (BMI) of 45*INVALID FOR* Priority: M More... Acute liver failure with hepatic coma (HCC) [K7*INVALID FOR*08/13/2017 Priority: Mild More... Respiratory failure with hypercapnia (HCC) [J96*INVALID FOR*08/13/2017 Priority: A More... Shock circulatory (HCC) [R57.9] INVALID FOR*05/29/2017 Priority: A More... Kidney insufficiency [N28.9] INVALID FOR* Combined forms of age-related cataract of both *INVALID FOR* Hyperopia, bilateral [H52.03] INVALID FOR* Dry eye syndrome, bilateral [H04.123] INVALID FOR* Bacterial conjunctivitis of both eyes [H10.9] INVALID FOR* Other instructions from your clinician: SEE MEDICATION LIST FOR UPDATE. CONTINUE NOT TAKING VALSARTAN/HCTZ. Medications Discontinued During This Encounter Valsartan-Hydrochlorothiazide (DIOVA* 07/15/2017 01/03/2018 Class: Med Update Route: ORAL Sig: Take 1 tablet by mouth once daily. Disc: Clinical Decision Disposition: Return if symptoms worsen or fail to improve. Follow-up and Disposition History Recorded Encounter Status:Closed by COY MERCADO MD on 01/03/18 PROGRESS Observed: 12/31/2017 Status: COMPLETED Source: [place] 2:41 PM [facility] HNO ID: [id number] Author: Bev Smart Service: (none) Author Type: Nurse Practitioner Type: Progress Notes Filed: 12/31/2017 2:41 PM Note Text: Rayo Smart APRN.CNP PROGRESS Observed: 12/31/2017 Status: COMPLETED Source: [place] 2:34 PM [facility] HNO ID: [id number] Author: Katharine Nino RN Service: (none) Author Type: (none) Type: Progress Notes Filed: 12/31/2017 2:35 PM Note Text: patient had inr completed at [facility] patients inr is 2.0 (patients inr range is 2.0-3.0) patient is currently taking 10mg daily patients last dose change was on 11/12/17 due to a high level of 3.5 (dose at that time was 12.5mg Sat,Sun and 10mg all other days) patient has had no changes in medication and no missed doses and no change in diet Advised patient to continue on the same dose(s) and that they would only be contacted regarding dosage and follow up instructions after review with provider, if a change is needed. Written instructions given and patient verbalized understanding. Presently scheduled in 2 weeks (01/14/18) for follow up INR. PROGRESS Observed: 12/31/2017 Status: COMPLETED Source: [place] 2:08 PM [facility] HNO ID: [id number] Author: Lisa Nuñez LPN Service: (none) Author Type: (none) Type: Progress Notes Filed: 12/31/2017 2:17 PM Note Text: Manual Readin/64 Pulse: 108 Reason for blood pressure check - Other low BP Patient is: Taking medication as prescribed No Took medication today No If no, date medication last taken 12/25/17 Experiencing side effects No BP was very low at last visit 12/16/17. No BP medication changes were made at that time. However, pt reports that he has been holding his medications on his own since appt. He did take them on 12/25/17 but otherwise has not been. Denies any chest pain, shortness of breath, dizziness, or headaches. Daily caffeine use. Past personal history of tobacco use; current passive exposure. Alert and oriented. Pt has been identified by name and birthdate: Yes Allergies reviewed: Yes Latex allergy: no. Medication - prescribed and OTC reviewed and updated: Yes Do you need any prescription refills prior to your next visit: No Health Maintenance: Reviewed and up to date Patient advised that he would be contacted after review by Dr operations representative. Lisa Nuñez LPN CNNURSE Observed: 12/31/2017 Status: COMPLETED Source: [place] 2:00 PM [facility] Nurse Visit (BRITTANYPWS) CATALINA EVANS ([id number]) 1955 M Date Time Provider Department 12/31/17 2:00 PM [place] NURSE [facility] During your visit today, we recorded the following information about you: Pulse Blood pressure 108/minute 86/64 Lisa Nuñez LPN 12/31/2017 2:17 PM Signed Manual Readin/64 Pulse: 108 Reason for blood pressure check - Other low BP Patient is: Taking medication as prescribed No Took medication today No If no, date medication last taken 12/25/17 Experiencing side effects No BP was very low at last visit 12/16/17. No BP medication changes were made at that time. However, pt reports that he has been holding his medications on his own since appt. He did take them on 12/25/17 but otherwise has not been. Denies any chest pain, shortness of breath, dizziness, or headaches. Daily caffeine use. Past personal history of tobacco use; current passive exposure. Alert and oriented. Pt has been identified by name and birthdate: Yes Allergies reviewed: Yes Latex allergy: no. Medication - prescribed and OTC reviewed and updated: Yes Do you need any prescription refills prior to your next visit: No Health Maintenance: Reviewed and up to date Patient advised that he would be contacted after review by operations representative. Lisa Nuñez LPN Referring Provider: COY MERCADO [[id number]] Allergies As of Date: 12/31/2017 (No Known Allergies) Date Reviewed: 12/30/2017 Reviewed by: Alcira Hernandez II - Fully Assessed Reason for Visit: Blood Pressure Check [195] Primary Visit Diagnosis:Essential hypertension [I10] Prescriptions as of 12/31/2017 Sig: POLYMYXIN B SULFATE 10,000 UN* Use 1 Drop in both eyes four * SPIRONOLACTONE 25 MG TABLET Take 1 tablet by mouth twice * PANTOPRAZOLE 40 MG TABLET,DEL* Take 1 tablet by mouth every * ATORVASTATIN 80 MG TABLET Take 1 tablet by mouth once d* FUROSEMIDE 40 MG TABLET Take 1 tablet by mouth twice * FUROSEMIDE 20 MG TABLET Take 1 tablet by mouth twice * COMPOUNDED PRESCRIPTION INOGEN PORTABLE OXYGEN CONCEN* COMPOUNDED PRESCRIPTION Oxygen conserving unit Dx:J4* VALSARTAN 160 MG-HYDROCHLOROT* Take 1 tablet by mouth once d* METOPROLOL SUCCINATE ER 100 M* Take 1 tablet by mouth once d* WARFARIN 5 MG TABLET Take 12.5mg daily or as direc* METFORMIN 500 MG TABLET Take 1 tablet by mouth daily * NITROGLYCERIN 0.4 MG SUBLINGU* Dissolve 1 tablet under the t* Patient not taking: Reported on 12/30/2017 CLOPIDOGREL 75 MG TABLET Take 1 tablet by mouth once d* ALBUTEROL SULFATE HFA 90 MCG/* Inhale 2 Puffs as instructed * EZETIMIBE 10 MG TABLET Take 1 tablet by mouth once d* COMPOUNDED PRESCRIPTION KNEE HIGH COMPRESSION STOCKIN* FLUTICASONE 50 MCG/ACTUATION * 1 or 2 sprays in each nostril* POLYETHYLENE GLYCOL 3350 17 G* Take 17 g by mouth once daily. MAGNESIUM HYDROXIDE 400 MG/5 * Take 15 mL by mouth once andrey* SENNOSIDES 8.6 MG-DOCUSATE SO* Take 1 tablet by mouth once d* * LANCETS Test Blood sugar daily. Hype* Problem List As Of Date 12/31/2017 Noted Resolved ATRIAL FIBRILLATION [I48.91] INVALID FOR*07/23/2015 More... Edema [R60.9] INVALID FOR* Hypercholesterolemia [E78.00] INVALID FOR* Priority: J More... SLEEP APNEA NOS (cpap intolerant) [G47.30] INVALID FOR*01/30/2015 Obesity [E66.9] INVALID FOR*08/13/2017 More... Hemangioma of intra-abdominal structures [D18.0*INVALID FOR*04/25/2014 Essential hypertension [I10] INVALID FOR* Priority: K More... IRRITABLE COLON [K58.9] INVALID FOR* Constipation [K59.00] INVALID FOR* DERMATOPHYTOSIS OF NAIL [B35.1] INVALID FOR*04/24/2008 ABDOMINAL PAIN LLQ [R10.32] 04/24/2008 ABDOMINAL PAIN LUQ [R10.12] 04/24/2008 FLATUL/ERUCTAT/GAS PAIN [R14.3, R14.1, R14.2] 04/24/2008 Impaired fasting glucose [R73.01] INVALID FOR*04/25/2014 COPD (chronic obstructive pulmonary disease) [J*INVALID FOR* Type II or unspecified type diabetes mellitus w*INVALID FOR*05/16/2015 ASCVD (arteriosclerotic cardiovascular disease)*INVALID FOR* BPH (benign prostatic hyperplasia) [N40.0] INVALID FOR* Family history of colon cancer [Z80.0] INVALID FOR*08/13/2017 NSTEMI (non-ST elevated myocardial infarction) *INVALID FOR*01/15/2016 More... DM2 (diabetes mellitus, type 2) (HCC) [E11.9] INVALID FOR* Priority: D More... S/P right coronary artery (RCA) stent placement*INVALID FOR* LV dysfunction [I51.9] INVALID FOR*01/15/2016 Cardiomyopathy, ischemic [I25.5] INVALID FOR* Priority: F More... Chronic anticoagulation [Z79.01] INVALID FOR* Priority: H More... Paroxysmal atrial fibrillation (HCC) [I48.0] INVALID FOR* Priority: C More... Sleep apnea [G47.30] INVALID FOR* Priority: G More... Astigmatism, regular [H52.229] INVALID FOR*08/13/2017 Presbyopia [H52.4] INVALID FOR*01/15/2016 Benign neoplasm of skin of eyelid including can*INVALID FOR*04/07/2017 Polyneuropathy (HCC) [G62.9] INVALID FOR* More... Spinal stenosis, lumbar region, with neurogenic*INVALID FOR*12/16/2017 Displacement of lumbar intervertebral disc with*INVALID FOR*04/07/2017 Spondylosis of lumbar region without myelopathy*INVALID FOR* Lesion of liver [K76.9] INVALID FOR*08/13/2017 Priority: B More... Ascites [R18.8] INVALID FOR*05/30/2017 Priority: B More... ADEBAYO (acute kidney injury) (HCC) [N17.9] INVALID FOR*12/16/2017 Priority: E More... Nicotine use disorder, F17.2 [F17.200] INVALID FOR*08/13/2017 Priority: L More... Obesity, Class III, BMI >= 40 (morbid obesity) *INVALID FOR* Priority: M Lethargy [R53.83] INVALID FOR*08/13/2017 Priority: Severe Acute on chronic respiratory failure with hypox*INVALID FOR* Priority: Moderate More... Morbid obesity with body mass index (BMI) of 45*INVALID FOR* Priority: M More... Acute liver failure with hepatic coma (HCC) [K7*INVALID FOR*08/13/2017 Priority: Mild More... Respiratory failure with hypercapnia (HCC) [J96*INVALID FOR*08/13/2017 Priority: A More... Shock circulatory (HCC) [R57.9] INVALID FOR*05/29/2017 Priority: A More... Kidney insufficiency [N28.9] INVALID FOR* Combined forms of age-related cataract of both *INVALID FOR* Hyperopia, bilateral [H52.03] INVALID FOR* Dry eye syndrome, bilateral [H04.123] INVALID FOR* Bacterial conjunctivitis of both eyes [H10.9] INVALID FOR* Encounter Status:Closed by LISA NUÑEZ LPN on 12/31/17 PROGRESS Observed: 12/30/2017 Status: COMPLETED Source: [place] 9:50 AM [facility] REPOSIT[facility] HNO ID: [id number] Author: Alcira Hernandez II Service: (none) Author Type: LOMBARDI DEVELOPER Type: Progress Notes Filed: 12/30/2017 9:53 AM Note Text: ASSESSMENT/PLAN: 1. Bacterial conjunctivitis of both eyes - ICD9: 372.30, ICD10: H10.9 Recommend start use of Polytrim 1 gt q3h both eyes x 2 days then four times a day both eyes x 5 days. Recheck as needed. Instruct patient to immediately report any change in condition outside of expected and discussed symptoms. I have confirmed and edited as necessary the relevant ophthalmic history, review of systems, surgical history, and ophthalmological examination findings as obtained by the ophthalmic technical staff. I have seen and examined Catalina Evans. I have discussed the examination findings, diagnosis, and treatment options with the patient and/or the patient's family. I have also reviewed and agree with the assessment and plan as stated above and agree with all its relevant components. I gave the patient the opportunity to ask questions about the findings, diagnosis, and treatment options. Alcira Hernandez, ROBB, OD BASIC METABOLIC PANL Collected: 12/16/2017 Status: F Source: [place] 3:58 PM [facility] RE[facility] TYPE CODE TESTS RESULT OUT OF REFERENCE UNITS RANGE LAB GLU 74-99 mg/dL Glucose 79 Result Comment: The [place] [employer] (ADA) provides guidance for cutoff values for fasting glucose and random glucose. The ADA defines fasting as no caloric intake for at least 8 hours. Fas ting plasma glucose results between 100 to 125 mg/dL indicate increased risk for diabetes (prediabetes). Fasting plasma glucose results greater than or equal to 126 mg/dL meet the criteria for diagnosis of diabetes. In the absence of unequivocal hyperglycemia, results should be confirmed by repeat testing. In a patient with classic symptoms of hyperglycemia or hyperglycemic crisis, random plasma glucose results greater than or equal to 200 mg/dL meet the criteria for diagnosis of diabetes. Reference: Standards of Medical Care in Diabetes 2016, [place] [employer]. Diabetes Care. 2016.39(Suppl 1). LAB BUN 9-24 mg/dL BUN High 25 LAB CRET 0.73-1.22 mg/dL Creatinine High 1.24 LAB NA 136-144 mmol/L Sodium 143 LAB K 3.7-5.1 mmol/L Potassium 4.1 LAB CL 97-105 mmol/L Chloride 102 LAB CO2 22-30 mmol/L CO2 28 LAB AGAP 9-18 mmol/L Anion Gap 13 LAB CA 8.5-10.2 mg/dL Calcium, Total 9.0 LAB GFRAA eGFR- Amer. >60 LAB GFRNAA . eGFR-All Other Races 59 Result Comment: eGFR (Estimated GFR) Units of measure: mL/min/1.73 meters squared eGFR is derived from the reexpressed MDRD Study equation using the following parameters: serum creatinine, age, gender and race. The creatinine assay has been calibrated to be traceable to IDMS. An eGFR <60 mL/min/1.73m2 for >3 months is consistent with chronic kidney disease. Refer to KDOQI guidelines for clinical interpretation. In patients with unstable renal function, e.g. those with acute kidney injury, the eGFR may not accurately reflect actual GFR. Performed By: #### BMP #### [facility] [address] [id number] PROGRESS Observed: 12/16/2017 Status: COMPLETED Source: [place] 3:42 PM [facility] HNO ID: [id number] Author: Coy Mercado Service: (none) Author Type: Physician Type: Progress Notes Filed: 12/16/2017 3:50 PM Note Text: This note was created using Lookoutriter. Subjective Catalina Evans is a 62 year old male was here for follow up with his . He was seen for cellulitis earlier this month, and this resolved. His edema was much better. His blood pressure was low today, but he felt well and his home BP readings were good. His INR was slightly low from recent antibiotic. His diabetes mellitus was reportedly in the low 100 range. He got in eMeter portable concentrator and his saturation today on room air was good. ACTIVE PROBLEM LIST Edema Hypercholesterolemia Essential Hypertension Irritable Bowel Syndrome Constipation Copd (Chronic Obstructive Pulmonary Disease) (Hcc) Ascvd (Arteriosclerotic Cardiovascular Disease) Bph (Benign Prostatic Hyperplasia) Dm2 (Diabetes Mellitus, Type 2) ([facility]) S/P Right Coronary Artery (Rca) Stent Placement Cardiomyopathy, Ischemic Chronic Anticoagulation Paroxysmal Atrial Fibrillation ([facility]) Sleep Apnea Polyneuropathy ([facility]) Spondylosis of Lumbar Region Without Myelopathy Or Radiculopathy Obesity, Class III, BMI >= 40 (morbid obesity) E66.01 Acute On Chronic Respiratory Failure With Hypoxia and Hypercapnia ([facility]) Morbid Obesity With Body Mass Index (Bmi) of 45.0 to 49.9 in Adult ([facility]) Kidney Insufficiency Combined Forms of Age-Related Cataract of Both Eyes Hyperopia, Bilateral Dry Eye Syndrome, Bilateral Current Outpatient Prescriptions: spironolactone (ALDACTONE) 25 mg tablet Take 1 tablet by mouth twice daily. pantoprazole DR (PROTONIX) 40 mg tablet Take 1 tablet by mouth every morning. atorvastatin (LIPITOR) 80 mg tablet Take 1 tablet by mouth once daily. furosemide (LASIX) 40 mg tablet Take 1 tablet by mouth twice daily. With 20 mg tablet for total of 60 mg twice daily. furosemide (LASIX) 20 mg tablet Take 1 tablet by mouth twice daily. COMPOUNDED PRESCRIPTION INOGEN PORTABLE OXYGEN CONCENTRATOR. 3 LPM VIA NASAL CANNULA WITH ACTIVITY. DX: J96.21; J96.22. J44.9. I25.5 COMPOUNDED PRESCRIPTION Oxygen conserving unit Dx:J44.9 Valsartan-Hydrochlorothiazide (DIOVAN HCT) 160-12.5 mg per tablet Take 1 tablet by mouth once daily. metoprolol succinate ER (TOPROL XL) 100 mg Tb24 Take 1 tablet by mouth once daily. warfarin (COUMADIN) 5 mg tablet Take 12.5mg daily or as directed. metFORMIN (GLUCOPHAGE) 500 mg tablet Take 1 tablet by mouth daily with breakfast. . nitroglycerin sublingual (NITROQUICK) 0.4 mg SL tablet Dissolve 1 tablet under the tongue as needed. FOR CHEST PAIN. IF NO RELIEF CALL 911 clopidogrel (PLAVIX) 75 mg tablet Take 1 tablet by mouth once daily. albuterol HFA (PROVENTIL HFA, VENTOLIN HFA) 90 mcg/actuation inhaler Inhale 2 Puffs as instructed every 6 hours as needed for Wheezing/Shortness of Breath. ezetimibe (ZETIA) 10 mg tablet Take 1 tablet by mouth once daily. Compression Knee Highs KNEE HIGH COMPRESSION STOCKINGS 20- 30 MM HG. DX: EDEMA. VENOUS INSUFFICIENCY, BOTH LOWER EXTREMITIES. fluticasone (FLONASE) 50 mcg/actuation nasal spray 1 or 2 sprays in each nostril at bedtime. polyethylene glycol 3350 (MIRALAX) 17 gram/dose powder Take 17 g by mouth once daily. magnesium hydroxide (MILK OF MAGNESIA) 400 mg/5 mL suspension Take 15 mL by mouth once daily as needed for Constipation. senna-docusate 8.6-50 mg per tablet Take 1 tablet by mouth once daily. For constipation. Lancets (FREESTYLE LANCETS) [facility] lancets Test Blood sugar daily. Hyperglycemia, no insulin No current facility-administered medications for this visit. Review of Systems Constitutional: Negative. Respiratory: Negative. Cardiovascular: Positive for leg swelling. Negative for chest pain and palpitations. Gastrointestinal: Negative. Genitourinary: Negative. Objective BP (!) 79/57 (BP Site: Left Arm, BP Position: Sitting, BP Cuff Size: Large Adult) Pulse 73 Temp 36.3 ?C (97.4 ?F) (Left Tympanic) Resp 20 Wt (!) 150.4 kg (331 lb 9.6 oz) SpO2 94% BMI 47.58 kg/m? Physical Exam Constitutional: No distress. Cardiovascular: Normal heart sounds. Exam reveals no gallop. No murmur heard. Pulmonary/Chest: He has decreased breath sounds in the right lower field and the left lower field. He has no wheezes. He has no rales. Abdominal: Soft. Musculoskeletal: He exhibits edema. 2+ edema. Few small dried ulcerations. No redness, warmth, or drainage. Neurological: He is alert. Coordination normal. Assessment and Plan 1. Kidney insufficiency - ICD9: 593.9, ICD10: N28.9 (primary diagnosis) Recheck. 2. Edema, unspecified type - ICD9: 782.3, ICD10: R60.9 Controlled. 3. Essential hypertension - ICD9: 401.9, ICD10: I10 BP low today. - Continue medications. Continue home BP monitoring. BP recheck in 2 weeks. 4. Cardiomyopathy, ischemic - ICD9: 414.8, ICD10: I25.5 Stable. 5. Type 2 diabetes mellitus with diabetic neuropathy, without long-term current use of insulin (HCC) - ICD9: 250.60, 357.2, ICD10: E11.40 Controlled. - Continue current medications 6. Paroxysmal atrial fibrillation (HCC) - ICD9: 427.31, ICD10: I48.0 See anticoagulation. 7. Hypercholesterolemia - ICD9: 272.0, ICD10: E78.00 - good control - Continue current medication. Coy Mercado MD PROGRESS Observed: 12/16/2017 Status: COMPLETED Source: [place] 3:34 PM [facility] REPOSITORY HNO ID: [id number] Author: Coy Mercado Service: (none) Author Type: Physician Type: Progress Notes Filed: 12/16/2017 3:34 PM Note Text: I agree. PROGRESS Observed: 12/16/2017 Status: COMPLETED Source: [place] 2:42 PM [facility] REPOSITORY HNO ID: [id number] Author: Katharine Nino RN Service: (none) Author Type: (none) Type: Progress Notes Filed: 12/16/2017 2:44 PM Note Text: patient had inr completed at [facility] patients inr is 1.7 (patients inr range is 2.0-3.0) patient is currently taking 10mg daily patients last dose change was on 11/12/17 due to a high level of 3.5 (dose at that time was 12.5mg Sat,Sun and 10mg all other days) patient has had a change in medication and patient just finished antibiotics 2 days a go, and no missed doses and no change in diet Advised patient to continue on the same dose(s) and that they would only be contacted regarding dosage and follow up instructions after review with provider, if a change is needed. Written instructions given and patient verbalized understanding. Presently scheduled in 2 weeks (12/30/17) for follow up INR since level is just slightly low, but just finished antibiotics CNOV Observed: 12/16/2017 Status: COMPLETED Source: [place] 2:40 PM [facility] REPOSITORY Office Visit (INTMWS) CATALINA EVANS ([id number]) 1955 M Date Time Provider Department 12/16/17 2:40 PM COY MERCADO INTMWS During your visit today, we recorded the following information about you: Temperature Pulse Respiration Blood pressure 97.4 degrees 73/minute 20/minute 79/57 Weight 150.4 kg Coy Mercado MD 12/16/2017 3:40 PM Signed DO BLOOD CHEMISTRY ORDERED FOR October. CHECK BLOOD PRESSURE DAILY. CALL FOR BLOOD PRESSURE BELOW 90. Coy Mercado MD 12/16/2017 3:50 PM Signed This note was created using Re-APPter. Subjective Catalina Evans is a 62 year old male was here for follow up with his . He was seen for cellulitis earlier this month, and this resolved. His edema was much better. His blood pressure was low today, but he felt well and his home BP readings were good. His INR was slightly low from recent antibiotic. His diabetes mellitus was reportedly in the low 100 range. He got in eMeter portable concentrator and his saturation today on room air was good. ACTIVE PROBLEM LIST Edema Hypercholesterolemia Essential Hypertension Irritable Bowel Syndrome Constipation Copd (Chronic Obstructive Pulmonary Disease) ([facility]) Ascvd (Arteriosclerotic Cardiovascular Disease) Bph (Benign Prostatic Hyperplasia) Dm2 (Diabetes Mellitus, Type 2) ([facility]) S/P Right Coronary Artery (Rca) Stent Placement Cardiomyopathy, Ischemic Chronic Anticoagulation Paroxysmal Atrial Fibrillation ([facility]) Sleep Apnea Polyneuropathy ([facility]) Spondylosis of Lumbar Region Without Myelopathy Or Radiculopathy Obesity, Class III, BMI >= 40 (morbid obesity) E66.01 Acute On Chronic Respiratory Failure With Hypoxia and Hypercapnia ([facility]) Morbid Obesity With Body Mass Index (Bmi) of 45.0 to 49.9 in Adult ([facility]) Kidney Insufficiency Combined Forms of Age-Related Cataract of Both Eyes Hyperopia, Bilateral Dry Eye Syndrome, Bilateral Current Outpatient Prescriptions: spironolactone (ALDACTONE) 25 mg tablet Take 1 tablet by mouth twice daily. pantoprazole DR (PROTONIX) 40 mg tablet Take 1 tablet by mouth every morning. atorvastatin (LIPITOR) 80 mg tablet Take 1 tablet by mouth once daily. furosemide (LASIX) 40 mg tablet Take 1 tablet by mouth twice daily. With 20 mg tablet for total of 60 mg twice daily. furosemide (LASIX) 20 mg tablet Take 1 tablet by mouth twice daily. COMPOUNDED PRESCRIPTION INOGEN PORTABLE OXYGEN CONCENTRATOR. 3 LPM VIA NASAL CANNULA WITH ACTIVITY. DX: J96.21; J96.22. J44.9. I25.5 COMPOUNDED PRESCRIPTION Oxygen conserving unit Dx:J44.9 Valsartan-Hydrochlorothiazide (DIOVAN HCT) 160-12.5 mg per tablet Take 1 tablet by mouth once daily. metoprolol succinate ER (TOPROL XL) 100 mg Tb24 Take 1 tablet by mouth once daily. warfarin (COUMADIN) 5 mg tablet Take 12.5mg daily or as directed. metFORMIN (GLUCOPHAGE) 500 mg tablet Take 1 tablet by mouth daily with breakfast. . nitroglycerin sublingual (NITROQUICK) 0.4 mg SL tablet Dissolve 1 tablet under the tongue as needed. FOR CHEST PAIN. IF NO RELIEF CALL 911 clopidogrel (PLAVIX) 75 mg tablet Take 1 tablet by mouth once daily. albuterol HFA (PROVENTIL HFA, VENTOLIN HFA) 90 mcg/actuation inhaler Inhale 2 Puffs as instructed every 6 hours as needed for Wheezing/Shortness of Breath. ezetimibe (ZETIA) 10 mg tablet Take 1 tablet by mouth once daily. Compression Knee Highs KNEE HIGH COMPRESSION STOCKINGS 20- 30 MM HG. DX: EDEMA. VENOUS INSUFFICIENCY, BOTH LOWER EXTREMITIES. fluticasone (FLONASE) 50 mcg/actuation nasal spray 1 or 2 sprays in each nostril at bedtime. polyethylene glycol 3350 (MIRALAX) 17 gram/dose powder Take 17 g by mouth once daily. magnesium hydroxide (MILK OF MAGNESIA) 400 mg/5 mL suspension Take 15 mL by mouth once daily as needed for Constipation. senna-docusate 8.6-50 mg per tablet Take 1 tablet by mouth once daily. For constipation. Lancets (FREESTYLE LANCETS) [facility] lancets Test Blood sugar daily. Hyperglycemia, no insulin No current facility-administered medications for this visit. Review of Systems Constitutional: Negative. Respiratory: Negative. Cardiovascular: Positive for leg swelling. Negative for chest pain and palpitations. Gastrointestinal: Negative. Genitourinary: Negative. Objective BP (!) 79/57 (BP Site: Left Arm, BP Position: Sitting, BP Cuff Size: Large Adult) Pulse 73 Temp 36.3 ?C (97.4 ?F) (Left Tympanic) Resp 20 Wt (!) 150.4 kg (331 lb 9.6 oz) SpO2 94% BMI 47.58 kg/m? Physical Exam Constitutional: No distress. Cardiovascular: Normal heart sounds. Exam reveals no gallop. No murmur heard. Pulmonary/Chest: He has decreased breath sounds in the right lower field and the left lower field. He has no wheezes. He has no rales. Abdominal: Soft. Musculoskeletal: He exhibits edema. 2+ edema. Few small dried ulcerations. No redness, warmth, or drainage. Neurological: He is alert. Coordination normal. Assessment and Plan 1. Kidney insufficiency - ICD9: 593.9, ICD10: N28.9 (primary diagnosis) Recheck. 2. Edema, unspecified type - ICD9: 782.3, ICD10: R60.9 Controlled. 3. Essential hypertension - ICD9: 401.9, ICD10: I10 BP low today. - Continue medications. Continue home BP monitoring. BP recheck in 2 weeks. 4. Cardiomyopathy, ischemic - ICD9: 414.8, ICD10: I25.5 Stable. 5. Type 2 diabetes mellitus with diabetic neuropathy, without long-term current use of insulin (HCC) - ICD9: 250.60, 357.2, ICD10: E11.40 Controlled. - Continue current medications 6. Paroxysmal atrial fibrillation (HCC) - ICD9: 427.31, ICD10: I48.0 See anticoagulation. 7. Hypercholesterolemia - ICD9: 272.0, ICD10: E78.00 - good control - Continue current medication. Coy Mercado MD Referring Provider: SELF [[id number]] Allergies As of Date: 12/16/2017 (No Known Allergies) Date Reviewed: 12/16/2017 Reviewed by: Lucy Perales LPN - Fully Assessed Reason for Visit: 4 month follow-up [Other] Primary Visit Diagnosis:Kidney insufficiency [N28.9] Other Visit Diagnoses:Edema, unspecified type [R60.9] Essential hypertension [I10] Cardiomyopathy, ischemic [I25.5] Type 2 diabetes mellitus with diabetic neuropathy, without long-term current use of insulin (HCC) [E11.40] Paroxysmal atrial fibrillation (HCC) [I48.0] Hypercholesterolemia [E78.00] Prescriptions as of 12/16/2017 Sig: SPIRONOLACTONE 25 MG TABLET Take 1 tablet by mouth twice * PANTOPRAZOLE 40 MG TABLET,DEL* Take 1 tablet by mouth every * ATORVASTATIN 80 MG TABLET Take 1 tablet by mouth once d* FUROSEMIDE 40 MG TABLET Take 1 tablet by mouth twice * FUROSEMIDE 20 MG TABLET Take 1 tablet by mouth twice * COMPOUNDED PRESCRIPTION INOGEN PORTABLE OXYGEN CONCEN* COMPOUNDED PRESCRIPTION Oxygen conserving unit Dx:J4* VALSARTAN 160 MG-HYDROCHLOROT* Take 1 tablet by mouth once d* METOPROLOL SUCCINATE ER 100 M* Take 1 tablet by mouth once d* WARFARIN 5 MG TABLET Take 12.5mg daily or as direc* METFORMIN 500 MG TABLET Take 1 tablet by mouth daily * NITROGLYCERIN 0.4 MG SUBLINGU* Dissolve 1 tablet under the t* CLOPIDOGREL 75 MG TABLET Take 1 tablet by mouth once d* ALBUTEROL SULFATE HFA 90 MCG/* Inhale 2 Puffs as instructed * EZETIMIBE 10 MG TABLET Take 1 tablet by mouth once d* COMPOUNDED PRESCRIPTION KNEE HIGH COMPRESSION STOCKIN* FLUTICASONE 50 MCG/ACTUATION * 1 or 2 sprays in each nostril* POLYETHYLENE GLYCOL 3350 17 G* Take 17 g by mouth once daily. MAGNESIUM HYDROXIDE 400 MG/5 * Take 15 mL by mouth once andrey* SENNOSIDES 8.6 MG-DOCUSATE SO* Take 1 tablet by mouth once d* * LANCETS Test Blood sugar daily. Hype* Problem List As Of Date 12/16/2017 Noted Resolved ATRIAL FIBRILLATION [I48.91] INVALID FOR*07/23/2015 More... Edema [R60.9] INVALID FOR* Hypercholesterolemia [E78.00] INVALID FOR* Priority: J More... SLEEP APNEA NOS (cpap intolerant) [G47.30] INVALID FOR*01/30/2015 Obesity [E66.9] INVALID FOR*08/13/2017 More... Hemangioma of intra-abdominal structures [D18.0*INVALID FOR*04/25/2014 Essential hypertension [I10] INVALID FOR* Priority: K More... IRRITABLE COLON [K58.9] INVALID FOR* Constipation [K59.00] INVALID FOR* DERMATOPHYTOSIS OF NAIL [B35.1] INVALID FOR*04/24/2008 ABDOMINAL PAIN LLQ [R10.32] 04/24/2008 ABDOMINAL PAIN LUQ [R10.12] 04/24/2008 FLATUL/ERUCTAT/GAS PAIN [R14.3, R14.1, R14.2] 04/24/2008 Impaired fasting glucose [R73.01] INVALID FOR*04/25/2014 COPD (chronic obstructive pulmonary disease) [J*INVALID FOR* Type II or unspecified type diabetes mellitus w*INVALID FOR*05/16/2015 ASCVD (arteriosclerotic cardiovascular disease)*INVALID FOR* BPH (benign prostatic hyperplasia) [N40.0] INVALID FOR* Family history of colon cancer [Z80.0] INVALID FOR*08/13/2017 NSTEMI (non-ST elevated myocardial infarction) *INVALID FOR*01/15/2016 More... DM2 (diabetes mellitus, type 2) (HCC) [E11.9] INVALID FOR* Priority: D More... S/P right coronary artery (RCA) stent placement*INVALID FOR* LV dysfunction [I51.9] INVALID FOR*01/15/2016 Cardiomyopathy, ischemic [I25.5] INVALID FOR* Priority: F More... Chronic anticoagulation [Z79.01] INVALID FOR* Priority: H More... Paroxysmal atrial fibrillation (HCC) [I48.0] INVALID FOR* Priority: C More... Sleep apnea [G47.30] INVALID FOR* Priority: G More... Astigmatism, regular [H52.229] INVALID FOR*08/13/2017 Presbyopia [H52.4] INVALID FOR*01/15/2016 Benign neoplasm of skin of eyelid including can*INVALID FOR*04/07/2017 Polyneuropathy (HCC) [G62.9] INVALID FOR* More... Spinal stenosis, lumbar region, with neurogenic*INVALID FOR*12/16/2017 Displacement of lumbar intervertebral disc with*INVALID FOR*04/07/2017 Spondylosis of lumbar region without myelopathy*INVALID FOR* Lesion of liver [K76.9] INVALID FOR*08/13/2017 Priority: B More... Ascites [R18.8] INVALID FOR*05/30/2017 Priority: B More... ADEBAYO (acute kidney injury) (HCC) [N17.9] INVALID FOR*12/16/2017 Priority: E More... Nicotine use disorder, F17.2 [F17.200] INVALID FOR*08/13/2017 Priority: L More... Obesity, Class III, BMI >= 40 (morbid obesity) *INVALID FOR* Priority: M Lethargy [R53.83] INVALID FOR*08/13/2017 Priority: Severe Acute on chronic respiratory failure with hypox*INVALID FOR* Priority: Moderate More... Morbid obesity with body mass index (BMI) of 45*INVALID FOR* Priority: M More... Acute liver failure with hepatic coma (HCC) [K7*INVALID FOR*08/13/2017 Priority: Mild More... Respiratory failure with hypercapnia (HCC) [J96*INVALID FOR*08/13/2017 Priority: A More... Shock circulatory (HCC) [R57.9] INVALID FOR*05/29/2017 Priority: A More... Kidney insufficiency [N28.9] INVALID FOR* Combined forms of age-related cataract of both *INVALID FOR* Hyperopia, bilateral [H52.03] INVALID FOR* Dry eye syndrome, bilateral [H04.123] INVALID FOR* Other instructions from your clinician: DO BLOOD CHEMISTRY ORDERED FOR October. CHECK BLOOD PRESSURE DAILY. CALL FOR BLOOD PRESSURE BELOW 90. Medications Discontinued During This Encounter COMPOUNDED PRESCRIPTION 1 Co* 2 06/01/2017 12/16/2017 Class: Print RX Sig: Supplemental oxygen. Lifetime supply. Portable tank along with concentrator. 3 lpm with exertion and at hours of sleep via nasal cannula Disc: Reason for discontinue is not on file. Disposition: Return in about 4 months (around 04/18/2018). Follow-up and Disposition History Recorded Encounter Status:Closed by COY MERCADO MD on 12/16/17 PROGRESS Observed: 12/03/2017 Status: COMPLETED Source: [place] 10:22 AM [facility] REPOSITORY O ID: [id number] Author: Ines (Megan Batista Service: (none) Author Type: Nurse Practitioner Type: Progress Notes Filed: 12/03/2017 10:31 AM Note Text: CC: Patient presents with: Musculoskeletal Problem: L leg swollen, wound red, seeping x 1 week HPI Catalina Evans is a 62 year old male who presents today for LLE swelling and redness x 3-4 days. Patient reports having increased swelling to his LLE x 3-4 days but noted worsening redness and warmth this morning. Associated symptoms include intermittent tingling. Patient reports having x2 open wounds to the outer calf that have been present for ~1 week. States he has been using peroxide and neosporin and showering twice daily. Denies any fever, chills, numbness or drainage. REVIEW OF SYSTEMS General: no fevers, no chills, no night sweats, no recurrent infections, no change in appetite, no change in energy and no significant changes in weight Skin: See HPI Hematologic/Lymph: Negative for prolonged bleeding or swollen nodes- patient is on coumadin Neurologic: No headache, weakness, numbness, neck stiffness, tremor, vertigo, dizziness, memory loss, syncope., See HPI PAST MEDICAL HISTORY Diagnosis Date - Acute liver failure with hepatic coma (HCC) 05/27/2017 ELEVATED AMMONIA - Babinski up on right - pin point pupils - lethgary without focal findings - ASCVD (arteriosclerotic cardiovascular disease) 09/18/2014 - Atrial fibrillation (HCC) 07/01/2006 - Benign neoplasm of colon 2004 Hyperplastic - BPH (benign prostatic hyperplasia) 01/30/2015 - Cardiomyopathy, ischemic 05/30/2015 - Coronary artery disease 05/16/2015 - DM2 (diabetes mellitus, type 2) ([facility]) 05/16/2015 - Edema 07/01/2006 - Family history of malignant neoplasm of gastrointestinal tract 11/03/2006 - Flatulence, eructation, and gas pain - Heart attack (HCC) - HEMANGIOMA INTRA-ABDOM 07/29/2006 - HYPERTENSION NOS 08/27/2006 - Impaired fasting glucose 05/30/2010 - Irritable bowel syndrome 08/27/2006 - AL (myocardial infarction) ([facility]) 05/16/2015 - NSTEMI (non-ST elevated myocardial infarction) ([facility]) 05/16/2015 Pt now chest pain free with nitrate - recheck enzymes -1 set troponin0.719, CK 507, MB 39.9, CKMB 7.9 - check echo - continue heparin, aspirin, ARB, statin, beta linda - continue clopidogrel - called in/consented for [facility] today +/- PCI -05-17-15: PCI to the mid RCA with a 3.5 x 16 mm Synergy EES - Obesity, unspecified 07/01/2006 - Other and unspecified hyperlipidemia 07/01/2006 - Polyneuropathy (HCC) 05/01/2016 Nerve study 2015. - SLEEP APNEA NOS (cpap intolerant) 07/01/2006 - Type II or unspecified type diabetes mellitus without mention of complication, not stated as uncontrolled 01/25/2014 - Unspecified constipation PAST SURGICAL HISTORY Procedure Laterality Date - [facility] Colon[facility] 2004, 2000 - [facility] 08/28/08 Colonoscopy - [facility]/ [facility] 05/02/2015 Colonoscopy - KNEE SCOPE,DIAGNOSTIC Right 10/06/2007 Arthroscopy, knee - LEFT HEART CATH,PERCUTANEOUS 08/22/2014 Cardiac cath, L heart - PALATE/UVULA SURGERY UNLISTED 1999 Somnoplasty, tracheostomy - PAST SURGICAL HISTORY OF 05/16/2015 Had heart stent - REPAIR BICEPS LONG TENDON Right 05/12/2017 [facility] [place] - REPAIR ING HERNIA,5+Y/O,REDUCIBL Left 1990 Hernia repair, inguinal - TRACHEOSTOMY HX 1999 w/ UVPP ALLERGIES Patient has no known allergies. MEDICATIONS cephALEXin (KEFLEX) 500 mg capsule Take 1 capsule by mouth four times daily for 10 days. spironolactone (ALDACTONE) 25 mg tablet Take 1 tablet by mouth twice daily. pantoprazole DR (PROTONIX) 40 mg tablet Take 1 tablet by mouth every morning. atorvastatin (LIPITOR) 80 mg tablet Take 1 tablet by mouth once daily. furosemide (LASIX) 40 mg tablet Take 1 tablet by mouth twice daily. With 20 mg tablet for total of 60 mg twice daily. furosemide (LASIX) 20 mg tablet Take 1 tablet by mouth twice daily. COMPOUNDED PRESCRIPTION INOGEN PORTABLE OXYGEN CONCENTRATOR. 3 LPM VIA NASAL CANNULA WITH ACTIVITY. DX: J96.21; J96.22. J44.9. I25.5 COMPOUNDED PRESCRIPTION Oxygen conserving unit Dx:J44.9 Valsartan-Hydrochlorothiazide (DIOVAN HCT) 160-12.5 mg per tablet Take 1 tablet by mouth once daily. metoprolol succinate ER (TOPROL XL) 100 mg Tb24 Take 1 tablet by mouth once daily. warfarin (COUMADIN) 5 mg tablet Take 12.5mg daily or as directed. metFORMIN (GLUCOPHAGE) 500 mg tablet Take 1 tablet by mouth daily with breakfast. . nitroglycerin sublingual (NITROQUICK) 0.4 mg SL tablet Dissolve 1 tablet under the tongue as needed. FOR CHEST PAIN. IF NO RELIEF CALL 911 clopidogrel (PLAVIX) 75 mg tablet Take 1 tablet by mouth once daily. COMPOUNDED PRESCRIPTION Supplemental oxygen. Lifetime supply. Portable tank along with concentrator.3 lpm with exertion and at hours of sleep via nasal cannula albuterol HFA (PROVENTIL HFA, VENTOLIN HFA) 90 mcg/actuation inhaler Inhale 2 Puffs as instructed every 6 hours as needed for Wheezing/Shortness of Breath. ezetimibe (ZETIA) 10 mg tablet Take 1 tablet by mouth once daily. Compression Knee Highs KNEE HIGH COMPRESSION STOCKINGS 20- 30 MM HG. DX: EDEMA. VENOUS INSUFFICIENCY, BOTH LOWER EXTREMITIES. fluticasone (FLONASE) 50 mcg/actuation nasal spray 1 or 2 sprays in each nostril at bedtime. polyethylene glycol 3350 (MIRALAX) 17 gram/dose powder Take 17 g by mouth once daily. magnesium hydroxide (MILK OF MAGNESIA) 400 mg/5 mL suspension Take 15 mL by mouth once daily as needed for Constipation. senna-docusate 8.6-50 mg per tablet Take 1 tablet by mouth once daily. For constipation. Lancets (FREESTYLE LANCETS) [facility] lancets Test Blood sugar daily. Hyperglycemia, no insulin FAMILY HISTORY Problem Relation Age of Onset - Diabetes Father - Heart Father Pacemaker - Alzheimer's Disease Father - Coronary Artery Disease Father - parkinsons [OTHER] Father - Diabetes Mother - Cancer Mother Colon - Hypertension Brother - Heart Brother CABG - Diabetes Brother - Peripheral Artery Disease Brother - Hypertension Brother Social History Substance Use Topics - Smoking status: Former Smoker Packs/day: 0.25 Years: 20.00 Types: Cigarettes Quit date: 07/01/2006 - Smokeless tobacco: Former User - Alcohol use No PHYSICAL EXAM BP 128/78 Pulse 90 Temp 36.6 ?C (97.9 ?F) (Temporal Artery) Resp 16 Wt (!) 153.3 kg (338 lb) SpO2 93% BMI 48.50 kg/m? General Appearance: well appearing, in no acute distress, alert Pysch: mood and affect broad and appropriate Skin: +erythema and warmth to LLE, x2 small wounds noted to lateral left calf. Proximal wound measuring ~1x1cm with well defined edges, distal wound measuring ~0.5x0.5cm with well defined edges. No active drainage or eschar Bilateral Lower Extremities: Pulses: 2+, Edema: Non-pitting, L>R vascular discoloration noted bilaterally with abnormal findings noted above ZOSTER VACCINE (SHINGRIX)(1 of 2) due on 2005 INFLUENZA(1) due on 01/29/2018 LDL due on 04/06/2018 DIABETIC FOOT EXAM due on 04/12/2018 HBA1C due on 04/22/2018 URINE ALBUMIN CREATININE RATIO due on 05/27/2018 DILATED RETINAL EXAM due on 09/21/2018 COLORECTAL CANCER SCREENING,SEE MODIFIER due on 05/02/2020 DTAP,TDAP,TD(2 - Td) due on 05/19/2021 PROSTATE CANCER SCREENING DISCUSSION Completed ONE PNEUMOVAX PRIOR TO AGE 65 Completed HEPATITIS C SCREENING Completed ASSESSMENT/PLAN: 1. Cellulitis of left lower extremity - ICD9: 682.6, ICD10: L03.116 - Begin treatment with Cephalaxin (Keflex) given patient's anticoagulation status - Check labs INR in 1 week - No lymphangetic streaking, this was defined for patient to watch for and to seek medical care immediately if appears - Follow up for recheck in 1 week Ines Batista APRN.SWETA Prescription instructions reviewed with patient as applicable. Potential red flag symptoms discussed with the patient. Reviewed appropriate action plan to take if red flag symptoms occur. Patient agreeable to treatment plan. CNOV Observed: 12/03/2017 Status: COMPLETED Source: [place] 10:00 AM [facility] REPOSITORY Office Visit (INTMWS) CATALINA EVANS ([id number]) 1955 M Date Time Provider Department 12/03/17 10:00 AM INES BATISTA ([employer] FINAL INSPECTOR) INTMWS During your visit today, we recorded the following information about you: Temperature Pulse Respiration Blood pressure 97.9 degrees 90/minute 16/minute 128/78 Weight 153.3 kg Ines Batista APRN.[employer] FINAL INSPECTOR 12/03/2017 10:18 AM Signed Keep leg elevated as much as possible. Keep open area clean and dry. Wash with soap and water at least daily and apply neosporin as you have been. If you develop fevers, chills, increased redness or warmth or drainage from wound please seek immediate medical attention in the ER as you may need IV antibiotics. Ines Batista APRN.[employer] FINAL INSPECTOR 12/03/2017 10:31 AM Signed CC: Patient presents with: Musculoskeletal Problem: L leg swollen, wound red, seeping x 1 week HPI Catalina Evans is a 62 year old male who presents today for LLE swelling and redness x 3-4 days. Patient reports having increased swelling to his LLE x 3-4 days but noted worsening redness and warmth this morning. Associated symptoms include intermittent tingling. Patient reports having x2 open wounds to the outer calf that have been present for ~1 week. States he has been using peroxide and neosporin and showering twice daily. Denies any fever, chills, numbness or drainage. REVIEW OF SYSTEMS General: no fevers, no chills, no night sweats, no recurrent infections, no change in appetite, no change in energy and no significant changes in weight Skin: See HPI Hematologic/Lymph: Negative for prolonged bleeding or swollen nodes- patient is on coumadin Neurologic: No headache, weakness, numbness, neck stiffness, tremor, vertigo, dizziness, memory loss, syncope., See HPI PAST MEDICAL HISTORY Diagnosis Date - Acute liver failure with hepatic coma (HCC) 05/27/2017 ELEVATED AMMONIA - Babinski up on right - pin point pupils - lethgary without focal findings - ASCVD (arteriosclerotic cardiovascular disease) 09/18/2014 - Atrial fibrillation (HCC) 07/01/2006 - Benign neoplasm of colon 2005 Hyperplastic - BPH (benign prostatic hyperplasia) 01/30/2015 - Cardiomyopathy, ischemic 05/30/2015 - Coronary artery disease 05/16/2015 - DM2 (diabetes mellitus, type 2) (HCC) 05/16/2015 - Edema 07/01/2006 - Family history of malignant neoplasm of gastrointestinal tract 11/03/2006 - Flatulence, eructation, and gas pain - Heart attack (HCC) - HEMANGIOMA INTRA-ABDOM 07/29/2006 - HYPERTENSION NOS 08/27/2006 - Impaired fasting glucose 05/30/2010 - Irritable bowel syndrome 08/27/2006 - AL (myocardial infarction) ([facility]) 05/16/2015 - NSTEMI (non-ST elevated myocardial infarction) ([facility]) 05/16/2015 Pt now chest pain free with nitrate - recheck enzymes -1 set troponin0.719, CK 507, MB 39.9, CKMB 7.9 - check echo - continue heparin, aspirin, ARB, statin, beta linda - continue clopidogrel - called in/consented for [facility] today +/- PCI -05-17-15: PCI to the mid RCA with a 3.5 x 16 mm Synergy EES - Obesity, unspecified 07/01/2006 - Other and unspecified hyperlipidemia 07/01/2006 - Polyneuropathy ([facility]) 05/01/2016 Nerve study 2015. - SLEEP APNEA NOS (cpap intolerant) 07/01/2006 - Type II or unspecified type diabetes mellitus without mention of complication, not stated as uncontrolled 01/25/2014 - Unspecified constipation PAST SURGICAL HISTORY Procedure Laterality Date - [facility] Colonoscopy 2004, 2000 - [facility] 08/28/08 Colonoscopy - COLONOSCOP [facility]/ [facility] 05/02/2015 Colonoscopy - KNEE SCOPE,DIAGNOSTIC Right 10/06/2007 Arthroscopy, knee - LEFT HEART CATH,PERCUTANEOUS 08/22/2014 Cardiac cath, L heart - PALATE/UVULA SURGERY UNLISTED 1999 Somnoplasty, tracheostomy - PAST SURGICAL HISTORY OF 05/16/2015 Had heart stent - REPAIR BICEPS LONG TENDON Right 05/12/2017 [facility] - REPAIR ING HERNIA,5+Y/O,REDUCIBL Left 1990 Hernia repair, inguinal - TRACHEOSTOMY HX 1999 w/ UVPP ALLERGIES Patient has no known allergies. MEDICATIONS cephALEXin (KEFLEX) 500 mg capsule Take 1 capsule by mouth four times daily for 10 days. spironolactone (ALDACTONE) 25 mg tablet Take 1 tablet by mouth twice daily. pantoprazole DR (PROTONIX) 40 mg tablet Take 1 tablet by mouth every morning. atorvastatin (LIPITOR) 80 mg tablet Take 1 tablet by mouth once daily. furosemide (LASIX) 40 mg tablet Take 1 tablet by mouth twice daily. With 20 mg tablet for total of 60 mg twice daily. furosemide (LASIX) 20 mg tablet Take 1 tablet by mouth twice daily. COMPOUNDED PRESCRIPTION INOGEN PORTABLE OXYGEN CONCENTRATOR. 3 LPM VIA NASAL CANNULA WITH ACTIVITY. DX: J96.21; J96.22. J44.9. I25.5 COMPOUNDED PRESCRIPTION Oxygen conserving unit Dx:J44.9 Valsartan-Hydrochlorothiazide (DIOVAN HCT) 160-12.5 mg per tablet Take 1 tablet by mouth once daily. metoprolol succinate ER (TOPROL XL) 100 mg Tb24 Take 1 tablet by mouth once daily. warfarin (COUMADIN) 5 mg tablet Take 12.5mg daily or as directed. metFORMIN (GLUCOPHAGE) 500 mg tablet Take 1 tablet by mouth daily with breakfast. . nitroglycerin sublingual (NITROQUICK) 0.4 mg SL tablet Dissolve 1 tablet under the tongue as needed. FOR CHEST PAIN. IF NO RELIEF CALL 911 clopidogrel (PLAVIX) 75 mg tablet Take 1 tablet by mouth once daily. COMPOUNDED PRESCRIPTION Supplemental oxygen. Lifetime supply. Portable tank along with concentrator.3 lpm with exertion and at hours of sleep via nasal cannula albuterol HFA (PROVENTIL HFA, VENTOLIN HFA) 90 mcg/actuation inhaler Inhale 2 Puffs as instructed every 6 hours as needed for Wheezing/Shortness of Breath. ezetimibe (ZETIA) 10 mg tablet Take 1 tablet by mouth once daily. Compression Knee Highs KNEE HIGH COMPRESSION STOCKINGS 20- 30 MM HG. DX: EDEMA. VENOUS INSUFFICIENCY, BOTH LOWER EXTREMITIES. fluticasone (FLONASE) 50 mcg/actuation nasal spray 1 or 2 sprays in each nostril at bedtime. polyethylene glycol 3350 (MIRALAX) 17 gram/dose powder Take 17 g by mouth once daily. magnesium hydroxide (MILK OF MAGNESIA) 400 mg/5 mL suspension Take 15 mL by mouth once daily as needed for Constipation. senna-docusate 8.6-50 mg per tablet Take 1 tablet by mouth once daily. For constipation. Lancets (FREESTYLE LANCETS) [facility] lancets Test Blood sugar daily. Hyperglycemia, no insulin FAMILY HISTORY Problem Relation Age of Onset - Diabetes Father - Heart Father Pacemaker - Alzheimer's Disease Father - Coronary Artery Disease Father - parkinsons [OTHER] Father - Diabetes Mother - Cancer Mother Colon - Hypertension Brother - Heart Brother CABG - Diabetes Brother - Peripheral Artery Disease Brother - Hypertension Brother Social History Substance Use Topics - Smoking status: Former Smoker Packs/day: 0.25 Years: 20.00 Types: Cigarettes Quit date: 07/01/2006 - Smokeless tobacco: Former User - Alcohol use No PHYSICAL EXAM BP 128/78 Pulse 90 Temp 36.6 ?C (97.9 ?F) (Temporal Artery) Resp 16 Wt (!) 153.3 kg (338 lb) SpO2 93% BMI 48.50 kg/m? General Appearance: well appearing, in no acute distress, alert Pysch: mood and affect broad and appropriate Skin: +erythema and warmth to LLE, x2 small wounds noted to lateral left calf. Proximal wound measuring ~1x1cm with well defined edges, distal wound measuring ~0.5x0.5cm with well defined edges. No active drainage or eschar Bilateral Lower Extremities: Pulses: 2+, Edema: Non-pitting, L>R vascular discoloration noted bilaterally with abnormal findings noted above ZOSTER VACCINE (SHINGRIX)(1 of 2) due on 2005 INFLUENZA(1) due on 01/29/2018 LDL due on 04/06/2018 DIABETIC FOOT EXAM due on 04/12/2018 HBA1C due on 04/22/2018 URINE ALBUMIN CREATININE RATIO due on 05/27/2018 DILATED RETINAL EXAM due on 09/21/2018 COLORECTAL CANCER SCREENING,SEE MODIFIER due on 05/02/2020 DTAP,TDAP,TD(2 - Td) due on 05/19/2021 PROSTATE CANCER SCREENING DISCUSSION Completed ONE PNEUMOVAX PRIOR TO AGE 65 Completed HEPATITIS C SCREENING Completed ASSESSMENT/PLAN: 1. Cellulitis of left lower extremity - ICD9: 682.6, ICD10: L03.116 - Begin treatment with Cephalaxin (Keflex) given patient's anticoagulation status - Check labs INR in 1 week - No lymphangetic streaking, this was defined for patient to watch for and to seek medical care immediately if appears - Follow up for recheck in 1 week Ines Batista APRN.[employer] FINAL INSPECTOR Prescription instructions reviewed with patient as applicable. Potential red flag symptoms discussed with the patient. Reviewed appropriate action plan to take if red flag symptoms occur. Patient agreeable to treatment plan. Referring Provider: SELF [[id number]] Allergies As of Date: 12/03/2017 (No Known Allergies) Date Reviewed: 12/03/2017 Reviewed by: Ebonie Mcqueen Ma - Fully Assessed Reason for Visit: Musculoskeletal Problem [69] Cmt: L leg swollen, wound red, seeping x 1 week Primary Visit Diagnosis:Cellulitis of left lower extremity [L03.116] Order(s):cephALEXin (KEFLEX) 500 mg capsuleTake 1 capsule by mouth four times daily for 10 days.Disp: 40 capsuleRfl: 0 Prescriptions as of 12/03/2017 Sig: CEPHALEXIN 500 MG CAPSULE Take 1 capsule by mouth four * SPIRONOLACTONE 25 MG TABLET Take 1 tablet by mouth twice * PANTOPRAZOLE 40 MG TABLET,DEL* Take 1 tablet by mouth every * ATORVASTATIN 80 MG TABLET Take 1 tablet by mouth once d* FUROSEMIDE 40 MG TABLET Take 1 tablet by mouth twice * FUROSEMIDE 20 MG TABLET Take 1 tablet by mouth twice * COMPOUNDED PRESCRIPTION INOGEN PORTABLE OXYGEN CONCEN* COMPOUNDED PRESCRIPTION Oxygen conserving unit Dx:J4* VALSARTAN 160 MG-HYDROCHLOROT* Take 1 tablet by mouth once d* METOPROLOL SUCCINATE ER 100 M* Take 1 tablet by mouth once d* WARFARIN 5 MG TABLET Take 12.5mg daily or as direc* METFORMIN 500 MG TABLET Take 1 tablet by mouth daily * NITROGLYCERIN 0.4 MG SUBLINGU* Dissolve 1 tablet under the t* CLOPIDOGREL 75 MG TABLET Take 1 tablet by mouth once d* COMPOUNDED PRESCRIPTION Supplemental oxygen. Lifetime* ALBUTEROL SULFATE HFA 90 MCG/* Inhale 2 Puffs as instructed * EZETIMIBE 10 MG TABLET Take 1 tablet by mouth once d* COMPOUNDED PRESCRIPTION KNEE HIGH COMPRESSION STOCKIN* FLUTICASONE 50 MCG/ACTUATION * 1 or 2 sprays in each nostril* POLYETHYLENE GLYCOL 3350 17 G* Take 17 g by mouth once daily. MAGNESIUM HYDROXIDE 400 MG/5 * Take 15 mL by mouth once andrey* SENNOSIDES 8.6 MG-DOCUSATE SO* Take 1 tablet by mouth once d* * LANCETS Test Blood sugar daily. Hype* Problem List As Of Date 12/03/2017 Noted Resolved ATRIAL FIBRILLATION [I48.91] INVALID FOR*07/23/2015 More... Edema [R60.9] INVALID FOR* Hypercholesterolemia [E78.00] INVALID FOR* Priority: J More... SLEEP APNEA NOS (cpap intolerant) [G47.30] INVALID FOR*01/30/2015 Obesity [E66.9] INVALID FOR*08/13/2017 More... Hemangioma of intra-abdominal structures [D18.0*INVALID FOR*04/25/2014 Essential hypertension [I10] INVALID FOR* Priority: K More... IRRITABLE COLON [K58.9] INVALID FOR* Constipation [K59.00] INVALID FOR* DERMATOPHYTOSIS OF NAIL [B35.1] INVALID FOR*04/24/2008 ABDOMINAL PAIN LLQ [R10.32] 04/24/2008 ABDOMINAL PAIN LUQ [R10.12] 04/24/2008 FLATUL/ERUCTAT/GAS PAIN [R14.3, R14.1, R14.2] 04/24/2008 Impaired fasting glucose [R73.01] INVALID FOR*04/25/2014 COPD (chronic obstructive pulmonary disease) [J*INVALID FOR* Type II or unspecified type diabetes mellitus w*INVALID FOR*05/16/2015 ASCVD (arteriosclerotic cardiovascular disease)*INVALID FOR* BPH (benign prostatic hyperplasia) [N40.0] INVALID FOR* Family history of colon cancer [Z80.0] INVALID FOR*08/13/2017 NSTEMI (non-ST elevated myocardial infarction) *INVALID FOR*01/15/2016 More... DM2 (diabetes mellitus, type 2) (HCC) [E11.9] INVALID FOR* Priority: D More... S/P right coronary artery (RCA) stent placement*INVALID FOR* LV dysfunction [I51.9] INVALID FOR*01/15/2016 Cardiomyopathy, ischemic [I25.5] INVALID FOR* Priority: F More... Chronic anticoagulation [Z79.01] INVALID FOR* Priority: H More... Paroxysmal atrial fibrillation (HCC) [I48.0] INVALID FOR* Priority: C More... Sleep apnea [G47.30] INVALID FOR* Priority: G More... Astigmatism, regular [H52.229] INVALID FOR*08/13/2017 Presbyopia [H52.4] INVALID FOR*01/15/2016 Benign neoplasm of skin of eyelid including can*INVALID FOR*04/07/2017 Polyneuropathy (HCC) [G62.9] INVALID FOR* More... Spinal stenosis, lumbar region, with neurogenic*INVALID FOR* Displacement of lumbar intervertebral disc with*INVALID FOR*04/07/2017 Spondylosis of lumbar region without myelopathy*INVALID FOR* Lesion of liver [K76.9] INVALID FOR*08/13/2017 Priority: B More... Ascites [R18.8] INVALID FOR*05/30/2017 Priority: B More... ADEBAYO (acute kidney injury) (HCC) [N17.9] INVALID FOR* Priority: E More... Nicotine use disorder, F17.2 [F17.200] INVALID FOR*08/13/2017 Priority: L More... Obesity, Class III, BMI >= 40 (morbid obesity) *INVALID FOR* Priority: M Lethargy [R53.83] INVALID FOR*08/13/2017 Priority: Severe Acute on chronic respiratory failure with hypox*INVALID FOR* Priority: Moderate More... Morbid obesity with body mass index (BMI) of 45*INVALID FOR* Priority: M More... Acute liver failure with hepatic coma (HCC) [K7*INVALID FOR*08/13/2017 Priority: Mild More... Respiratory failure with hypercapnia (HCC) [J96*INVALID FOR*08/13/2017 Priority: A More... Shock circulatory (HCC) [R57.9] INVALID FOR*05/29/2017 Priority: A More... Kidney insufficiency [N28.9] INVALID FOR* Combined forms of age-related cataract of both *INVALID FOR* Hyperopia, bilateral [H52.03] INVALID FOR* Combined form of age-related cataract, both eye*INVALID FOR* Dry eye syndrome, bilateral [H04.123] INVALID FOR* Other instructions from your clinician: Keep leg elevated as much as possible. Keep open area clean and dry. Wash with soap and water at least daily and apply neosporin as you have been. If you develop fevers, chills, increased redness or warmth or drainage from wound please seek immediate medical attention in the ER as you may need IV antibiotics. Prescriptions ordered this encounter Disp Refills Start End CEPHALEXIN 500 MG CAPSULE 40 c* 0 12/03/2017 12/13/2017 Route: ORAL Sig: Take 1 capsule by mouth four times daily for 10 days. Encounter Status:Closed by INES BATISTA CNP on 12/03/17 PROGRESS Observed: 11/19/2017 Status: COMPLETED Source: [place] 3:40 PM [facility] REPOSITORY HNO ID: [id number] Author: Katharine Nino RN Service: (none) Author Type: (none) Type: Progress Notes Filed: 11/19/2017 3:40 PM Note Text: per written order by dr caballero she agrees with information below PROGRESS Observed: 11/19/2017 Status: COMPLETED Source: [place] 1:09 PM [facility] REPOSITORY HNO ID: [id number] Author: Katharine Nino RN Service: (none) Author Type: (none) Type: Progress Notes Filed: 11/19/2017 1:10 PM Note Text: patient had inr completed at [facility] patients inr is 2.1 (patients inr range is 2.0-3.0) patient is currently taking 10mg daily patients last dose change was on 11/12/17 due to a high level of 3.5 (dose at that time was 12.5mg Sat,Sun and 10mg all other days) patient has had no changes in medication except for coumadin and no missed doses and no change in diet Advised patient to continue on the same dose(s) and that they would only be contacted regarding dosage and follow up instructions after review with provider, if a change is needed. Written instructions given and patient verbalized understanding. Presently scheduled in 4 weeks (12/16/17 - appt with pcp also tis day) for follow up INR. PROGRESS Observed: 11/12/2017 Status: COMPLETED Source: [place] 5:25 PM [facility] REPOSITORY HNO ID: [id number] Author: Yi Anderson LPN Service: (none) Author Type: (none) Type: Progress Notes Filed: 11/12/2017 5:35 PM Note Text: Phoned patient and spoke to Marcela and gave coumadin instructions 7.5 mg tomorrow and then 10 mg all other days of the week and recheck INR in one week, appt scheduled for 11/19/2017 already with understanding. PROGRESS Observed: 11/12/2017 Status: COMPLETED Source: [place] 5:06 PM [facility] REPOSITORY HNO ID: [id number] Author: Chana Montero Service: (none) Author Type: Physician Type: Progress Notes Filed: 11/12/2017 5:35 PM Note Text: Please take 7.5 mgs tomorrow and then 10 mgs all the days of the week , recheck in 1 week PROGRESS Observed: 11/12/2017 Status: COMPLETED Source: [place] 3:51 PM [facility] REPOSITORY HNO ID: [id number] Author: Katharine Nino RN Service: (none) Author Type: (none) Type: Progress Notes Filed: 11/12/2017 3:52 PM Note Text: patient had inr completed at [facility] patients inr is 3.5 (patients inr range is 2.0-3.0) patient is currently taking 12.5mg Sat,Sun and 10mg all other days patients last dose change was on 11/05/17 due to a low level of 1.7 (dose at that time was 10mg daily) patient has had no changes in medication except for coumadin and no missed doses and no change in diet Advised patient that they would be contacted regarding medication dose and when to follow up after information is reviewed by provider. After provider review please contact the patient with information and schedule follow up appointment with coumadin clinic. FYI - patient has been scheduled for a 1 week follow up inr on 11/19/17 PROGRESS Observed: 11/05/2017 Status: COMPLETED Source: [place] 2:52 PM [facility] REPOSITORY HNO ID: [id number] Author: Alma Yanes LPN Service: (none) Author Type: (none) Type: Progress Notes Filed: 11/05/2017 2:53 PM Note Text: Patient notified and repeated back instructions. Verbalized understanding. Appt made for inr clinic in one week. Alma Yanes LPN PROGRESS Observed: 11/05/2017 Status: COMPLETED Source: [place] 2:42 PM [facility] REPOSITORY HNO ID: [id number] Author: Bev Smart Service: (none) Author Type: Nurse Practitioner Type: Progress Notes Filed: 11/05/2017 2:53 PM Note Text: Increase dose to 12.5 mg Wednesday and Sundays and 10 mg all other days. Recheck in one week Bev Smart APRN.CNP PROGRESS Observed: 11/05/2017 Status: COMPLETED Source: [place] 1:58 PM [facility] REPOSITORY HNO ID: [id number] Author: Katharine Nino RN Service: (none) Author Type: (none) Type: Progress Notes Filed: 11/05/2017 2:00 PM Note Text: patient had inr completed at [facility] patients inr is 1.7 (patients inr range is 2.0-3.0) patient is currently taking 10mg daily (since Wednesday) patients last dose change was on 10/29/17 due to a high level of 4.5 (dose at that time was 15mg Wed,Wed,Wed and 12.5mg all other days) patient has had no changes in medication except for coumadin and no uninstructed missed does (pt was instructed Wednesday to hold 2 dose and then restart Wednesday) and no change in diet Advised patient to continue on the same dose(s) and that they would only be contacted regarding dosage and follow up instructions after review with provider, if a change is needed. Written instructions given and patient verbalized understanding. Presently scheduled in 2 weeks (11/19/17) for follow up INR since low level is probably caused by the holding of medication. PROGRESS Observed: 10/29/2017 Status: COMPLETED Source: [place] 1:14 PM [facility] REPOSITORY HNO ID: [id number] Author: Allison Bustamante RN Service: (none) Author Type: (none) Type: Progress Notes Filed: 10/29/2017 1:19 PM Note Text: Patient notified via voicemail of physician instructions. Asked patient to call and confirm he received message and to schedule one week follow up. Allison Bustamante RN PROGRESS Observed: 10/29/2017 Status: COMPLETED Source: [place] 12:20 PM [facility] REPOSITORY HNO ID: [id number] Author: Coy Mercado Service: (none) Author Type: Physician Type: Progress Notes Filed: 11/02/2017 12:50 PM Note Text: Patient did not decrease coumadin as directed on October 21. Stop coumadin for two days. Then start coumadin 10 mg daily. INR in one week. PROGRESS Observed: 10/29/2017 Status: COMPLETED Source: [place] 10:54 AM [facility] REPOSITORY HNO ID: [id number] Author: Allison Bustamante RN Service: (none) Author Type: (none) Type: Progress Notes Filed: 10/29/2017 10:58 AM Note Text: Patient had INR completed at [facility] Patient's INR is 4.5 Patient is currently taking 15 mg Mon, Wed, and Fri and 12.5 mg on Wed, e, Carla, Sat. Patient's last dose change was 10/04/17 due to low INR at 1.2 Patient has had no medication and no change in diet. Advised patient that they would be contacted regarding medication dose and follow-up once reviewed by provider. After provider review, please contact patient with information and schedule follow-up appointment with coumadin clinic. Patient scheduled for INR follow-up on 11/05/17. PROGRESS Observed: 10/20/2017 Status: COMPLETED Source: [place] 6:17 PM [facility] REPOSITORY HNO ID: [id number] Author: Zeke Sahni Service: (none) Author Type: Physician Type: Progress Notes Filed: 10/20/2017 6:24 PM Note Text: PERTINENT CARDIAC HISTORY PAF - Documented 2011, 06/16/14 COPD - previous 2ppd smoker Hypertension with LVH, PAF, and dilated aorta Hyperlipidemia RICKY - can't tolerate CPAP Obesity ASHD - IMI, PCI RCA 05/14 (BIANKA) DM Venous insufficiency ADHERENCE TO GUIDELINES KUSUM-I or ARB for HF with prior LVEF<40 (NQF 0081) - met ASA or Plavix for ASHD (NQF 0067) - met Beta linda for ASHD with prior AL or prior LVEF<40 (NQF 0070) - met Beta linda for HF with prior LVEF<40 (NQF 0083) - met KUSUM-I or ARB for ASHD with DM or prior LVEF<40 (NQF 0066) - met Statin therapy for ASHD or FHL or DM - met BMI documented and plan if >25 (NQF 0421) - lifestyle recommendation form Tobacco use screening and referral (NQF 0028) - lifestyle recommendation form Recommendation for whole food, plant based diet - lifestyle recommendation form CLINICAL IMPRESSION/PLAN: Catalina Evans has stable ischemic heart disease. He's had no recent chest discomfort. He has not been able to tolerate CPAP, but states that he is not having any snoring at night. His confirms. He's had no recent palpitations to suggest recurrent atrial fibrillation. There is no evidence of decompensation of his CHF. His edema appears to be related to volume overload and venous insufficiency. He has not been observing fluid and salt restriction well. We discussed this in detail. I recommended that he have follow-up labs done today. We will consider the addition of Aldactone. I strongly advised him to become more active and get his weight under better control. He should wear support stockings as much as possible. I will see him in 6 months or as needed. Written and verbal health teaching given to patient, patient verbalizes understanding and agrees with treatment plan. DIAGNOSIS FOR VISIT: ASHD Hypertension HISTORY OF PRESENT ILLNESS Catalina Evans returns for follow-up of his coronary disease and other cardiac issues, as noted above. He was recently given prescription for Zaroxolyn because of increasing edema with weeping. His creatinine bumped up and he became prerenal. This has subsequently been discontinued. He reports that he has gained 15-20 pounds over the last several months. He has not been very active. His edema has improved slightly with the Zaroxolyn. He denies chest pain. He's had no orthopnea. He denies syncope, palpitations, TIAs, amaurosis and claudication. ALLERGIES: ALLERGIES No Known Allergies CURRENT OUTPATIENT MEDICATIONS: pantoprazole DR (PROTONIX) 40 mg tablet Take 1 tablet by mouth every morning. metOLAzone (ZAROXOLYN) 5 mg tablet Take 1 tablet by mouth once daily for 10 days. atorvastatin (LIPITOR) 80 mg tablet Take 1 tablet by mouth once daily. furosemide (LASIX) 40 mg tablet Take 1 tablet by mouth twice daily. With 20 mg tablet for total of 60 mg twice daily. furosemide (LASIX) 20 mg tablet Take 1 tablet by mouth twice daily. COMPOUNDED PRESCRIPTION INOGEN PORTABLE OXYGEN CONCENTRATOR. 3 LPM VIA NASAL CANNULA WITH ACTIVITY. DX: J96.21; J96.22. J44.9. I25.5 COMPOUNDED PRESCRIPTION Oxygen conserving unit Dx:J44.9 Valsartan-Hydrochlorothiazide (DIOVAN HCT) 160-12.5 mg per tablet Take 1 tablet by mouth once daily. metoprolol succinate ER (TOPROL XL) 100 mg Tb24 Take 1 tablet by mouth once daily. warfarin (COUMADIN) 5 mg tablet Take 12.5mg daily or as directed. metFORMIN (GLUCOPHAGE) 500 mg tablet Take 1 tablet by mouth daily with breakfast. . nitroglycerin sublingual (NITROQUICK) 0.4 mg SL tablet Dissolve 1 tablet under the tongue as needed. FOR CHEST PAIN. IF NO RELIEF CALL 911 clopidogrel (PLAVIX) 75 mg tablet Take 1 tablet by mouth once daily. COMPOUNDED PRESCRIPTION Supplemental oxygen. Lifetime supply. Portable tank along with concentrator.3 lpm with exertion and at hours of sleep via nasal cannula albuterol HFA (PROVENTIL HFA, VENTOLIN HFA) 90 mcg/actuation inhaler Inhale 2 Puffs as instructed every 6 hours as needed for Wheezing/Shortness of Breath. ezetimibe (ZETIA) 10 mg tablet Take 1 tablet by mouth once daily. Compression Knee Highs KNEE HIGH COMPRESSION STOCKINGS 20- 30 MM HG. DX: EDEMA. VENOUS INSUFFICIENCY, BOTH LOWER EXTREMITIES. fluticasone (FLONASE) 50 mcg/actuation nasal spray 1 or 2 sprays in each nostril at bedtime. polyethylene glycol 3350 (MIRALAX) 17 gram/dose powder Take 17 g by mouth once daily. magnesium hydroxide (MILK OF MAGNESIA) 400 mg/5 mL suspension Take 15 mL by mouth once daily as needed for Constipation. senna-docusate 8.6-50 mg per tablet Take 1 tablet by mouth once daily. For constipation. Lancets (FREESTYLE LANCETS) [facility] lancets Test Blood sugar daily. Hyperglycemia, no insulin PHYSICAL EXAMINATION: VITAL SIGNS: BP 117/78 Pulse 83 Resp 18 Wt 340 lb (154.2kg) Chest: Clear to percussion and auscultation. Trachea is midline. Air entry is equal. Cardiac: Regular rhythm. S1 and S2 are normal. PMI is nondisplaced. There is a 2/6 systolic ejection murmur. Carotids are brisk without bruits. JVP is not visible due to obesity Abdomen: Soft and nontender. Exam is limited by obesity. There are no pulsatile masses or bruits. No liver enlargement. Bowel sounds are active. Extremities: 1 plus edema with stasis changes and mild cobblestoning. There is mild fluid leakage from the left leg. There is no evidence of cellulitis. He is not wearing support stockings. Pulses are intact and symmetrical. Recent labs reviewed. BUN had increased to 40. Electronically Signed: Zeke Sahni MD October 20, 2017 6:17 PM CC: Coy Mercado MD PROTIME Collected: 10/20/2017 Status: F Source: [place] 9:25 AM [facility] REPOSITORY TYPE CODE TESTS RESULT OUT OF RANGE REFERENCE UNITS LAB PSEC 9.7-13.0 sec High PT Sec 35.9 LAB INR 0.9-1.3 High PT INR 3.8 Result Comment: Vitamin K Antagonist (VKA) Therapeutic Range: INR 2 to 3 (Target INR of 2.5) Note: For patients treated with VKA drugs, such as warfarin, the [place] [employer] 2012 Guideline recommends a therapeutic INR range of 2 to 3 (target INR of 2.5). This recommendation includes high-risk patients with antiphospholipid syndrome with previous arterial or venous thromboembolism, current-generation mechanical or bioprosthetic aortic heart valve replacement. Note: Patients with mechanical aortic valve replacement and additional risk factors for thromboembolic events (atrial fibrillation, previous thromboembolism, LV dysfunction, hypercoagulable conditions) or an older generation mechanical AVR (i.e., ball in-Cage) or any mechanical MVR should have a INR therapeutic range of 2.5 to 3.5 (target INR of 3). Kristal GH, et al. Chest 2012, 141:7S-47S Paola RA, et al. [facility] 2017, 70: 252-289 Performed By: #### PT, HBA1C #### [facility] [employer] [address] [address] HEMOGLOBIN A1C Collected: 10/20/2017 Status: F Source: [place] 9:25 [facility] REPOSITORY TYPE CODE TESTS RESULT OUT OF REFERENCE UNITS RANGE LAB HGBA1C 4.3-5.6 % High Hemoglobin A1c 7.0 LAB HBA0 mg/dL Est. Average Glucose 154 Result Comment: eAG: (Estimated average glucose) is a calculated value from HgbA1c and is inbound sales representative of the average blood glucose level in the last 2-3 month period. Performed By: #### PT, HBA1C #### [facility] [employer] [address] [id number] BASIC METABOLIC PANL Collected: 10/20/2017 Status: F Source: [place] 9:25 AM [facility] REPOSITORY TYPE CODE TESTS RESULT OUT OF REFERENCE UNITS RANGE LAB GLU 74-99 mg/dL High Glucose 125 Result Comment: The [place] [employer] (ADA) provides guidance for cutoff values for fasting glucose and random glucose. The ADA defines fasting as no caloric intake for at least 8 hours. Fas ting plasma glucose results between 100 to 125 mg/dL indicate increased risk for diabetes (prediabetes). Fasting plasma glucose results greater than or equal to 126 mg/dL meet the criteria for diagnosis of diabetes. In the absence of unequivocal hyperglycemia, results should be confirmed by repeat testing. In a patient with classic symptoms of hyperglycemia or hyperglycemic crisis, random plasma glucose results greater than or equal to 200 mg/dL meet the criteria for diagnosis of diabetes. Reference: Standards of Medical Care in Diabetes 2016, [place] [employer]. Diabetes Care. 2016.39(Suppl 1). LAB BUN 9-24 mg/dL BUN 19 LAB CRET 0.73-1.22 mg/dL Creatinine 1.19 LAB NA 136-144 mmol/L Sodium High 147 LAB K 3.7-5.1 mmol/L Potassium 3.8 LAB CL 97-105 mmol/L Chloride 100 LAB CO2 22-30 mmol/L CO2 High 37 LAB AGAP 9-18 mmol/L Anion Gap 10 LAB CA 8.5-10.2 mg/dL Calcium, Total 9.0 LAB GFRAA eGFR- Amer. >60 LAB GFRNAA . eGFR-All Other Races >60 Result Comment: eGFR (Estimated GFR) Units of measure: mL/min/1.73 meters squared eGFR is derived from the reexpressed MDRD Study equation using the following parameters: serum creatinine, age, gender and race. The creatinine assay has been calibrated to be traceable to IDMS. An eGFR <60 mL/min/1.73m2 for >3 months is consistent with chronic kidney disease. Refer to KDOQI guidelines for clinical interpretation. In patients with unstable renal function, e.g. those with acute kidney injury, the eGFR may not accurately reflect actual GFR. Performed By: #### BMP, MG1 #### [facility] [employer] [address] [place], [place] [address] MAGNESIUM Collected: 10/20/2017 Status: F Source: [place] 9:25 AM [facility] REPOSITORY TYPE CODE TESTS RESULT OUT OF REFERENCE UNITS RANGE LAB MG 1.7-2.3 mg/dL Magnesium 2.0 Performed By: #### BMP, MG1 #### [facility] [employer] [address] [place], [place] [address] PROGRESS Observed: 10/20/2017 Status: COMPLETED Source: [place] 9:13 AM [facility] OTHER [facility] REPOSITORY HNO ID: [id number] Author: Zeke Sahni Service: (none) Author Type: Physician Type: Progress Notes Filed: 10/21/2017 12:36 PM Note Text: PERTINENT CARDIAC HISTORY PAF - Documented 2011, 06/16/14 COPD - previous 2ppd smoker Hypertension with LVH, PAF, and dilated aorta Hyperlipidemia RICKY - can't tolerate CPAP Obesity ASHD - IMI, PCI RCA 05/14 (BIANKA) DM Venous insufficiency ADHERENCE TO GUIDELINES KUSUM-I or ARB for HF with prior LVEF<40 (NQF 0081) - met ASA or Plavix for ASHD (NQF 0067) - met Beta linda for ASHD with prior AL or prior LVEF<40 (NQF 0070) - met Beta linda for HF with prior LVEF<40 (NQF 0083) - met KUSUM-I or ARB for ASHD with DM or prior LVEF<40 (NQF 0066) - met Statin therapy for ASHD or FHL or DM - met BMI documented and plan if >25 (NQF 0421) - lifestyle recommendation form Tobacco use screening and referral (NQF 0028) - lifestyle recommendation form Recommendation for whole food, plant based diet - lifestyle recommendation form CLINICAL IMPRESSION/PLAN: Catalina Evans Written and verbal health teaching given to patient, patient verbalizes understanding and agrees with treatment plan. DIAGNOSIS FOR VISIT: HISTORY OF PRESENT ILLNESS Catalina Evans ALLERGIES: ALLERGIES No Known Allergies CURRENT OUTPATIENT MEDICATIONS: pantoprazole DR (PROTONIX) 40 mg tablet Take 1 tablet by mouth every morning. atorvastatin (LIPITOR) 80 mg tablet Take 1 tablet by mouth once daily. furosemide (LASIX) 40 mg tablet Take 1 tablet by mouth twice daily. With 20 mg tablet for total of 60 mg twice daily. furosemide (LASIX) 20 mg tablet Take 1 tablet by mouth twice daily. COMPOUNDED PRESCRIPTION INOGEN PORTABLE OXYGEN CONCENTRATOR. 3 LPM VIA NASAL CANNULA WITH ACTIVITY. DX: J96.21; J96.22. J44.9. I25.5 COMPOUNDED PRESCRIPTION Oxygen conserving unit Dx:J44.9 Valsartan-Hydrochlorothiazide (DIOVAN HCT) 160-12.5 mg per tablet Take 1 tablet by mouth once daily. metoprolol succinate ER (TOPROL XL) 100 mg Tb24 Take 1 tablet by mouth once daily. warfarin (COUMADIN) 5 mg tablet Take 12.5mg daily or as directed. metFORMIN (GLUCOPHAGE) 500 mg tablet Take 1 tablet by mouth daily with breakfast. . nitroglycerin sublingual (NITROQUICK) 0.4 mg SL tablet Dissolve 1 tablet under the tongue as needed. FOR CHEST PAIN. IF NO RELIEF CALL 911 clopidogrel (PLAVIX) 75 mg tablet Take 1 tablet by mouth once daily. COMPOUNDED PRESCRIPTION Supplemental oxygen. Lifetime supply. Portable tank along with concentrator.3 lpm with exertion and at hours of sleep via nasal cannula albuterol HFA (PROVENTIL HFA, VENTOLIN HFA) 90 mcg/actuation inhaler Inhale 2 Puffs as instructed every 6 hours as needed for Wheezing/Shortness of Breath. ezetimibe (ZETIA) 10 mg tablet Take 1 tablet by mouth once daily. fluticasone (FLONASE) 50 mcg/actuation nasal spray 1 or 2 sprays in each nostril at bedtime. polyethylene glycol 3350 (MIRALAX) 17 gram/dose powder Take 17 g by mouth once daily. magnesium hydroxide (MILK OF MAGNESIA) 400 mg/5 mL suspension Take 15 mL by mouth once daily as needed for Constipation. senna-docusate 8.6-50 mg per tablet Take 1 tablet by mouth once daily. For constipation. Lancets (FREESTYLE LANCETS) [facility] lancets Test Blood sugar daily. Hyperglycemia, no insulin metOLAzone (ZAROXOLYN) 5 mg tablet Take 1 tablet by mouth once daily for 10 days. Compression Knee Highs KNEE HIGH COMPRESSION STOCKINGS 20- 30 MM HG. DX: EDEMA. VENOUS INSUFFICIENCY, BOTH LOWER EXTREMITIES. PHYSICAL EXAMINATION: VITAL SIGNS: BP 101/68 Pulse 83 Wt 340 lb 3.2 oz (154.3kg) Chest: Clear to percussion and auscultation. Trachea is midline. Air entry is equal. Cardiac: Regular rhythm. S1 and S2 are normal. PMI is nondisplaced. There are no murmurs, rubs or gallops. Carotids are brisk without bruits. JVP is less than 10 cm. Abdomen: Soft and nontender. There are no pulsatile masses or bruits. No liver enlargement. Bowel sounds are active. Extremities: No edema. Pulses are intact and symmetrical. Electronically Signed: Zeke Sahni MD October 20, 2017 9:13 AM CC: Coy Mercado MD CNOV Observed: 10/20/2017 Status: COMPLETED Source: [place] 8:30 AM [facility] REPOSITORY Office Visit (AGCARDWST) CATALINA EVANS ([id number]) 1955 M Date Time Provider Department 10/20/17 8:30 AM ZEKE SAHNI AGCARDWST During your visit today, we recorded the following information about you: Pulse Blood pressure Weight 83/minute 101/68 154.3 kg Zeke Sahni MD 10/21/2017 12:36 PM Signed PERTINENT CARDIAC HISTORY PAF - Documented 2011, 06/16/14 COPD - previous 2ppd smoker Hypertension with LVH, PAF, and dilated aorta Hyperlipidemia RICKY - can't tolerate CPAP Obesity ASHD - IMI, PCI RCA 05/14 ([place]ANK[place]) DM Venous insufficiency ADHERENCE TO GUIDELINES KUSUM-I or ARB for HF with prior LVEF<40 (NQF 0081) - met ASA or Plavix for ASHD (NQF 0067) - met Beta linda for ASHD with prior AL or prior LVEF<40 (NQF 0070) - met Beta linda for HF with prior LVEF<40 (NQF 0083) - met KUSUM-I or ARB for ASHD with DM or prior LVEF<40 (NQF 0066) - met Statin therapy for ASHD or FHL or DM - met BMI documented and plan if >25 (NQF 0421) - lifestyle recommendation form Tobacco use screening and referral (NQF 0028) - lifestyle recommendation form Recommendation for whole food, plant based diet - lifestyle recommendation form CLINICAL IMPRESSION/PLAN: Catalina Evans Written and verbal health teaching given to patient, patient verbalizes understanding and agrees with treatment plan. DIAGNOSIS FOR VISIT: HISTORY OF PRESENT ILLNESS Catalina Evans ALLERGIES: ALLERGIES No Known Allergies CURRENT OUTPATIENT MEDICATIONS: pantoprazole DR (PROTONIX) 40 mg tablet Take 1 tablet by mouth every morning. atorvastatin (LIPITOR) 80 mg tablet Take 1 tablet by mouth once daily. furosemide (LASIX) 40 mg tablet Take 1 tablet by mouth twice daily. With 20 mg tablet for total of 60 mg twice daily. furosemide (LASIX) 20 mg tablet Take 1 tablet by mouth twice daily. COMPOUNDED PRESCRIPTION INOGEN PORTABLE OXYGEN CONCENTRATOR. 3 LPM VIA NASAL CANNULA WITH ACTIVITY. DX: J96.21; J96.22. J44.9. I25.5 COMPOUNDED PRESCRIPTION Oxygen conserving unit Dx:J44.9 Valsartan-Hydrochlorothiazide (DIOVAN HCT) 160-12.5 mg per tablet Take 1 tablet by mouth once daily. metoprolol succinate ER (TOPROL XL) 100 mg Tb24 Take 1 tablet by mouth once daily. warfarin (COUMADIN) 5 mg tablet Take 12.5mg daily or as directed. metFORMIN (GLUCOPHAGE) 500 mg tablet Take 1 tablet by mouth daily with breakfast. . nitroglycerin sublingual (NITROQUICK) 0.4 mg SL tablet Dissolve 1 tablet under the tongue as needed. FOR CHEST PAIN. IF NO RELIEF CALL 911 clopidogrel (PLAVIX) 75 mg tablet Take 1 tablet by mouth once daily. COMPOUNDED PRESCRIPTION Supplemental oxygen. Lifetime supply. Portable tank along with concentrator.3 lpm with exertion and at hours of sleep via nasal cannula albuterol HFA (PROVENTIL HFA, VENTOLIN HFA) 90 mcg/actuation inhaler Inhale 2 Puffs as instructed every 6 hours as needed for Wheezing/Shortness of Breath. ezetimibe (ZETIA) 10 mg tablet Take 1 tablet by mouth once daily. fluticasone (FLONASE) 50 mcg/actuation nasal spray 1 or 2 sprays in each nostril at bedtime. polyethylene glycol 3350 (MIRALAX) 17 gram/dose powder Take 17 g by mouth once daily. magnesium hydroxide (MILK OF MAGNESIA) 400 mg/5 mL suspension Take 15 mL by mouth once daily as needed for Constipation. senna-docusate 8.6-50 mg per tablet Take 1 tablet by mouth once daily. For constipation. Lancets (FREESTYLE LANCETS) [facility] lancets Test Blood sugar daily. Hyperglycemia, no insulin metOLAzone (ZAROXOLYN) 5 mg tablet Take 1 tablet by mouth once daily for 10 days. Compression Knee Highs KNEE HIGH COMPRESSION STOCKINGS 20- 30 MM HG. DX: EDEMA. VENOUS INSUFFICIENCY, BOTH LOWER EXTREMITIES. PHYSICAL EXAMINATION: VITAL SIGNS: BP 101/68 Pulse 83 Wt 340 lb 3.2 oz (154.3kg) Chest: Clear to percussion and auscultation. Trachea is midline. Air entry is equal. Cardiac: Regular rhythm. S1 and S2 are normal. PMI is nondisplaced. There are no murmurs, rubs or gallops. Carotids are brisk without bruits. JVP is less than 10 cm. Abdomen: Soft and nontender. There are no pulsatile masses or bruits. No liver enlargement. Bowel sounds are active. Extremities: No edema. Pulses are intact and symmetrical. Electronically Signed: Zeke Sahni MD October 20, 2017 9:13 AM CC: MD Zeke Perkins MD 10/20/2017 9:14 AM Signed LIFESTYLE CHANGE A healthy lifestyle is the most important component of your overall treatment plan. Please give serious thought to the following areas and commit to making jail changes. EAT A WHOLE FOOD, PLANT BASED DIET The nutrition your body gets is more important than the medicine you take. What matters most is the overall way you eat. We encourage you to minimize the use of animal products (which include dairy and all meats except fatty fish) and use whole, unprocessed plant foods to provide your protein, vitamins and other nutrients. We have a lot of information to share with you on this topic. This is not a diet. It is a way of life that you will keep with you. EXERCISE REGULARLY It is not important to spend hours in the gym, lifting weights and perspiring heavily. A total of 2-3 hours per week of aerobic (causing you to be moderately short of breath) exercise is sufficient to improve your health. Talk to us before you begin a new exercise program, if you have heart disease or experience shortness of breath or chest pain. REDUCE STRESS Chronic emotional and physical stress leads to disease. Ways of reducing stress include meditation, visualization, prayer, yoga and other forms of relaxation therapy. Consistency is the green. Find a technique that works for you and do it every day. CULTIVATE RELATIONSHIPS Loneliness and isolation have a major negative impact on health. Seek out others who can love, care for and nurture you. Avoid hurtful relationships. MAINTAIN IDEAL BODY WEIGHT The best way to do this is to do all the things above. Our bodies naturally find the right weight if we keep moving and feed ourselves the right food. If your BMI is greater than 25, we strongly recommend a referral to a weight management program. Please speak to us or your family physician about available programs. AVOID NICOTINE IN ALL FORMS This includes all tobacco products, whether chewed, smoked, vaped, or rubbed on the skin. Smoking cessation programs, which can make use of tobacco substitutes, medications to suppress cravings and behavior management, are available. Please contact your family physician about programs in your area. Referring Provider: ZEKE SAHNI [[id number]] Allergies As of Date: 10/20/2017 (No Known Allergies) Date Reviewed: 10/20/2017 Reviewed by: Dash (Rn) Angela - Fully Assessed Reason for Visit: Established Patient [175] Cmt: 6 month follow-up ASHD/HTN Primary Visit Diagnosis:ASHD (arteriosclerotic heart disease) [I25.10] Other Visit Diagnosis:Essential hypertension [I10] Order(s):BASIC METABOLIC PNL [SQBMP] Order #: [id number] FUTURE MAGNESIUM BLD [SQMG1] Order #: [id number] FUTURE Prescriptions as of 10/20/2017 Sig: PANTOPRAZOLE 40 MG TABLET,DEL* Take 1 tablet by mouth every * ATORVASTATIN 80 MG TABLET Take 1 tablet by mouth once d* FUROSEMIDE 40 MG TABLET Take 1 tablet by mouth twice * FUROSEMIDE 20 MG TABLET Take 1 tablet by mouth twice * COMPOUNDED PRESCRIPTION INOGEN PORTABLE OXYGEN CONCEN* COMPOUNDED PRESCRIPTION Oxygen conserving unit Dx:J4* VALSARTAN 160 MG-HYDROCHLOROT* Take 1 tablet by mouth once d* METOPROLOL SUCCINATE ER 100 M* Take 1 tablet by mouth once d* WARFARIN 5 MG TABLET Take 12.5mg daily or as direc* METFORMIN 500 MG TABLET Take 1 tablet by mouth daily * NITROGLYCERIN 0.4 MG SUBLINGU* Dissolve 1 tablet under the t* CLOPIDOGREL 75 MG TABLET Take 1 tablet by mouth once d* COMPOUNDED PRESCRIPTION Supplemental oxygen. Lifetime* ALBUTEROL SULFATE HFA 90 MCG/* Inhale 2 Puffs as instructed * EZETIMIBE 10 MG TABLET Take 1 tablet by mouth once d* FLUTICASONE 50 MCG/ACTUATION * 1 or 2 sprays in each nostril* POLYETHYLENE GLYCOL 3350 17 G* Take 17 g by mouth once daily. MAGNESIUM HYDROXIDE 400 MG/5 * Take 15 mL by mouth once andrey* SENNOSIDES 8.6 MG-DOCUSATE SO* Take 1 tablet by mouth once d* * LANCETS Test Blood sugar daily. Hype* X METOLAZONE 5 MG TABLET Take 1 tablet by mouth once d* COMPOUNDED PRESCRIPTION KNEE HIGH COMPRESSION STOCKIN* Problem List As Of Date 10/20/2017 Noted Resolved ATRIAL FIBRILLATION [I48.91] INVALID FOR*07/23/2015 More... Edema [R60.9] INVALID FOR* Hypercholesterolemia [E78.00] INVALID FOR* Priority: J More... SLEEP APNEA NOS (cpap intolerant) [G47.30] INVALID FOR*01/30/2015 Obesity [E66.9] INVALID FOR*08/13/2017 More... Hemangioma of intra-abdominal structures [D18.0*INVALID FOR*04/25/2014 Essential hypertension [I10] INVALID FOR* Priority: K More... IRRITABLE COLON [K58.9] INVALID FOR* Constipation [K59.00] INVALID FOR* DERMATOPHYTOSIS OF NAIL [B35.1] INVALID FOR*04/24/2008 ABDOMINAL PAIN LLQ [R10.32] 04/24/2008 ABDOMINAL PAIN LUQ [R10.12] 04/24/2008 FLATUL/ERUCTAT/GAS PAIN [R14.3, R14.1, R14.2] 04/24/2008 Impaired fasting glucose [R73.01] INVALID FOR*04/25/2014 COPD (chronic obstructive pulmonary disease) [J*INVALID FOR* Type II or unspecified type diabetes mellitus w*INVALID FOR*05/16/2015 ASCVD (arteriosclerotic cardiovascular disease)*INVALID FOR* BPH (benign prostatic hyperplasia) [N40.0] INVALID FOR* Family history of colon cancer [Z80.0] INVALID FOR*08/13/2017 NSTEMI (non-ST elevated myocardial infarction) *INVALID FOR*01/15/2016 More... DM2 (diabetes mellitus, type 2) (HCC) [E11.9] INVALID FOR* Priority: D More... S/P right coronary artery (RCA) stent placement*INVALID FOR* LV dysfunction [I51.9] INVALID FOR*01/15/2016 Cardiomyopathy, ischemic [I25.5] INVALID FOR* Priority: F More... Chronic anticoagulation [Z79.01] INVALID FOR* Priority: H More... Paroxysmal atrial fibrillation (HCC) [I48.0] INVALID FOR* Priority: C More... Sleep apnea [G47.30] INVALID FOR* Priority: G More... Astigmatism, regular [H52.229] INVALID FOR*08/13/2017 Presbyopia [H52.4] INVALID FOR*01/15/2016 Benign neoplasm of skin of eyelid including can*INVALID FOR*04/07/2017 Polyneuropathy (HCC) [G62.9] INVALID FOR* More... Spinal stenosis, lumbar region, with neurogenic*INVALID FOR* Displacement of lumbar intervertebral disc with*INVALID FOR*04/07/2017 Spondylosis of lumbar region without myelopathy*INVALID FOR* Lesion of liver [K76.9] INVALID FOR*08/13/2017 Priority: B More... Ascites [R18.8] INVALID FOR*05/30/2017 Priority: B More... ADEBAYO (acute kidney injury) (HCC) [N17.9] INVALID FOR* Priority: E More... Nicotine use disorder, F17.2 [F17.200] INVALID FOR*08/13/2017 Priority: L More... Obesity, Class III, BMI >= 40 (morbid obesity) *INVALID FOR* Priority: M Lethargy [R53.83] INVALID FOR*08/13/2017 Priority: Severe Acute on chronic respiratory failure with hypox*INVALID FOR* Priority: Moderate More... Morbid obesity with body mass index (BMI) of 45*INVALID FOR* Priority: M More... Acute liver failure with hepatic coma (HCC) [K7*INVALID FOR*08/13/2017 Priority: Mild More... Respiratory failure with hypercapnia (HCC) [J96*INVALID FOR*08/13/2017 Priority: A More... Shock circulatory (HCC) [R57.9] INVALID FOR*05/29/2017 Priority: A More... Kidney insufficiency [N28.9] INVALID FOR* Combined forms of age-related cataract of both *INVALID FOR* Hyperopia, bilateral [H52.03] INVALID FOR* Combined form of age-related cataract, both eye*INVALID FOR* Dry eye syndrome, bilateral [H04.123] INVALID FOR* Other instructions from your clinician: LIFESTYLE CHANGE A healthy lifestyle is the most important component of your overall treatment plan. Please give serious thought to the following areas and commit to making patient safety sitter changes. EAT A WHOLE FOOD, PLANT BASED DIET The nutrition your body gets is more important than the medicine you take. What matters most is the overall way you eat. We encourage you to minimize the use of animal products (which include dairy and all meats except fatty fish) and use whole, unprocessed plant foods to provide your protein, vitamins and other nutrients. We have a lot of information to share with you on this topic. This is not a diet. It is a way of life that you will keep with you. EXERCISE REGULARLY It is not important to spend hours in the gym, lifting weights and perspiring heavily. A total of 2-3 hours per week of aerobic (causing you to be moderately short of breath) exercise is sufficient to improve your health. Talk to us before you begin a new exercise program, if you have heart disease or experience shortness of breath or chest pain. REDUCE STRESS Chronic emotional and physical stress leads to disease. Ways of reducing stress include meditation, visualization, prayer, yoga and other forms of relaxation therapy. Consistency is the green. Find a technique that works for you and do it every day. CULTIVATE RELATIONSHIPS Loneliness and isolation have a major negative impact on health. Seek out others who can love, care for and nurture you. Avoid hurtful relationships. MAINTAIN IDEAL BODY WEIGHT The best way to do this is to do all the things above. Our bodies naturally find the right weight if we keep moving and feed ourselves the right food. If your BMI is greater than 25, we strongly recommend a referral to a weight management program. Please speak to us or your family physician about available programs. AVOID NICOTINE IN ALL FORMS This includes all tobacco products, whether chewed, smoked, vaped, or rubbed on the skin. Smoking cessation programs, which can make use of tobacco substitutes, medications to suppress cravings and behavior management, are available. Please contact your family physician about programs in your area. Encounter Status:Closed by ZEKE SAHNI MD on 10/21/17 THAI Observed: 10/20/2017 Status: COMPLETED Source: [place] 8:30 AM [facility] REPOSITORY Office Visit (CAWSTR) CATALINA EVANS ([id number]) 1955 M Date Time Provider Department 10/20/17 8:30 AM ZEKE SAHNI CAWSTR During your visit today, we recorded the following information about you: Pulse Respiration Blood pressure Weight 83/minute 18/minute 117/78 154.2 kg Zeke Sahni MD 10/20/2017 6:24 PM Signed PERTINENT CARDIAC HISTORY PAF - Documented 2011, 06/16/14 COPD - previous 2ppd smoker Hypertension with LVH, PAF, and dilated aorta Hyperlipidemia RICKY - can't tolerate CPAP Obesity ASHD - IMI, PCI RCA 05/14 (BIANKA) DM Venous insufficiency ADHERENCE TO GUIDELINES KUSUM-I or ARB for HF with prior LVEF<40 (NQF 0081) - met ASA or Plavix for ASHD (NQF 0067) - met Beta linda for ASHD with prior AL or prior LVEF<40 (NQF 0070) - met Beta linda for HF with prior LVEF<40 (NQF 0083) - met KUSUM-I or ARB for ASHD with DM or prior LVEF<40 (NQF 0066) - met Statin therapy for ASHD or FHL or DM - met BMI documented and plan if >25 (NQF 0421) - lifestyle recommendation form Tobacco use screening and referral (NQF 0028) - lifestyle recommendation form Recommendation for whole food, plant based diet - lifestyle recommendation form CLINICAL IMPRESSION/PLAN: Catalina Evasn has stable ischemic heart disease. He's had no recent chest discomfort. He has not been able to tolerate CPAP, but states that he is not having any snoring at night. His confirms. He's had no recent palpitations to suggest recurrent atrial fibrillation. There is no evidence of decompensation of his CHF. His edema appears to be related to volume overload and venous insufficiency. He has not been observing fluid and salt restriction well. We discussed this in detail. I recommended that he have follow-up labs done today. We will consider the addition of Aldactone. I strongly advised him to become more active and get his weight under better control. He should wear support stockings as much as possible. I will see him in 6 months or as needed. Written and verbal health teaching given to patient, patient verbalizes understanding and agrees with treatment plan. DIAGNOSIS FOR VISIT: ASHD Hypertension HISTORY OF PRESENT ILLNESS Catalina Evans returns for follow-up of his coronary disease and other cardiac issues, as noted above. He was recently given prescription for Zaroxolyn because of increasing edema with weeping. His creatinine bumped up and he became prerenal. This has subsequently been discontinued. He reports that he has gained 15-20 pounds over the last several months. He has not been very active. His edema has improved slightly with the Zaroxolyn. He denies chest pain. He's had no orthopnea. He denies syncope, palpitations, TIAs, amaurosis and claudication. ALLERGIES: ALLERGIES No Known Allergies CURRENT OUTPATIENT MEDICATIONS: pantoprazole DR (PROTONIX) 40 mg tablet Take 1 tablet by mouth every morning. metOLAzone (ZAROXOLYN) 5 mg tablet Take 1 tablet by mouth once daily for 10 days. atorvastatin (LIPITOR) 80 mg tablet Take 1 tablet by mouth once daily. furosemide (LASIX) 40 mg tablet Take 1 tablet by mouth twice daily. With 20 mg tablet for total of 60 mg twice daily. furosemide (LASIX) 20 mg tablet Take 1 tablet by mouth twice daily. COMPOUNDED PRESCRIPTION INOGEN PORTABLE OXYGEN CONCENTRATOR. 3 LPM VIA NASAL CANNULA WITH ACTIVITY. DX: J96.21; J96.22. J44.9. I25.5 COMPOUNDED PRESCRIPTION Oxygen conserving unit Dx:J44.9 Valsartan-Hydrochlorothiazide (DIOVAN HCT) 160-12.5 mg per tablet Take 1 tablet by mouth once daily. metoprolol succinate ER (TOPROL XL) 100 mg Tb24 Take 1 tablet by mouth once daily. warfarin (COUMADIN) 5 mg tablet Take 12.5mg daily or as directed. metFORMIN (GLUCOPHAGE) 500 mg tablet Take 1 tablet by mouth daily with breakfast. . nitroglycerin sublingual (NITROQUICK) 0.4 mg SL tablet Dissolve 1 tablet under the tongue as needed. FOR CHEST PAIN. IF NO RELIEF CALL 911 clopidogrel (PLAVIX) 75 mg tablet Take 1 tablet by mouth once daily. COMPOUNDED PRESCRIPTION Supplemental oxygen. Lifetime supply. Portable tank along with concentrator.3 lpm with exertion and at hours of sleep via nasal cannula albuterol HFA (PROVENTIL HFA, VENTOLIN HFA) 90 mcg/actuation inhaler Inhale 2 Puffs as instructed every 6 hours as needed for Wheezing/Shortness of Breath. ezetimibe (ZETIA) 10 mg tablet Take 1 tablet by mouth once daily. Compression Knee Highs KNEE HIGH COMPRESSION STOCKINGS 20- 30 MM HG. DX: EDEMA. VENOUS INSUFFICIENCY, BOTH LOWER EXTREMITIES. fluticasone (FLONASE) 50 mcg/actuation nasal spray 1 or 2 sprays in each nostril at bedtime. polyethylene glycol 3350 (MIRALAX) 17 gram/dose powder Take 17 g by mouth once daily. magnesium hydroxide (MILK OF MAGNESIA) 400 mg/5 mL suspension Take 15 mL by mouth once daily as needed for Constipation. senna-docusate 8.6-50 mg per tablet Take 1 tablet by mouth once daily. For constipation. Lancets (FREESTYLE LANCETS) [facility] lancets Test Blood sugar daily. Hyperglycemia, no insulin PHYSICAL EXAMINATION: VITAL SIGNS: BP 117/78 Pulse 83 Resp 18 Wt 340 lb (154.2kg) Chest: Clear to percussion and auscultation. Trachea is midline. Air entry is equal. Cardiac: Regular rhythm. S1 and S2 are normal. PMI is nondisplaced. There is a 2/6 systolic ejection murmur. Carotids are brisk without bruits. JVP is not visible due to obesity Abdomen: Soft and nontender. Exam is limited by obesity. There are no pulsatile masses or bruits. No liver enlargement. Bowel sounds are active. Extremities: 1 plus edema with stasis changes and mild cobblestoning. There is mild fluid leakage from the left leg. There is no evidence of cellulitis. He is not wearing support stockings. Pulses are intact and symmetrical. Recent labs reviewed. BUN had increased to 40. Electronically Signed: Zeke Sahni MD October 20, 2017 6:17 PM CC: Coy Mercado MD Referring Provider: ZEKE SAHNI [[id number]] Allergies As of Date: 10/20/2017 (No Known Allergies) Date Reviewed: 10/20/2017 Reviewed by: Dash (Rn) Angela - Fully Assessed Primary Visit Diagnosis:ASHD (arteriosclerotic heart disease) [I25.10] Other Visit Diagnosis:Hypertension, essential [I10] Prescriptions as of 10/20/2017 Sig: PANTOPRAZOLE 40 MG TABLET,DEL* Take 1 tablet by mouth every * ATORVASTATIN 80 MG TABLET Take 1 tablet by mouth once d* FUROSEMIDE 40 MG TABLET Take 1 tablet by mouth twice * FUROSEMIDE 20 MG TABLET Take 1 tablet by mouth twice * COMPOUNDED PRESCRIPTION INOGEN PORTABLE OXYGEN CONCEN* COMPOUNDED PRESCRIPTION Oxygen conserving unit Dx:J4* VALSARTAN 160 MG-HYDROCHLOROT* Take 1 tablet by mouth once d* METOPROLOL SUCCINATE ER 100 M* Take 1 tablet by mouth once d* WARFARIN 5 MG TABLET Take 12.5mg daily or as direc* METFORMIN 500 MG TABLET Take 1 tablet by mouth daily * NITROGLYCERIN 0.4 MG SUBLINGU* Dissolve 1 tablet under the t* CLOPIDOGREL 75 MG TABLET Take 1 tablet by mouth once d* COMPOUNDED PRESCRIPTION Supplemental oxygen. Lifetime* ALBUTEROL SULFATE HFA 90 MCG/* Inhale 2 Puffs as instructed * EZETIMIBE 10 MG TABLET Take 1 tablet by mouth once d* COMPOUNDED PRESCRIPTION KNEE HIGH COMPRESSION STOCKIN* FLUTICASONE 50 MCG/ACTUATION * 1 or 2 sprays in each nostril* POLYETHYLENE GLYCOL 3350 17 G* Take 17 g by mouth once daily. MAGNESIUM HYDROXIDE 400 MG/5 * Take 15 mL by mouth once andrey* SENNOSIDES 8.6 MG-DOCUSATE SO* Take 1 tablet by mouth once d* * LANCETS Test Blood sugar daily. Hype* Problem List As Of Date 10/20/2017 Noted Resolved ATRIAL FIBRILLATION [I48.91] INVALID FOR*07/23/2015 More... Edema [R60.9] INVALID FOR* Hypercholesterolemia [E78.00] INVALID FOR* Priority: J More... SLEEP APNEA NOS (cpap intolerant) [G47.30] INVALID FOR*01/30/2015 Obesity [E66.9] INVALID FOR*08/13/2017 More... Hemangioma of intra-abdominal structures [D18.0*INVALID FOR*04/25/2014 Essential hypertension [I10] INVALID FOR* Priority: K More... IRRITABLE COLON [K58.9] INVALID FOR* Constipation [K59.00] INVALID FOR* DERMATOPHYTOSIS OF NAIL [B35.1] INVALID FOR*04/24/2008 ABDOMINAL PAIN LLQ [R10.32] 04/24/2008 ABDOMINAL PAIN LUQ [R10.12] 04/24/2008 FLATUL/ERUCTAT/GAS PAIN [R14.3, R14.1, R14.2] 04/24/2008 Impaired fasting glucose [R73.01] INVALID FOR*04/25/2014 COPD (chronic obstructive pulmonary disease) [J*INVALID FOR* Type II or unspecified type diabetes mellitus w*INVALID FOR*05/16/2015 ASCVD (arteriosclerotic cardiovascular disease)*INVALID FOR* BPH (benign prostatic hyperplasia) [N40.0] INVALID FOR* Family history of colon cancer [Z80.0] INVALID FOR*08/13/2017 NSTEMI (non-ST elevated myocardial infarction) *INVALID FOR*01/15/2016 More... DM2 (diabetes mellitus, type 2) (HCC) [E11.9] INVALID FOR* Priority: D More... S/P right coronary artery (RCA) stent placement*INVALID FOR* LV dysfunction [I51.9] INVALID FOR*01/15/2016 Cardiomyopathy, ischemic [I25.5] INVALID FOR* Priority: F More... Chronic anticoagulation [Z79.01] INVALID FOR* Priority: H More... Paroxysmal atrial fibrillation (HCC) [I48.0] INVALID FOR* Priority: C More... Sleep apnea [G47.30] INVALID FOR* Priority: G More... Astigmatism, regular [H52.229] INVALID FOR*08/13/2017 Presbyopia [H52.4] INVALID FOR*01/15/2016 Benign neoplasm of skin of eyelid including can*INVALID FOR*04/07/2017 Polyneuropathy (HCC) [G62.9] INVALID FOR* More... Spinal stenosis, lumbar region, with neurogenic*INVALID FOR* Displacement of lumbar intervertebral disc with*INVALID FOR*04/07/2017 Spondylosis of lumbar region without myelopathy*INVALID FOR* Lesion of liver [K76.9] INVALID FOR*08/13/2017 Priority: B More... Ascites [R18.8] INVALID FOR*05/30/2017 Priority: B More... ADEBAYO (acute kidney injury) (HCC) [N17.9] INVALID FOR* Priority: E More... Nicotine use disorder, F17.2 [F17.200] INVALID FOR*08/13/2017 Priority: L More... Obesity, Class III, BMI >= 40 (morbid obesity) *INVALID FOR* Priority: M Lethargy [R53.83] INVALID FOR*08/13/2017 Priority: Severe Acute on chronic respiratory failure with hypox*INVALID FOR* Priority: Moderate More... Morbid obesity with body mass index (BMI) of 45*INVALID FOR* Priority: M More... Acute liver failure with hepatic coma (HCC) [K7*INVALID FOR*08/13/2017 Priority: Mild More... Respiratory failure with hypercapnia (HCC) [J96*INVALID FOR*08/13/2017 Priority: A More... Shock circulatory (HCC) [R57.9] INVALID FOR*05/29/2017 Priority: A More... Kidney insufficiency [N28.9] INVALID FOR* Combined forms of age-related cataract of both *INVALID FOR* Hyperopia, bilateral [H52.03] INVALID FOR* Combined form of age-related cataract, both eye*INVALID FOR* Dry eye syndrome, bilateral [H04.123] INVALID FOR* Medications Discontinued During This Encounter metOLAzone (ZAROXOLYN) 5 mg tablet 10 t* 0 10/06/2017 10/20/2017 Route: ORAL Sig: Take 1 tablet by mouth once daily for 10 days. Disc: Reason for discontinue is not on file. Encounter Status:Closed by ZEKE SAHNI MD on 10/20/17 BASIC METABOLIC PANL Collected: 10/15/2017 Status: F Source: [place] 10:07 AM [facility] REPOSITORY TYPE CODE TESTS RESULT OUT OF REFERENCE UNITS RANGE LAB GLU 74-99 mg/dL High Glucose 108 Result Comment: The [place] [employer] (ADA) provides guidance for cutoff values for fasting glucose and random glucose. The ADA defines fasting as no caloric intake for at least 8 hours. Fas ting plasma glucose results between 100 to 125 mg/dL indicate increased risk for diabetes (prediabetes). Fasting plasma glucose results greater than or equal to 126 mg/dL meet the criteria for diagnosis of diabetes. In the absence of unequivocal hyperglycemia, results should be confirmed by repeat testing. In a patient with classic symptoms of hyperglycemia or hyperglycemic crisis, random plasma glucose results greater than or equal to 200 mg/dL meet the criteria for diagnosis of diabetes. Reference: Standards of Medical Care in Diabetes 2016, [place] [employer]. Diabetes Care. 2016.39(Suppl 1). LAB BUN 9-24 mg/dL BUN High 40 LAB CRET 0.73-1.22 mg/dL Creatinine High 1.52 LAB NA 136-144 mmol/L Sodium High 145 LAB K 3.7-5.1 mmol/L Low Potassium 3.4 LAB CL 97-105 mmol/L Chloride 97 LAB CO2 22-30 mmol/L CO2 High 37 LAB AGAP 9-18 mmol/L Anion Gap 11 LAB CA 8.5-10.2 mg/dL Calcium, Total 9.4 LAB GFRAA eGFR- Amer. 57 LAB GFRNAA . eGFR-All Other Races 47 Result Comment: eGFR (Estimated GFR) Units of measure: mL/min/1.73 meters squared eGFR is derived from the reexpressed MDRD Study equation using the following parameters: serum creatinine, age, gender and race. The creatinine assay has been calibrated to be traceable to IDMS. An eGFR <60 mL/min/1.73m2 for >3 months is consistent with chronic kidney disease. Refer to KDOQI guidelines for clinical interpretation. In patients with unstable renal function, e.g. those with acute kidney injury, the eGFR may not accurately reflect actual GFR. Performed By: #### BMP #### [facility] [address] [place], [place] [address] PSA SCREEN Collected: 10/14/2017 Status: F Source: [facility] 10:06 AM [facility] REPOSITORY TYPE CODE TESTS RESULT OUT OF REFERENCE UNITS RANGE LAB LPSAS(LOINC 0.0-3.9 ng/mL ) PSA Screen 0.5 Performed By: #### LPSAS #### [facility] [address] [place], [place] [address] CNOV Observed: 10/14/2017 Status: COMPLETED Source: [place] 10:00 AM [facility] REPOSITORY Office Visit (UROLLO) CATALINA EVANS ([id number]) 1955 M Date Time Provider Department 10/14/17 10:00 AM MARIN SHIRLEY JR During your visit today, we recorded the following information about you: Pulse Blood pressure Weight Height 81/minute 110/74 136.1 kg 1.778 m Marin Shirley Jr, MD 10/14/2017 9:51 AM Signed NEW PATIENT HISTORY AND PHYSICAL EXAM PATIENT INFO: Catalina Evans 62 year old REFERRING PROVIDER: CLAIR ANDERSON PCP: Coy Mercado MD HPI Catalina Evans is a 62 year old male refer for gross hematuria. On coumadin and plavix. States when level get too high, he sees spotting in underwear. Never seen in actual stream. No luts. No pain. No uti. Last psa 08/2014 was 0.69. Renal us 04/2017 nl. ua neg today. Cysto with dr. gutierrez 1 year ago normal. Review of Systems Constitutional: Negative. Respiratory: Negative. Cardiovascular: Negative. Gastrointestinal: Negative. Genitourinary: Negative. Skin: Negative. Neurological: Negative. Psychiatric/Behavioral: Negative. LAB: Creatinine Date Value Ref Range Status 07/30/2017 1.27 (H) 0.73 - 1.22 mg/dL Final PSA (ng/mL) Date Value 09/12/2014 0.69 Glucose, Urine (mg/dL) Date Value 10/14/2017 neg Bilirubin, Urine (no units) Date Value 10/14/2017 neg Ketones, Urine (no units) Date Value 10/14/2017 neg Specific [place], Ur (no units) Date Value 10/14/2017 1.015 Hemoglobin/Blood,Ur (no units) Date Value 10/14/2017 neg pH, Urine (no units) Date Value 10/14/2017 6.0 Protein, Urine (mg/dL) Date Value 10/14/2017 trace Urobilinogen, Urine (EU) Date Value 10/14/2017 0.2 Nitrites (no units) Date Value 10/14/2017 neg Leukocytes (no units) Date Value 10/14/2017 neg Color/Appearance (comment:) Date Value 10/14/2017 yellow MEDICATIONS: pantoprazole DR (PROTONIX) 40 mg tablet Take 1 tablet by mouth every morning. metOLAzone (ZAROXOLYN) 5 mg tablet Take 1 tablet by mouth once daily for 10 days. atorvastatin (LIPITOR) 80 mg tablet Take 1 tablet by mouth once daily. furosemide (LASIX) 40 mg tablet Take 1 tablet by mouth twice daily. With 20 mg tablet for total of 60 mg twice daily. furosemide (LASIX) 20 mg tablet Take 1 tablet by mouth twice daily. COMPOUNDED PRESCRIPTION PrestaderoGEN PORTABLE OXYGEN CONCENTRATOR. 3 LPM VIA NASAL CANNULA WITH ACTIVITY. DX: J96.21; J96.22. J44.9. I25.5 COMPOUNDED PRESCRIPTION Oxygen conserving unit Dx:J44.9 Valsartan-Hydrochlorothiazide (DIOVAN HCT) 160-12.5 mg per tablet Take 1 tablet by mouth once daily. metoprolol succinate ER (TOPROL XL) 100 mg Tb24 Take 1 tablet by mouth once daily. warfarin (COUMADIN) 5 mg tablet Take 12.5mg daily or as directed. metFORMIN (GLUCOPHAGE) 500 mg tablet Take 1 tablet by mouth daily with breakfast. . nitroglycerin sublingual (NITROQUICK) 0.4 mg SL tablet Dissolve 1 tablet under the tongue as needed. FOR CHEST PAIN. IF NO RELIEF CALL 911 clopidogrel (PLAVIX) 75 mg tablet Take 1 tablet by mouth once daily. COMPOUNDED PRESCRIPTION Supplemental oxygen. Lifetime supply. Portable tank along with concentrator.3 lpm with exertion and at hours of sleep via nasal cannula albuterol HFA (PROVENTIL HFA, VENTOLIN HFA) 90 mcg/actuation inhaler Inhale 2 Puffs as instructed every 6 hours as needed for Wheezing/Shortness of Breath. ezetimibe (ZETIA) 10 mg tablet Take 1 tablet by mouth once daily. Compression Knee Highs KNEE HIGH COMPRESSION STOCKINGS 20- 30 MM HG. DX: EDEMA. VENOUS INSUFFICIENCY, BOTH LOWER EXTREMITIES. fluticasone (FLONASE) 50 mcg/actuation nasal spray 1 or 2 sprays in each nostril at bedtime. polyethylene glycol 3350 (MIRALAX) 17 gram/dose powder Take 17 g by mouth once daily. magnesium hydroxide (MILK OF MAGNESIA) 400 mg/5 mL suspension Take 15 mL by mouth once daily as needed for Constipation. senna-docusate 8.6-50 mg per tablet Take 1 tablet by mouth once daily. For constipation. Lancets (FREESTYLE LANCETS) [facility] lancets Test Blood sugar daily. Hyperglycemia, no insulin HISTORIES PAST MEDICAL HISTORY Diagnosis Date - Acute liver failure with hepatic coma (HCC) 05/27/2017 ELEVATED AMMONIA - Babinski up on right - pin point pupils - lethgary without focal findings - ASCVD (arteriosclerotic cardiovascular disease) 09/18/2014 - Atrial fibrillation (HCC) 07/01/2006 - Benign neoplasm of colon 2005 Hyperplastic - BPH (benign prostatic hyperplasia) 01/30/2015 - Cardiomyopathy, ischemic 05/30/2015 - Coronary artery disease 05/16/2015 - DM2 (diabetes mellitus, type 2) ([facility]) 05/16/2015 - Edema 07/01/2006 - Family history of malignant neoplasm of gastrointestinal tract 11/03/2006 - Flatulence, eructation, and gas pain - Heart attack (HCC) - HEMANGIOMA INTRA-ABDOM 07/29/2006 - HYPERTENSION NOS 08/27/2006 - Impaired fasting glucose 05/30/2010 - Irritable bowel syndrome 08/27/2006 - AL (myocardial infarction) ([facility]) 05/16/2015 - NSTEMI (non-ST elevated myocardial infarction) ([facility]) 05/16/2015 Pt now chest pain free with nitrate - recheck enzymes -1 set troponin0.719, CK 507, MB 39.9, CKMB 7.9 - check echo - continue heparin, aspirin, ARB, statin, beta linda - continue clopidogrel - called in/consented for [facility] today +/- PCI -15: PCI to the mid RCA with a 3.5 x 16 mm Synergy EES - Obesity, unspecified 07/01/2006 - Other and unspecified hyperlipidemia 07/01/2006 - Polyneuropathy (HCC) 05/01/2016 Nerve study 2015. - SLEEP APNEA NOS (cpap intolerant) 07/01/2006 - Type II or unspecified type diabetes mellitus without mention of complication, not stated as uncontrolled 01/25/2014 - Unspecified constipation FAMILY HISTORY Problem Relation Age of Onset - Diabetes Father - Heart Father Pacemaker - Alzheimer's Disease Father - Coronary Artery Disease Father - parkinsons [OTHER] Father - Diabetes Mother - Cancer Mother Colon - Hypertension Brother - Heart Brother CABG - Diabetes Brother - Peripheral Artery Disease Brother - Hypertension Brother SOCIAL HISTORY Social History Substance Use Topics - Smoking status: Former Smoker Packs/day: 0.25 Years: 20.00 Types: Cigarettes Quit date: 07/01/2006 - Smokeless tobacco: Former User - Alcohol use No PHYSICAL EXAMINATION BP 110/74 Pulse 81 Ht 177.8 cm (5' 10) Wt 136.1 kg (300 lb) BMI 43.05 kg/m? General appearance: Well appearing, alert, in no acute distress, well-hydrated, well nourished Skin: Skin color, texture, turgor normal, no suspicious rashes or lesions Respiratory:+ effort Cardiovascular: Not examined GI: Normal abdominal exam, Abdomen soft, non-tender. No masses, organomegaly Musculoskeletal: normal ROM Neuro: No gross neurologic defecits Genitourinary: not examined ASSESSMENT: (R31.0) Gross hematuria (primary encounter diagnosis) (Z12.5) Prostate cancer screening PLAN: No need for repeat hematuria gregg at this time Check screening psa Fu prn with me Marin Shirley Jr, MD Referring Provider: COY MERCADO [[id number]] Allergies As of Date: 10/14/2017 (No Known Allergies) Date Reviewed: 10/14/2017 Reviewed by: Marin Shirley Jr. - Fully Assessed Reason for Visit: New Patient [172] Hematuria [335] Primary Visit Diagnosis:Gross hematuria [R31.0] Other Visit Diagnosis:Prostate cancer screening [Z12.5] Order(s):UA DIP B/O [[id number]] Order #: [id number] PSA/PROSTSPECAG SCRN [SQPSAS1] Order #: [id number] FUTURE Prescriptions as of 10/14/2017 Sig: PANTOPRAZOLE 40 MG TABLET,DEL* Take 1 tablet by mouth every * METOLAZONE 5 MG TABLET Take 1 tablet by mouth once d* ATORVASTATIN 80 MG TABLET Take 1 tablet by mouth once d* FUROSEMIDE 40 MG TABLET Take 1 tablet by mouth twice * FUROSEMIDE 20 MG TABLET Take 1 tablet by mouth twice * COMPOUNDED PRESCRIPTION INOGEN PORTABLE OXYGEN CONCEN* COMPOUNDED PRESCRIPTION Oxygen conserving unit Dx:J4* VALSARTAN 160 MG-HYDROCHLOROT* Take 1 tablet by mouth once d* METOPROLOL SUCCINATE ER 100 M* Take 1 tablet by mouth once d* WARFARIN 5 MG TABLET Take 12.5mg daily or as direc* METFORMIN 500 MG TABLET Take 1 tablet by mouth daily * NITROGLYCERIN 0.4 MG SUBLINGU* Dissolve 1 tablet under the t* CLOPIDOGREL 75 MG TABLET Take 1 tablet by mouth once d* COMPOUNDED PRESCRIPTION Supplemental oxygen. Lifetime* ALBUTEROL SULFATE HFA 90 MCG/* Inhale 2 Puffs as instructed * EZETIMIBE 10 MG TABLET Take 1 tablet by mouth once d* COMPOUNDED PRESCRIPTION KNEE HIGH COMPRESSION STOCKIN* FLUTICASONE 50 MCG/ACTUATION * 1 or 2 sprays in each nostril* POLYETHYLENE GLYCOL 3350 17 G* Take 17 g by mouth once daily. MAGNESIUM HYDROXIDE 400 MG/5 * Take 15 mL by mouth once andrey* SENNOSIDES 8.6 MG-DOCUSATE SO* Take 1 tablet by mouth once d* * LANCETS Test Blood sugar daily. Hype* Problem List As Of Date 10/14/2017 Noted Resolved ATRIAL FIBRILLATION [I48.91] INVALID FOR*07/23/2015 More... Edema [R60.9] INVALID FOR* Hypercholesterolemia [E78.00] INVALID FOR* Priority: J More... SLEEP APNEA NOS (cpap intolerant) [G47.30] INVALID FOR*01/30/2015 Obesity [E66.9] INVALID FOR*08/13/2017 More... Hemangioma of intra-abdominal structures [D18.0*INVALID FOR*04/25/2014 Essential hypertension [I10] INVALID FOR* Priority: K More... IRRITABLE COLON [K58.9] INVALID FOR* Constipation [K59.00] INVALID FOR* DERMATOPHYTOSIS OF NAIL [B35.1] INVALID FOR*04/24/2008 ABDOMINAL PAIN LLQ [R10.32] 04/24/2008 ABDOMINAL PAIN LUQ [R10.12] 04/24/2008 FLATUL/ERUCTAT/GAS PAIN [R14.3, R14.1, R14.2] 04/24/2008 Impaired fasting glucose [R73.01] INVALID FOR*04/25/2014 COPD (chronic obstructive pulmonary disease) [J*INVALID FOR* Type II or unspecified type diabetes mellitus w*INVALID FOR*05/16/2015 ASCVD (arteriosclerotic cardiovascular disease)*INVALID FOR* BPH (benign prostatic hyperplasia) [N40.0] INVALID FOR* Family history of colon cancer [Z80.0] INVALID FOR*08/13/2017 NSTEMI (non-ST elevated myocardial infarction) *INVALID FOR*01/15/2016 More... DM2 (diabetes mellitus, type 2) (HCC) [E11.9] INVALID FOR* Priority: D More... S/P right coronary artery (RCA) stent placement*INVALID FOR* LV dysfunction [I51.9] INVALID FOR*01/15/2016 Cardiomyopathy, ischemic [I25.5] INVALID FOR* Priority: F More... Chronic anticoagulation [Z79.01] INVALID FOR* Priority: H More... Paroxysmal atrial fibrillation (HCC) [I48.0] INVALID FOR* Priority: C More... Sleep apnea [G47.30] INVALID FOR* Priority: G More... Astigmatism, regular [H52.229] INVALID FOR*08/13/2017 Presbyopia [H52.4] INVALID FOR*01/15/2016 Benign neoplasm of skin of eyelid including can*INVALID FOR*04/07/2017 Polyneuropathy (HCC) [G62.9] INVALID FOR* More... Spinal stenosis, lumbar region, with neurogenic*INVALID FOR* Displacement of lumbar intervertebral disc with*INVALID FOR*04/07/2017 Spondylosis of lumbar region without myelopathy*INVALID FOR* Lesion of liver [K76.9] INVALID FOR*08/13/2017 Priority: B More... Ascites [R18.8] INVALID FOR*05/30/2017 Priority: B More... ADEBAYO (acute kidney injury) (HCC) [N17.9] INVALID FOR* Priority: E More... Nicotine use disorder, F17.2 [F17.200] INVALID FOR*08/13/2017 Priority: L More... Obesity, Class III, BMI >= 40 (morbid obesity) *INVALID FOR* Priority: M Lethargy [R53.83] INVALID FOR*08/13/2017 Priority: Severe Acute on chronic respiratory failure with hypox*INVALID FOR* Priority: Moderate More... Morbid obesity with body mass index (BMI) of 45*INVALID FOR* Priority: M More... Acute liver failure with hepatic coma (HCC) [K7*INVALID FOR*08/13/2017 Priority: Mild More... Respiratory failure with hypercapnia (HCC) [J96*INVALID FOR*08/13/2017 Priority: A More... Shock circulatory (HCC) [R57.9] INVALID FOR*05/29/2017 Priority: A More... Kidney insufficiency [N28.9] INVALID FOR* Combined forms of age-related cataract of both *INVALID FOR* Hyperopia, bilateral [H52.03] INVALID FOR* Combined form of age-related cataract, both eye*INVALID FOR* Dry eye syndrome, bilateral [H04.123] INVALID FOR* Disposition: Return if symptoms worsen or fail to improve. Follow-up and Disposition History Recorded Letter Text Encounter Status:Closed by MARIN SHIRLEY MD on 10/14/17 PROGRESS Observed: 10/14/2017 Status: COMPLETED Source: [place] 9:47 AM [facility] REPOSITORY HNO ID: [id number] Author: Marin Shirley Jr. Service: (none) Author Type: Physician Type: Progress Notes Filed: 10/14/2017 9:51 AM Note Text: NEW PATIENT HISTORY AND PHYSICAL EXAM PATIENT INFO: Catalina Evans 62 year old REFERRING PROVIDER: CLAIR ANDERSON PCP: Coy Mercado MD HPI Catalina Evans is a 62 year old male refer for gross hematuria. On coumadin and plavix. States when level get too high, he sees spotting in underwear. Never seen in actual stream. No luts. No pain. No uti. Last psa 08/2014 was 0.69. Renal us 04/2017 nl. ua neg today. Cysto with dr. pickloe 1 year ago normal. Review of Systems Constitutional: Negative. Respiratory: Negative. Cardiovascular: Negative. Gastrointestinal: Negative. Genitourinary: Negative. Skin: Negative. Neurological: Negative. Psychiatric/Behavioral: Negative. LAB: Creatinine Date Value Ref Range Status 07/30/2017 1.27 (H) 0.73 - 1.22 mg/dL Final PSA (ng/mL) Date Value 09/12/2014 0.69 Glucose, Urine (mg/dL) Date Value 10/14/2017 neg Bilirubin, Urine (no units) Date Value 10/14/2017 neg Ketones, Urine (no units) Date Value 10/14/2017 neg Specific [place], Ur (no units) Date Value 10/14/2017 1.015 Hemoglobin/Blood,Ur (no units) Date Value 10/14/2017 neg pH, Urine (no units) Date Value 10/14/2017 6.0 Protein, Urine (mg/dL) Date Value 10/14/2017 trace Urobilinogen, Urine (EU) Date Value 10/14/2017 0.2 Nitrites (no units) Date Value 10/14/2017 neg Leukocytes (no units) Date Value 10/14/2017 neg Color/Appearance (comment:) Date Value 10/14/2017 yellow MEDICATIONS: pantoprazole DR (PROTONIX) 40 mg tablet Take 1 tablet by mouth every morning. metOLAzone (ZAROXOLYN) 5 mg tablet Take 1 tablet by mouth once daily for 10 days. atorvastatin (LIPITOR) 80 mg tablet Take 1 tablet by mouth once daily. furosemide (LASIX) 40 mg tablet Take 1 tablet by mouth twice daily. With 20 mg tablet for total of 60 mg twice daily. furosemide (LASIX) 20 mg tablet Take 1 tablet by mouth twice daily. COMPOUNDED PRESCRIPTION INOGEN PORTABLE OXYGEN CONCENTRATOR. 3 LPM VIA NASAL CANNULA WITH ACTIVITY. DX: J96.21; J96.22. J44.9. I25.5 COMPOUNDED PRESCRIPTION Oxygen conserving unit Dx:J44.9 Valsartan-Hydrochlorothiazide (DIOVAN HCT) 160-12.5 mg per tablet Take 1 tablet by mouth once daily. metoprolol succinate ER (TOPROL XL) 100 mg Tb24 Take 1 tablet by mouth once daily. warfarin (COUMADIN) 5 mg tablet Take 12.5mg daily or as directed. metFORMIN (GLUCOPHAGE) 500 mg tablet Take 1 tablet by mouth daily with breakfast. . nitroglycerin sublingual (NITROQUICK) 0.4 mg SL tablet Dissolve 1 tablet under the tongue as needed. FOR CHEST PAIN. IF NO RELIEF CALL 911 clopidogrel (PLAVIX) 75 mg tablet Take 1 tablet by mouth once daily. COMPOUNDED PRESCRIPTION Supplemental oxygen. Lifetime supply. Portable tank along with concentrator.3 lpm with exertion and at hours of sleep via nasal cannula albuterol HFA (PROVENTIL HFA, VENTOLIN HFA) 90 mcg/actuation inhaler Inhale 2 Puffs as instructed every 6 hours as needed for Wheezing/Shortness of Breath. ezetimibe (ZETIA) 10 mg tablet Take 1 tablet by mouth once daily. Compression Knee Highs KNEE HIGH COMPRESSION STOCKINGS 20- 30 MM HG. DX: EDEMA. VENOUS INSUFFICIENCY, BOTH LOWER EXTREMITIES. fluticasone (FLONASE) 50 mcg/actuation nasal spray 1 or 2 sprays in each nostril at bedtime. polyethylene glycol 3350 (MIRALAX) 17 gram/dose powder Take 17 g by mouth once daily. magnesium hydroxide (MILK OF MAGNESIA) 400 mg/5 mL suspension Take 15 mL by mouth once daily as needed for Constipation. senna-docusate 8.6-50 mg per tablet Take 1 tablet by mouth once daily. For constipation. Lancets (FREESTYLE LANCETS) [facility] lancets Test Blood sugar daily. Hyperglycemia, no insulin HISTORIES PAST MEDICAL HISTORY Diagnosis Date - Acute liver failure with hepatic coma (HCC) 05/27/2017 ELEVATED AMMONIA - Babinski up on right - pin point pupils - lethgary without focal findings - ASCVD (arteriosclerotic cardiovascular disease) 09/18/2014 - Atrial fibrillation (HCC) 07/01/2006 - Benign neoplasm of colon 2004 Hyperplastic - BPH (benign prostatic hyperplasia) 01/30/2015 - Cardiomyopathy, ischemic 05/30/2015 - Coronary artery disease 05/16/2015 - DM2 (diabetes mellitus, type 2) ([facility]) 05/16/2015 - Edema 07/01/2006 - Family history of malignant neoplasm of gastrointestinal tract 11/03/2006 - Flatulence, eructation, and gas pain - Heart attack ([facility]) - HEMANGIOMA INTRA-ABDOM 07/29/2006 - HYPERTENSION NOS 08/27/2006 - Impaired fasting glucose 05/30/2010 - Irritable bowel syndrome 08/27/2006 - AL (myocardial infarction) ([facility]) 05/16/2015 - NSTEMI (non-ST elevated myocardial infarction) ([facility]) 05/16/2015 Pt now chest pain free with nitrate - recheck enzymes -1 set troponin0.719, CK 507, MB 39.9, CKMB 7.9 - check echo - continue heparin, aspirin, ARB, statin, beta linda - continue clopidogrel - called in/consented for [facility] today +/- PCI -05-17-15: PCI to the mid RCA with a 3.5 x 16 mm Synergy EES - Obesity, unspecified 07/01/2006 - Other and unspecified hyperlipidemia 07/01/2006 - Polyneuropathy ([facility]) 05/01/2016 Nerve study 2015. - SLEEP APNEA NOS (cpap intolerant) 07/01/2006 - Type II or unspecified type diabetes mellitus without mention of complication, not stated as uncontrolled 01/25/2014 - Unspecified constipation FAMILY HISTORY Problem Relation Age of Onset - Diabetes Father - Heart Father Pacemaker - Alzheimer's Disease Father - Coronary Artery Disease Father - parkinsons [OTHER] Father - Diabetes Mother - Cancer Mother Colon - Hypertension Brother - Heart Brother CABG - Diabetes Brother - Peripheral Artery Disease Brother - Hypertension Brother SOCIAL HISTORY Social History Substance Use Topics - Smoking status: Former Smoker Packs/day: 0.25 Years: 20.00 Types: Cigarettes Quit date: 07/01/2006 - Smokeless tobacco: Former User - Alcohol use No PHYSICAL EXAMINATION BP 110/74 Pulse 81 Ht 177.8 cm (5' 10) Wt 136.1 kg (300 lb) BMI 43.05 kg/m? General appearance: Well appearing, alert, in no acute distress, well-hydrated, well nourished Skin: Skin color, texture, turgor normal, no suspicious rashes or lesions Respiratory:+ effort Cardiovascular: Not examined GI: Normal abdominal exam, Abdomen soft, non-tender. No masses, organomegaly Musculoskeletal: normal ROM Neuro: No gross neurologic defecits Genitourinary: not examined ASSESSMENT: (R31.0) Gross hematuria (primary encounter diagnosis) (Z12.5) Prostate cancer screening PLAN: No need for repeat hematuria gregg at this time Check screening psa Fu prn with me Marin Shirley Jr, MD PROGRESS Observed: 10/06/2017 Status: COMPLETED Source: [place] 11:40 PM [facility] [place] REPOSITORY HNO ID: [id number] Author: Coy Mercado Service: (none) Author Type: Physician Type: Progress Notes Filed: 10/06/2017 11:51 PM Note Text: This note was created using Lookoutriter. Subjective Catalina Evans is a 62 year old male was here with leg ulcers for 3 days, draining clear fluid. He had no trauma. He was taking his medications. However, he had been gaining weight concerning for congestive heart failure. Review of Systems Constitutional: Positive for unexpected weight change. Negative for chills, diaphoresis and fever. Respiratory: Positive for cough and shortness of breath. Negative for chest tightness and wheezing. Cardiovascular: Positive for leg swelling. Negative for chest pain and palpitations. Objective BP 126/70 (BP Site: Left Arm, BP Position: Sitting, BP Cuff Size: Large Adult) Pulse 80 Temp 36.8 ?C (98.2 ?F) (Left Tympanic) Resp 20 Wt (!) 154.2 kg (340 lb) BMI 48.78 kg/m? Physical Exam Constitutional: No distress. Eyes: Conjunctivae are normal. Neck: No JVD present. Cardiovascular: S1 normal and S2 normal. Exam reveals no gallop. No murmur heard. Pulmonary/Chest: He has decreased breath sounds in the right lower field and the left lower field. He has no wheezes. He has no rhonchi. He has rales in the right lower field and the left lower field. Musculoskeletal: He exhibits edema. 2-3+ edema, L>R. Left anterior distal leg with 3 small ulcers with serous drainage, 0.5-1 cm diameter. No cellulitis. Chronic stasis changes. Assessment and Plan 1. Venous stasis ulcer of other part of left lower leg limited to breakdown of skin, unspecified whether varicose veins present (HCC) - ICD9: 454.0, ICD10: I83.028, L97.821 (primary diagnosis) He was already doing wound care. Continue. Call for s/s of cellulitis. 2. Gastroesophageal reflux disease, esophagitis presence not specified - ICD9: 530.81, ICD10: K21.9 Refilled. - PANTOPRAZOLE 40 MG TABLET,DELAYED RELEASE 3. Edema, unspecified type - ICD9: 782.3, ICD10: R60.9 Elevate legs. - METOLAZONE 5 MG TABLET - BASIC METABOLIC PNL 4. Cardiomyopathy, ischemic - ICD9: 414.8, ICD10: I25.5 See #3. 5. Chronic anticoagulation - ICD9: V58.61, ICD10: Z79.01 For recheck. 6. Type 2 diabetes mellitus with diabetic neuropathy, without long-term current use of insulin (HCC) - ICD9: 250.60, 357.2, ICD10: E11.40 Controlled. - Continue current medications - HGB A1C Hemoglobin A1C (%) Date Value 04/21/2017 6.2 11/19/2016 6.4 ) Coy Mercado MD CNOV Observed: 10/06/2017 Status: COMPLETED Source: [place] 4:00 PM [facility] REPOSITORY Office Visit (INTMWS) CATALINA EVANS ([id number]) 1955 M Date Time Provider Department 10/06/17 4:00 PM COY MERCADO INTBiancaWS During your visit today, we recorded the following information about you: Temperature Pulse Respiration Blood pressure 98.2 degrees 80/minute 20/minute 126/70 Weight 154.2 kg Coy Mercado 10/06/2017 11:51 PM Signed This note was created using NoteWriter. Subjective Catalina Evans is a 62 year old male was here with leg ulcers for 3 days, draining clear fluid. He had no trauma. He was taking his medications. However, he had been gaining weight concerning for congestive heart failure. Review of Systems Constitutional: Positive for unexpected weight change. Negative for chills, diaphoresis and fever. Respiratory: Positive for cough and shortness of breath. Negative for chest tightness and wheezing. Cardiovascular: Positive for leg swelling. Negative for chest pain and palpitations. Objective BP 126/70 (BP Site: Left Arm, BP Position: Sitting, BP Cuff Size: Large Adult) Pulse 80 Temp 36.8 ?C (98.2 ?F) (Left Tympanic) Resp 20 Wt (!) 154.2 kg (340 lb) BMI 48.78 kg/m? Physical Exam Constitutional: No distress. Eyes: Conjunctivae are normal. Neck: No JVD present. Cardiovascular: S1 normal and S2 normal. Exam reveals no gallop. No murmur heard. Pulmonary/Chest: He has decreased breath sounds in the right lower field and the left lower field. He has no wheezes. He has no rhonchi. He has rales in the right lower field and the left lower field. Musculoskeletal: He exhibits edema. 2-3+ edema, L>R. Left anterior distal leg with 3 small ulcers with serous drainage, 0.5-1 cm diameter. No cellulitis. Chronic stasis changes. Assessment and Plan 1. Venous stasis ulcer of other part of left lower leg limited to breakdown of skin, unspecified whether varicose veins present (HCC) - ICD9: 454.0, ICD10: I83.028, L97.821 (primary diagnosis) He was already doing wound care. Continue. Call for s/s of cellulitis. 2. Gastroesophageal reflux disease, esophagitis presence not specified - ICD9: 530.81, ICD10: K21.9 Refilled. - PANTOPRAZOLE 40 MG TABLET,DELAYED RELEASE 3. Edema, unspecified type - ICD9: 782.3, ICD10: R60.9 Elevate legs. - METOLAZONE 5 MG TABLET - BASIC METABOLIC PNL 4. Cardiomyopathy, ischemic - ICD9: 414.8, ICD10: I25.5 See #3. 5. Chronic anticoagulation - ICD9: V58.61, ICD10: Z79.01 For recheck. 6. Type 2 diabetes mellitus with diabetic neuropathy, without long-term current use of insulin (HCC) - ICD9: 250.60, 357.2, ICD10: E11.40 Controlled. - Continue current medications - HGB A1C Hemoglobin A1C (%) Date Value 04/21/2017 6.2 11/19/2016 6.4 ) MD Brionna Perkins Janice LPN 10/08/2017 11:31 AM Signed pcp completed form from the [facility]. This was faxed abd copy to medical records for scanning and original mailed to address of envelope. Referring Provider: SELF [[id number]] Allergies As of Date: 10/06/2017 (No Known Allergies) Date Reviewed: 10/06/2017 Reviewed by: Lucy Perales LPN - Fully Assessed Reason for Visit: Sores on left leg [Other] Cmt: x1 month Reason For Visit History Recorded Primary Visit Diagnosis:Venous stasis ulcer of other part of left lower leg limited to breakdown of skin, unspecified whether varicose veins present ([facility]) [I83.028, L97.821] Other Visit Diagnoses:Gastroesophageal reflux disease, esophagitis presence not specified [K21.9] Edema, unspecified type [R60.9] Cardiomyopathy, ischemic [I25.5] Chronic anticoagulation [Z79.01] Type 2 diabetes mellitus with diabetic neuropathy, without long-term current use of insulin (HCC) [E11.40] Order(s):pantoprazole DR (PROTONIX) 40 mg tabletTake 1 tablet by mouth every morning.Disp: 90 tabletRfl: 1 metOLAzone (ZAROXOLYN) 5 mg tabletTake 1 tablet by mouth once daily for 10 days.Disp: 10 tabletRfl: 0 BASIC METABOLIC PNL [SQBMP] Order #: [id number] FUTURE HGB A1C [FQVWQ0K] Order #: [id number] FUTURE Prescriptions as of 10/06/2017 Sig: PANTOPRAZOLE 40 MG TABLET,DEL* Take 1 tablet by mouth every * ATORVASTATIN 80 MG TABLET Take 1 tablet by mouth once d* FUROSEMIDE 40 MG TABLET Take 1 tablet by mouth twice * FUROSEMIDE 20 MG TABLET Take 1 tablet by mouth twice * COMPOUNDED PRESCRIPTION INOGEN PORTABLE OXYGEN CONCEN* COMPOUNDED PRESCRIPTION Oxygen conserving unit Dx:J4* VALSARTAN 160 MG-HYDROCHLOROT* Take 1 tablet by mouth once d* METOPROLOL SUCCINATE ER 100 M* Take 1 tablet by mouth once d* WARFARIN 5 MG TABLET Take 12.5mg daily or as direc* METFORMIN 500 MG TABLET Take 1 tablet by mouth daily * NITROGLYCERIN 0.4 MG SUBLINGU* Dissolve 1 tablet under the t* CLOPIDOGREL 75 MG TABLET Take 1 tablet by mouth once d* COMPOUNDED PRESCRIPTION Supplemental oxygen. Lifetime* ALBUTEROL SULFATE HFA 90 MCG/* Inhale 2 Puffs as instructed * EZETIMIBE 10 MG TABLET Take 1 tablet by mouth once d* COMPOUNDED PRESCRIPTION KNEE HIGH COMPRESSION STOCKIN* FLUTICASONE 50 MCG/ACTUATION * 1 or 2 sprays in each nostril* POLYETHYLENE GLYCOL 3350 17 G* Take 17 g by mouth once daily. MAGNESIUM HYDROXIDE 400 MG/5 * Take 15 mL by mouth once andrey* SENNOSIDES 8.6 MG-DOCUSATE SO* Take 1 tablet by mouth once d* * LANCETS Test Blood sugar daily. Hype* METOLAZONE 5 MG TABLET Take 1 tablet by mouth once d* Problem List As Of Date 10/06/2017 Noted Resolved ATRIAL FIBRILLATION [I48.91] INVALID FOR*07/23/2015 More... Edema [R60.9] INVALID FOR* Hypercholesterolemia [E78.00] INVALID FOR* Priority: J More... SLEEP APNEA NOS (cpap intolerant) [G47.30] INVALID FOR*01/30/2015 Obesity [E66.9] INVALID FOR*08/13/2017 More... Hemangioma of intra-abdominal structures [D18.0*INVALID FOR*04/25/2014 Essential hypertension [I10] INVALID FOR* Priority: K More... IRRITABLE COLON [K58.9] INVALID FOR* Constipation [K59.00] INVALID FOR* DERMATOPHYTOSIS OF NAIL [B35.1] INVALID FOR*04/24/2008 ABDOMINAL PAIN LLQ [R10.32] 04/24/2008 ABDOMINAL PAIN LUQ [R10.12] 04/24/2008 FLATUL/ERUCTAT/GAS PAIN [R14.3, R14.1, R14.2] 04/24/2008 Impaired fasting glucose [R73.01] INVALID FOR*04/25/2014 COPD (chronic obstructive pulmonary disease) [J*INVALID FOR* Type II or unspecified type diabetes mellitus w*INVALID FOR*05/16/2015 ASCVD (arteriosclerotic cardiovascular disease)*INVALID FOR* BPH (benign prostatic hyperplasia) [N40.0] INVALID FOR* Family history of colon cancer [Z80.0] INVALID FOR*08/13/2017 NSTEMI (non-ST elevated myocardial infarction) *INVALID FOR*01/15/2016 More... DM2 (diabetes mellitus, type 2) (HCC) [E11.9] INVALID FOR* Priority: D More... S/P right coronary artery (RCA) stent placement*INVALID FOR* LV dysfunction [I51.9] INVALID FOR*01/15/2016 Cardiomyopathy, ischemic [I25.5] INVALID FOR* Priority: F More... Chronic anticoagulation [Z79.01] INVALID FOR* Priority: H More... Paroxysmal atrial fibrillation (HCC) [I48.0] INVALID FOR* Priority: C More... Sleep apnea [G47.30] INVALID FOR* Priority: G More... Astigmatism, regular [H52.229] INVALID FOR*08/13/2017 Presbyopia [H52.4] INVALID FOR*01/15/2016 Benign neoplasm of skin of eyelid including can*INVALID FOR*04/07/2017 Polyneuropathy (HCC) [G62.9] INVALID FOR* More... Spinal stenosis, lumbar region, with neurogenic*INVALID FOR* Displacement of lumbar intervertebral disc with*INVALID FOR*04/07/2017 Spondylosis of lumbar region without myelopathy*INVALID FOR* Lesion of liver [K76.9] INVALID FOR*08/13/2017 Priority: B More... Ascites [R18.8] INVALID FOR*05/30/2017 Priority: B More... ADEBAYO (acute kidney injury) (HCC) [N17.9] INVALID FOR* Priority: E More... Nicotine use disorder, F17.2 [F17.200] INVALID FOR*08/13/2017 Priority: L More... Obesity, Class III, BMI >= 40 (morbid obesity) *INVALID FOR* Priority: M Lethargy [R53.83] INVALID FOR*08/13/2017 Priority: Severe Acute on chronic respiratory failure with hypox*INVALID FOR* Priority: Moderate More... Morbid obesity with body mass index (BMI) of 45*INVALID FOR* Priority: M More... Acute liver failure with hepatic coma (HCC) [K7*INVALID FOR*08/13/2017 Priority: Mild More... Respiratory failure with hypercapnia (HCC) [J96*INVALID FOR*08/13/2017 Priority: A More... Shock circulatory (HCC) [R57.9] INVALID FOR*05/29/2017 Priority: A More... Kidney insufficiency [N28.9] INVALID FOR* Combined forms of age-related cataract of both *INVALID FOR* Hyperopia, bilateral [H52.03] INVALID FOR* Combined form of age-related cataract, both eye*INVALID FOR* Dry eye syndrome, bilateral [H04.123] INVALID FOR* Visit Notes: >> Amber Staton LPN WedOctober 08, 2017 11:30 AM Status: Signed pcp completed form from the [facility]. This was faxed abd copy to medical records for scanning and original mailed to address of envelope. Prescriptions ordered this encounter Disp Refills Start End PANTOPRAZOLE 40 MG TABLET,DELAYED RE* 90 t* 1 10/06/2017 04/04/2018 Route: ORAL Sig: Take 1 tablet by mouth every morning. METOLAZONE 5 MG TABLET 10 t* 0 10/06/2017 10/16/2017 Route: ORAL Sig: Take 1 tablet by mouth once daily for 10 days. Medications Discontinued During This Encounter metOLAzone (ZAROXOLYN) 5 mg tablet 5 ta* 0 01/22/2016 10/06/2017 Route: ORAL Sig: Take 1 tablet by mouth once daily for 5 days. Take with furosemide. Disc: Reason for discontinue is not on file. pantoprazole DR (PROTONIX) 40 mg tab* 30 t* 0 06/02/2017 10/06/2017 Class: Print RX Route: ORAL Sig: Take 1 tablet by mouth DAILY (6 AM). Disc: Reason for discontinue is not on file. metOLAzone (ZAROXOLYN) 5 mg tablet 5 ta* 0 09/07/2017 10/06/2017 Route: ORAL Sig: Take 1 tablet by mouth once daily for 5 days. Disc: Reason for discontinue is not on file. Disposition: Return if symptoms worsen or fail to improve. Follow-up and Disposition History Recorded Encounter Status:Closed by COY MERCADO MD on 10/06/17 PROGRESS Observed: 10/04/2017 Status: COMPLETED Source: [place] 4:39 PM [facility] RE[facility]ITORY HNO ID: [id number] Author: Amber Staton LPN Service: (none) Author Type: (none) Type: Progress Notes Filed: 10/04/2017 4:39 PM Note Text: This note was created using Lookoutriter. Subjective Catalina Evans is a 62 year old male. Review of Systems Objective There were no vitals taken for this visit. Physical Exam Assessment and Plan Message left to pt cell with info. PROGRESS Observed: 10/04/2017 Status: COMPLETED Source: [place] 1:54 PM [facility] RE[facility]IT[facility] HNO ID: [id number] Author: Coy Mercado Service: (none) Author Type: Physician Type: Progress Notes Filed: 10/04/2017 4:39 PM Note Text: Increase Coumadin dose. 15 mg Mon, Wed, and Fri and 12.5 mg on Sun, Tue, Carla, Sat. INR in 2 weeks. PROGRESS Observed: 10/04/2017 Status: COMPLETED Source: [place] 10:59 AM [facility] RE[facility] HNO ID: [id number] Author: Katharine Nino RN Service: (none) Author Type: (none) Type: Progress Notes Filed: 10/04/2017 11:00 AM Note Text: patient had inr completed at [facility] patients inr is 1.2 (patients inr range is 2.0-3.0) patient is currently taking 12.5mg daily patients last dose change was on 09/10/17 due to a high level of 4.3 (dose at that time was 12.5mg Mon,Wed,Fri and 15mg all other days) patient has had no changes in medication and no missed dose and no change in diet Advised patient that they would be contacted regarding medication dose and when to follow up after information is reviewed by provider. After provider review please contact the patient with information and schedule follow up appointment with coumadin clinic. FYI - patient has been scheduled for a 2 week follow up inr on 10/20/17 (also has appt with specialist in [place] this day) PROGRESS Observed: 09/21/2017 Status: COMPLETED Source: [place] 10:30 AM [facility] HNO ID: [id number] Author: Adam Alvarez Service: (none) Author Type: Physician Type: Progress Notes Filed: 09/21/2017 10:32 AM Note Text: ASSESSMENT/PLAN: 1. Combined form of age-related cataract, both eyes - ICD9: 366.19, ICD10: H25.813 (primary diagnosis) Patient happy with vision at this time./ observe at this time. 2. Type 2 diabetes mellitus with both eyes affected by mild nonproliferative retinopathy without macular edema, with long- term current use of insulin (HCC) - ICD9: 250.50, 362.04, V58.67, ICD10: E11.3293, Z79.4 Please keep your blood sugar under good control to minimize risk of ocular complications from diabetes. - OCT MACULA CIRRUS OU (BOTH EYES) 3. Dry eye syndrome, bilateral - ICD9: 375.15, ICD10: H04.123 Begin: Systane Balance lubricating drops- 1 drop both eyes three times a day . Return in 6 months. Adam Alvarez MD I have confirmed and edited as necessary the relevant ophthalmic history, review of systems, surgical history, and ophthalmological examination findings as obtained by the ophthalmic technical staff. I have seen and examined Catalina Evans. I have discussed the examination findings, diagnosis, and treatment options with Catalina Evans and/or his family. I have also reviewed and agree with the assessment and plan as stated above and agree with all its relevant components. I gave the patient the opportunity to ask questions about the findings, diagnosis, and treatment options. PROGRESS Observed: 09/21/2017 Status: COMPLETED Source: [place] 8:10 AM [facility] [facility] HNO ID: [id number] Author: Coy Mercado Service: (none) Author Type: Physician Type: Progress Notes Filed: 09/21/2017 8:10 AM Note Text: Okay. PROGRESS Observed: 09/20/2017 Status: COMPLETED Source: [place] 11:22 AM [facility] HNO ID: [id number] Author: Katharine Nino RN Service: (none) Author Type: (none) Type: Progress Notes Filed: 09/20/2017 11:23 AM Note Text: patient had inr completed at [facility] patients inr is 2.1 (patients inr range is 2.0-3.0) patient is currently taking 12.5mg daily patients last dose change was on 09/10/17 due to a high level of 4.3 (dose at that time was 12.5mg Mon,Wed,Fri and 15mg all other days) patient has had no changes in medication except for the coumadin and no missed doses and no change in diet Advised patient to continue on the same dose(s) and that they would only be contacted regarding dosage and follow up instructions after review with provider, if a change is needed. Written instructions given and patient verbalized understanding. Presently scheduled in 2 weeks (10/04/17) for follow up INR since this is the first normal reading since dose change. PROGRESS Observed: 09/10/2017 Status: COMPLETED Source: [place] 4:07 PM [facility] HNO ID: [id number] Author: Katharine Nino RN Service: (none) Author Type: (none) Type: Progress Notes Filed: 09/10/2017 4:07 PM Note Text: PATIENT NOTIFIED OF INFORMATION PROGRESS Observed: 09/10/2017 Status: COMPLETED Source: [place] 1:02 PM [facility] HNO ID: [id number] Author: Bev Smart Service: (none) Author Type: Nurse Practitioner Type: Progress Notes Filed: 09/10/2017 4:07 PM Note Text: Change to 12.5 mg daily Bev Smart APRN.CNP PROGRESS Observed: 09/10/2017 Status: COMPLETED Source: [place] 12:19 PM [facility] HNO ID: [id number] Author: Katharine Nino RN Service: (none) Author Type: (none) Type: Progress Notes Filed: 09/10/2017 12:20 PM Note Text: patient had inr completed at [facility] patients inr is 4.3 (patients inr range is 2.0-3.0) patient is currently taking 12.5mg Mon,Wed,Fri and 15mg all other days patients last dose change was on 08/30/17 due to a high level of 3.8 (dose at that time was 15mg daily) patient has had no changes in medication except for the coumadin and no missed doses and no change in diet Advised patient that they would be contacted regarding medication dose and when to follow up after information is reviewed by provider. After provider review please contact the patient with information and schedule follow up appointment with coumadin clinic. FYI - patient has been scheduled for a 1 week follow up inr on 09/17/17 PROGRESS Observed: 09/07/2017 Status: COMPLETED Source: [place] 5:56 PM [facility] REPOSITORY HNO ID: [id number] Author: Coy Mercado Service: (none) Author Type: Physician Type: Progress Notes Filed: 09/08/2017 10:04 PM Note Text: This note was created using Re-APPter. Subjective Catalina Evans is a 62 year old male here with increasing edema of the left leg yesterday, with seepage starting. He was taking his medications. Other symptoms were some increase in shortness of breath and weight gain. He denied dietary indiscretion. He was using his oxygen with activity and at bedtime. He also requested a prescription for a specific portable O2 concentrator. He also needed an form filled out due to ongoing disability. He had not returned to work since his admission on the latter part of April . He was unable to return to work. Review of Systems Constitutional: Negative for chills, diaphoresis and fever. HENT: Negative. Respiratory: Positive for shortness of breath. Negative for cough, chest tightness and wheezing. Cardiovascular: Positive for leg swelling. Negative for chest pain and palpitations. Genitourinary: Positive for frequency. Negative for hematuria. Musculoskeletal: Positive for arthralgias, back pain and gait problem. ACTIVE PROBLEM LIST Edema Hypercholesterolemia Essential Hypertension Irritable Bowel Syndrome Constipation Copd (Chronic Obstructive Pulmonary Disease) ([facility]) Ascvd (Arteriosclerotic Cardiovascular Disease) Bph (Benign Prostatic Hyperplasia) Dm2 (Diabetes Mellitus, Type 2) ([facility]) S/P Right Coronary Artery (Rca) Stent Placement Cardiomyopathy, Ischemic Chronic Anticoagulation Paroxysmal Atrial Fibrillation ([facility]) Sleep Apnea Polyneuropathy ([facility]) Spinal Stenosis, Lumbar Region, With Neurogenic Claudication Spondylosis of Lumbar Region Without Myelopathy Or Radiculopathy Adebayo (Acute Kidney Injury) ([facility]) Obesity, Class III, BMI >= 40 (morbid obesity) E66.01 Acute On Chronic Respiratory Failure With Hypoxia and Hypercapnia ([facility]) Morbid Obesity With Body Mass Index (Bmi) of 45.0 to 49.9 in Adult ([facility]) Kidney Insufficiency Combined Forms of Age-Related Cataract of Both Eyes Hyperopia, Bilateral Current Outpatient Prescriptions on File Prior to Visit: COMPOUNDED PRESCRIPTION Oxygen conserving unit Dx:J44.9 Valsartan-Hydrochlorothiazide (DIOVAN HCT) 160-12.5 mg per tablet Take 1 tablet by mouth once daily. metoprolol succinate ER (TOPROL XL) 100 mg Tb24 Take 1 tablet by mouth once daily. warfarin (COUMADIN) 5 mg tablet Take 12.5mg daily or as directed. metFORMIN (GLUCOPHAGE) 500 mg tablet Take 1 tablet by mouth daily with breakfast. . nitroglycerin sublingual (NITROQUICK) 0.4 mg SL tablet Dissolve 1 tablet under the tongue as needed. FOR CHEST PAIN. IF NO RELIEF CALL 911 clopidogrel (PLAVIX) 75 mg tablet Take 1 tablet by mouth once daily. pantoprazole DR (PROTONIX) 40 mg tablet Take 1 tablet by mouth DAILY (6 AM). COMPOUNDED PRESCRIPTION Supplemental oxygen. Lifetime supply. Portable tank along with concentrator.3 lpm with exertion and at hours of sleep via nasal cannula albuterol HFA (PROVENTIL HFA, VENTOLIN HFA) 90 mcg/actuation inhaler Inhale 2 Puffs as instructed every 6 hours as needed for Wheezing/Shortness of Breath. ezetimibe (ZETIA) 10 mg tablet Take 1 tablet by mouth once daily. Compression Knee Highs KNEE HIGH COMPRESSION STOCKINGS 20- 30 MM HG. DX: EDEMA. VENOUS INSUFFICIENCY, BOTH LOWER EXTREMITIES. fluticasone (FLONASE) 50 mcg/actuation nasal spray 1 or 2 sprays in each nostril at bedtime. polyethylene glycol 3350 (MIRALAX) 17 gram/dose powder Take 17 g by mouth once daily. magnesium hydroxide (MILK OF MAGNESIA) 400 mg/5 mL suspension Take 15 mL by mouth once daily as needed for Constipation. senna-docusate 8.6-50 mg per tablet Take 1 tablet by mouth once daily. For constipation. Lancets (FREESTYLE LANCETS) [facility] lancets Test Blood sugar daily. Hyperglycemia, no insulin No current facility-administered medications on file prior to visit. Objective BP 136/82 (BP Site: Right Arm, BP Position: Sitting, BP Cuff Size: Regular Adult) Pulse 76 Temp 36.5 ?C (97.7 ?F) (Left Tympanic) Resp 20 Wt (!) 152 kg (335 lb) BMI 48.07 kg/m2 Physical Exam Constitutional: No distress. Eyes: Conjunctivae are normal. Neck: No JVD present. Cardiovascular: Normal heart sounds. Exam reveals no gallop. No murmur heard. Pulmonary/Chest: Effort normal. He has no wheezes. He has no rales. Musculoskeletal: He exhibits edema. 2-3+ edema, L>R. Few small raw areas with moisture. No blisters, no major ulcer, no cellulitis. Assessment and Plan ASSESSMENT/PLAN: 1. Edema, unspecified type - ICD9: 782.3, ICD10: R60.9 (primary diagnosis) Worse. - METOLAZONE 5 MG TABLET. Take one(1) tablet daily x 7 days. - FUROSEMIDE 40 MG TABLET. Reviewed that he was currently taking furosemide 60 mg BID. - FUROSEMIDE 20 MG TABLET 2. Cardiomyopathy, ischemic - ICD9: 414.8, ICD10: I25.5 As above. 3. Hypercholesterolemia - ICD9: 272.0, ICD10: E78.00 - good control - Continue current medication. - ATORVASTATIN 80 MG TABLET 4. Acute on chronic respiratory failure with hypoxia and hypercapnia (HCC) - ICD9: 518.84, 786.09, 799.02, ICD10: J96.21, J96.22 Portable oxygen DME. - COMPOUNDED PRESCRIPTION 5. Chronic obstructive pulmonary disease, unspecified COPD type (HCC) - ICD9: 496, ICD10: J44.9 Portable oxygen DME. - COMPOUNDED PRESCRIPTION Coy Mercado MD CNOV Observed: 09/07/2017 Status: COMPLETED Source: [place] 4:40 PM [facility] Office Visit (INTMWS) CATALINA EVANS ([id number]) 1955 M Date Time Provider Department 09/07/17 4:40 PM COY MERCADO INTMWS During your visit today, we recorded the following information about you: Temperature Pulse Respiration Blood pressure 97.7 degrees 76/minute 20/minute 136/82 Weight 152 kg Coy Mercado MD 09/08/2017 10:04 PM Signed This note was created using Re-APPter. Subjective Catalina Evans is a 62 year old male here with increasing edema of the left leg yesterday, with seepage starting. He was taking his medications. Other symptoms were some increase in shortness of breath and weight gain. He denied dietary indiscretion. He was using his oxygen with activity and at bedtime. He also requested a prescription for a specific portable O2 concentrator. He also needed an form filled out due to ongoing disability. He had not returned to work since his admission on the latter part of April . He was unable to return to work. Review of Systems Constitutional: Negative for chills, diaphoresis and fever. HENT: Negative. Respiratory: Positive for shortness of breath. Negative for cough, chest tightness and wheezing. Cardiovascular: Positive for leg swelling. Negative for chest pain and palpitations. Genitourinary: Positive for frequency. Negative for hematuria. Musculoskeletal: Positive for arthralgias, back pain and gait problem. ACTIVE PROBLEM LIST Edema Hypercholesterolemia Essential Hypertension Irritable Bowel Syndrome Constipation Copd (Chronic Obstructive Pulmonary Disease) ([facility]) Ascvd (Arteriosclerotic Cardiovascular Disease) Bph (Benign Prostatic Hyperplasia) Dm2 (Diabetes Mellitus, Type 2) ([facility]) S/P Right Coronary Artery (Rca) Stent Placement Cardiomyopathy, Ischemic Chronic Anticoagulation Paroxysmal Atrial Fibrillation ([facility]) Sleep Apnea Polyneuropathy ([facility]) Spinal Stenosis, Lumbar Region, With Neurogenic Claudication Spondylosis of Lumbar Region Without Myelopathy Or Radiculopathy Adebayo (Acute Kidney Injury) ([facility]) Obesity, Class III, BMI ANDgt;= 40 (morbid obesity) E66.01 Acute On Chronic Respiratory Failure With Hypoxia and Hypercapnia ([facility]) Morbid Obesity With Body Mass Index (Bmi) of 45.0 to 49.9 in Adult ([facility]) Kidney Insufficiency Combined Forms of Age-Related Cataract of Both Eyes Hyperopia, Bilateral Current Outpatient Prescriptions on File Prior to Visit: COMPOUNDED PRESCRIPTION Oxygen conserving unit Dx:J44.9 Valsartan-Hydrochlorothiazide (DIOVAN HCT) 160-12.5 mg per tablet Take 1 tablet by mouth once daily. metoprolol succinate ER (TOPROL XL) 100 mg Tb24 Take 1 tablet by mouth once daily. warfarin (COUMADIN) 5 mg tablet Take 12.5mg daily or as directed. metFORMIN (GLUCOPHAGE) 500 mg tablet Take 1 tablet by mouth daily with breakfast. . nitroglycerin sublingual (NITROQUICK) 0.4 mg SL tablet Dissolve 1 tablet under the tongue as needed. FOR CHEST PAIN. IF NO RELIEF CALL 911 clopidogrel (PLAVIX) 75 mg tablet Take 1 tablet by mouth once daily. pantoprazole DR (PROTONIX) 40 mg tablet Take 1 tablet by mouth DAILY (6 AM). COMPOUNDED PRESCRIPTION Supplemental oxygen. Lifetime supply. Portable tank along with concentrator.3 lpm with exertion and at hours of sleep via nasal cannula albuterol HFA (PROVENTIL HFA, VENTOLIN HFA) 90 mcg/actuation inhaler Inhale 2 Puffs as instructed every 6 hours as needed for Wheezing/Shortness of Breath. ezetimibe (ZETIA) 10 mg tablet Take 1 tablet by mouth once daily. Compression Knee Highs KNEE HIGH COMPRESSION STOCKINGS 20- 30 MM HG. DX: EDEMA. VENOUS INSUFFICIENCY, BOTH LOWER EXTREMITIES. fluticasone (FLONASE) 50 mcg/actuation nasal spray 1 or 2 sprays in each nostril at bedtime. polyethylene glycol 3350 (MIRALAX) 17 gram/dose powder Take 17 g by mouth once daily. magnesium hydroxide (MILK OF MAGNESIA) 400 mg/5 mL suspension Take 15 mL by mouth once daily as needed for Constipation. senna-docusate 8.6-50 mg per tablet Take 1 tablet by mouth once daily. For constipation. Lancets (FREESTYLE LANCETS) [facility] lancets Test Blood sugar daily. Hyperglycemia, no insulin No current facility-administered medications on file prior to visit. Objective BP 136/82 (BP Site: Right Arm, BP Position: Sitting, BP Cuff Size: Regular Adult) Pulse 76 Temp 36.5 ?C (97.7 ?F) (Left Tympanic) Resp 20 Wt (!) 152 kg (335 lb) BMI 48.07 kg/m2 Physical Exam Constitutional: No distress. Eyes: Conjunctivae are normal. Neck: No JVD present. Cardiovascular: Normal heart sounds. Exam reveals no gallop. No murmur heard. Pulmonary/Chest: Effort normal. He has no wheezes. He has no rales. Musculoskeletal: He exhibits edema. 2-3+ edema, LANDgt;R. Few small raw areas with moisture. No blisters, no major ulcer, no cellulitis. Assessment and Plan ASSESSMENT/PLAN: 1. Edema, unspecified type - ICD9: 782.3, ICD10: R60.9 (primary diagnosis) Worse. - METOLAZONE 5 MG TABLET. Take one(1) tablet daily x 7 days. - FUROSEMIDE 40 MG TABLET. Reviewed that he was currently taking furosemide 60 mg BID. - FUROSEMIDE 20 MG TABLET 2. Cardiomyopathy, ischemic - ICD9: 414.8, ICD10: I25.5 As above. 3. Hypercholesterolemia - ICD9: 272.0, ICD10: E78.00 - good control - Continue current medication. - ATORVASTATIN 80 MG TABLET 4. Acute on chronic respiratory failure with hypoxia and hypercapnia (HCC) - ICD9: 518.84, 786.09, 799.02, ICD10: J96.21, J96.22 Portable oxygen DME. - COMPOUNDED PRESCRIPTION 5. Chronic obstructive pulmonary disease, unspecified COPD type (HCC) - ICD9: 496, ICD10: J44.9 Portable oxygen DME. - COMPOUNDED PRESCRIPTION Coy Mercado MD Referring Provider: SELF [[id number]] Allergies As of Date: 09/07/2017 (Not on File) Date Reviewed: 09/07/2017 Reviewed by: Lucy Perales LPN - Fully Assessed Reason for Visit: Edema [39] Cmt: x1 day, left leg seeping/edema Primary Visit Diagnosis:Edema, unspecified type [R60.9] Other Visit Diagnoses:Cardiomyopathy, ischemic [I25.5] Hypercholesterolemia [E78.00] Acute on chronic respiratory failure with hypoxia and hypercapnia (HCC) [J96.21, J96.22] Chronic obstructive pulmonary disease, unspecified COPD type (HCC) [J44.9] Order(s):atorvastatin (LIPITOR) 80 mg tabletTake 1 tablet by mouth once daily.Disp: 90 tabletRfl: 3 metOLAzone (ZAROXOLYN) 5 mg tabletTake 1 tablet by mouth once daily for 5 days.Disp: 5 tabletRfl: 0 furosemide (LASIX) 40 mg tabletTake 1 tablet by mouth twice daily. With 20 mg tablet for total of 60 mg twice daily.Disp: 180 tabletRfl: 0 furosemide (LASIX) 20 mg tabletTake 1 tablet by mouth twice daily.Disp: Rfl: COMPOUNDED PRESCRIPTIONINOGEN PORTABLE OXYGEN CONCENTRATOR. 3 LPM VIA NASAL CANNULA WITH ACTIVITY. DX: J96.21; J96.22. J44.9. I25.5Disp: 1 EachRfl: 0 Prescriptions as of 09/07/2017 Sig: ATORVASTATIN 80 MG TABLET Take 1 tablet by mouth once d* FUROSEMIDE 20 MG TABLET Take 1 tablet by mouth twice * COMPOUNDED PRESCRIPTION Oxygen conserving unit Dx:J4* VALSARTAN 160 MG-HYDROCHLOROT* Take 1 tablet by mouth once d* METOPROLOL SUCCINATE ER 100 M* Take 1 tablet by mouth once d* WARFARIN 5 MG TABLET Take 12.5mg daily or as direc* METFORMIN 500 MG TABLET Take 1 tablet by mouth daily * NITROGLYCERIN 0.4 MG SUBLINGU* Dissolve 1 tablet under the t* CLOPIDOGREL 75 MG TABLET Take 1 tablet by mouth once d* PANTOPRAZOLE 40 MG TABLET,DEL* Take 1 tablet by mouth DAILY * COMPOUNDED PRESCRIPTION Supplemental oxygen. Lifetime* ALBUTEROL SULFATE HFA 90 MCG/* Inhale 2 Puffs as instructed * EZETIMIBE 10 MG TABLET Take 1 tablet by mouth once d* COMPOUNDED PRESCRIPTION KNEE HIGH COMPRESSION STOCKIN* FLUTICASONE 50 MCG/ACTUATION * 1 or 2 sprays in each nostril* POLYETHYLENE GLYCOL 3350 17 G* Take 17 g by mouth once daily. MAGNESIUM HYDROXIDE 400 MG/5 * Take 15 mL by mouth once andrey* SENNOSIDES 8.6 MG-DOCUSATE SO* Take 1 tablet by mouth once d* * LANCETS Test Blood sugar daily. Hype* METOLAZONE 5 MG TABLET Take 1 tablet by mouth once d* FUROSEMIDE 40 MG TABLET Take 1 tablet by mouth twice * COMPOUNDED PRESCRIPTION INOGEN PORTABLE OXYGEN CONCEN* Medication notes this encounter DEXTROMETHORPHAN-GUAIFENESIN 10 MG-100 MG/5 ML SYRUP >> Lucy Perales LPN 09/07/2017 5:38 PM >> LUCY PERALES LPN WedSep 07, 2017 5:38 PM PRN Problem List As Of Date 09/07/2017 Noted Resolved ATRIAL FIBRILLATION [I48.91] INVALID FOR*07/23/2015 More... Edema [R60.9] INVALID FOR* Hypercholesterolemia [E78.00] INVALID FOR* Priority: J More... SLEEP APNEA NOS (cpap intolerant) [G47.30] INVALID FOR*01/30/2015 Obesity [E66.9] INVALID FOR*08/13/2017 More... Hemangioma of intra-abdominal structures [D18.0*INVALID FOR*04/25/2014 Essential hypertension [I10] INVALID FOR* Priority: K More... IRRITABLE COLON [K58.9] INVALID FOR* Constipation [K59.00] INVALID FOR* DERMATOPHYTOSIS OF NAIL [B35.1] INVALID FOR*04/24/2008 ABDOMINAL PAIN LLQ [R10.32] 04/24/2008 ABDOMINAL PAIN LUQ [R10.12] 04/24/2008 FLATUL/ERUCTAT/GAS PAIN [R14.3, R14.1, R14.2] 04/24/2008 Impaired fasting glucose [R73.01] INVALID FOR*04/25/2014 COPD (chronic obstructive pulmonary disease) [J*INVALID FOR* Type II or unspecified type diabetes mellitus w*INVALID FOR*05/16/2015 ASCVD (arteriosclerotic cardiovascular disease)*INVALID FOR* BPH (benign prostatic hyperplasia) [N40.0] INVALID FOR* Family history of colon cancer [Z80.0] INVALID FOR*08/13/2017 NSTEMI (non-ST elevated myocardial infarction) *INVALID FOR*01/15/2016 More... DM2 (diabetes mellitus, type 2) (HCC) [E11.9] INVALID FOR* Priority: D More... S/P right coronary artery (RCA) stent placement*INVALID FOR* LV dysfunction [I51.9] INVALID FOR*01/15/2016 Cardiomyopathy, ischemic [I25.5] INVALID FOR* Priority: F More... Chronic anticoagulation [Z79.01] INVALID FOR* Priority: H More... Paroxysmal atrial fibrillation (HCC) [I48.0] INVALID FOR* Priority: C More... Sleep apnea [G47.30] INVALID FOR* Priority: G More... Astigmatism, regular [H52.229] INVALID FOR*08/13/2017 Presbyopia [H52.4] INVALID FOR*01/15/2016 Benign neoplasm of skin of eyelid including can*INVALID FOR*04/07/2017 Polyneuropathy (HCC) [G62.9] INVALID FOR* More... Spinal stenosis, lumbar region, with neurogenic*INVALID FOR* Displacement of lumbar intervertebral disc with*INVALID FOR*04/07/2017 Spondylosis of lumbar region without myelopathy*INVALID FOR* Lesion of liver [K76.9] INVALID FOR*08/13/2017 Priority: B More... Ascites [R18.8] INVALID FOR*05/30/2017 Priority: B More... ADEBAYO (acute kidney injury) (HCC) [N17.9] INVALID FOR* Priority: E More... Nicotine use disorder, F17.2 [F17.200] INVALID FOR*08/13/2017 Priority: L More... Obesity, Class III, BMI >= 40 (morbid obesity) *INVALID FOR* Priority: M Lethargy [R53.83] INVALID FOR*08/13/2017 Priority: Severe Acute on chronic respiratory failure with hypox*INVALID FOR* Priority: Moderate More... Morbid obesity with body mass index (BMI) of 45*INVALID FOR* Priority: M More... Acute liver failure with hepatic coma (HCC) [K7*INVALID FOR*08/13/2017 Priority: Mild More... Respiratory failure with hypercapnia (HCC) [J96*INVALID FOR*08/13/2017 Priority: A More... Shock circulatory (HCC) [R57.9] INVALID FOR*05/29/2017 Priority: A More... Kidney insufficiency [N28.9] INVALID FOR* Combined forms of age-related cataract of both *INVALID FOR* Hyperopia, bilateral [H52.03] INVALID FOR* Prescriptions ordered this encounter Disp Refills Start End ATORVASTATIN 80 MG TABLET 90 t* 3 09/07/2017 Route: ORAL Sig: Take 1 tablet by mouth once daily. METOLAZONE 5 MG TABLET 5 ta* 0 09/07/2017 09/12/2017 Route: ORAL Sig: Take 1 tablet by mouth once daily for 5 days. FUROSEMIDE 40 MG TABLET 180 * 0 09/07/2017 Class: Med Update Sig: Take 1 tablet by mouth twice daily. With 20 mg tablet for total of 60 mg twice daily. FUROSEMIDE 20 MG TABLET 09/07/2017 Class: Med Update Route: ORAL Sig: Take 1 tablet by mouth twice daily. COMPOUNDED PRESCRIPTION 1 Ea* 0 09/07/2017 Class: Print RX Sig: INOGEN PORTABLE OXYGEN CONCENTRATOR. 3 LPM VIA NASAL CANNULA WITH ACTIVITY. DX: J96.21; J96.22. J44.9. I25.5 Medications Discontinued During This Encounter guaiFENesin-dextromethorphan (ROBITU* 120 * 0 03/03/2017 09/07/2017 Route: ORAL Sig: Take 5 mL by mouth three times daily as needed. Patient not taking: Reported on 08/31/2017 Disc: Reason for discontinue is not on file. atorvastatin (LIPITOR) 80 mg tablet 90 t* 3 09/24/2016 09/07/2017 Route: ORAL Sig: Take 1 tablet by mouth once daily. Disc: Reason for discontinue is not on file. furosemide (LASIX) 20 mg tablet 180 * 3 06/01/2017 09/07/2017 Class: Print RX Route: ORAL Sig: Take 1 tablet by mouth once daily. Speak to your PCP about uptitrating this medication. If increasing leg swelling or shortness of breath take one more of these and call your primary care doctor for further direction. Disc: Reason for discontinue is not on file. Disposition: Return if symptoms worsen or fail to improve. Follow-up and Disposition History Recorded Encounter Status:Closed by COY MERCADO MD on 09/08/17 PROGRESS Observed: 08/31/2017 Status: COMPLETED Source: [place] 3:29 PM [facility] O ID: [id number] Author: Alcira Hernandez II Service: (none) Author Type: LOMBARDI DEVELOPER Type: Progress Notes Filed: 08/31/2017 3:33 PM Note Text: ASSESSMENT/PLAN: 1. Type 2 diabetes mellitus with diabetic neuropathy, without long-term current use of insulin (HCC) - ICD9: 250.60, 357.2, ICD10: E11.40 (primary diagnosis) Examination shows no ocular diabetic complications today. Discussed need for optimal diabetes control to minimize chance of ocular complications. Advise patient to immediately report worsening in status or additional symptoms. Continue yearly dilated eye examinations. 2. Combined forms of age-related cataract of both eyes - ICD9: 366.19, ICD10: H25.813 Cataract formation progressing L>>R. Patient defers surgical correction until a later time. Will call if desires referral before 6 month visit scheduled. 3. Hyperopia, bilateral - ICD9: 367.0, ICD10: H52.03 4. Regular astigmatism of both eyes - ICD9: 367.21, ICD10: H52.223 5. Presbyopia - ICD9: 367.4, ICD10: H52.4 Large hyperopic shift in glasses power demonstrated to patient. Patient declines change of glasses at this time as may proceed with cataract surgery. I have confirmed and edited as necessary the relevant ophthalmic history, review of systems, surgical history, and ophthalmological examination findings as obtained by the ophthalmic technical staff. I have seen and examined Catalina Evans. I have discussed the examination findings, diagnosis, and treatment options with the patient and/or the patient's family. I have also reviewed and agree with the assessment and plan as stated above and agree with all its relevant components. I gave the patient the opportunity to ask questions about the findings, diagnosis, and treatment options. Alcira Hernandez, II, OD PROGRESS Observed: 08/30/2017 Status: COMPLETED Source: [place] 3:30 PM [facility] HNO ID: [id number] Author: Tatiana Chisholm LPN Service: (none) Author Type: (none) Type: Progress Notes Filed: 08/30/2017 3:33 PM Note Text: Patient called back and information listed below given. Tatiana Chisholm LPN PROGRESS Observed: 08/30/2017 Status: COMPLETED Source: [place] 3:29 PM [facility] HNO ID: [id number] Author: Tatiana Chisholm LPN Service: (none) Author Type: (none) Type: Progress Notes Filed: 08/30/2017 3:33 PM Note Text: This note was created using Lookout[employer]. Subjective Catalina Evans is a 62 year old male. Review of Systems Objective There were no vitals taken for this visit. Physical Exam Assessment and Plan PROGRESS Observed: 08/30/2017 Status: COMPLETED Source: [place] 2:13 PM [facility] RE[facility] HNO ID: [id number] Author: Yi Anderson LPN Service: (none) Author Type: (none) Type: Progress Notes Filed: 08/30/2017 3:33 PM Note Text: Phoned patient and left message to return call to office for coumadin instructions. PROGRESS Observed: 08/30/2017 Status: COMPLETED Source: [place] 1:59 PM [facility] REPOSIT[facility] HNO ID: [id number] Author: Coy Mercado Service: (none) Author Type: Physician Type: Progress Notes Filed: 08/30/2017 3:33 PM Note Text: Decrease Coumadin dose. 12.5 mg Mon, Wed, Fri and 15 mg Sun, Tue, Carla, Sat. INR in 1 week. PROGRESS Observed: 08/30/2017 Status: COMPLETED Source: [place] 11:19 AM [facility] REPOSIT[facility] HNO ID: [id number] Author: Katharine Nino RN Service: (none) Author Type: (none) Type: Progress Notes Filed: 08/30/2017 11:21 AM Note Text: patient had inr completed at [facility] patients inr is 3.8 (patients inr range is 2.0-3.0) patient is currently taking 15mg daily patients last dose change was on 08/20/17 due to a low level of 1.6 (dose at that time was 15mg Mon,Wed,Fri and 12.5mg all other days) patient has had no changes in medication except for the coumadin and no missed doses and no change in diet Advised patient that they would be contacted regarding medication dose and when to follow up after information is reviewed by provider. After provider review please contact the patient with information and schedule follow up appointment with coumadin clinic. FYI - patient has been scheduled for a 1 week follow up inr check on 09/10/17 CNPN Observed: 08/24/2017 Status: COMPLETED Source: [place] 12:00 AM [facility] REPOSITORY Telephone (INTMWS) CATALINA EVANS ([id number]) 1955 M Date Time Provider Department 08/24/17 COY MERCADO During your visit today, we recorded the following information about you: Yi Anderson LPN 08/24/2017 2:48 PM Signed Patient calling asking for rx for oxygen conserving unit to be faxed to [facility] to attention Juanita Darden at [phone]. Patient currently gets his oxygen from [facility] using 2 liters continuously. Patient said it would be more smaller unit not as heavy to carry when he goes out. Please advise Campbell Pittman 08/24/2017 2:59 PM Signed Naren from [facility] calls asking if this order can be faxed today; so then can get patient set-up today. Yeni Karolyn CLEVELAND 08/25/2017 9:48 AM Signed rx faxed . Allergies As of Date: 08/24/2017 (No Known Allergies) Date Reviewed: 08/20/2017 Reviewed by: Katharine Nino RN - Fully Assessed Reason for Visit: rx for oxygen conserving unit [Other] Primary Visit Diagnosis:Chronic obstructive pulmonary disease, unspecified COPD type (HCC) [J44.9] Order(s):COMPOUNDED PRESCRIPTIONOxygen conserving unit Dx:J44.9Disp: 1 EachRfl: 0 Prescriptions as of 08/24/2017 Sig: COMPOUNDED PRESCRIPTION Oxygen conserving unit Dx:J4* VALSARTAN 160 MG-HYDROCHLOROT* Take 1 tablet by mouth once d* METOPROLOL SUCCINATE ER 100 M* Take 1 tablet by mouth once d* WARFARIN 5 MG TABLET Take 12.5mg daily or as direc* METFORMIN 500 MG TABLET Take 1 tablet by mouth daily * NITROGLYCERIN 0.4 MG SUBLINGU* Dissolve 1 tablet under the t* CLOPIDOGREL 75 MG TABLET Take 1 tablet by mouth once d* FUROSEMIDE 20 MG TABLET Take 1 tablet by mouth once d* PANTOPRAZOLE 40 MG TABLET,DEL* Take 1 tablet by mouth DAILY * COMPOUNDED PRESCRIPTION Supplemental oxygen. Lifetime* ALBUTEROL SULFATE HFA 90 MCG/* Inhale 2 Puffs as instructed * EZETIMIBE 10 MG TABLET Take 1 tablet by mouth once d* DEXTROMETHORPHAN-GUAIFENESIN * Take 5 mL by mouth three time* COMPOUNDED PRESCRIPTION KNEE HIGH COMPRESSION STOCKIN* ATORVASTATIN 80 MG TABLET Take 1 tablet by mouth once d* FLUTICASONE 50 MCG/ACTUATION * 1 or 2 sprays in each nostril* POLYETHYLENE GLYCOL 3350 17 G* Take 17 g by mouth once daily. MAGNESIUM HYDROXIDE 400 MG/5 * Take 15 mL by mouth once andrey* SENNOSIDES 8.6 MG-DOCUSATE SO* Take 1 tablet by mouth once d* * LANCETS Test Blood sugar daily. Hype* Problem List As Of Date 08/24/2017 Noted Resolved ATRIAL FIBRILLATION [I48.91] INVALID FOR*07/23/2015 More... Edema [R60.9] INVALID FOR* Hypercholesterolemia [E78.00] INVALID FOR* Priority: J More... SLEEP APNEA NOS (cpap intolerant) [G47.30] INVALID FOR*01/30/2015 Obesity [E66.9] INVALID FOR*08/13/2017 More... Hemangioma of intra-abdominal structures [D18.0*INVALID FOR*04/25/2014 Essential hypertension [I10] INVALID FOR* Priority: K More... IRRITABLE COLON [K58.9] INVALID FOR* Constipation [K59.00] INVALID FOR* DERMATOPHYTOSIS OF NAIL [B35.1] INVALID FOR*04/24/2008 ABDOMINAL PAIN LLQ [R10.32] 04/24/2008 ABDOMINAL PAIN LUQ [R10.12] 04/24/2008 FLATUL/ERUCTAT/GAS PAIN [R14.3, R14.1, R14.2] 04/24/2008 Impaired fasting glucose [R73.01] INVALID FOR*04/25/2014 COPD (chronic obstructive pulmonary disease) [J*INVALID FOR* Type II or unspecified type diabetes mellitus w*INVALID FOR*05/16/2015 ASCVD (arteriosclerotic cardiovascular disease)*INVALID FOR* BPH (benign prostatic hyperplasia) [N40.0] INVALID FOR* Family history of colon cancer [Z80.0] INVALID FOR*08/13/2017 NSTEMI (non-ST elevated myocardial infarction) *INVALID FOR*01/15/2016 More... DM2 (diabetes mellitus, type 2) (HCC) [E11.9] INVALID FOR* Priority: D More... S/P right coronary artery (RCA) stent placement*INVALID FOR* LV dysfunction [I51.9] INVALID FOR*01/15/2016 Cardiomyopathy, ischemic [I25.5] INVALID FOR* Priority: F More... Chronic anticoagulation [Z79.01] INVALID FOR* Priority: H More... Paroxysmal atrial fibrillation (HCC) [I48.0] INVALID FOR* Priority: C More... Sleep apnea [G47.30] INVALID FOR* Priority: G More... Astigmatism, regular [H52.229] INVALID FOR*08/13/2017 Presbyopia [H52.4] INVALID FOR*01/15/2016 Benign neoplasm of skin of eyelid including can*INVALID FOR*04/07/2017 Polyneuropathy (HCC) [G62.9] INVALID FOR* More... Spinal stenosis, lumbar region, with neurogenic*INVALID FOR* Displacement of lumbar intervertebral disc with*INVALID FOR*04/07/2017 Spondylosis of lumbar region without myelopathy*INVALID FOR* Lesion of liver [K76.9] INVALID FOR*08/13/2017 Priority: B More... Ascites [R18.8] INVALID FOR*05/30/2017 Priority: B More... ADEBAYO (acute kidney injury) (HCC) [N17.9] INVALID FOR* Priority: E More... Nicotine use disorder, F17.2 [F17.200] INVALID FOR*08/13/2017 Priority: L More... Obesity, Class III, BMI >= 40 (morbid obesity) *INVALID FOR* Priority: M Lethargy [R53.83] INVALID FOR*08/13/2017 Priority: Severe Acute on chronic respiratory failure with hypox*INVALID FOR* Priority: Moderate More... Morbid obesity with body mass index (BMI) of 45*INVALID FOR* Priority: M More... Acute liver failure with hepatic coma (HCC) [K7*INVALID FOR*08/13/2017 Priority: Mild More... Respiratory failure with hypercapnia (HCC) [J96*INVALID FOR*08/13/2017 Priority: A More... Shock circulatory (HCC) [R57.9] INVALID FOR*05/29/2017 Priority: A More... Kidney insufficiency [N28.9] INVALID FOR* Prescriptions ordered this encounter Disp Refills Start End COMPOUNDED PRESCRIPTION 1 Ea* 0 08/24/2017 Class: Print RX Sig: Oxygen conserving unit Dx:J44.9 Encounter Status:Closed by YENI DE LEON LPN on 08/25/17 PROGRESS Observed: 08/20/2017 Status: COMPLETED Source: [place] 3:56 PM [facility] RE[facility] HNO ID: [id number] Author: Katharine Nino RN Service: (none) Author Type: (none) Type: Progress Notes Filed: 08/20/2017 3:56 PM Note Text: PATIENT NOTIFIED OF INFORMATION PROGRESS Observed: 08/20/2017 Status: COMPLETED Source: [place] 1:26 PM [facility] RE[facility] HNO ID: [id number] Author: Coy Mercado Service: (none) Author Type: Physician Type: Progress Notes Filed: 08/20/2017 3:56 PM Note Text: Increase Coumadin dose. 15 mg daily. INR in 1 week. PROGRESS Observed: 08/20/2017 Status: COMPLETED Source: [place] 10:07 AM [facility] HNO ID: [id number] Author: Katharine Nino RN Service: (none) Author Type: (none) Type: Progress Notes Filed: 08/20/2017 10:08 AM Note Text: patient had inr completed at [facility] patients inr is 1.6 (patients inr range is 2.0-3.0) patient is currently taking 15mg Mon,Wed,Fri and 12.5mg all other days patients last dose change was on 08/13/17 due to a low level of 1.5 (dose at that time was 12.5mg daily) patient has had no changes in medication except for the coumadin and no missed doses and no change in diet Advised patient that they would be contacted regarding medication dose and when to follow up after information is reviewed by provider. After provider review please contact the patient with information and schedule follow up appointment with coumadin clinic. FYI - patient has been scheduled for a 1 week inr follow up on 08/26/17 PROGRESS Observed: 08/13/2017 Status: COMPLETED Source: [place] 2:42 PM [facility] HNO ID: [id number] Author: Allison Bustamante RN Service: (none) Author Type: (none) Type: Progress Notes Filed: 08/13/2017 2:44 PM Note Text: Patient called and notified of below. Verbalized understanding. Scheduled for 08/20/17 PROGRESS Observed: 08/13/2017 Status: COMPLETED Source: [place] 1:34 PM [facility] HNO ID: [id number] Author: Coy Mercado Service: (none) Author Type: Physician Type: Progress Notes Filed: 08/13/2017 1:53 PM Note Text: This note was created using Lookoutriter. Subjective Catalina Evans is a 62 year old male here for follow up. Respiratory failure was stable on oxygen. Hypertension, arteriosclerotic cardiovascular disease, atrial fibrillation, and edema was stable. Liver failure resolved. DM was improving. He reported hematuria last March, and urology referral was ordered, but not done due to illness and hospitalization. He now reported recurrent hematospermia as well. He was on chronic anticoagulation. No pain was noted. ACTIVE PROBLEM LIST Edema Hypercholesterolemia Essential Hypertension Irritable Bowel Syndrome Constipation Copd (Chronic Obstructive Pulmonary Disease) ([facility]) Ascvd (Arteriosclerotic Cardiovascular Disease) Bph (Benign Prostatic Hyperplasia) Dm2 (Diabetes Mellitus, Type 2) ([facility]) S/P Right Coronary Artery (Rca) Stent Placement Cardiomyopathy, Ischemic Chronic Anticoagulation Paroxysmal Atrial Fibrillation ([facility]) Sleep Apnea Polyneuropathy ([facility]) Spinal Stenosis, Lumbar Region, With 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 metoprolol succinate ER (TOPROL XL) 100 mg Tb24 Take 1 tablet by mouth once daily. warfarin (COUMADIN) 5 mg tablet Take 12.5mg daily or as directed. metFORMIN (GLUCOPHAGE) 500 mg tablet Take 1 tablet by mouth daily with breakfast. . nitroglycerin sublingual (NITROQUICK) 0.4 mg SL tablet Dissolve 1 tablet under the tongue as needed. FOR CHEST PAIN. IF NO RELIEF CALL 911 clopidogrel (PLAVIX) 75 mg tablet Take 1 tablet by mouth once daily. furosemide (LASIX) 20 mg tablet Take 1 tablet by mouth once daily. Speak to your PCP about uptitrating this medication. If increasing leg swelling or shortness of breath take one more of these and call your primary care doctor for further direction. pantoprazole DR (PROTONIX) 40 mg tablet Take 1 tablet by mouth DAILY (6 AM). COMPOUNDED PRESCRIPTION Supplemental oxygen. Lifetime supply. Portable tank along with concentrator.3 lpm with exertion and at hours of sleep via nasal cannula albuterol HFA (PROVENTIL HFA, VENTOLIN HFA) 90 mcg/actuation inhaler Inhale 2 Puffs as instructed every 6 hours as needed for Wheezing/Shortness of Breath. ezetimibe (ZETIA) 10 mg tablet Take 1 tablet by mouth once daily. Compression Knee Highs KNEE HIGH COMPRESSION STOCKINGS 20- 30 MM HG. DX: EDEMA. VENOUS INSUFFICIENCY, BOTH LOWER EXTREMITIES. atorvastatin (LIPITOR) 80 mg tablet Take 1 tablet by mouth once daily. fluticasone (FLONASE) 50 mcg/actuation nasal spray 1 or 2 sprays in each nostril at bedtime. polyethylene glycol 3350 (MIRALAX) 17 gram/dose powder Take 17 g by mouth once daily. magnesium hydroxide (MILK OF MAGNESIA) 400 mg/5 mL suspension Take 15 mL by mouth once daily as needed for Constipation. senna-docusate 8.6-50 mg per tablet Take 1 tablet by mouth once daily. For constipation. Lancets (FREESTYLE LANCETS) [facility] lancets Test Blood sugar daily. Hyperglycemia, no insulin guaiFENesin-dextromethorphan (ROBITUSSIN DM) 100-10 mg/5 mL syrup Take 5 mL by mouth three times daily as needed. No current facility-administered medications for this visit. Review of Systems Constitutional: Negative. HENT: Negative. Eyes: Negative. Respiratory: Positive for shortness of breath. Negative for cough, chest tightness and wheezing. Cardiovascular: Positive for leg swelling. Negative for chest pain and palpitations. Gastrointestinal: Negative. Genitourinary: Positive for frequency. Musculoskeletal: Positive for arthralgias, back pain and gait problem. Skin: Positive for color change. Objective BP 118/74 Pulse 84 Temp 37.1 ?C (98.7 ?F) (Temporal Artery) Resp 12 Wt (!) 149.2 kg (329 lb) BMI 47.21 kg/m2 Physical Exam Constitutional: No distress. Eyes: Conjunctivae are normal. Neck: No JVD present. Cardiovascular: S1 normal and S2 normal. An irregular rhythm present. Exam reveals no gallop. No murmur heard. Pulmonary/Chest: He has decreased breath sounds in the right lower field and the left lower field. He has no wheezes. He has no rales. Abdominal: Soft. There is no tenderness. Genitourinary: Penis normal. Right testis shows swelling. Right testis shows no mass and no tenderness. Left testis shows swelling. Left testis shows no mass and no tenderness. Genitourinary Comments: Hydroceles. Musculoskeletal: He exhibits edema. 1-2+ bipedal, with stasis pigmentation of both distal legs. CMP: Glucose 88 07/30/2017 BUN 16 07/30/2017 Creatinine 1.27 07/30/2017 Sodium 143 07/30/2017 Potassium 3.8 07/30/2017 Chloride 100 07/30/2017 CO2 Content, Venous 33 07/30/2017 Protein, Total 7.7 06/30/2017 Albumin 4.1 06/30/2017 Calcium 9.0 07/30/2017 Alkaline Phosphatase 71 06/30/2017 Bilirubin, Total 0.9 06/30/2017 AST 22 06/30/2017 ALT 20 06/30/2017 ASSESSMENT/PLAN: 1. Hematuria, unspecified type - ICD9: 599.70, ICD10: R31.9 (primary diagnosis) Recurrent. - UA DIP B/O - Set up UROLOGY consult as ordered last March. 2. Hematospermia - ICD9: 608.82, ICD10: R36.1 Recurrent. - UA DIP B/O 3. Acute on chronic respiratory failure with hypoxia and hypercapnia (HCC) - ICD9: 518.84, 786.09, 799.02, ICD10: J96.21, J96.22 Stable. 4. Paroxysmal atrial fibrillation (HCC) - ICD9: 427.31, ICD10: I48.0 Rate controlled. 5. Chronic anticoagulation - ICD9: V58.61, ICD10: Z79.01 Anticoagulated. 6. Type 2 diabetes mellitus with diabetic neuropathy, without long-term current use of insulin (HCC) - ICD9: 250.60, 357.2, ICD10: E11.40 Controlled. - Continue current medications 7. Kidney insufficiency - ICD9: 593.9, ICD10: N28.9 Discussed. Monitor. Coy Mercado MD PROGRESS Observed: 08/13/2017 Status: COMPLETED Source: [place] 11:53 AM [facility] HNO ID: [id number] Author: Coy Mercado Service: (none) Author Type: Physician Type: Progress Notes Filed: 08/13/2017 2:44 PM Note Text: Increase Coumadin dose. 15 mg Mon,Wed,Fri and 12.5 mg Sun,Tue,Carla, Sat. INR in 1 week. PROGRESS Observed: 08/13/2017 Status: COMPLETED Source: [place] 10:36 AM [facility] HNO ID: [id number] Author: Allison Bustamante RN Service: (none) Author Type: (none) Type: Progress Notes Filed: 08/13/2017 10:37 AM Note Text: Patient had INR completed at [facility] Patient's INR is 1.5 Patient is currently taking 12.5mg daily Patient's last dose change was 07/30/17 due to low INR at 1.8 Patient has had no medication and no change in diet. Advised patient that they would be contacted regarding medication dose and follow-up once reviewed by provider. After provider review, please contact patient with information and schedule follow-up appointment with coumadin clinic. CNOV Observed: 08/12/2017 Status: COMPLETED Source: [place] 6:40 PM [facility] Office Visit (INTMWS) CATALINA EVANS ([id number]) 1955 M Date Time Provider Department 08/12/17 6:40 PM COY MERCADO INTMWS During your visit today, we recorded the following information about you: Temperature Pulse Respiration Blood pressure 98.7 degrees 84/minute 12/minute 118/74 Weight 149.2 kg Coy Mercado MD 08/13/2017 1:53 PM Signed This note was created using NoteWriter. Subjective Catalina Evans is a 62 year old male here for follow up. Respiratory failure was stable on oxygen. Hypertension, arteriosclerotic cardiovascular disease, atrial fibrillation, and edema was stable. Liver failure resolved. DM was improving. He reported hematuria last March, and urology referral was ordered, but not done due to illness and hospitalization. He now reported recurrent hematospermia as well. He was on chronic anticoagulation. No pain was noted. ACTIVE PROBLEM LIST Edema Hypercholesterolemia Essential Hypertension Irritable Bowel Syndrome Constipation Copd (Chronic Obstructive Pulmonary Disease) ([facility]) Ascvd (Arteriosclerotic Cardiovascular Disease) Bph (Benign Prostatic Hyperplasia) Dm2 (Diabetes Mellitus, Type 2) ([facility]) S/P Right Coronary Artery (Rca) Stent Placement Cardiomyopathy, Ischemic Chronic Anticoagulation Paroxysmal Atrial Fibrillation ([facility]) Sleep Apnea Polyneuropathy ([facility]) Spinal Stenosis, Lumbar Region, With 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 metoprolol succinate ER (TOPROL XL) 100 mg Tb24 Take 1 tablet by mouth once daily. warfarin (COUMADIN) 5 mg tablet Take 12.5mg daily or as directed. metFORMIN (GLUCOPHAGE) 500 mg tablet Take 1 tablet by mouth daily with breakfast. . nitroglycerin sublingual (NITROQUICK) 0.4 mg SL tablet Dissolve 1 tablet under the tongue as needed. FOR CHEST PAIN. IF NO RELIEF CALL 911 clopidogrel (PLAVIX) 75 mg tablet Take 1 tablet by mouth once daily. furosemide (LASIX) 20 mg tablet Take 1 tablet by mouth once daily. Speak to your PCP about uptitrating this medication. If increasing leg swelling or shortness of breath take one more of these and call your primary care doctor for further direction. pantoprazole DR (PROTONIX) 40 mg tablet Take 1 tablet by mouth DAILY (6 AM). COMPOUNDED PRESCRIPTION Supplemental oxygen. Lifetime supply. Portable tank along with concentrator.3 lpm with exertion and at hours of sleep via nasal cannula albuterol HFA (PROVENTIL HFA, VENTOLIN HFA) 90 mcg/actuation inhaler Inhale 2 Puffs as instructed every 6 hours as needed for Wheezing/Shortness of Breath. ezetimibe (ZETIA) 10 mg tablet Take 1 tablet by mouth once daily. Compression Knee Highs KNEE HIGH COMPRESSION STOCKINGS 20- 30 MM HG. DX: EDEMA. VENOUS INSUFFICIENCY, BOTH LOWER EXTREMITIES. atorvastatin (LIPITOR) 80 mg tablet Take 1 tablet by mouth once daily. fluticasone (FLONASE) 50 mcg/actuation nasal spray 1 or 2 sprays in each nostril at bedtime. polyethylene glycol 3350 (MIRALAX) 17 gram/dose powder Take 17 g by mouth once daily. magnesium hydroxide (MILK OF MAGNESIA) 400 mg/5 mL suspension Take 15 mL by mouth once daily as needed for Constipation. senna-docusate 8.6-50 mg per tablet Take 1 tablet by mouth once daily. For constipation. Lancets (FREESTYLE LANCETS) [facility] lancets Test Blood sugar daily. Hyperglycemia, no insulin guaiFENesin-dextromethorphan (ROBITUSSIN DM) 100-10 mg/5 mL syrup Take 5 mL by mouth three times daily as needed. No current facility-administered medications for this visit. Review of Systems Constitutional: Negative. HENT: Negative. Eyes: Negative. Respiratory: Positive for shortness of breath. Negative for cough, chest tightness and wheezing. Cardiovascular: Positive for leg swelling. Negative for chest pain and palpitations. Gastrointestinal: Negative. Genitourinary: Positive for frequency. Musculoskeletal: Positive for arthralgias, back pain and gait problem. Skin: Positive for color change. Objective BP 118/74 Pulse 84 Temp 37.1 ?C (98.7 ?F) (Temporal Artery) Resp 12 Wt (!) 149.2 kg (329 lb) BMI 47.21 kg/m2 Physical Exam Constitutional: No distress. Eyes: Conjunctivae are normal. Neck: No JVD present. Cardiovascular: S1 normal and S2 normal. An irregular rhythm present. Exam reveals no gallop. No murmur heard. Pulmonary/Chest: He has decreased breath sounds in the right lower field and the left lower field. He has no wheezes. He has no rales. Abdominal: Soft. There is no tenderness. Genitourinary: Penis normal. Right testis shows swelling. Right testis shows no mass and no tenderness. Left testis shows swelling. Left testis shows no mass and no tenderness. Genitourinary Comments: Hydroceles. Musculoskeletal: He exhibits edema. 1-2+ bipedal, with stasis pigmentation of both distal legs. CMP: Glucose 88 07/30/2017 BUN 16 07/30/2017 Creatinine 1.27 07/30/2017 Sodium 143 07/30/2017 Potassium 3.8 07/30/2017 Chloride 100 07/30/2017 CO2 Content, Venous 33 07/30/2017 Protein, Total 7.7 06/30/2017 Albumin 4.1 06/30/2017 Calcium 9.0 07/30/2017 Alkaline Phosphatase 71 06/30/2017 Bilirubin, Total 0.9 06/30/2017 AST 22 06/30/2017 ALT 20 06/30/2017 ASSESSMENT/PLAN: 1. Hematuria, unspecified type - ICD9: 599.70, ICD10: R31.9 (primary diagnosis) Recurrent. - UA DIP B/O - Set up UROLOGY consult as ordered last March. 2. Hematospermia - ICD9: 608.82, ICD10: R36.1 Recurrent. - UA DIP B/O 3. Acute on chronic respiratory failure with hypoxia and hypercapnia (HCC) - ICD9: 518.84, 786.09, 799.02, ICD10: J96.21, J96.22 Stable. 4. Paroxysmal atrial fibrillation (HCC) - ICD9: 427.31, ICD10: I48.0 Rate controlled. 5. Chronic anticoagulation - ICD9: V58.61, ICD10: Z79.01 Anticoagulated. 6. Type 2 diabetes mellitus with diabetic neuropathy, without long-term current use of insulin (HCC) - ICD9: 250.60, 357.2, ICD10: E11.40 Controlled. - Continue current medications 7. Kidney insufficiency - ICD9: 593.9, ICD10: N28.9 Discussed. Monitor. Coy Mercado MD Referring Provider: COY MERCADO [[id number]] Allergies As of Date: 08/12/2017 (No Known Allergies) Date Reviewed: 08/12/2017 Reviewed by: Rosa Gunter Ma - Fully Assessed Reason for Visit: Follow Up [171] Primary Visit Diagnosis:Hematuria, unspecified type [R31.9] Other Visit Diagnoses:Hematospermia [R36.1] Acute on chronic respiratory failure with hypoxia and hypercapnia (HCC) [J96.21, J96.22] Paroxysmal atrial fibrillation (HCC) [I48.0] Chronic anticoagulation [Z79.01] Type 2 diabetes mellitus with diabetic neuropathy, without long-term current use of insulin (HCC) [E11.40] Kidney insufficiency [N28.9] Order(s):UA DIP B/O [[id number]] Order #: [id number] Prescriptions as of 08/12/2017 Sig: VALSARTAN 160 MG-HYDROCHLOROT* Take 1 tablet by mouth once d* METOPROLOL SUCCINATE ER 100 M* Take 1 tablet by mouth once d* WARFARIN 5 MG TABLET Take 12.5mg daily or as direc* METFORMIN 500 MG TABLET Take 1 tablet by mouth daily * NITROGLYCERIN 0.4 MG SUBLINGU* Dissolve 1 tablet under the t* CLOPIDOGREL 75 MG TABLET Take 1 tablet by mouth once d* FUROSEMIDE 20 MG TABLET Take 1 tablet by mouth once d* PANTOPRAZOLE 40 MG TABLET,DEL* Take 1 tablet by mouth DAILY * COMPOUNDED PRESCRIPTION Supplemental oxygen. Lifetime* ALBUTEROL SULFATE HFA 90 MCG/* Inhale 2 Puffs as instructed * EZETIMIBE 10 MG TABLET Take 1 tablet by mouth once d* COMPOUNDED PRESCRIPTION KNEE HIGH COMPRESSION STOCKIN* ATORVASTATIN 80 MG TABLET Take 1 tablet by mouth once d* FLUTICASONE 50 MCG/ACTUATION * 1 or 2 sprays in each nostril* POLYETHYLENE GLYCOL 3350 17 G* Take 17 g by mouth once daily. MAGNESIUM HYDROXIDE 400 MG/5 * Take 15 mL by mouth once andrey* SENNOSIDES 8.6 MG-DOCUSATE SO* Take 1 tablet by mouth once d* * LANCETS Test Blood sugar daily. Hype* DEXTROMETHORPHAN-GUAIFENESIN * Take 5 mL by mouth three time* Medication notes this encounter DEXTROMETHORPHAN-GUAIFENESIN 10 MG-100 MG/5 ML SYRUP >> Rosa Gunter Ma 08/12/2017 6:54 PM >> ROSA GUNTER MA Aug 12, 2017 6:54 PM Prn Problem List As Of Date 08/12/2017 Noted Resolved ATRIAL FIBRILLATION [I48.91] INVALID FOR*07/23/2015 More... Edema [R60.9] INVALID FOR* Hypercholesterolemia [E78.00] INVALID FOR* Priority: J More... SLEEP APNEA NOS (cpap intolerant) [G47.30] INVALID FOR*01/30/2015 Obesity [E66.9] INVALID FOR* More... Hemangioma of intra-abdominal structures [D18.0*INVALID FOR*04/25/2014 Essential hypertension [I10] INVALID FOR* Priority: K More... IRRITABLE COLON [K58.9] INVALID FOR* Constipation [K59.00] INVALID FOR* DERMATOPHYTOSIS OF NAIL [B35.1] INVALID FOR*04/24/2008 ABDOMINAL PAIN LLQ [R10.32] 04/24/2008 ABDOMINAL PAIN LUQ [R10.12] 04/24/2008 FLATUL/ERUCTAT/GAS PAIN [R14.3, R14.1, R14.2] 04/24/2008 Impaired fasting glucose [R73.01] INVALID FOR*04/25/2014 COPD (chronic obstructive pulmonary disease) [J*INVALID FOR* Type II or unspecified type diabetes mellitus w*INVALID FOR*05/16/2015 ASCVD (arteriosclerotic cardiovascular disease)*INVALID FOR* BPH (benign prostatic hyperplasia) [N40.0] INVALID FOR* Family history of colon cancer [Z80.0] INVALID FOR* NSTEMI (non-ST elevated myocardial infarction) *INVALID FOR*01/15/2016 More... DM2 (diabetes mellitus, type 2) (HCC) [E11.9] INVALID FOR* Priority: D More... S/P right coronary artery (RCA) stent placement*INVALID FOR* LV dysfunction [I51.9] INVALID FOR*01/15/2016 Cardiomyopathy, ischemic [I25.5] INVALID FOR* Priority: F More... Chronic anticoagulation [Z79.01] INVALID FOR* Priority: H More... Paroxysmal atrial fibrillation (HCC) [I48.0] INVALID FOR* Priority: C More... Sleep apnea [G47.30] INVALID FOR* Priority: G More... Astigmatism, regular [H52.229] INVALID FOR* Presbyopia [H52.4] INVALID FOR*01/15/2016 Benign neoplasm of skin of eyelid including can*INVALID FOR*04/07/2017 Polyneuropathy (HCC) [G62.9] INVALID FOR* More... Spinal stenosis, lumbar region, with neurogenic*INVALID FOR* Displacement of lumbar intervertebral disc with*INVALID FOR*04/07/2017 Spondylosis of lumbar region without myelopathy*INVALID FOR* Lesion of liver [K76.9] INVALID FOR* Priority: B More... Ascites [R18.8] INVALID FOR*05/30/2017 Priority: B More... ADEBAYO (acute kidney injury) (HCC) [N17.9] INVALID FOR* Priority: E More... Nicotine use disorder, F17.2 [F17.200] INVALID FOR* Priority: L More... Obesity, Class III, BMI >= 40 (morbid obesity) *INVALID FOR* Priority: M Lethargy [R53.83] INVALID FOR* Priority: Severe Acute on chronic respiratory failure with hypox*INVALID FOR* Priority: Moderate More... Morbid obesity with body mass index (BMI) of 45*INVALID FOR* Priority: M More... Acute liver failure with hepatic coma (HCC) [K7*INVALID FOR* Priority: Mild More... Respiratory failure with hypercapnia (HCC) [J96*INVALID FOR* Priority: A More... Shock circulatory (HCC) [R57.9] INVALID FOR*05/29/2017 Priority: A More... Disposition: Return in about 4 months (around 12/12/2017). Follow-up and Disposition History Recorded Letter Text Department of Internal Medicine [address] [place] [address] 08/12/2017 THIS IS A PRESCRIPTION FOR HANDICAPPED PARKING PERMIT Re: Catalina Adams [place] [id number] [facility] [address] [place] [address] The above named person requires a disability parking placard. DURATION: LIFETIME EXPIRATION: RENEW EVERY 5 YEARS Sincerely, Coy Mercado MD Encounter Status:Closed by COY MERCADO MD on 08/13/17 PROGRESS Observed: 07/30/2017 Status: COMPLETED Source: [place] 3:44 PM [facility] REPOSITORY HNO ID: [id number] Author: Katharine Nino RN Service: (none) Author Type: (none) Type: Progress Notes Filed: 07/30/2017 3:44 PM Note Text: PATIENT NOTIFIED OF INFORMATION PROGRESS Observed: 07/30/2017 Status: COMPLETED Source: [place] 12:59 PM [facility] REPOSITORY HNO ID: [id number] Author: Coy Mercado Service: (none) Author Type: Physician Type: Progress Notes Filed: 07/30/2017 3:44 PM Note Text: Take coumadin 15 mg for today (one day) only. Then resume 12.5 mg daily. INR in 2 weeks. PROGRESS Observed: 07/30/2017 Status: COMPLETED Source: [place] 11:25 AM [facility] REPOSITORY HNO ID: [id number] Author: Katharine Nino RN Service: (none) Author Type: (none) Type: Progress Notes Filed: 07/30/2017 11:27 AM Note Text: patient had inr completed at [facility] patients inr is 1.8 (patients inr range is 2.0-3.0) patient is currently taking 12.5mg daily patients last dose change: unsure at this time due to this is the first time patient has been back to the since Apr due to having 2 AL's and homehealth was checking patient has had no changes in medication and no change in diet Advised patient that they would be contacted regarding medication dose and when to follow up after information is reviewed by provider. After provider review please contact the patient with information and schedule follow up appointment with coumadin clinic. FYI - patient has been scheduled for a 2 week inr follow up on 08/13/17 (due to coming in for appt with pcp) BASIC METABOLIC PANL Collected: 07/30/2017 Status: F Source: [place] 10:16 AM [facility] REPOSITORY TYPE CODE TESTS RESULT OUT OF REFERENCE UNITS RANGE LAB GLU 74-99 mg/dL Glucose 88 Result Comment: The [place] [employer] (ADA) provides guidance for cutoff values for fasting glucose and random glucose. The ADA defines fasting as no caloric intake for at least 8 hours. Fas ting plasma glucose results between 100 to 125 mg/dL indicate increased risk for diabetes (prediabetes). Fasting plasma glucose results greater than or equal to 126 mg/dL meet the criteria for diagnosis of diabetes. In the absence of unequivocal hyperglycemia, results should be confirmed by repeat testing. In a patient with classic symptoms of hyperglycemia or hyperglycemic crisis, random plasma glucose results greater than or equal to 200 mg/dL meet the criteria for diagnosis of diabetes. Reference: Standards of Medical Care in Diabetes 2016, [place] [employer] Association. Diabetes Care. 2016.39(Suppl 1). LAB BUN 9-24 mg/dL BUN 16 LAB CRET 0.73-1.22 mg/dL Creatinine High 1.27 LAB NA 136-144 mmol/L Sodium 143 LAB K 3.7-5.1 mmol/L Potassium 3.8 LAB CL 97-105 mmol/L Chloride 100 LAB CO2 22-30 mmol/L CO2 High 33 LAB AGAP 9-18 mmol/L Anion Gap 10 LAB CA 8.5-10.2 mg/dL Calcium, Total 9.0 LAB GFRAA eGFR- Amer. >60 LAB GFRNAA . eGFR-All Other Races 57 Result Comment: eGFR (Estimated GFR) Units of measure: mL/min/1.73 meters squared eGFR is derived from the reexpressed MDRD Study equation using the following parameters: serum creatinine, age, gender and race. The creatinine assay has been calibrated to be traceable to IDMS. An eGFR <60 mL/min/1.73m2 for >3 months is consistent with chronic kidney disease. Refer to KDOQI guidelines for clinical interpretation. In patients with unstable renal function, e.g. those with acute kidney injury, the eGFR may not accurately reflect actual GFR. Performed By: #### BMP, MG1 #### [facility] [employer] [address] [place] [address] MAGNESIUM Collected: 07/30/2017 Status: F Source: [place] 10:16 AM [facility] REPOSITORY TYPE CODE TESTS RESULT OUT OF REFERENCE UNITS RANGE LAB MG 1.7-2.3 mg/dL Magnesium 2.3 Performed By: #### BMP, MG1 #### [facility] [employer] [address] [place] [address] PROGRESS Observed: 07/15/2017 Status: COMPLETED Source: [place] 11:55 AM [facility] REPOSITORY HNO ID: [id number] Author: Zeke Sahni Service: (none) Author Type: Physician Type: Progress Notes Filed: 07/15/2017 1:50 PM Note Text: PERTINENT CARDIAC HISTORY PAF - Documented 2011, 06/16/14 COPD - previous 2ppd smoker Hypertension with LVH, PAF, and dilated aorta Hyperlipidemia RICKY - can't tolerate CPAP Obesity ASHD - IMI, PCI RCA 05/14 (BIANKA) DM Venous insufficiency ADHERENCE TO GUIDELINES KUSUM-I or ARB for HF with prior LVEF<40 (NQF 0081) - met ASA or Plavix for ASHD (NQF 0067) - met Beta linda for ASHD with prior AL or prior LVEF<40 (NQF 0070) - met Beta linda for HF with prior LVEF<40 (NQF 0083) - met KUSUM-I or ARB for ASHD with DM or prior LVEF<40 (NQF 0066) - met Statin therapy for ASHD or FHL or DM - met BMI documented and plan if >25 (NQF 0421) - lifestyle recommendation form Tobacco use screening and referral (NQ 0028) - lifestyle recommendation form Recommendation for whole food, plant based diet - lifestyle recommendation form CLINICAL IMPRESSION/PLAN: Catalina Evans is clinically stable from the standpoint of his cardiac disease. His blood pressure is up somewhat today. I recommended that he restart his Diovan/HCT at once daily. He will continue Plavix and warfarin. Aspirin will not be resumed. He's been encouraged to increase his activity. He is still recovering from his respiratory insufficiency. It is not surprising that he had some episodes of atrial fibrillation during his acute illness. Subsequently, it seems to have settled down. His heart failure is well compensated at this time. His mild edema is likely related to venous insufficiency and should improve with the addition of HCTZ. I've asked him to call with vital signs in 2 weeks. He will have basic profile done in 2 weeks for follow-up of his Diovan. I will see him in 6 months or as needed. If there is increased chest pain or shortness of breath, he has been advised to contact me. Written and verbal health teaching given to patient, patient verbalizes understanding and agrees with treatment plan. This note was generated using [employer] voice recognition system, and there may be some incorrect words, spellings, and punctuation that were not noted in checking the note before saving. DIAGNOSIS FOR VISIT: ASHD Hypertension HISTORY OF PRESENT ILLNESS Catalina Evans returns for follow-up of his multiple cardiac issues, as noted above. He had a recent admission for sepsis syndrome with respiratory failure and altered mental status. He had several episodes of atrial fibrillation and was cardioverted , but his troponin did not increase. There was evidence of decompensation of his diastolic heart failure. However, he was taken off most of his diuretics and his KUSUM inhibitor at the time of discharge. His aspirin has been discontinued. He is back on warfarin. He tolerated his biceps surgery. He denies chest discomfort. He's had no edema. He denies syncope, TIAs, amaurosis and claudication. He's had no palpitations. ALLERGIES: ALLERGIES No Known Allergies CURRENT OUTPATIENT MEDICATIONS: metoprolol succinate ER (TOPROL XL) 100 mg Tb24 Take 1 tablet by mouth once daily. warfarin (COUMADIN) 5 mg tablet Take 12.5mg daily or as directed. metFORMIN (GLUCOPHAGE) 500 mg tablet Take 1 tablet by mouth daily with breakfast. . nitroglycerin sublingual (NITROQUICK) 0.4 mg SL tablet Dissolve 1 tablet under the tongue as needed. FOR CHEST PAIN. IF NO RELIEF CALL 911 clopidogrel (PLAVIX) 75 mg tablet Take 1 tablet by mouth once daily. furosemide (LASIX) 20 mg tablet Take 1 tablet by mouth once daily. Speak to your PCP about uptitrating this medication. If increasing leg swelling or shortness of breath take one more of these and call your primary care doctor for further direction. pantoprazole DR (PROTONIX) 40 mg tablet Take 1 tablet by mouth DAILY (6 AM). COMPOUNDED PRESCRIPTION Supplemental oxygen. Lifetime supply. Portable tank along with concentrator.3 lpm with exertion and at hours of sleep via nasal cannula albuterol HFA (PROVENTIL HFA, VENTOLIN HFA) 90 mcg/actuation inhaler Inhale 2 Puffs as instructed every 6 hours as needed for Wheezing/Shortness of Breath. ezetimibe (ZETIA) 10 mg tablet Take 1 tablet by mouth once daily. guaiFENesin-dextromethorphan (ROBITUSSIN DM) 100-10 mg/5 mL syrup Take 5 mL by mouth three times daily as needed. Compression Knee Highs KNEE HIGH COMPRESSION STOCKINGS 20- 30 MM HG. DX: EDEMA. VENOUS INSUFFICIENCY, BOTH LOWER EXTREMITIES. atorvastatin (LIPITOR) 80 mg tablet Take 1 tablet by mouth once daily. fluticasone (FLONASE) 50 mcg/actuation nasal spray 1 or 2 sprays in each nostril at bedtime. polyethylene glycol 3350 (MIRALAX) 17 gram/dose powder Take 17 g by mouth once daily. magnesium hydroxide (MILK OF MAGNESIA) 400 mg/5 mL suspension Take 15 mL by mouth once daily as needed for Constipation. senna-docusate 8.6-50 mg per tablet Take 1 tablet by mouth once daily. For constipation. Lancets (FREESTYLE LANCETS) [facility] lancets Test Blood sugar daily. Hyperglycemia, no insulin PAST MEDICAL HISTORY Diagnosis Date - Acute liver failure with hepatic coma (HCC) 05/27/2017 ELEVATED AMMONIA - Babinski up on right - pin point pupils - lethgary without focal findings - ASCVD (arteriosclerotic cardiovascular disease) 09/18/2014 - Atrial fibrillation (HCC) 07/01/2006 - Benign neoplasm of colon 2004 Hyperplastic - BPH (benign prostatic hyperplasia) 01/30/2015 - Cardiomyopathy, ischemic 05/30/2015 - Coronary artery disease 05/16/2015 - DM2 (diabetes mellitus, type 2) (HCC) 05/16/2015 - Edema 07/01/2006 - Family history of malignant neoplasm of gastrointestinal tract 11/03/2006 - Flatulence, eructation, and gas pain - HEMANGIOMA INTRA-ABDOM 07/29/2006 - HYPERTENSION NOS 08/27/2006 - Impaired fasting glucose 05/30/2010 - Irritable bowel syndrome 08/27/2006 - AL (myocardial infarction) 05/16/2015 - NSTEMI (non-ST elevated myocardial infarction) (HCC) 05/16/2015 Pt now chest pain free with nitrate - recheck enzymes -1 set troponin0.719, CK 507, MB 39.9, CKMB 7.9 - check echo - continue heparin, aspirin, ARB, statin, beta linda - continue clopidogrel - called in/consented for [facility] today +/- PCI -05-17-15: PCI to the mid RCA with a 3.5 x 16 mm Synergy EES - Obesity, unspecified 07/01/2006 - Other and unspecified hyperlipidemia 07/01/2006 - Polyneuropathy (HCC) 05/01/2016 Nerve study 2015. - SLEEP APNEA NOS (cpap intolerant) 07/01/2006 - Type II or unspecified type diabetes mellitus without mention of complication, not stated as uncontrolled 01/25/2014 - Unspecified constipation PAST SURGICAL HISTORY Procedure Laterality Date - [facility] 2005, 2000 - COLONOSCOP W/ OR W/O BRS SPEC 08/28/08 Colonoscopy - COLONOSCOP W/ OR W/O BRS SPEC 05/02/2015 Colonoscopy - KNEE SCOPE,DIAGNOSTIC Right 10/06/2007 Arthroscopy, knee - LEFT HEART CATH,PERCUTANEOUS 08/22/2014 Cardiac cath, L heart - PALATE/UVULA SURGERY UNLISTED 1999 Somnoplasty, tracheostomy - PAST SURGICAL HISTORY OF 05/16/2015 Had heart stent - [facility]PA[facility] HERNIA,5+Y/O,REDUCIBL Left 1990 Hernia repair, inguinal - TRACHEOSTOMY HX 1999 w/ UVPP FAMILY HISTORY Problem Relation Age of Onset - Diabetes Father - Heart Father Pacemaker - Alzheimer's Disease Father - Coronary Artery Disease Father - parkinsons [OTHER] Father - Diabetes Mother - Cancer Mother Colon - Hypertension Brother - Heart Brother CABG - Diabetes Brother - Peripheral Artery Disease Brother - Hypertension Brother Social History Marital status: Spouse name: Marcela Years of education: Number of children: 2 Occupational History Occupation Employer [employer] Social History Main Topics Smoking status: Former Smoker Packs/day: 0.25 Years: 20.00 Types: Cigarettes Quit date: 07/01/2006 Smokeless status: Former User Alcohol use: No Drug use: No REVIEW OF SYSTEMS: General: No chills, fever, weight loss, night sweats. Respiratory: No productive cough. Cardiac: As noted above. GI: No melena. : No dysuria. Musculoskeletal: No myalgias. PHYSICAL EXAMINATION: S/he is alert and in no distress. VITAL SIGNS: BP 146/98 Pulse 72 Ht 5' 10 (1.78m) Wt 314 lb 4.8 oz (142.6kg) BMI 45.10 kg/(m2). SHEENT: Skin is warm and dry. No xanthelasmas appreciated. Pharynx is benign. There is no oral cyanosis. Neck: supple. No adenopathy or thyroid enlargement. Chest: Clear to percussion and auscultation. There is mild expiratory prolongation. Trachea is midline. Air entry is equal. There is no chest wall tenderness. Cardiac: Regular rhythm. S1 and S2 are normal. PMI is nondisplaced. There is a 2/6 systolic ejection murmur. Carotids are brisk without bruits. JVP is less than 10 cm. Abdomen: Soft and nontender. Examination is limited by obesity. There are no pulsatile masses or bruits. No liver enlargement. Bowel sounds are active. Extremities: 1 plus edema. Pulses are intact and symmetrical. No clubbing or cyanosis. No femoral bruits. Neurologic: Grossly normal motor and sensory. S/he is alert and oriented x4. Recent echocardiogram shows stable LV function. There was mild pulmonary hypertension. Most recent labs show mild renal insufficiency. There was no troponin release during his hospitalization. Electronically Signed: Zeke Sahni MD July 15, 2017 11:55 AM CC:Coy Mercado MD CNOV Observed: 07/15/2017 Status: COMPLETED Source: [place] 11:30 AM [facility] OTHER CAMPUS REPOSITORY Office Visit (AGCARDWST) CATALINA EVANS ([id number]) 1955 M Date Time Provider Department 07/15/17 11:30 AM ZEKE SAHNI AGCARDWST During your visit today, we recorded the following information about you: Pulse Blood pressure Weight Height 72/minute 146/98 142.6 kg 1.778 m Zeke Sahni MD 07/15/2017 1:50 PM Signed PERTINENT CARDIAC HISTORY PAF - Documented 2011, 06/16/14 COPD - previous 2ppd smoker Hypertension with LVH, PAF, and dilated aorta Hyperlipidemia RICKY - can't tolerate CPAP Obesity ASHD - IMI, PCI RCA 05/14 (BIANKA) DM Venous insufficiency ADHERENCE TO GUIDELINES KUSUM-I or ARB for HF with prior LVEFANDlt;40 (NQF 0081) - met ASA or Plavix for ASHD (NQF 0067) - met Beta linda for ASHD with prior AL or prior LVEFANDlt;40 (NQF 0070) - met Beta linda for HF with prior LVEFANDlt;40 (NQF 0083) - met KUSUM-I or ARB for ASHD with DM or prior LVEFANDlt;40 (NQF 0066) - met Statin therapy for ASHD or FHL or DM - met BMI documented and plan if ANDgt;25 (NQF 0421) - lifestyle recommendation form Tobacco use screening and referral (NQF 0028) - lifestyle recommendation form Recommendation for whole food, plant based diet - lifestyle recommendation form CLINICAL IMPRESSION/PLAN: Catalina Evans is clinically stable from the standpoint of his cardiac disease. His blood pressure is up somewhat today. I recommended that he restart his Diovan/HCT at once daily. He will continue Plavix and warfarin. Aspirin will not be resumed. He's been encouraged to increase his activity. He is still recovering from his respiratory insufficiency. It is not surprising that he had some episodes of atrial fibrillation during his acute illness. Subsequently, it seems to have settled down. His heart failure is well compensated at this time. His mild edema is likely related to venous insufficiency and should improve with the addition of HCTZ. I've asked him to call with vital signs in 2 weeks. He will have basic profile done in 2 weeks for follow-up of his Diovan. I will see him in 6 months or as needed. If there is increased chest pain or shortness of breath, he has been advised to contact me. Written and verbal health teaching given to patient, patient verbalizes understanding and agrees with treatment plan. This note was generated using [employer] voice recognition system, and there may be some incorrect words, spellings, and punctuation that were not noted in checking the note before saving. DIAGNOSIS FOR VISIT: ASHD Hypertension HISTORY OF PRESENT ILLNESS Catalina Evans returns for follow-up of his multiple cardiac issues, as noted above. He had a recent admission for sepsis syndrome with respiratory failure and altered mental status. He had several episodes of atrial fibrillation and was cardioverted , but his troponin did not increase. There was evidence of decompensation of his diastolic heart failure. However, he was taken off most of his diuretics and his KUSUM inhibitor at the time of discharge. His aspirin has been discontinued. He is back on warfarin. He tolerated his biceps surgery. He denies chest discomfort. He's had no edema. He denies syncope, TIAs, amaurosis and claudication. He's had no palpitations. ALLERGIES: ALLERGIES No Known Allergies CURRENT OUTPATIENT MEDICATIONS: metoprolol succinate ER (TOPROL XL) 100 mg Tb24 Take 1 tablet by mouth once daily. warfarin (COUMADIN) 5 mg tablet Take 12.5mg daily or as directed. metFORMIN (GLUCOPHAGE) 500 mg tablet Take 1 tablet by mouth daily with breakfast. . nitroglycerin sublingual (NITROQUICK) 0.4 mg SL tablet Dissolve 1 tablet under the tongue as needed. FOR CHEST PAIN. IF NO RELIEF CALL 911 clopidogrel (PLAVIX) 75 mg tablet Take 1 tablet by mouth once daily. furosemide (LASIX) 20 mg tablet Take 1 tablet by mouth once daily. Speak to your PCP about uptitrating this medication. If increasing leg swelling or shortness of breath take one more of these and call your primary care doctor for further direction. pantoprazole DR (PROTONIX) 40 mg tablet Take 1 tablet by mouth DAILY (6 AM). COMPOUNDED PRESCRIPTION Supplemental oxygen. Lifetime supply. Portable tank along with concentrator.3 lpm with exertion and at hours of sleep via nasal cannula albuterol HFA (PROVENTIL HFA, VENTOLIN HFA) 90 mcg/actuation inhaler Inhale 2 Puffs as instructed every 6 hours as needed for Wheezing/Shortness of Breath. ezetimibe (ZETIA) 10 mg tablet Take 1 tablet by mouth once daily. guaiFENesin-dextromethorphan (ROBITUSSIN DM) 100-10 mg/5 mL syrup Take 5 mL by mouth three times daily as needed. Compression Knee Highs KNEE HIGH COMPRESSION STOCKINGS 20- 30 MM HG. DX: EDEMA. VENOUS INSUFFICIENCY, BOTH LOWER EXTREMITIES. atorvastatin (LIPITOR) 80 mg tablet Take 1 tablet by mouth once daily. fluticasone (FLONASE) 50 mcg/actuation nasal spray 1 or 2 sprays in each nostril at bedtime. polyethylene glycol 3350 (MIRALAX) 17 gram/dose powder Take 17 g by mouth once daily. magnesium hydroxide (MILK OF MAGNESIA) 400 mg/5 mL suspension Take 15 mL by mouth once daily as needed for Constipation. senna-docusate 8.6-50 mg per tablet Take 1 tablet by mouth once daily. For constipation. Lancets (FREESTYLE LANCETS) [facility] lancets Test Blood sugar daily. Hyperglycemia, no insulin PAST MEDICAL HISTORY Diagnosis Date - Acute liver failure with hepatic coma (HCC) 05/27/2017 ELEVATED AMMONIA - Babinski up on right - pin point pupils - lethgary without focal findings - ASCVD (arteriosclerotic cardiovascular disease) 09/18/2014 - Atrial fibrillation (HCC) 07/01/2006 - Benign neoplasm of colon 2004 Hyperplastic - BPH (benign prostatic hyperplasia) 01/30/2015 - Cardiomyopathy, ischemic 05/30/2015 - Coronary artery disease 05/16/2015 - DM2 (diabetes mellitus, type 2) ([facility]) 05/16/2015 - Edema 07/01/2006 - Family history of malignant neoplasm of gastrointestinal tract 11/03/2006 - Flatulence, eructation, and gas pain - HEMANGIOMA INTRA-ABDOM 07/29/2006 - HYPERTENSION NOS 08/27/2006 - Impaired fasting glucose 05/30/2010 - Irritable bowel syndrome 08/27/2006 - AL (myocardial infarction) 05/16/2015 - NSTEMI (non-ST elevated myocardial infarction) ([facility]) 05/16/2015 Pt now chest pain free with nitrate - recheck enzymes -1 set troponin0.719, CK 507, MB 39.9, CKMB 7.9 - check echo - continue heparin, aspirin, ARB, statin, beta linda - continue clopidogrel - called in/consented for [facility] today +/- PCI -05-17-15: PCI to the mid RCA with a 3.5 x 16 mm Synergy EES - Obesity, unspecified 07/01/2006 - Other and unspecified hyperlipidemia 07/01/2006 - Polyneuropathy ([facility]) 05/01/2016 Nerve study 2015. - SLEEP APNEA NOS (cpap intolerant) 07/01/2006 - Type II or unspecified type diabetes mellitus without mention of complication, not stated as uncontrolled 01/25/2014 - Unspecified constipation PAST SURGICAL HISTORY Procedure Laterality Date - [facility] Colonoscopy 2004, 2000 - [facility]ON[facility] 08/28/08 Colonoscopy - COLONOSCOP W/ [facility] 05/02/2015 Colonoscopy - KNEE SCOPE,DIAGNOSTIC Right 10/06/2007 Arthroscopy, knee - LEFT HEART CATH,PERCUTANEOUS 08/22/2014 Cardiac cath, L heart - PALATE/UVULA SURGERY UNLISTED 1999 Somnoplasty, tracheostomy - PAST SURGICAL HISTORY OF 05/16/2015 Had heart stent - REPAIR [facility] HERN[facility],5+Y/O,REDUCIBL Left 1990 Hernia repair, inguinal - TRACHEOSTOMY HX 1999 w/ UVPP FAMILY HISTORY Problem Relation Age of Onset - Diabetes Father - Heart Father Pacemaker - Alzheimer's Disease Father - Coronary Artery Disease Father - parkinsons [OTHER] Father - Diabetes Mother - Cancer Mother Colon - Hypertension Brother - Heart Brother CABG - Diabetes Brother - Peripheral Artery Disease Brother - Hypertension Brother Social History Marital status: Spouse name: Marcela Years of education: Number of children: 2 Occupational History Occupation Employer Comment [employer]* Social History Main Topics Smoking status: Former Smoker Packs/day: 0.25 Years: 20.00 Types: Cigarettes Quit date: 07/01/2006 Smokeless status: Former User Alcohol use: No Drug use: No REVIEW OF SYSTEMS: General: No chills, fever, weight loss, night sweats. Respiratory: No productive cough. Cardiac: As noted above. GI: No melena. : No dysuria. Musculoskeletal: No myalgias. PHYSICAL EXAMINATION: S/he is alert and in no distress. VITAL SIGNS: BP 146/98 Pulse 72 Ht 5' 10ANDquot; (1.78m) Wt 314 lb 4.8 oz (142.6kg) BMI 45.10 kg/(m2). SHEENT: Skin is warm and dry. No xanthelasmas appreciated. Pharynx is benign. There is no oral cyanosis. Neck: supple. No adenopathy or thyroid enlargement. Chest: Clear to percussion and auscultation. There is mild expiratory prolongation. Trachea is midline. Air entry is equal. There is no chest wall tenderness. Cardiac: Regular rhythm. S1 and S2 are normal. PMI is nondisplaced. There is a 2/6 systolic ejection murmur. Carotids are brisk without bruits. JVP is less than 10 cm. Abdomen: Soft and nontender. Examination is limited by obesity. There are no pulsatile masses or bruits. No liver enlargement. Bowel sounds are active. Extremities: 1 plus edema. Pulses are intact and symmetrical. No clubbing or cyanosis. No femoral bruits. Neurologic: Grossly normal motor and sensory. S/he is alert and oriented x4. Recent echocardiogram shows stable LV function. There was mild pulmonary hypertension. Most recent labs show mild renal insufficiency. There was no troponin release during his hospitalization. Electronically Signed: Zeke Sahni MD July 15, 2017 11:55 AM CC:MD Zeke Perkins MD 07/15/2017 11:57 AM Signed Restart Diovan/HCT once a day Have blood work done in 2 wks. LIFESTYLE CHANGE A healthy lifestyle is the most important component of your overall treatment plan. Please give serious thought to the following areas and commit to making jail changes. EAT A WHOLE FOOD, PLANT BASED DIET The nutrition your body gets is more important than the medicine you take. What matters most is the overall way you eat. We encourage you to minimize the use of animal products (which include dairy and all meats except fatty fish) and use whole, unprocessed plant foods to provide your protein, vitamins and other nutrients. We have a lot of information to share with you on this topic. We also hold Shared Medical Appointments, where you can come visit with Dr. Sahni in the company of other patients and spend over an hour talking about the challenges of changing the way you eat. This is not a ANDquot;dietANDquot;. It is a way of life that you will keep with you. EXERCISE REGULARLY It is not important to spend hours in the gym, lifting weights and perspiring heavily. A total of 2-3 hours per week of aerobic (causing you to be moderately short of breath) exercise is sufficient to improve your health. Talk to us before you begin a new exercise program, if you have heart disease or experience shortness of breath or chest pain. REDUCE STRESS Chronic emotional and physical stress leads to disease. Ways of reducing stress include meditation, visualization, prayer, yoga and other forms of relaxation therapy. Consistency is the green. Find a technique that works for you and do it every day. CULTIVATE RELATIONSHIPS Loneliness and isolation have a major negative impact on health. Seek out others who can love, care for and nurture you. Avoid hurtful relationships. MAINTAIN IDEAL BODY WEIGHT The best way to do this is to do all the things above. Our bodies naturally find the right weight if we keep moving and feed ourselves the right food. If your BMI is greater than 25, we strongly recommend a referral to a weight management program. Please speak to us or your family physician about available programs. AVOID NICOTINE IN ALL FORMS This includes all tobacco products, whether chewed, smoked, vaped, or rubbed on the skin. Smoking cessation programs, which can make use of tobacco substitutes, medications to suppress cravings and behavior management, are available. Please contact your family physician about programs in your area. Referring Provider: COY MERCADO [[id number]] Allergies As of Date: 07/15/2017 (No Known Allergies) Date Reviewed: 07/15/2017 Reviewed by: Geraldine Willis - Fully Assessed Reason for Visit: Follow Up [171] Primary Visit Diagnosis:ASHD (arteriosclerotic heart disease) [I25.10] Other Visit Diagnoses:Cardiomyopathy, ischemic [I25.5] PAF (paroxysmal atrial fibrillation) (HCC) [I48.0] Essential hypertension [I10] Order(s):BASIC METABOLIC PNL [SQBMP] Order #: [id number] FUTURE MAGNESIUM BLD [SQMG1] Order #: [id number] FUTURE Valsartan-Hydrochlorothiazide (DIOVAN HCT) 160-12.5 mg per tabletTake 1 tablet by mouth once daily.Disp: Rfl: Prescriptions as of 07/15/2017 Sig: METOPROLOL SUCCINATE ER 100 M* Take 1 tablet by mouth once d* WARFARIN 5 MG TABLET Take 12.5mg daily or as direc* METFORMIN 500 MG TABLET Take 1 tablet by mouth daily * NITROGLYCERIN 0.4 MG SUBLINGU* Dissolve 1 tablet under the t* CLOPIDOGREL 75 MG TABLET Take 1 tablet by mouth once d* FUROSEMIDE 20 MG TABLET Take 1 tablet by mouth once d* PANTOPRAZOLE 40 MG TABLET,DEL* Take 1 tablet by mouth DAILY * COMPOUNDED PRESCRIPTION Supplemental oxygen. Lifetime* ALBUTEROL SULFATE HFA 90 MCG/* Inhale 2 Puffs as instructed * EZETIMIBE 10 MG TABLET Take 1 tablet by mouth once d* DEXTROMETHORPHAN-GUAIFENESIN * Take 5 mL by mouth three time* COMPOUNDED PRESCRIPTION KNEE HIGH COMPRESSION STOCKIN* ATORVASTATIN 80 MG TABLET Take 1 tablet by mouth once d* FLUTICASONE 50 MCG/ACTUATION * 1 or 2 sprays in each nostril* POLYETHYLENE GLYCOL 3350 17 G* Take 17 g by mouth once daily. MAGNESIUM HYDROXIDE 400 MG/5 * Take 15 mL by mouth once andrey* SENNOSIDES-DOCUSATE SODIUM 8.* Take 1 tablet by mouth once d* * LANCETS Test Blood sugar daily. Hype* VALSARTAN 160 MG-HYDROCHLOROT* Take 1 tablet by mouth once d* Problem List As Of Date 07/15/2017 Noted Resolved ATRIAL FIBRILLATION [I48.91] INVALID FOR*07/23/2015 More... Edema [R60.9] INVALID FOR* Hypercholesterolemia [E78.00] INVALID FOR* Priority: J More... SLEEP APNEA NOS (cpap intolerant) [G47.30] INVALID FOR*01/30/2015 Obesity [E66.9] INVALID FOR* More... Hemangioma of intra-abdominal structures [D18.0*INVALID FOR*04/25/2014 Essential hypertension [I10] INVALID FOR* Priority: K More... IRRITABLE COLON [K58.9] INVALID FOR* Constipation [K59.00] INVALID FOR* DERMATOPHYTOSIS OF NAIL [B35.1] INVALID FOR*04/24/2008 ABDOMINAL PAIN LLQ [R10.32] 04/24/2008 ABDOMINAL PAIN LUQ [R10.12] 04/24/2008 FLATUL/ERUCTAT/GAS PAIN [R14.3, R14.1, R14.2] 04/24/2008 Impaired fasting glucose [R73.01] INVALID FOR*04/25/2014 COPD (chronic obstructive pulmonary disease) [J*INVALID FOR* Type II or unspecified type diabetes mellitus w*INVALID FOR*05/16/2015 ASCVD (arteriosclerotic cardiovascular disease)*INVALID FOR* BPH (benign prostatic hyperplasia) [N40.0] INVALID FOR* Family history of colon cancer [Z80.0] INVALID FOR* NSTEMI (non-ST elevated myocardial infarction) *INVALID FOR*01/15/2016 More... DM2 (diabetes mellitus, type 2) (HCC) [E11.9] INVALID FOR* Priority: D More... S/P right coronary artery (RCA) stent placement*INVALID FOR* LV dysfunction [I51.9] INVALID FOR*01/15/2016 Cardiomyopathy, ischemic [I25.5] INVALID FOR* Priority: F More... Chronic anticoagulation [Z79.01] INVALID FOR* Priority: H More... Paroxysmal atrial fibrillation (HCC) [I48.0] INVALID FOR* Priority: C More... Sleep apnea [G47.30] INVALID FOR* Priority: G More... Astigmatism, regular [H52.229] INVALID FOR* Presbyopia [H52.4] INVALID FOR*01/15/2016 Benign neoplasm of skin of eyelid including can*INVALID FOR*04/07/2017 Polyneuropathy (HCC) [G62.9] INVALID FOR* More... Spinal stenosis, lumbar region, with neurogenic*INVALID FOR* Displacement of lumbar intervertebral disc with*INVALID FOR*04/07/2017 Spondylosis of lumbar region without myelopathy*INVALID FOR* Lesion of liver [K76.9] INVALID FOR* Priority: B More... Ascites [R18.8] INVALID FOR*05/30/2017 Priority: B More... ADEBAYO (acute kidney injury) (HCC) [N17.9] INVALID FOR* Priority: E More... Nicotine use disorder, F17.2 [F17.200] INVALID FOR* Priority: L More... Obesity, Class III, BMI >= 40 (morbid obesity) *INVALID FOR* Priority: M Lethargy [R53.83] INVALID FOR* Priority: Severe Acute on chronic respiratory failure with hypox*INVALID FOR* Priority: Moderate More... Morbid obesity with body mass index (BMI) of 45*INVALID FOR* Priority: M More... Acute liver failure with hepatic coma (HCC) [K7*INVALID FOR* Priority: Mild More... Respiratory failure with hypercapnia (HCC) [J96*INVALID FOR* Priority: A More... Shock circulatory (HCC) [R57.9] INVALID FOR*05/29/2017 Priority: A More... Other instructions from your clinician: Restart Diovan/HCT once a day Have blood work done in 2 wks. LIFESTYLE CHANGE A healthy lifestyle is the most important component of your overall treatment plan. Please give serious thought to the following areas and commit to making jail changes. EAT A WHOLE FOOD, PLANT BASED DIET The nutrition your body gets is more important than the medicine you take. What matters most is the overall way you eat. We encourage you to minimize the use of animal products (which include dairy and all meats except fatty fish) and use whole, unprocessed plant foods to provide your protein, vitamins and other nutrients. We have a lot of information to share with you on this topic. We also hold Shared Medical Appointments, where you can come visit with Dr. Sahni in the company of other patients and spend over an hour talking about the challenges of changing the way you eat. This is not a diet. It is a way of life that you will keep with you. EXERCISE REGULARLY It is not important to spend hours in the gym, lifting weights and perspiring heavily. A total of 2-3 hours per week of aerobic (causing you to be moderately short of breath) exercise is sufficient to improve your health. Talk to us before you begin a new exercise program, if you have heart disease or experience shortness of breath or chest pain. REDUCE STRESS Chronic emotional and physical stress leads to disease. Ways of reducing stress include meditation, visualization, prayer, yoga and other forms of relaxation therapy. Consistency is the green. Find a technique that works for you and do it every day. CULTIVATE RELATIONSHIPS Loneliness and isolation have a major negative impact on health. Seek out others who can love, care for and nurture you. Avoid hurtful relationships. MAINTAIN IDEAL BODY WEIGHT The best way to do this is to do all the things above. Our bodies naturally find the right weight if we keep moving and feed ourselves the right food. If your BMI is greater than 25, we strongly recommend a referral to a weight management program. Please speak to us or your family physician about available programs. AVOID NICOTINE IN ALL FORMS This includes all tobacco products, whether chewed, smoked, vaped, or rubbed on the skin. Smoking cessation programs, which can make use of tobacco substitutes, medications to suppress cravings and behavior management, are available. Please contact your family physician about programs in your area. Prescriptions ordered this encounter Disp Refills Start End VALSARTAN 160 MG-HYDROCHLOROTHIAZIDE* 07/15/2017 Class: Med Update Route: ORAL Sig: Take 1 tablet by mouth once daily. Medications Discontinued During This Encounter aspirin 81 mg chewable tablet 90 t* 3 05/18/2015 07/15/2017 Class: Print RX Route: ORAL Sig: Take 1 tablet by mouth once daily. Disc: Reason for discontinue is not on file. Encounter Status:Closed by ZEKE SAHNI MD on 07/15/17 AMMONIA Collected: 06/30/2017 Status: F Source: [place] 1:06 PM [facility] REPOSITORY TYPE CODE TESTS RESULT OUT OF REFERENCE UNITS RANGE LAB NH3 17-47 umol/L Ammonia 27 Performed By: #### NH3, CBC, CMP #### [facility] [address] [place], [place] [address] CBC Collected: 06/30/2017 Status: F Source: [place] 1:06 [facility] REPOSITORY TYPE CODE TESTS RESULT OUT OF REFERENCE UNITS RANGE LAB WBC 3.70-11.00 k/uL WBC 8.06 LAB RBC 4.20-6.00 m/uL RBC 4.67 LAB HGB 13.0-17.0 g/dL Hemoglobin 13.0 LAB HCT 39.0-51.0 % Hematocrit 41.5 LAB MCV 80.0-100.0 fL MCV 88.9 LAB MCH 26.0-34.0 pG MCH 27.8 LAB MCHC 30.5-36.0 g/dL MCHC 31.3 LAB RDWCV 11.5-15.0 % RDW-CV 14.8 LAB PLTCT 150-400 k/uL Platelet Count 195 LAB MPV 9.0-12.7 fL MPV 10.8 LAB ABSNUC <0.01 k/uL Absolute nRBC <0.01 Performed By: #### NH3, CBC, CMP #### [facility] [address] [place] [id number] COMP METABOLIC PANEL Collected: 06/30/2017 Status: F Source: [place] 1:06 [facility] REPOSITORY TYPE CODE TESTS RESULT OUT OF REFERENCE UNITS RANGE LAB TP 6.3-8.0 g/dL Protein, Total 7.7 LAB ALB 3.9-4.9 g/dL Albumin 4.1 LAB CA 8.5-10.2 mg/dL Calcium, Total 9.5 LAB TBIL 0.2-1.3 mg/dL Bilirubin, Total 0.9 LAB ALKP 36-108 U/L Alkaline Phosphatase 71 LAB AST 14-40 U/L AST 22 LAB GLU 74-99 mg/dL Glucose 95 Result Comment: The [place] [employer] (ADA) provides guidance for cutoff values for fasting glucose and random glucose. The ADA defines fasting as no caloric intake for at least 8 hours. Fas ting plasma glucose results between 100 to 125 mg/dL indicate increased risk for diabetes (prediabetes). Fasting plasma glucose results greater than or equal to 126 mg/dL meet the criteria for diagnosis of diabetes. In the absence of unequivocal hyperglycemia, results should be confirmed by repeat testing. In a patient with classic symptoms of hyperglycemia or hyperglycemic crisis, random plasma glucose results greater than or equal to 200 mg/dL meet the criteria for diagnosis of diabetes. Reference: Standards of Medical Care in Diabetes 2016, [place] [employer]. Diabetes Care. 2016.39(Suppl 1). LAB BUN 9-24 mg/dL BUN 21 LAB CRET 0.73-1.22 mg/dL Creatinine High 1.29 LAB NA 136-144 mmol/L Sodium 144 LAB K 3.7-5.1 mmol/L Potassium 4.1 LAB CL 97-105 mmol/L Chloride 100 LAB CO2 22-30 mmol/L CO2 29 LAB AGAP 9-18 mmol/L Anion Gap 15 LAB ALT 10-54 U/L ALT 20 LAB GFRAA eGFR- Amer. >60 LAB GFRNAA . eGFR-All Other Races 56 Result Comment: eGFR (Estimated GFR) Units of measure: mL/min/1.73 meters squared eGFR is derived from the reexpressed MDRD Study equation using the following parameters: serum creatinine, age, gender and race. The creatinine assay has been calibrated to be traceable to IDMS. An eGFR <60 mL/min/1.73m2 for >3 months is consistent with chronic kidney disease. Refer to KDOQI guidelines for clinical interpretation. In patients with unstable renal function, e.g. those with acute kidney injury, the eGFR may not accurately reflect actual GFR. Performed By: #### NH3, CBC, CMP #### [facility] [address] [place] [id number] PROGRESS Observed: 06/30/2017 Status: COMPLETED Source: [place] 12:28 PM [facility] REPOSITORY HNO ID: [id number] Author: Coy Mercado Service: (none) Author Type: Physician Type: Progress Notes Filed: 07/02/2017 9:51 AM Note Text: This note was created using NoteWriter. Subjective Catalina Evans is a 62 year old male was here for post hospital follow up. He was admitted 05/27-06/01. Reason for Hospitalization: Acute on chronic respiratory failure Active Problems: Respiratory failure with hypercapnia (HCC) Lesion of liver DM2 (diabetes mellitus, type 2) (HCC) ADEBAYO (acute kidney injury) (HCC) Cardiomyopathy, ischemic Resolved Problems: Shock circulatory (HCC) Ascites ?? Operations During Hospitalization: None Procedures During Hospitalization: Fiberoptic intubation He was discharged home with with home health and home PT. He denied significant dyspnea on exertion, but still had easy fatigability. Physical therapy was ongoing, and he was ambulating with a cane. He was discharged on home oxygen which he only used at night. He did not feel like bringing a tank along. His medications were reviewed. He needed several forms filled out. He was being offered light duty at work, but he doubted he can do that at this time due to fatigue. He had yet to follow up with cardiology . His low back pain radiating to his right hip and leg has also flared up with this hospitalization. ACTIVE PROBLEM LIST Edema Hypercholesterolemia Obesity Essential Hypertension Irritable Bowel Syndrome Constipation Copd (Chronic Obstructive Pulmonary Disease) ([facility]) Ascvd (Arteriosclerotic Cardiovascular Disease) Bph (Benign Prostatic Hyperplasia) Family History of Colon Cancer Dm2 (Diabetes Mellitus, Type 2) ([facility]) S/P Right Coronary Artery (Rca) Stent Placement Cardiomyopathy, Ischemic Chronic Anticoagulation Paroxysmal Atrial Fibrillation (Hcc) Sleep Apnea Astigmatism, Regular Polyneuropathy ([facility]) Spinal Stenosis, Lumbar Region, With Neurogenic 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 metFORMIN (GLUCOPHAGE) 500 mg tablet Take 1 tablet by mouth daily with breakfast. . nitroglycerin sublingual (NITROQUICK) 0.4 mg SL tablet Dissolve 1 tablet under the tongue as needed. FOR CHEST PAIN. IF NO RELIEF CALL 911 clopidogrel (PLAVIX) 75 mg tablet Take 1 tablet by mouth once daily. furosemide (LASIX) 20 mg tablet Take 1 tablet by mouth once daily. Speak to your PCP about uptitrating this medication. If increasing leg swelling or shortness of breath take one more of these and call your primary care doctor for further direction. pantoprazole DR (PROTONIX) 40 mg tablet Take 1 tablet by mouth DAILY (6 AM). COMPOUNDED PRESCRIPTION Supplemental oxygen. Lifetime supply. Portable tank along with concentrator.3 lpm with exertion and at hours of sleep via nasal cannula albuterol HFA (PROVENTIL HFA, VENTOLIN HFA) 90 mcg/actuation inhaler Inhale 2 Puffs as instructed every 6 hours as needed for Wheezing/Shortness of Breath. ezetimibe (ZETIA) 10 mg tablet Take 1 tablet by mouth once daily. guaiFENesin-dextromethorphan (ROBITUSSIN DM) 100-10 mg/5 mL syrup Take 5 mL by mouth three times daily as needed. Compression Knee Highs KNEE HIGH COMPRESSION STOCKINGS 20- 30 MM HG. DX: EDEMA. VENOUS INSUFFICIENCY, BOTH LOWER EXTREMITIES. atorvastatin (LIPITOR) 80 mg tablet Take 1 tablet by mouth once daily. fluticasone (FLONASE) 50 mcg/actuation nasal spray 1 or 2 sprays in each nostril at bedtime. polyethylene glycol 3350 (MIRALAX) 17 gram/dose powder Take 17 g by mouth once daily. magnesium hydroxide (MILK OF MAGNESIA) 400 mg/5 mL suspension Take 15 mL by mouth once daily as needed for Constipation. senna-docusate 8.6-50 mg per tablet Take 1 tablet by mouth once daily. For constipation. Lancets (FREESTYLE LANCETS) [facility] lancets Test Blood sugar daily. Hyperglycemia, no insulin warfarin (COUMADIN) 5 mg tablet Take 12.5mg daily or as directed. aspirin 81 mg chewable tablet Take 1 tablet by mouth once daily. No current facility-administered medications for this visit. Review of Systems Constitutional: Positive for fatigue. Negative for chills, fever and unexpected weight change. HENT: Negative. Respiratory: Positive for shortness of breath. Negative for cough, chest tightness and wheezing. Cardiovascular: Positive for leg swelling. Negative for chest pain and palpitations. Gastrointestinal: Negative for abdominal pain, blood in stool, constipation, diarrhea, nausea and vomiting. Genitourinary: Positive for frequency. Negative for dysuria. Musculoskeletal: Positive for arthralgias, back pain and gait problem. Neurological: Positive for light-headedness and headaches. Negative for dizziness and weakness. Hematological: Negative. Objective BP 153/93 (BP Site: Left Arm, BP Position: Sitting, BP Cuff Size: Extra Large Adult) Pulse 77 Temp 36.5 ?C (97.7 ?F) (Left Tympanic) Resp 20 Wt (!) 143.3 kg (316 lb) BMI 45.34 kg/m2 Physical Exam Constitutional: He is oriented to person, place, and time. No distress. Eyes: Conjunctivae are normal. No scleral icterus. Neck: No JVD present. Cardiovascular: Normal rate, regular rhythm, S1 normal and S2 normal. No extrasystoles are present. Exam reveals no gallop. No murmur heard. Pulmonary/Chest: No accessory muscle usage. No respiratory distress. He has decreased breath sounds. He has no wheezes. He has no rhonchi. He has no rales. Abdominal: He exhibits no fluid wave and no ascites. There is no hepatosplenomegaly. There is no tenderness. Musculoskeletal: He exhibits edema. Bilateral 2+ edema, non pitting. Neurological: He is alert and oriented to person, place, and time. No focal weakness. Ambulatory with cane. General debility. Skin: No cyanosis. Nails show no clubbing. Stasis pigmentation of both legs. ASSESSMENT/PLAN: 1. Acute on chronic respiratory failure with hypoxia and hypercapnia (HCC) - ICD9: 518.84, 786.09, 799.02, ICD10: J96.21, J96.22 (primary diagnosis) - He is encouraged to stay on oxygen continuously, especially with any activity. - CBC - COMP METABOLIC PANEL 2. Essential hypertension - ICD9: 401.9, ICD10: I10 - suboptimal control No change for now. - METOPROLOL SUCCINATE ER 100 MG TABLET,EXTENDED RELEASE 24 HR 3. ASCVD (arteriosclerotic cardiovascular disease) - ICD9: 429.2, 440.9, ICD10: I25.10 Stable. - METOPROLOL SUCCINATE ER 100 MG TABLET,EXTENDED RELEASE 24 HR - NITROGLYCERIN 0.4 MG SUBLINGUAL TABLET 4. Paroxysmal atrial fibrillation (HCC) - ICD9: 427.31, ICD10: I48.0 Anticoagulated. - WARFARIN 5 MG TABLET 5. Type 2 diabetes mellitus with diabetic neuropathy, without long-term current use of insulin (HCC) - ICD9: 250.60, 357.2, ICD10: E11.40 - Continue current medications - METFORMIN 500 MG TABLET 6. Acute liver failure with hepatic coma (HCC) - ICD9: 570, 572.2, ICD10: K72.01 Recheck. Clinically resolved. - AMMONIA BLD 7. Edema, unspecified type - ICD9: 782.3, ICD10: R60.9 Stable. 8. Cardiomyopathy, ischemic - ICD9: 414.8, ICD10: I25.5 Continued excuse from work until he sees cardiology. Consider light duty then. Coy Mercado MD [facility] Observed: 06/25/2017 Status: COMPLETED Source: [place] 12:00 AM [facility] REPOSITORY Telephone (INTMWS) CATALINA EVANS ([id number]) 1955 M Date Time Provider Department 06/25/17 COY MERCADO INTMWS During your visit today, we recorded the following information about you: Shena Olson [facility] 06/25/2017 2:36 PM Signed Karina calling from [facility] with patients INR result. Last INR: INR (POCT) 1.9 (ext) 06/25/2017 Current dose of coumadin is: 12.5mg daily. Last date of dose change: 06/11/17. Previous INR (date and result): 3.3 on 06/18/17 Additional Clinical Information or narrative: no Jamila Caballero MD 06/26/2017 12:38 PM Signed Continue present dose. Recheck in 1 week to make sure not continuing to go down Dianna Reese [facility] 06/26/2017 12:45 PM Signed Spoke with patient and gave him instructions to continue present dose and recheck in 1 week. Patient verbalized understanding. Yi Justin [facility] 06/28/2017 12:53 PM Signed Karina from [facility] returned call and gave coumadin instructions per Dr Caballero continue 12.5 mg daily and recheck INR in one week with understanding. Allergies As of Date: 06/25/2017 (No Known Allergies) Date Reviewed: 06/17/2017 Reviewed by: Campbell Quinn MA - Fully Assessed Reason for Visit: Anticoagulation [8] Visit Diagnosis:Paroxysmal atrial fibrillation (HCC) [I48.0] Order(s):PROTHROMBIN TIME/PT [SQPT] Order #: [id number] Prescriptions as of 06/25/2017 Sig: CLOPIDOGREL 75 MG TABLET Take 1 tablet by mouth once d* ENOXAPARIN 150 MG/ML SUBCUTAN* Inject 1 mL subcutaneously q * FUROSEMIDE 20 MG TABLET Take 1 tablet by mouth once d* PANTOPRAZOLE 40 MG TABLET,DEL* Take 1 tablet by mouth DAILY * COMPOUNDED PRESCRIPTION Supplemental oxygen. Lifetime* ALBUTEROL SULFATE HFA 90 MCG/* Inhale 2 Puffs as instructed * EZETIMIBE 10 MG TABLET Take 1 tablet by mouth once d* DEXTROMETHORPHAN-GUAIFENESIN * Take 5 mL by mouth three time* COMPOUNDED PRESCRIPTION KNEE HIGH COMPRESSION STOCKIN* ATORVASTATIN 80 MG TABLET Take 1 tablet by mouth once d* TADALAFIL 10 MG TABLET Take 1 tablet by mouth as nee* METOPROLOL SUCCINATE ER 100 M* Take 1 tablet by mouth once d* WARFARIN 5 MG TABLET Take 12.5mg daily or as direc* METFORMIN 500 MG TABLET Take 1 tablet by mouth daily * FLUTICASONE 50 MCG/ACTUATION * 1 or 2 sprays in each nostril* ASPIRIN 81 MG CHEWABLE TABLET Take 1 tablet by mouth once d* POLYETHYLENE GLYCOL 3350 17 G* Take 17 g by mouth once daily. MAGNESIUM HYDROXIDE 400 MG/5 * Take 15 mL by mouth once andrey* NITROGLYCERIN 0.4 MG SUBLINGU* Dissolve 1 tablet under the t* SENNOSIDES-DOCUSATE SODIUM 8.* Take 1 tablet by mouth once d* * LANCETS Test Blood sugar daily. Hype* Problem List As Of Date 06/25/2017 Noted Resolved ATRIAL FIBRILLATION [I48.91] INVALID FOR*07/23/2015 More... Edema [R60.9] INVALID FOR* Hypercholesterolemia [E78.00] INVALID FOR* Priority: J More... SLEEP APNEA NOS (cpap intolerant) [G47.30] INVALID FOR*01/30/2015 Obesity [E66.9] INVALID FOR* More... Hemangioma of intra-abdominal structures [D18.0*INVALID FOR*04/25/2014 Essential hypertension [I10] INVALID FOR* Priority: K More... IRRITABLE COLON [K58.9] INVALID FOR* Constipation [K59.00] INVALID FOR* DERMATOPHYTOSIS OF NAIL [B35.1] INVALID FOR*04/24/2008 ABDOMINAL PAIN LLQ [R10.32] 04/24/2008 ABDOMINAL PAIN LUQ [R10.12] 04/24/2008 FLATUL/ERUCTAT/GAS PAIN [R14.3, R14.1, R14.2] 04/24/2008 Impaired fasting glucose [R73.01] INVALID FOR*04/25/2014 COPD (chronic obstructive pulmonary disease) [J*INVALID FOR* Type II or unspecified type diabetes mellitus w*INVALID FOR*05/16/2015 ASCVD (arteriosclerotic cardiovascular disease)*INVALID FOR* BPH (benign prostatic hyperplasia) [N40.0] INVALID FOR* Family history of colon cancer [Z80.0] INVALID FOR* NSTEMI (non-ST elevated myocardial infarction) *INVALID FOR*01/15/2016 More... DM2 (diabetes mellitus, type 2) (HCC) [E11.9] INVALID FOR* Priority: D More... S/P right coronary artery (RCA) stent placement*INVALID FOR* LV dysfunction [I51.9] INVALID FOR*01/15/2016 Cardiomyopathy, ischemic [I25.5] INVALID FOR* Priority: F More... Chronic anticoagulation [Z79.01] INVALID FOR* Priority: H More... Paroxysmal atrial fibrillation (HCC) [I48.0] INVALID FOR* Priority: C More... Sleep apnea [G47.30] INVALID FOR* Priority: G More... Astigmatism, regular [H52.229] INVALID FOR* Presbyopia [H52.4] INVALID FOR*01/15/2016 Benign neoplasm of skin of eyelid including can*INVALID FOR*04/07/2017 Polyneuropathy (HCC) [G62.9] INVALID FOR* More... Spinal stenosis, lumbar region, with neurogenic*INVALID FOR* Displacement of lumbar intervertebral disc with*INVALID FOR*04/07/2017 Spondylosis of lumbar region without myelopathy*INVALID FOR* Lesion of liver [K76.9] INVALID FOR* Priority: B More... Ascites [R18.8] INVALID FOR*05/30/2017 Priority: B More... ADEBAYO (acute kidney injury) (HCC) [N17.9] INVALID FOR* Priority: E More... Nicotine use disorder, F17.2 [F17.200] INVALID FOR* Priority: L More... Obesity, Class III, BMI >= 40 (morbid obesity) *INVALID FOR* Priority: M Lethargy [R53.83] INVALID FOR* Priority: Severe Acute on chronic respiratory failure with hypox*INVALID FOR* Priority: Moderate More... Morbid obesity with body mass index (BMI) of 45*INVALID FOR* Priority: M More... Acute liver failure with hepatic coma (HCC) [K7*INVALID FOR* Priority: Mild More... Respiratory failure with hypercapnia (HCC) [J96*INVALID FOR* Priority: A More... Shock circulatory (HCC) [R57.9] INVALID FOR*05/29/2017 Priority: A More... Encounter Status:Closed by DIANNA REESE LPN on 06/26/17 ALLERGIES ALLERGIES DATE TYPE / CODE NAME / CODE REACTION SEVERITY SOURCE 02/17/2017 Drug No Known Unknown [facility] Allergy/416 Allergies/Q50744 Hospital 103542(SNOM 0388(RXNORM) Repository ED CT) NG/88801422 NO KNOWN [facility] 6(SNOMED ALLERGIES Health System CT) Repository Drug NO KNOWN [facility] Class/34185 ALLERGIES Other [place] 1003(SNOMED Repository CT) Drug/921533 No Known Christian 003(SNOMED [facility]ergies [facility] System Repository ENCOUNTERS ENCOUNTERS ADMIT/DISCHARGE ACCOUNT NUMBER ADMITTING ENCOUNTER LOCATION SOURCE CLASS 06/20/2018 [id number] Stephen, Inpatient Christian Christian Sandor Bin Encounter [facility] ng:SH.ICURoom: Health System 0333Bed: 01 Repository 06/20/2018 [id number] Ambulatory 9509 [facility] Repository 06/17/2018/ [id number] Ambulatory [address] Repository 06/17/2018/ [id number] Ambulatory [address] Repository 06/09/2018/ [id number] Ambulatory [address] Repository 06/06/2018/ [id number] Ambulatory [address] Repository 06/02/2018/ [id number] Ambulatory [place] 019 [facility] Main [place] Repository 06/02/2018 [id number] Ambulatory [facility] ng:WC Repository 05/31/2018/ [id number] Luis, Inpatient Christian Christian 019 [facility] ng:SH.ICURoom: Health System 0336Bed: 01 Repository 05/31/2018 [id number] Ambulatory [address] [place] [address] Repository 05/30/2018/ [id number] Ambulatory [address] ng:WC Repository 05/27/2018/ [id number] Ambulatory [address] Repository 05/27/2018/ [id number] Ambulatory [address] Repository 05/26/2018 [id number] Ambulatory BMSBuilding:[facility] Repository 05/19/2018 [id number] Ambulatory BMSBuilding:[facility] Repository 05/16/2018/ [id number] Ambulatory [address] Repository 05/12/2018 [id number] Ambulatory BMSBuilding:[facility] Repository 05/09/2018/ [id number] Ambulatory [place] 018 [facility] Repository 05/04/2018/ [id number] Ambulatory [place] 018 [facility] [place] Repository 05/02/2018/ [id number] Ambulatory [place] 018 [facility] [place] Repository 04/28/2018 [id number] Ambulatory Shaynekarishilda BellaChristian [facility] MedicineBuildi Repository ng:Jefferyo 04/28/2018/ [id number] Almita, Ambulatory Shaynekarishilda BellaChristian 018 [place] [facility] Medicine[facility]i Repository ng:Mary m: Room 4 04/27/2018/ [id number] Ambulatory [place] 018 [facility] Main [place] Repository 04/25/2018/ [id number] Ambulatory [address] [place] Repository 04/25/2018 [id number] Ambulatory [facility] CENTERBuilding Repository :CAGWS 04/14/2018/ [id number] Ambulatory [place] 018 [facility] Main [place] Repository 04/14/2018/ [id number] Ambulatory [place] 018 [facility] [place] Repository 04/12/2018/ [id number] Ambulatory [place] 018 [facility] Main [place] Repository 03/21/2018/ [id number] Ambulatory [place] 018 [facility] [place] Repository 03/07/2018/ [id number] Ambulatory [place] 018 [facility] [place] Repository 02/28/2018/ [id number] Ambulatory [place] 018 [facility] [place] Repository 02/25/2018/ [id number] Ambulatory [place] 018 [facility] Main [place] Repository 02/25/2018/ [id number] Ambulatory [place] 018 [facility] [place] Repository 02/25/2018/ [id number] Ambulatory [place] 018 [facility] Main [place] Repository 02/25/2018/ [id number] Ambulatory [place] 018 [facility] [place] Repository 02/14/2018/ [id number] Ambulatory [place] 018 [facility] Main [place] Repository 02/01/2018/ [id number] Ambulatory [place] 018 [facility] [place] Repository 01/18/2018/ [id number] Ambulatory [place] 018 [facility] Main [place] Repository 01/18/2018/ [id number] Ambulatory [place] 018 [facility] [place] Repository 01/10/2018/ [id number] Ambulatory [place] 018 [facility] Main [place] Repository 01/03/2018/ [id number] Ambulatory [place] 018 [facility] [place] Repository 01/03/2018/ [id number] Ambulatory [place] 018 [facility] [place] Repository 12/31/2017/ [id number] Ambulatory [place] 018 [facility] Main [place] Repository 12/31/2017/ [id number] Ambulatory [place] 018 [facility] Main [place] Repository 12/30/2017/ [id number] Ambulatory [place] 018 [facility] Main [place] Repository 12/16/2017/ [id number] Ambulatory [place] 018 [facility] Main [place] Repository 12/16/2017/ [id number] Ambulatory [place] 018 [facility] Main [place] Repository 12/16/2017/ [id number] Ambulatory [place] 018 [facility] Main [place] Repository 12/03/2017/ [id number] Ambulatory [place] 018 [facility] Main [place] Repository 11/19/2017/ [id number] Ambulatory [place] 018 [facility] Main [place] Repository 11/18/2017/ [id number] Almita, Ambulatory Shaynejosy [place]aritan [address] [place] e(ye)[facility] Repository ng:Mary m: Room 4 11/12/2017/ [id number] Ambulatory [place] 018 [facility] [place] Repository 11/05/2017/ [id number] Ambulatory [place] 018 [facility] [place] Repository 10/29/2017/ [id number] Ambulatory [place] 018 [facility] [place] Repository 10/20/2017/ [id number] Ambulatory [place] 018 [facility] Main [place] Repository 10/20/2017/ [id number] Ambulatory [place] 018 [facility] Main [place] Repository 10/20/2017/ [id number] Ambulatory [place] 018 Clinic Other [place] Repository 10/20/2017/ [id number] Ambulatory [address] CENTERBuilding Repository :CAGWS 10/15/2017/ [id number] Ambulatory [place] 018 [facility] Main [place] Repository 10/06/2017/ [id number] Ambulatory [place] 018 [facility] Main [place] Repository 10/04/2017/ [id number] Ambulatory [place] 018 [facility] Main [place] Repository 09/21/2017/ [id number] Ambulatory [place] 018 [facility] [place] Repository 09/20/2017/ [id number] Ambulatory [place] 018 [facility] [place] Repository 09/16/2017/ [id number] Egan, Ambulatory Thompson Christian 018 Ej Valenzuela e(ye)[facility] jew[facility] hospitalAll[facility] Medicine[facility] Repository ng:JefferyoRogeri m: Room 5 09/10/2017/ [id number] Ambulatory [place] 018 [facility] Main [place] Repository 09/07/2017/ [id number] Ambulatory [place] 018 [facility] [place] Repository 08/31/2017/ [id number] Ambulatory [place] 018 [facility] [place] Repository 08/30/2017/ [id number] Ambulatory [place] 018 [facility] [place] Repository 08/20/2017/ [id number] Ambulatory [place] 018 [facility] Main [place] Repository 08/13/2017/ [id number] Ambulatory [place] 018 [facility] [place] Repository 08/12/2017/ [id number] Ambulatory [place] 018 [facility] [place] Repository 08/10/2017/ [id number] Almita, Ambulatory Christian Christian 018 [facility] ng:[facility] Repository 08/05/2017/ [id number] Almita, Ambulatory Samariran Christian [facility]18 [facility] ng:Mary m: CD:[id number] 07/30/2017/ [id number] Ambulatory [place] 018 [facility] [place] Repository 07/30/2017/ [id number] Ambulatory [place] 018 [facility] Main [place] Repository 07/15/2017/ [id number] Ambulatory [place] 018 Clinic Other [place] Repository 07/15/2017/ [id number] Ambulatory [address] CENTERBuilding Repository :CAGWS 06/30/2017/ [id number] Ambulatory [place] 018 [facility] Main [place] Repository 06/30/2017/ [id number] Ambulatory [place] 018 [facility] [place] Repository 06/25/2017/ [id number] Almita, Ambulatory Samariran Christian 018 [facility] ng:Mary m: Room 2 PAYERS PAYERS ENCOUNTER GUARANTOR PAYER SUBSCRIBER SOURCE 06/20/2018 CATALINA Espitia SPRENGDOB: Insurance:ANTHEMPolic SPRENGDOB: [facility] y Number: Effective [id number] [place] [address] Date:2018-06-[address] Repository LOT [id number] [address] [place] [address], Name:Blue [place] [address]Cwi: [place] [address]BCSKVTH, [place] [address]Tel: [phone]: (902) (HP)Tel: [phone] () (HP) 06/20/2018 CATALINA SPRENGDOB: Primary CATALINA SPRENGDOB: [place] Insurance:[facility] [id number] [place] [address] y Number: [address] Repository LOT [id number] [place] [address], Date:Plan Name:[address] [id number]: [place] [id number]: (HP) (HP) 06/20/2018 Secondary CATALINA SPRENGDOB: [place] Insurance:[facility] [id number] Hospitals y Number: [address] Repository [id number] [address] ve Date:Plan [place], [facility] [phone]: (HP) 06/02/2018 Catalina A Primary NOT GIVENUNK [facility] CR Insurance:SELF PAY [address], Number: Effective Repository [place] [address]Kkj: Date:2018-05-31 (HP) 05/31/2018 CATALINA A Primary MARCELA Espitia SPRENGDOB: [facility] y Number: Effective [id number] [place] [address] Date:2018-05-[address] LOT Repository LOT [id number] [address] [place] [address], Name:Blue Cross[place] [place] [address]Ncw: [place] [address]898[address]RZXEYIZ, [place] [address]Tel: [phone]: ([phone]) ()Tel: [phone] () (HP) 05/31/2018 CATALINA A Primary CATALINA A University SPRENGDOB: Insurance:Medical SPRENGDOB: [facility] [id number] Repository [address] 3175 Number: [address] [id number] [address] [place] [address], Date:Plan Name:[address] [id number]: [place] [id number]: () () 05/31/[address] [facility] Insurance:AnthemPolic SPRENGDOB: Hospitals y Number: [id number] Repository [id number] Date:Plan Name:Health 05/31/2018 Tertiary CATALINA A University Insurance:AnthemPolic SPRENGDOB: Hospitals y Number: [id number] Repository [id number] 5 [facility] ve Date:Plan [address] Name:[address] [id number]: () 05/30/2018 Catalina A Primary MARCELA Jo [id number] Insurance:ANTHEMPolic SPRENGDOB: [facility] 3175L[address] y Number: [id number] [address] [id number] [place]ository [place] [address]Fww: Date:0126-86-20FL [address]ZGYWGERNIKKI ESPINOZA () [address]RY: 05/30/2018 Secondary NOT GIVENUNK Jo Insurance:SELF PAY [facility] Number: Effective Repository Date:2018-05-09 05/26/2018 Catalina A Primary MARCELA [id number] Insurance:ANTHEMPolic SPRENGDOB: Community [address]175L[address] y Number: [id number] [id number] [place]ository [place] [address]Iap: Date:0060-28-60PW [address]RDPCJMYNIKKI ESPINOZA () [address]RD: 05/26/2018 Secondary NOT GIVENUNK [place] Insurance:SELF PAY [facility] Number: Effective Repository Date:2018-05-26 05/19/2018 Catalina A Primary MARCELA [place] [id number] Insurance:ANTHEMPolic SPRENGDOB: Community [address] y Number: [id number] [address] [id number] Repository [place] [address]Fiw: Date:5435-15-53IT [address]AKKUYXXNIKKI ESPINOZA () [address]RE: 05/19/2018 Secondary NOT GIVENUNK [place] Insurance:SELF PAY [facility] Number: Effective Repository Date:2018-05-19 05/12/2018 Catalina A Primary MARCELA [id number] Insurance:ANTHEMPolic SPRENGDOB: Community [address] y Number: [id number] [address] [id number] Repository [place] [address]Yqp: Date:2702-82-63BV [address]QDAWUBZ, [place] () [address]PC: 05/12/2018 Secondary NOT GIVENUNK [place] Insurance:SELF PAY [facility] Number: Effective Repository Date:2018-05-12 04/28/2018 CATALINA A Primary CATALINA A Christian SPRENGDOB: Insurance:Medical SPRENGDOB: [facility] MutualPolicy Number: [id number] [facility] [address] Effective [address] Repository LOT Date:2018-04-283174 [address] [place] [address], [id number] [address] [place] [address] Name:[place] [id number]: [address], [place] [address]Wgv: [phone]: [phone] (HP) [phone] (HP) (WP) 04/28/2018 Secondary MARCELA Christian Insurance:ANTHEMPolic SPRENGDOB: [facility] y Number: Effective [id number] System Date:2018-04-[address] LOT Repository [id number] [address] [place] [address], Name:[place] [address]Jdm: [id number] [place], [place] [address]QM: [phone]) (HP) [phone] (WP) 04/28/2018 CATALINA A Primary CATALINA A Christian SPRENGDOB: Insurance:1500 SPRENGDOB: [facility] WORKER'S COMPENSATION [id number] Number: 5 [facility] Repository LOT Effective [address] [place] [address], Date:2018-04-28[place], [place] [id number] [place] [address]Pmp: Name:CD:[id number]: (HP) (HP) (WP) 04/25/2018 CATALINA A Primary Insurance:MMO CATALINA A [facility] SPRENGDOB: SUPERMED PLUSPolicy SPRENGDOB: Health System Number: [id number] Repository [facility] [address] [address] [id number] 3175LOT Date: [place], [place] [address]Exg: (HP) 04/25/2018 Secondary MARCELA [facility] Insurance:BLUE CARD SPRENGDOB: Health System PPOPoly Number: [id number] Repository [id number] ve Date: 11/18/2017 CATALINA A Primary CATALINA A Christian SPRENGDOB: Insurance:1500 SPRENGDOB: [facility] WORKER'S COMPENSATION [id number] [place] [address] - BWCPolicy Number: [address] Repository LOT Effective [address] JOSEF, Date:2017-11-18[place] [id number]: [id number] [place] [id number]: Name:CD:[id number] (HP) (HP) (WP) 10/20/2017 CATALINA A Primary Insurance:MMO CATALINA A [facility] SPRENGDOB: SUPERMED PLUSPolicy SPRENGDOB: Health System Number: [id number] Care Hospital [facility] [id number] 3174LOT Date: [place], [place] [address]Bzp: (HP) 10/20/2017 Secondary MARCELA [facility] Insurance:BLUE CARD SPRENGDOB: Health [facility] PPPerham Health Hospitaly Number: [id number] Repository [id number] Date: 09/16/2017 CATALINA A Primary CATALINA A Christian SPRENGDOB: Insurance:1500 SPRENGDOB: [facility] WORKER'S COMPENSATION [id number] [place] [address] - BWCPolicy Number: [address] Repository LOT Effective [address]175 [address] JOSEF, Date:2017-09-16[place] [id number]: [id number] [place] [id number]: Name:CD:[id number] (HP) (HP) (WP) 08/10/2017 CATALINA A Primary CATALINA A Christian SPRENGDOB: Insurance:BWCPolicy SPRCH[facility] [place] SPRINGSDOB: [facility] Number: Effective [id number] [place] [address] Date:2017-08-[address] Repository [address] [id number] 3175 [address] JOSEF, Name:Worker's [place] [id number]: [id number] W [place] [id number]: [place] (HP) [phone]: [phone] (HP) (WP) 08/05/2017 CATALINA A Primary CATALINA A Christian SPRENGDOB: Insurance:1500 SPRENGDOB: [facility] WORKER'S COMPENSATION [id number] [place], [place] [address]y Number: 5 [facility] Repository LOT Effective [address] CARLA, Date:2017-08-05[place] [id number]: [id number] [place] [id number]: Name:CD:[id number] (HP) (HP) (WP) 07/15/2017 CATALINA A Primary Insurance:MMO CATALINA A [facility] SPRENGDOB: SUPERMED PLUSPolicy SPRENGDOB: Health System Number: [id number] Care Hospital of [facility] [id number] 3175LOT Date: [place], [place] [address]Mgv: (HP) 07/15/2017 Secondary CATALINA A [facility] Insurance:BLUE CARD SPRENGDOB: Health System PPPerham Health Hospitaly Number: [id number] Repository [id number] ve Date: 06/25/2017 CATALINA A Primary CATALINA A Christian SPRENGDOB: Insurance:1500 SPRENGDOB: [facility] WORKER'S COMPENSATION [id number] [place] [address] BWolicy Number: [address] Repository LOT Effective [address]175 [address] JOSEF, Date:2017-06-25[place], [place] [id number]: [id number] [place] [id number]: Name:CD:[id number] (HP) (HP) (WP)
== END 2018-05-30 23:59 ==
LOC: WC 11:00
PROVIDERS: Family Provider Internal Medicine; PCP Internal Medicine; Visit Provider Internal Medicine
DX: I83.028 Varicose veins of left lower extremity with ulcer other part of lower leg (principal); L97.822 Non-pressure chronic ulcer of other part of left lower leg with fat layer exposed; E11.622 Type 2 diabetes mellitus with other skin ulcer; I89.0 Lymphedema, not elsewhere classified; I25.10 Atherosclerotic heart disease of native coronary artery without angina pectoris; Z79.899 Other long term (current) drug therapy; Z87.891 Personal history of nicotine dependence; R60.0 Localized edema; M79.89 Other specified soft tissue disorders; E11.51 Type 2 diabetes mellitus with diabetic peripheral angiopathy without gangrene
CPT/HCPCS: 11042; 11045; 29581; 84134; 87070; 87075; 87077; 87186; 87205; 93923; 93970; 99212; 99213; G0463

== ENCOUNTER 2019-03-13 08:06 | Emergency (ER) | payer BC, SELFPAY ==
[2019-03-13 08:07] VITALS: BP 164/103; PULSE 84; RESP 18; TEMP 36.6; O2SAT 94; BMI 48.7
--- NOTE | 2019-03-13 08:17 | ED.VIS.GEN ---
History of Present Illness Chief Complaint: Male Pain/Injury Informant: Patient Onset: Yesterday - Yesterday pain testicle and rash noted with discharge., Days - Has had a rash several days. Context: Sudden Onset - He swelling of his testicle and pain started yesterday. Timing: Continuous Quality: Pain Location: Testicle/scrotum Current Severity: Mild Maximum Severity: Moderate Worsened by: Movement Relieved by: Nothing Associated Symptoms: No fever or chills. No dysuria or discharge. No trauma Narrative: Patient is an elderly male with multiple medical problems on [facility] who presents because of swelling scrotum and testicle with mild pain. He also complains of rash with drainage left inguinal area. He denies fever, chills night sweats. He states he checked his blood sugar yesterday and it was actually 140. He denies dysuria, frequency, urgency or hematuria. He denies penile discharge. He denies swelling of his penis. There is no history of trauma. He has not noted a bulge in the inguinal area. He does report drainage inguinal area and pruritic rash. He denies nausea, vomiting or diarrhea. Prior similar symptoms: No Recent Illness/Hospitalization: No - Past Medical History (1) High risk medication use Status: Acute (2) Type 2 diabetes mellitus Status: Chronic (3) Coronary artery disease Status: Chronic Past Medical History - Allergies and Home Meds Allergies/Adverse Reactions: Allergies No Known Allergies Allergy (Verified 03/13/19 08:09) Primary Care Physician: Coy Mercado MD [Primary Care Provider] - Prior records reviewed: Yes Surgical History: noncontributory Lives: Spouse/ Significant Other Smoking Status: Former smoker Alcohol: None Drugs: None Review of Systems General: Denies: Chills, Fever, Malaise, Sweats Eyes: Denies: Visual changes - bilaterally, Blurred Vision - bilaterally Cardiovascular: Denies: Chest pain, Palpitations Respiratory: Denies: Dyspnea, Dyspnea on exertion Gastrointestinal: Denies: Abdominal pain, Nausea, Vomiting, Diarrhea, Melena, Hematochezia Genitourinary: Denies: Dysuria, Hematuria, Frequency Musculoskeletal: Denies: Myalgias, Arthralgias, Neck pain, Back pain, Swelling, Extremity Pain Skin: Reports: Rash. Denies: Abscess, Abrasions, Wounds Hematologic: Denies: Easy bruising, Easy bleeding Physical Exam Vital Signs/Narrative: Vital Signs Temp Pulse Resp BP Pulse Ox 03/13/19 08:07 97.9 F 84 18 164/103 H 94 Inital Vital Signs reviewed: Yes General: Well nourished, Well developed, Obese, No Acute Distress Head: Normocephalic, Atraumatic Eyes: Perrl, EOMI. Negative for: Pale conjunctiva, Scleral icterus ENT: Moist mucous membranes, No rhinorrhea Neck: Supple, No lymphadenopathy, No JVD Cardiovascular: Regular rate, Regular rhythm, No murmurs, Normal S1, Normal S2 Respiratory: No distress, CTA bilaterally Abdomen: Soft, Nontender, Nondistended, Normal bowel sounds : - - Patient is circumcised. There is no penile lesion or urethral discharge noted. Scrotum is swollen. Patient has a hydrocele. There is no tenderness of the testicle or epididymis. There is no inguinal lymphadenopathy. Patient has a monilia infection. Back: Nontender, Normal Inspection Extremities: Nontender, Edema Skin: Normal color, No Trauma, Rash. Negative for: Cyanosis, Diaphoresis, Jaundice Neurological: Alert, Oriented x3, Cranial nerves II-XII grossly intact Psychological: Normal affect Diagnostic/Tx/Re-eval - Medical Decision Making Patient is diabetic and has a skin infection and will assess his blood sugar. Was informed by his nurse that the blood sugar is 144. He received Diflucan. He was given a prescription for Diflucan as well as nystatin. Reason nystatin was given was because the area is very moist and will help dry out the area. She was informed that he has a hydrocele. He was referred to urology. ED Disposition - Plan for ED Patient: Disposition: Home or Assisted Living Diagnosis: Hydrocele in adult, Monilial rash Instructions: HYDROCELE, Type Not Specified, TINEA CRURIS, Jock Itch Prescriptions: Fluconazole [Diflucan] 200 mg PO DAILY #3 tab Prescription Printed Nystatin Powder [Mycostatin Powder] 1 applic TOPICAL TID #1 bottle Prescription Printed Referrals: Coy Mercado MD [Primary Care Provider] - Micky Song MD [STAFF PHYSICIAN] - 1 Week
[2019-03-13 08:26] LABS: Bedside Glucose 144 mg/dL (70-110)
[2019-03-13] MEDS: Fluconazole 100 MG Tablet 200 MG PO (08:29)
== END 2019-03-13 09:00 | disposition home or self-care (01) ==
LOC: ED 08:33
PROVIDERS: Emergency Provider Emergency Medicine; Family Provider Internal Medicine; PCP Internal Medicine
DX: N43.3 Hydrocele, unspecified (principal); B37.89 Other sites of candidiasis; E66.9 Obesity, unspecified; E11.9 Type 2 diabetes mellitus without complications; I25.10 Atherosclerotic heart disease of native coronary artery without angina pectoris; Z79.01 Long term (current) use of anticoagulants; Z79.84 Long term (current) use of oral hypoglycemic drugs; Z79.899 Other long term (current) drug therapy; Z87.891 Personal history of nicotine dependence
CPT/HCPCS: 82962; 99283

== ENCOUNTER → 2020-11-14 09:05 | Outpatient (CLI) | payer MEDICARE, OTHER, SELFPAY ==
--- NOTE | 2020-11-14 09:16 | RAD_ITS ---
STUDY: BARIUM ENEMA. REASON FOR EXAM: Male, 65 years old. SCREENING FOR COLON CA. Incomplete colonoscopy. FLUOROSCOPY TIME (if supplied): ( 50 seconds ) minutes/seconds. 15 images were obtained. TECHNIQUE: A prop drawer film was obtained. Following this, barium was introduced retrograde through the rectum. The entire colon was opacified. COMPARISON: None. FINDINGS: There is no evidence of antegrade or retrograde obstruction to the flow of contrast. No mass lesion is seen. No filling defect is present. There is redundancy of the sigmoid colon. RAD/Barium Enema No Air Cont IMPRESSION: Redundancy of the sigmoid colon. No mass lesion or polypoid lesion is seen. Electronically Signed: Jh Arnett MD at 10:58 EDT , Service support ,
== END ==
PROVIDERS: PCP Internal Medicine; Referring Provider Surgery; Visit Provider Surgery
DX: Z12.11 Encounter for screening for malignant neoplasm of colon (principal)
CPT/HCPCS: 74270